=== PATIENT | male | born 1950 | race Caucasian/White ===

== ENCOUNTER → 2017-12-12 10:32 | Outpatient (CLI) | payer MEDICARE, SELFPAY ==
--- NOTE | 2017-12-12 10:37 | ECHOD_ITS ---
Reason For Study: TIA Procedure This was a 2D Doppler, Color Flow transthoracic echocardiogram. Exam performed in department. Left Ventricle Normal size and thickness. The estimated ejection fraction is 65 %. Stage 1 diastolic dysfunction. No regional wall motion abnormalities noted. Right Ventricle Normal size and thickness. Normal systolic function. Atria The left atrium is mildly enlarged. Normal right atrium. Normal atrial septum. Bubble contrast study negative for right to left interatrial shunt. Mitral Valve The mitral valve is structurally normal. No prolapse or stenosis seen. Trivial mitral valve insufficiency. Tricuspid Valve Normal tricuspid valve. Trivial tricuspid valve insufficiency. Right ventricular systolic pressure estimated to be 29 mmHg. Aortic Valve Normal aortic valve. Trisinus/trileaflet aortic valve. Pulmonic Valve Normal pulmonic valve. Great Vessels Normal aortic root. Normal arch. Normal inferior vena cava. Inferior vena cava collapse with sniff. Pericardium/Pleural No pericardial effusion. Medication 22 gauge I.V. with prn adaptor inserted into right arm. Performed a rapid injection of agitated mix of 9 cc saline and 1cc air to assess for atrial septal defect. MMode/2D Measurements & Calculations LVIDd: 4.4 cm IVSd: 1.2 cm Ao root diam: 4.0 cm LVIDs: 3.0 cm LVPWd: 1.2 cm LA dimension: 4.5 cm RVDd: 3.5 cm FS: 31.6 % LAV(MOD-bp): 70.7 ml LA A4 area: 21.5 cm2 RA A4 area: 14.0 cm2 LAV(MOD-bp) Indexed: 32.3 ml/m2 LAV(MOD-sp2): 74.7 ml LAV(MOD-sp4): 66.5 ml Doppler Measurements & Calculations MV E max ned: 72.2 cm/sec Ao V2 max: 146.5 cm/sec LV V1 max: 110.5 cm/sec MV A max ned: 75.9 cm/sec Ao max P.6 mmHg LV V1 max P.9 mmHg MV E/A: 0.95 TR max ned: 242.5 cm/sec TR max P.5 mmHg Interpretation Summary The estimated ejection fraction is 65 %. Stage 1 diastolic dysfunction. Bubble contrast study negative for right to left interatrial shunt. Trivial mitral valve insufficiency. Trivial tricuspid valve insufficiency. Right ventricular systolic pressure estimated to be 29 mmHg. There is no comparison study available. Ordering Physician: KATHRYN KIDD Referring Physician: DOCTOR, OUT OF TOWN Performed By: Geneva Bullard, LYDIA, RVT
== END ==
PROVIDERS: Family Provider Family Medicine; PCP Family Medicine
DX: H34.231 Retinal artery branch occlusion, right eye (principal)
CPT/HCPCS: 93306; A4216

== ENCOUNTER 2018-02-23 09:17 | Emergency (ER) | payer MEDICARE, SELFPAY ==
[2018-02-23 09:18] VITALS: BP 144/119; PULSE 66; RESP 24; TEMP 36.5; O2SAT 94; BMI 31.8
--- NOTE | 2018-02-23 09:36 | CT_ITS ---
STUDY: CT ABDOMEN AND PELVIS WITH CONTRAST REASON FOR EXAM: Male, 67 years old. Pain within the mid low abdomen with history of diverticulitis. RADIATION DOSAGE (If Supplied By Facility): CTDIvol = ( 23 ) mGy, DLP = ( 1330.07 ) mGycm TECHNIQUE: Transaxial images were obtained from the dome of the diaphragm to the symphysis pubis without oral contrast. 100CC ml of Isovue 300 contrast was administered. Sagittal and coronal images were reconstructed. Individualized dose optimization techniques were used for this CT. COMPARISON: 28 September 2014. FINDINGS: The visualized lung bases are unremarkable. The visualized portions of the heart are within normal limits. Normal liver. Normal gallbladder and extrahepatic biliary system. Within the medial anterior aspect of the spleen is a small cyst and rim calcified lesion which is overall similar in appearance to the 2014 exam consistent with benign etiology. Normal pancreas. Normal bilateral adrenal glands. Incidental subcentimeter cyst within the anterior cortex of the kidney is present as well as the posterior cortex similar to 2014 exam. Normal left kidney. Normal visualized stomach. Normal small intestine. There is diverticulosis, with thickening of the sigmoid colon wall, and pericolonic inflammation changes consistent with acute diverticulitis. The appendix is visualized and appears normal. Normal abdominal aorta. Normal inferior vena cava. Normal retroperitoneum. Normal urinary bladder. Prostatic beads are in place. There is a bilateral inguinal hernia containing adipose tissue. Normal osseous structures. CT/Abdomen/Pelvis WITH Contrast IMPRESSION: 1. Findings consistent with sigmoid diverticulitis without evidence of large fluid collection or abscess. Otherwise no evidence of acute intra-abdominal process as above. Electronically Signed: Grupo Matamoros DO at 12:36 EDT , Service support ,
[2018-02-23] MEDS: 0.9% Normal Saline 1,000 ML 125 ML IV (09:51)
[2018-02-23 09:59] LABS: Bacteria 0 SEEN /hpf (None Seen); Mucous, Urine 0 SEEN /hpf (<or=2+); Red Blood Cells-Urine 0 SEEN /hpf (0-5); White Blood Cells 0 SEEN /hpf (0-5)
[2018-02-23 10:01] LABS: Color, Urine Yellow (Yellow); Glucose, Dipstick Normal (Normal); Ketone-Dipstick Negative (Negative); Leukocyte Esterase-Dipstick Negative /ul (Negative); Nitrite-Dipstick Negative (Negative); Occult Blood-Urine Negative /ul (Negative); Protein-Dipstick 15 mg/dl (Negative); Specific Gravity, Urine 1.015 (1.002-1.030); Urine Bilirubin Dipstick Negative (Negative); Urine Clarity Clear (Clear); Urine Urobilinogen Normal (Normal)
[2018-02-23 10:02] LABS: Absolute Neutrophil Count 5.1 X10^3/uL (2.0-7.7); Basophil# 0.06 X10^3/uL; Basophil% 0.8 % (0-1); Eosinophils% 2.7 % (0-5); Hematocrit 45.5 % (40-54); Hemoglobin 15.9 g/dl (13.0-16.5); Lymphocyte % 17.5 % (19-41); Mean Corp Hgb Conc 34.9 g/gl (32-36); Mean Corpuscular Hgb 29.8 pg (27.0-32.0); Mean Corpuscular Volume 85.4 fL (80-94); Mean Platelet Vol. 9.7 fl (6.2-12.0); Monocyte# 0.73 X10^3/uL; Monocyte% 9.8 % (0-10); Neutrophil % 68.5 % (47-70); POSITIVE COUNT NO; POSITIVE DIFFERENTIAL NO; POSITIVE MORPHOLOGY NO; Platelet Count 180 K/mm3 (150-450); RBC Distribution Width CV 13.5 % (11.6-14.6); RBC Distribution Width SD 41.9 fl (35.1-43.9); Red Blood Count 5.33 M/mm3 (4.6-6.2); White Blood Count 7.4 K/mm3 (4.4-11.0)
[2018-02-23 10:10] LABS: Squamous Epithelial Cells - UA 0-5 SEEN /hpf (0-5)
[2018-02-23 10:20] LABS: AST(SGOT) 17 U/L (15-37); Alanine Aminotransfer ALT/SGPT 21 U/L (16-61); Albumin, Serum 3.7 g/dL (3.2-5.0); Alkaline Phosphatase 90 U/L (45-117); Anion Gap 6 (5-15); BUN 12 mg/dL (7-18); Calcium,Total 8.8 mg/dL (8.5-10.1); Chloride 108 mmol/L (98-107); Creatinine, Serum 1.09 mg/dL (0.70-1.30); EST Glomerular Filtration Rate 71 mL/min (>60); Est Glom Filt Rate - Afr Amer 86 mL/min (>60); Estimated Creatinine Clearance 66.97 ml/min; Globulin 3.6 g/dL (2.2-4.2); Glucose 134 mg/dL (74-106); Lipase 458 U/L (73-393); Potassium 4.1 mmol/L (3.5-5.1); Protein, Total 7.3 g/dL (6.4-8.2); Sodium Level 141 mmol/L (136-145)
[2018-02-23 11:56] VITALS: BP 119/79; PULSE 86; RESP 16; O2SAT 100
[2018-02-23] MEDS: Morphine 4 MG/ML Syringe IV (12:08)
[2018-02-23] MEDS: Ondansetron 4 MG/2 ML Vial IV (12:08)
--- NOTE | 2018-02-23 12:49 | ED.DCSUM_ITS ---
- ER Visit Summary Date of Service: 02/23/18 Chief Complaint: Abdominal pain History of Present Illness: The patient is a [address] Agosto and Dr. Damon. He reports that his abdominal pain began 2 days ago. Initially was an intermittent pain lasting 3-4 hours. However, he reports been constant since midnight. Describes pain as cramping. Senna 10 worsening a 10 currently. Is worsened by nothing including movement or food. Is relieved by antibiotics and ibuprofen. He denies any nausea or vomiting. Reports his last bowel was 1 hour ago. He has had no diarrhea no melena, no hematochezia. Reports she has had frequent urination for the past 2 days. No dysuria or hematuria. Reports she has had similar symptoms previously with diverticulitis. Physical Examination: Vitals: Stable. Afebrile. General: Well-nourished and well-developed. Head: Normocephalic atraumatic. Neck: Supple, no lymphadenopathy. No JVD. Nontender. Cardiovascular: Regular rate and rhythm. No murmurs. Respiratory: No respiratory distress. Clear to auscultation bilaterally. Abdominal: Soft, mild diffuse tenderness palpation that is worst over his lower abdomen, nondistended, normal bowel sounds. No guarding, rebound, or peritoneal signs. Back: Nontender. Extremities: Nontender, no edema. Skin: Normal color, no rash. Neurologic: Alert and oriented ?3. Cranial nerves II through XII are intact. Normal strength and sensation. Psych: Normal affect. Test Results: CBC is remarkable for lymphocytes of 18. Chem-7 is more for chloride 108 and glucose of 134. LFTs are normal. Lipase is minimally elevated at 458. UA is normal. CT abdomen pelvis. IV contrast shows a normal appendix. His sigmoid diverticulitis without free air, abscess, or perforation. Emergency Department Course and Treatment: Patient was treated morphine and Zofran IV. He was given Cipro and Flagyl p.o. He is resting comfortably. Treatment Plan: He will be discharged on Cipro, Flagyl, [place], and Zofran. Instructed to follow-up with his primary care physician 1 week for another exam. Return to the emergency department for any worsening symptoms. Disposition: To home in improved and stable condition. Impression: 1. Sigmoid diverticulitis. This note was generated with [employer] dictation software. It may contain incorrect words, spelling, and punctuation that were not noted in review of the chart prior to signing ED Disposition - Plan for ED Patient: Disposition: Home or Assisted Living Chief Complaint: Abd Pain Instructions: ED Diverticulitis Prescriptions: Ondansetron [Zofran Odt] 4 mg PO Q8H PRN PRN #10 tablet PRN Reason: Nausea Hydrocodone/Acetaminophen [[place] 5-325 Tablet] 1 - 2 each PO 4X/DAY PRN PRN 3 Days #12 tablet PRN Reason: Pain Ciprofloxacin [Cipro] 500 mg PO BID #20 tablet Metronidazole [Flagyl] 500 mg PO Q6H #40 tablet Referrals: Akash Agosto MD [Primary Care Provider] - 1 Week
[2018-02-23 12:58] VITALS: BP 134/82; PULSE 85; RESP 16; O2SAT 98
[2018-02-23] MEDS: metroNIDAZOLE 500 MG Tablet PO (12:59)
[2018-02-23] MEDS: Ciprofloxacin 500 MG Tablet PO (12:59)
== END 2018-02-23 13:08 | disposition home or self-care (01) ==
LOC: ED 09:47
PROVIDERS: Emergency Provider Emergency Medicine; Family Provider Family Medicine; PCP Family Medicine
DX: R10.9 Unspecified abdominal pain (principal); K57.32 Diverticulitis of large intestine without perforation or abscess without bleeding; E11.9 Type 2 diabetes mellitus without complications; I10 Essential (primary) hypertension; E78.00 Pure hypercholesterolemia, unspecified; Z79.84 Long term (current) use of oral hypoglycemic drugs; Z79.899 Other long term (current) drug therapy
CPT/HCPCS: 74177; 80053; 81001; 83690; 85025; 96361; 96374; 96375; 99283; Q9967; A4216; J2405

== ENCOUNTER → 2019-04-28 | Outpatient (CLI) | payer MEDICARE, SELFPAY ==
--- NOTE | 2019-04-28 11:58 | CDU_ITS ---
Reason For Study: Carotid stenosis Rt. Velocities/BP Lt. Velocities/BP Prox CCA 65.5/13.5 cm/sec. Prox CCA 81.6/21.2 cm/sec. Mid CCA 64.5/17.3 cm/sec. Mid CCA 54.2/12.4 cm/sec. Dist CCA 50.4/12.6 cm/sec. Dist CCA 54.2/17.9 cm/sec. Prox ICA 87.6/28.6 cm/sec. Prox ICA 80.5/27.8 cm/sec. Mid ICA 72.8/32.3 cm/sec. Mid ICA 77.2/21.2 cm/sec. Dist ICA 82.6/34.8 cm/sec. Dist ICA 60.8/23.4 cm/sec. Rt. ICA/CCA = 1.4. Lt. ICA/CCA = 1.5. Prox ECA 69.2/7.8 cm/sec. Prox ECA 73.9/8 cm/sec. Rt. Vert. 45/13 cm/sec. Lt. Vert. 55.2/15.1 cm/sec. Right Extracranial There is homogeneous, smooth atherosclerotic plaque noted in the right common carotid artery. There is heterogeneous, irregular atherosclerotic plaque noted in the right internal carotid artery. There is no significant atherosclerotic plaque noted in the right external carotid artery. Antegrade flow is noted in the right vertebral artery. Left Extracranial There is homogeneous, smooth atherosclerotic plaque noted in the left common carotid artery. There is heterogeneous, irregular atherosclerotic plaque noted in the left internal carotid artery. There is intimal thickening but no significant atherosclerotic plaque noted in the left external carotid artery. Antegrade flow is noted in the left vertebral artery. Procedure Carotid Duplex [id number]. Exam performed in department. Interpretation Summary Mild (<50%) stenosis right extracranial internal carotid. Mild (<50%) stenosis left extracranial internal carotid. Flow within the vertebral arteries is antegrade bilaterally. Ordering Physician: Akash Agosto Referring Physician: Akash Agosto Performed By: Mariella Gonsalez RVT
== END | disposition home or self-care (01) ==
LOC: CVS 11:57
PROVIDERS: Family Provider Family Medicine; PCP Family Medicine; Referring Provider Family Medicine; Visit Provider Family Medicine
DX: I65.23 Occlusion and stenosis of bilateral carotid arteries (principal)
CPT/HCPCS: 93880

== ENCOUNTER 2019-12-18 07:30 | Emergency (ER) | payer MEDICARE, SELFPAY ==
[2019-12-18 07:31] VITALS: BP 156/98; PULSE 61; RESP 16; TEMP 36.8; O2SAT 97; BMI 31.8
--- NOTE | 2019-12-18 07:42 | CT_ITS ---
STUDY: CT ABDOMEN AND PELVIS WITH CONTRAST REASON FOR EXAM: Male, 69 years old. DIFFUSE ABD -- HX-DIVERTICULITIS, PROSTATE CA W/ SEEDS -- HTN/DIAB-RX CONTROLLED RADIATION DOSAGE (If Supplied By Facility): CTDIvol = ( 18.59 ) mGy, DLP = ( 1328.62 ) mGycm TECHNIQUE: Transaxial images were obtained from the dome of the diaphragm to the symphysis pubis without oral contrast. IV 100mL Isovue-300 was administered. Sagittal and coronal images were reconstructed. Individualized dose optimization techniques were used for this CT. COMPARISON: Comparison is made with prior examination dated February 23, 2018. FINDINGS: The visualized lung bases are unremarkable. Coronary artery calcification. There is decreased attenuation of the liver consistent with steatosis. Normal gallbladder and extrahepatic biliary system. There is a 1.8 cm partially calcified density in the anterior medial aspect of the spleen. This is unchanged. This most likely represents partially calcified cyst versus old hematoma. Normal pancreas. Normal bilateral adrenal glands. There is a 1.7 cm cyst in the anterior midportion of the right kidney. Normal left kidney. Normal visualized stomach. Normal small intestine. There are multiple colonic diverticula consistent with diverticulosis. The appendix is visualized and appears normal. There is diffuse atherosclerotic calcification of the abdominal aorta, without a demonstrated aneurysm. Normal inferior vena cava. Normal retroperitoneum. Normal urinary bladder. Metallic radiation seeds are seen within the prostate. The prostate is not enlarged. There is a small umbilical hernia containing fat. Normal osseous structures. CT/Abdomen/Pelvis W IV Cont ONLY IMPRESSION: Sigmoid Jamal thickening without evidence of diverticulitis. Fatty infiltration of the liver. Small right renal cysts. Electronically Signed: John Sharma, at 9:44 EDT , Service support ,
--- NOTE | 2019-12-18 07:48 | ED.VISSUMM ---
- ER Visit Summary Date of Service: 12/18/19 Chief Complaint: Abdominal pain History of Present Illness: The patient is a 69 M with abdominal pain for 5 days. Pain is diffuse and does not radiate. He had similar symptoms in the past with diverticulitis. He said his symptoms are triggered by food. He tried taking antibiotics for 4 days, but he is not improving. He denies any other associated symptoms like fever, nausea, vomiting, diarrhea. Physical Examination: Afebrile and vital signs unremarkable. Alert and oriented. No acute distress. Heart regular. Lungs clear. Abdomen diffusely and mildly tender. No guarding or rebound. Normal bowel sounds. No masses, hernias, or distention. Test Results: Labs, urine, CT pending. Emergency Department Course and Treatment: IV fluids, pain medicine, nausea medicine ordered while awaiting results. CBC, CMP, lipase, urinalysis, and CT are all unremarkable. There was a typo on the CT report and it was discussed with radiology. He has a diverticulosis without diverticulitis. I do not have an explanation for his pain. His symptoms, vitals, exam, and testing are all reassuring. He may have an early diverticulitis, or it has been mitigated because he has been on antibiotics for a few days already. We talked about diet and he will continue on the Cipro and Flagyl to complete the course. Follow-up with PCP next week. Return for new or worsening issues. Cipro and Flagyl prescriptions were transmitted electronically to his [facility] in [facility]. Treatment Plan: As above Disposition: Discharge Impression: Abdominal pain This note was generated with [employer] dictation software. It may contain incorrect words, spelling, and punctuation that were not noted in review of the chart prior to signing ED Disposition - Plan for ED Patient: Instructions: ABDOMINAL PAIN, Unkown Cause, (Male) Prescriptions: Ciprofloxacin [Cipro] 500 mg PO BID #28 tab Transmission Status: Sent to [facility] metroNIDAZOLE [Flagyl] 500 mg PO Q8H #42 tab Transmission Status: Sent to [facility] Referrals: Akash Agosto MD [Primary Care Provider] -
[2019-12-18] MEDS: Morphine 4 MG/ML Syringe IV (07:55)
[2019-12-18] MEDS: 0.9% Normal Saline 1,000 ML 1000 ML IV (07:55)
[2019-12-18] MEDS: Ondansetron 4 MG/2 ML Vial IV (07:55)
[2019-12-18 07:57] LABS: Bacteria 0 SEEN /hpf (None Seen); Mucous, Urine 0 SEEN /hpf (<or=2+); Red Blood Cells-Urine 0 SEEN /hpf (0-5); Squamous Epithelial Cells - UA 0 SEEN /hpf (0-5); White Blood Cells 0 SEEN /hpf (0-5)
[2019-12-18 07:57] LABS: Absolute Lymphocyte Count 1.45 X10^3/uL (0.83-4.51); Absolute Neutrophil Count 4.9 X10^3/uL (2.0-7.7); Basophil# 0.06 X10^3/uL; Basophil% 0.8 % (0-1); Eosinophil# 0.11 X10^3/uL; Eosinophils% 1.5 % (0-5); Hematocrit 45.7 % (40-54); Hemoglobin 15.7 g/dL (13.0-16.5); Lymphocyte # 1.45 X10^3/ul (4.0); Lymphocyte % 19.5 % (19-41); Mean Corp Hgb Conc 34.4 g/dL (32-36); Mean Corpuscular Hgb 29.8 pg (27.0-32.0); Mean Corpuscular Volume 86.9 fL (80-94); Mean Platelet Vol. 9.2 fl (6.2-12.0); Monocyte# 0.75 X10^3/uL; Monocyte% 10.1 % (0-10); NRBC Flagged by Analyzer 0 % (0-5); Neutrophil # 4.94 X10^3/uL (2.7-7.7); Neutrophil % 66.6 % (47-70); Platelet Count 227 K/mm3 (150-450); RBC Distribution Width CV 12.3 % (11.6-14.6); RBC Distribution Width SD 39.2 fl (35.1-43.9); Red Blood Count 5.26 M/mm3 (4.6-6.2); White Blood Count 7.4 K/mm3 (4.4-11.0)
[2019-12-18 08:08] LABS: Color, Urine Yellow (Yellow); Glucose, Dipstick Normal (Normal); Ketone-Dipstick Negative (Negative); Leukocyte Esterase-Dipstick Negative /ul (Negative); Nitrite-Dipstick Negative (Negative); Occult Blood-Urine Negative /ul (Negative); Protein-Dipstick Negative (Negative); Urine Bilirubin Dipstick Negative (Negative); Urine Clarity Clear (Clear); Urine Urobilinogen Normal (Normal)
[2019-12-18 08:13] LABS: AST(SGOT) 17 U/L (15-37); Alanine Aminotransfer ALT/SGPT 24 U/L (16-61); Albumin, Serum 3.6 g/dL (3.2-5.0); Alkaline Phosphatase 72 U/L (45-117); Anion Gap 5 (5-15); BUN 12 mg/dL (7-18); BUN/Creat Ratio 8.8 RATIO (10-20); Calcium,Total 9.3 mg/dL (8.5-10.1); Chloride 98 mmol/L (98-107); Creatinine, Serum 1.36 mg/dL (0.70-1.30); EST Glomerular Filtration Rate 55 mL/min (>60); Est Glom Filt Rate - Afr Amer 67 mL/min (>60); Estimated Creatinine Clearance 52.19 ml/min; Globulin 3.7 g/dL (2.2-4.2); Glucose 150 mg/dL (74-106); Lipase 329 U/L (73-393); Potassium 3.6 mmol/L (3.5-5.1); Protein, Total 7.3 g/dL (6.4-8.2); Sodium Level 134 mmol/L (136-145)
[2019-12-18 09:39] VITALS: BP 145/95; PULSE 54; RESP 16; O2SAT 96
--- NOTE | 2019-12-18 10:05 | ED.DEP ---
ED Disposition - Plan for ED Patient: Instructions: ABDOMINAL PAIN, Unkown Cause, (Male) Prescriptions: Ciprofloxacin [Cipro] 500 mg PO BID #28 tab Transmission Status: Pending to [facility] metroNIDAZOLE [Flagyl] 500 mg PO Q8H #42 tab Transmission Status: Pending to [facility] Referrals: Akash Agosto MD [Primary Care Provider] -
[2019-12-18 10:22] VITALS: BP 128/83; PULSE 70; RESP 18
== END 2019-12-18 10:26 | disposition home or self-care (01) ==
PROVIDERS: Emergency Provider Emergency Medicine; PCP Family Medicine
DX: R10.84 Generalized abdominal pain (principal); E11.9 Type 2 diabetes mellitus without complications; I10 Essential (primary) hypertension; E78.00 Pure hypercholesterolemia, unspecified; Z85.46 Personal history of malignant neoplasm of prostate; Z79.899 Other long term (current) drug therapy
CPT/HCPCS: 74177; 80053; 81001; 83690; 85025; 96361; 96374; 96375; 99283; J7030; Q9967; A4216; J2405

== ENCOUNTER 2020-08-21 15:29 | Emergency (ER) | payer MEDICARE, SELFPAY ==
[2020-08-21 15:30] VITALS: BP 148/99; PULSE 74; RESP 16; TEMP 36.5; O2SAT 96; BMI 31.2
[2020-08-21 15:33] VITALS: BP 148/99; PULSE 77; RESP 16; TEMP 36.5; O2SAT 96
[2020-08-21 15:51] VITALS: O2SAT 96
--- NOTE | 2020-08-21 15:52 | ED.DCSUM_ITS ---
- ER Visit Summary Date of Service: 08/21/20 Chief Complaint: Myalgias History of Present Illness: The patient is a 69 M presenting with myalgias and not feeling well. He states this started approximately 7 days ago. He had an outpatient Covid test yesterday which is pending. He states his friend tested positive for Covid recently. He complains of cough, nausea, rhinorrhea, chills, myalgias, headache. He states he has not been eating as well as normal but denies vomiting or diarrhea. Denies fever. Denies chest pain or shortness of breath. Denies abdominal pain. He has been taking ibuprofen. Physical Examination: Vitals are stable. Patient is afebrile. Alert no acute distress. Pulse ox 96% on room air. HEENT exam is unremarkable. Neck is supple. No meningismus Lungs are clear and equal bilaterally. Heart is regular rate and rhythm. Abdomen is soft nontender nondistended. Extremities are unremarkable. Skin is warm and dry. No focal neurologic deficit. Remainder of exam is unremarkable. Emergency Department Course and Treatment: Patient was given IV fluids, Zofran. Chemistries show creatinine 1.35, near his baseline. Chest x-ray shows no acute process. After fluids patient is feeling improved. His ambulatory pulse ox is 95% on room air. He is given prescription for Zofran. He is advised to follow- up with his primary care physician. Advised return to the ED for worsening complaints. Advised to continue social distancing until his test results are returned. Disposition: Discharge home Impression: Viral syndrome, suspect Covid This note was generated with [employer] dictation software. It may contain incorrect words, spelling, and punctuation that were not noted in review of the chart prior to signing ED Disposition - Plan for ED Patient: Instructions: ED Viral Syndrome Prescriptions: Ondansetron [Zofran Odt] 4 mg PO Q8H PRN PRN #10 tab PRN Reason: Nausea Prescription Printed Referrals: Akash Agosto MD [Primary Care Provider] -
[2020-08-21 15:55] VITALS: BP 144/89; PULSE 74; RESP 16; TEMP 36.5; O2SAT 97
[2020-08-21] MEDS: Ondansetron 4 MG/2 ML Vial IV (16:00)
[2020-08-21] MEDS: 0.9% Normal Saline 1,000 ML 1000 ML IV (16:00)
--- NOTE | 2020-08-21 16:09 | RAD_ITS ---
STUDY: X-RAY CHEST REASON FOR EXAM: Male, 69 years old. Cough TECHNIQUE: Frontal view of the chest COMPARISON: 10/12/12 FINDINGS: The lungs are clear. There are no pleural effusions. There is no pneumothorax. The heart is normal in size. The visualized osseous structures are within normal limits. RAD/Chest 1 View (Portable) IMPRESSION: No acute thoracic pathology. Electronically Signed: Irwin Pan, at 16:25 EST Tel , Service support ,
[2020-08-21 16:16] LABS: Anion Gap 9 (5-15); BUN 18 mg/dL (7-18); BUN/Creat Ratio 13.3 RATIO (10-20); Calcium,Total 8.7 mg/dL (8.5-10.1); Chloride 100 mmol/L (98-107); Creatinine, Serum 1.35 mg/dL (0.70-1.30); EST Glomerular Filtration Rate 55 mL/min (>60); Est Glom Filt Rate - Afr Amer 67 mL/min (>60); Estimated Creatinine Clearance 52.57 ml/min; Glucose 112 mg/dL (74-106); Potassium 3.8 mmol/L (3.5-5.1); Sodium Level 133 mmol/L (136-145)
--- NOTE | 2020-08-21 16:41 | ED.DEP ---
ED Disposition - Plan for ED Patient: Instructions: ED Viral Syndrome Prescriptions: Ondansetron [Zofran Odt] 4 mg PO Q8H PRN PRN #10 tab PRN Reason: Nausea Prescription Printed Referrals: Akash Agosto MD [Primary Care Provider] -
[2020-08-21 17:01] VITALS: BP 136/78; PULSE 78; RESP 15; O2SAT 98
== END 2020-08-21 17:02 | disposition home or self-care (01) ==
LOC: ED 16:09
PROVIDERS: Emergency Provider Emergency Medicine; PCP Family Medicine
DX: B34.9 Viral infection, unspecified (principal); Z20.828 Contact with and (suspected) exposure to other viral communicable diseases; E11.9 Type 2 diabetes mellitus without complications; I10 Essential (primary) hypertension; Z79.84 Long term (current) use of oral hypoglycemic drugs; Z79.899 Other long term (current) drug therapy
CPT/HCPCS: 71045; 80048; 96361; 96374; 99283; J2405

== ENCOUNTER 2021-04-26 18:03 | Emergency (ER) | payer MEDICARE, SELFPAY ==
[2021-04-26 18:04] VITALS: BP 193/91; PULSE 52; RESP 18; TEMP 36.5; O2SAT 98; BMI 30.7
[2021-04-26 20:12] VITALS: BP 187/111
--- NOTE | 2021-04-26 20:26 | CT_ITS ---
STUDY: CT BRAIN WITHOUT CONTRAST REASON FOR EXAM: Male, 70 years old. Blurry vision, HTN RADIATION DOSAGE (If Supplied By Facility): CTDIvol = ( 44.99 ) mGy, DLP = ( 863.60 ) mGycm TECHNIQUE: Transaxial CT imaging of the brain was performed without administration of intravenous contrast material. Individualized dose optimization techniques were used for this CT. COMPARISON: No relevant priors. FINDINGS: Normal soft tissue structures. Normal calvarium. There is mild cerebral atrophy with widening of the extra-axial spaces and ventricular dilatation. There are areas of decreased attenuation within the white matter tracts of the supratentorial brain, consistent with microvascular disease changes. Focal area of encephalomalacia in the posterior aspect of the right occipital lobe. Normal basal ganglia and thalami. Normal brainstem. Normal cerebellum. There is no intracranial hemorrhage. There are no findings of an acute ischemic infarction. Mucosal polyp or retention cyst at the base of the left maxillary sinus. CT/Brain/Head without Contrast IMPRESSION: Chronic involutional changes of the brain. Focal area of encephalomalacia in the posterior aspect of the right occipital lobe suggestive of old ischemic insult. Electronically Signed: John Sharma MD at 21:24 EDT , Service support ,
--- NOTE | 2021-04-26 20:33 | EX.ED.DYSGE1 ---
HPI History of Present Illness Chief Complaint: Hypertension Informant: patient and spouse/S.O. Narrative Narrative: Patient presents with elevated blood pressure. He states that about a month ago his blood pressure was running low. So he changed his ramipril from 1 dose twice a day to 1 dose once a day. He did then tell his primary physician. He was told to keep track of his blood pressures. They have been running 150-190 systolic. Patient notes that when the blood pressure is little higher his vision just seems of hair fuzzy. He states he has no trouble seeing things he has never had any focal neurologic deficit. He just states that the vision seems just a little bit different than normal. He contacted his private physician who referred him in here for further evaluation at this time. Nothing really makes his symptoms better or worse. [facility] Medical History Diabetes type 2, controlled HTN (hypertension) Home Medications allopurinol 100 mg PO DAILY 12/18/19 [History Last Taken Unknown] atorvastatin 40 mg PO DAILY 12/18/19 [History Last Taken Unknown] chlorthalidone 25 mg PO DAILY 12/18/19 [History Last Taken Unknown] glimepiride 1 mg PO DAILY 12/18/19 [History Last Taken Unknown] metformin 1,000 mg PO BID 12/18/19 [History Last Taken Unknown] pioglitazone 15 mg PO DAILY 12/18/19 [History Last Taken Unknown] ramipril 10 mg PO DAILY 12/18/19 [History Last Taken Unknown] ondansetron 4 mg PO Q8H PRN PRN #10 tab 08/21/20 [Rx Last Taken Unknown] Allergy/AdvReac Type Severity Reaction Status Date / Time No Known Allergies Allergy Verified 04/26/21 18:03 Surgical History History of colon resection Social History Smoking Status: Never smoker ROS ROS ED Constitutional Constitutional ED: Denies chills, fatigue or fever(s) Eyes Eyes: Reports blurry vision ENT ENT ED: Denies abnormal hearing or dizziness Cardiovascular Cardiovascular: Denies chest pain or palpitations Respiratory/Chest Respiratory/Chest: Denies chest congestion, chest tightness, cough or dyspnea Gastrointestinal Gastrointestinal: Denies abdominal pain or diarrhea Genitourinary Genitourinary ED: Denies urinary incontinence Musculoskeletal Musculoskeletal: Denies back pain Neurologic Neurologic: Denies abnormal hearing, confusion, disequilibrium, dizziness, focal weakness, frequent falls, headache(s) or lack of coordination Psychiatric Psychiatric: Reports none Endocrine Endocrinology: Reports none EXAM Physical Exam Const Vital Signs: 04/26/21 18:04 04/26/21 20:12 04/26/21 21:35 Temperature 97.7 F L Temperature Source Temporal Pulse Rate 52 L 46 L Respiratory Rate 18 Respiratory Effort Normal Non-Labored Respiratory Pattern Normal Blood Pressure 193/91 H 187/111 H 191/101 H Blood Pressure Mean 125 136 131 Pulse Ox 98 Oxygen Delivery Method Room Air Positive well nourished, well developed and healthy appearing General Appearance ED: cooperative, well kempt and well developed Orientation / Consciousness: awake, oriented to person, oriented to place and oriented to time HEENT Reports normocephalic, head/scalp atraumatic and moist mucous membranes normocephalic and atraumatic Face and Sinus: normal facial exam; Negative for facial erythema or facial edema Nose: external nose normal; Negative for epistaxis General Ear: No hearing grossly impaired External Ear: external ears normal Mouth ED: Yes lips normal, Yes moist mucous membranes normal and No muffled voice Mouth: lips normal and No muffled voice Throat: posterior oropharynx abnormal Eyes conjunctivae normal and no scleral icterus General Eye ED: Yes normal appearance of both eyes Neck full ROM General: normal visual inspection Chest Wall Chest: symmetrical chest wall rise Resp normal respiratory effort, normal air movement and no use of accessory muscles Effort and Inspection: Negative for audible wheezes Auscultation: Negative for rales, rhonchi or wheezes Cardio regular rate, regular rhythm and no murmurs Peripheral Pulses: pulses 2+ throughout GI normal to inspection, nondistended, normoactive bowel sounds, soft to palpation and non-tender no CVA tenderness Back/Spine normal ROM General Back: Negative for CVA tenderness Cervical Spine: cervical ROM normal Extremity full ROM and no pedal edema Neuro oriented x3 Sensorium / Orientation: awake and alert Psych mental status grossly normal Skin no rashes or lesions noted General Skin Exam: Negative for mottling MDM MDM MDM Narrative Medical decision making narrative: Patient CBC is normal. Electrolytes show minimal hypokalemia. This will be treated. Renal function is normal. CT scan of his head shows chronic but no acute changes. Patient's blood pressure is running about 180 or 190/100. He is asymptomatic. I think he can go back to his prior dose of ramipril. He will follow up with his private physician. He already has an appointment scheduled for the . Lab Data Labs: Laboratory Results - last 24 hr 04/26/21 04/26/21 20:35 20:35 WBC 7.0 RBC 4.63 Hgb 13.8 Hct 40.0 MCV 86.4 MCH 29.8 MCHC 34.5 RDW Std Deviation 39.8 RDW Coeff of Cintia 12.8 Plt Count 203 MPV 8.7 Immature Gran % (Auto) 1.400 H Neut % (Auto) 57.3 Lymph % (Auto) 27.9 [place] % (Auto) 9.9 Eos % (Auto) 2.9 Baso % (Auto) 0.6 Absolute Neuts (auto) 4.0 Absolute Lymphs (auto) 1.94 Nucleated RBC % 0 Sodium 132 L Potassium 3.1 L Chloride 97 L Carbon Dioxide 29.0 Anion Gap 6 BUN 17 Creatinine 1.22 Estim Creat Clear Calc 57.34 Est GFR (MDRD) Af Amer 75 Est GFR (MDRD) Non-Af 62 BUN/Creatinine Ratio 13.9 Glucose 99 Calcium 8.6 Radiography Diagnostic Testing: Radiology Impression Brain CT 04/26/21 20:26 IMPRESSION: Chronic involutional changes of the brain. Focal area of encephalomalacia in the posterior aspect of the right occipital lobe suggestive of old ischemic insult. Electronically Signed: John Sharma MD at 21:24 EDT , Service support , Discharge Plan Triage Chief Complaint: Hypertension ED Provider: Shubham Hardy Dx/Rx/DC Orders Clinical Impression: HTN (hypertension) Instructions: Controlling High Blood Pressure Prescriptions: No Action pioglitazone 15 MG tablet 15 mg PO DAILY RF: 0 atorvastatin 40 MG tablet 40 mg PO DAILY RF: 0 chlorthalidone 25 MG tablet 25 mg PO DAILY RF: 0 allopurinol 100 MG tablet 100 mg PO DAILY RF: 0 glimepiride 1 MG tablet 1 mg PO DAILY RF: 0 metformin 1,000 MG tablet 1,000 mg PO BID RF: 0 ramipril 10 MG capsule 10 mg PO DAILY RF: 0 ondansetron 4 MG tablet 4 mg PO Q8H PRN PRN (Reason: Nausea) Qty: 10 RF: 0 Primary Care Provider: Akash Agosto Referrals: Akash Agosto MD [Primary Care Provider] - 1 Week (Follow-up with your doctor as scheduled in approximately 1 week.) Disposition Disposition: Home, Self Care
[2021-04-26 20:45] LABS: Absolute Lymphocyte Count 1.94 X10^3/uL (0.83-4.51); Basophil# 0.04 X10^3/uL; Basophil% 0.6 % (0-1); Eosinophils% 2.9 % (0-5); Hemoglobin 13.8 g/dL (13.0-16.5); Lymphocyte # 1.94 X10^3/ul (0.83-4.51); Lymphocyte % 27.9 % (19-41); Mean Corp Hgb Conc 34.5 g/dL (32-36); Mean Corpuscular Hgb 29.8 pg (27.0-32.0); Mean Corpuscular Volume 86.4 fL (80-94); Mean Platelet Vol. 8.7 fl (6.2-12.0); Monocyte# 0.69 X10^3/uL; Monocyte% 9.9 % (0-10); NRBC Flagged by Analyzer 0 % (0-5); Neutrophil # 3.98 X10^3/uL (2.7-7.7); Neutrophil % 57.3 % (47-70); Platelet Count 203 K/mm3 (150-450); RBC Distribution Width CV 12.8 % (11.6-14.6); RBC Distribution Width SD 39.8 fl (35.1-43.9); Red Blood Count 4.63 M/mm3 (4.6-6.2)
[2021-04-26 21:00] LABS: Anion Gap 6 (5-15); BUN 17 mg/dL (7-18); BUN/Creat Ratio 13.9 RATIO (10-20); Calcium,Total 8.6 mg/dL (8.5-10.1); Chloride 97 mmol/L (98-107); Creatinine, Serum 1.22 mg/dL (0.70-1.30); EST Glomerular Filtration Rate 62 mL/min (>60); Est Glom Filt Rate - Afr Amer 75 mL/min (>60); Estimated Creatinine Clearance 57.34 ml/min; Glucose 99 mg/dL (74-106); Potassium 3.1 mmol/L (3.5-5.1); Sodium Level 132 mmol/L (136-145)
[2021-04-26 21:35] VITALS: BP 191/101; PULSE 46
[2021-04-26 23:00] VITALS: BP 189/71; PULSE 56; RESP 16; O2SAT 97
== END 2021-04-26 23:01 | disposition home or self-care (01) ==
PROVIDERS: Emergency Provider Emergency Medicine; PCP Family Medicine
DX: I10 Essential (primary) hypertension (principal); E87.6 Hypokalemia; E11.9 Type 2 diabetes mellitus without complications; Z79.84 Long term (current) use of oral hypoglycemic drugs; Z79.899 Other long term (current) drug therapy
CPT/HCPCS: 70450; 80048; 85025; 99283

== ENCOUNTER 2021-10-02 09:27 | Inpatient (IN) | payer MEDICARE, SELFPAY ==
[2021-10-02] VITALS (14 sets, daily range): BP systolic 102–145; BP diastolic 68–92; PULSE 55–73; RESP 6–18; TEMP 36.4–37.2; O2SAT 95–98; BMI 29.9; BMI 29.2
[2021-10-02 10:14] LABS: Absolute Lymphocyte Count 0.95 X10^3/uL (0.83-4.51); Absolute Neutrophil Count 4.1 X10^3/uL (2.0-7.7); Basophil# 0.05 X10^3/uL; Basophil% 0.8 % (0-1); Eosinophil# 0.17 X10^3/uL; Eosinophils% 2.8 % (0-5); Hematocrit 43.1 % (40-54); Hemoglobin 15.5 g/dL (13.0-16.5); Lymphocyte # 0.95 X10^3/ul (0.83-4.51); Lymphocyte % 15.8 % (19-41); Mean Corpuscular Hgb 29.6 pg (27.0-32.0); Mean Corpuscular Volume 82.4 fL (80-94); Mean Platelet Vol. 9.1 fl (6.2-12.0); Monocyte# 0.54 X10^3/uL; NRBC Flagged by Analyzer 0 % (0-5); Neutrophil # 4.14 X10^3/uL (2.7-7.7); Neutrophil % 68.9 % (47-70); Platelet Count 233 K/mm3 (150-450); RBC Distribution Width SD 36.4 fl (35.1-43.9); Red Blood Count 5.23 M/mm3 (4.6-6.2)
--- NOTE | 2021-10-02 10:15 | EKG12_ITS ---
Test Reason : WEAKNESS Blood Pressure : / mmHG Vent. 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
--- NOTE | 2021-10-02 10:15 | RAD_ITS ---
STUDY: X-RAY CHEST REASON FOR EXAM: Male, 71 years old. Neuro deficit, acute, stroke suspected TECHNIQUE: Single AP portable view of the chest. COMPARISON: 08/21/2020 FINDINGS: The lungs are clear and expanded. There is no demonstrated pleural abnormality. Normal size heart. Normal mediastinum and elidia. Normal visualized pulmonary arteries. Normal visualized aortic arch and descending thoracic aorta. Normal visualized thoracic spine. Normal visualized ribs, clavicles, and shoulders. There is no demonstrated abnormality of the visualized soft tissue structures of the upper abdomen. RAD/Chest 1 View IMPRESSION: Normal x-ray examination of the chest. Electronically Signed: Maurilio Rawls MD at 11:11 EST Tel , Service support ,
--- NOTE | 2021-10-02 10:15 | CT_ITS ---
We are attempting to reach an attending provider to discuss findings. An addendum with communication details will be sent when the communication is complete. EXAM: CT HEAD WITHOUT INTRAVENOUS CONTRAST CLINICAL INDICATION: Neuro deficit, acute, stroke suspected TECHNIQUE: Multiple axial images were obtained of the head without intravenous contrast. This CT exam was performed using one or more of the following dose reduction techniques: automated exposure control, adjustment of the mA and/or kV according to patient size, and/or use of iterative reconstruction technique. This report was created using [employer] technology. COMPARISON: None. FINDINGS: BRAIN AND EXTRA-AXIAL SPACES: Hypodensity in the white matter of both cerebral hemispheres are chronic white matter ischemic changes. 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 No intra- or extra-axial hemorrhage. No intracranial mass or mass effect. Posterior fossa structures are unremarkable. No hydrocephalus. Basal cisterns are patent. BONES/JOINTS: Unremarkable. No discrete lytic or blastic abnormalities. SINUSES: Unremarkable as visualized. Clear. MASTOID AIR CELLS: Unremarkable. Clear. ORBITS: Visualized globes, extraocular muscles, optic nerves and retrobulbar fat appear unremarkable. CT/STROKE Brain/Head without Cont IMPRESSION: 1. No CT evidence of intracranial bleeding, acute ischemic infarct or acute intracranial abnormality at this time. 2. 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 3. Chronic white matter ischemic changes in both cerebral hemispheres. Electronically Signed: Prateek Jones MD at 10:44 EST , Service support ,
--- NOTE | 2021-10-02 10:17 | EX.ED.DYSGE1 ---
HPI History of Present Illness Chief Complaint: Weakness Informant: patient Narrative Narrative: Patient presents with approximately a week of increased weakness over his baseline. He normally uses a rolling walker. The last week he has had trouble doing this. He came in today because he cannot get up out of bed or out of the couch. He cannot walk and bear weight. He states when he puts weight on his left leg it does not respond to him as well as normal. His left arm is also weaker than normal. He has had strokes before that have affected the side but it is still a clear worsening of his weakness. Again, this started about 1 week ago. He does not have headache. He denies fall or injury. He denies any fevers or chills. He takes aspirin daily for his strokes. No other anticoagulation. [facility] Medical History Diabetes type 2, controlled HTN (hypertension) Home Medications allopurinol 100 mg PO DAILY 12/18/19 [History Last Taken Unknown] atorvastatin 40 mg PO DAILY 12/18/19 [History Last Taken Unknown] chlorthalidone 25 mg PO DAILY 12/18/19 [History Last Taken Unknown] glimepiride 1 mg PO DAILY 12/18/19 [History Last Taken Unknown] metformin 1,000 mg PO BID 12/18/19 [History Last Taken Unknown] pioglitazone 15 mg PO DAILY 12/18/19 [History Last Taken Unknown] ramipril 10 mg PO DAILY 12/18/19 [History Last Taken Unknown] Allergy/AdvReac Type Severity Reaction Status Date / Time No Known Allergies Allergy Verified 10/02/21 09:27 Surgical History History of colon resection Social History Smoking Status: Never smoker ROS ROS ED Constitutional Constitutional ED: Denies chills or fever(s) Eyes Eyes: Denies blurry vision ENT ENT ED: Denies rhinorrhea or sore throat Cardiovascular Cardiovascular: Denies chest pain or palpitations Respiratory/Chest Respiratory/Chest: Denies cough or dyspnea Gastrointestinal Gastrointestinal: Denies diarrhea, nausea or vomiting Genitourinary Genitourinary ED: Denies dysuria Musculoskeletal Musculoskeletal: Denies myalgias Integumentary Denies rash Neurologic Neurologic: Reports paresthesias and weakness; Denies headache(s) Endocrine Endocrinology: Denies polydipsia or polyuria Allergic/Immunologic Allergic/Immunologic ED: Denies mouth swelling or urticaria EXAM Physical Exam Const Vital Signs: 10/02/21 09:27 10/02/21 09:32 10/02/21 10:00 Temperature 98.9 F Temperature Source Oral Pulse Rate 65 65 Respiratory Rate 16 16 Respiratory Effort Normal Respiratory Pattern Normal Blood Pressure 116/74 123/83 H Blood Pressure Mean 88 96 Pulse Ox 97 95 Oxygen Delivery Method Room Air Room Air 10/02/21 11:00 10/02/21 12:00 10/02/21 13:00 Temperature Temperature Source Pulse Rate 55 L 62 68 Respiratory Rate 6 L 14 15 Respiratory Effort Respiratory Pattern Blood Pressure 102/68 145/84 H 138/78 H Blood Pressure Mean 79 104 98 Pulse Ox 96 98 97 Oxygen Delivery Method Room Air Room Air Room Air Positive well nourished and well developed General Appearance ED: well developed and NAD; Negative for cyanotic or diaphoretic HEENT Negative for trauma Neck no JVD Chest Wall inspection of chest normal Resp normal respiratory effort and clear to auscultation bilaterally Auscultation: Negative for rales, rhonchi or wheezes Cardio regular rate GI normal to inspection, nondistended, normoactive bowel sounds and non-tender Palpation: soft Back/Spine no CVA tenderness Extremity normal to inspection General Extremety ED: Negative for edema or tenderness General Extremity: Negative for edema Neuro oriented x3 Neuro Narrative: Patient has a flat affect. But he is alert oriented and appropriate. He has clear relative weakness of his left versus right side. An NIH stroke score he can hold his left side up for 5 seconds though. Left drops before that time but does not hit the bed. See NIH stroke scale. He states that this degree of weakness on his left side is more than normal. It is preventing him from being able to walk even with his rolling walker. Although he has weakness on his left leg, his NIH stroke scale is a 1 for measurable left arm weakness. His sensation does seem to be intact. Sensorium / Orientation: alert Motor Exam: strength abnormal; Negative for strength 5/5 throughout Psych mental status grossly normal Skin no rashes or lesions noted and no wounds MDM MDM MDM Narrative Medical decision making narrative: Patient has normal white count and hemoglobin. Electrolytes show minimal decrease of sodium potassium that I do not think explains all his symptoms. Coags are normal. CT scan did not show any acute infarct. Patient symptoms are that of left-sided weakness primarily. He is denying fevers chills. He is too weak to walk so we cannot get him home. I discussed case with the hospitalist. We will also add Covid studies and urinalysis as we do not have a firm diagnosis supported by CAT scan as to why he is weak. Lab Data Attestation: I reviewed the patient's lab results. Labs: Laboratory Results - last 24 hr 10/02/21 10/02/21 10/02/21 09:41 09:41 09:41 WBC 6.0 Cancelled Corrected WBC Cancelled RBC 5.23 Cancelled Hgb 15.5 Cancelled Hct 43.1 Cancelled MCV 82.4 Cancelled MCH 29.6 Cancelled MCHC 36.0 Cancelled RDW Std Deviation 36.4 Cancelled RDW Coeff of Cintia 12.0 Cancelled Plt Count 233 Cancelled MPV 9.1 Cancelled Immature Gran % (Auto) 2.700 H Cancelled Neut % (Auto) 68.9 Cancelled Lymph % (Auto) 15.8 L Cancelled Nicholas % (Auto) 9.0 Cancelled Eos % (Auto) 2.8 Cancelled Baso % (Auto) 0.8 Cancelled Absolute Neuts (auto) 4.1 Cancelled Absolute Lymphs (auto) 0.95 Cancelled Total Counted Cancelled Neutrophils % (Manual) Cancelled Band Neutrophils % Cancelled Lymphocytes % (Manual) Cancelled Monocytes % (Manual) Cancelled Eosinophils % (Manual) Cancelled Basophils % (Manual) Cancelled Metamyelocytes % Cancelled Myelocytes % Cancelled Promyelocytes % Cancelled Blast Cells % Cancelled Plasma Cell % (Manual) Cancelled Other Cells % Cancelled Nucleated RBC % 0 Cancelled Nucleated RBCs/100 WBC Cancelled Differential Comment Cancelled Diff Path Review Cancelled Hypersegmented Neuts Cancelled Atypical Lymphocytes Cancelled Reactive Lymphocytes Cancelled Smudge Cells Cancelled Toxic Granulation Cancelled Toxic Vacuolation Cancelled Dohle Bodies Cancelled Shyanne Rods Cancelled Platelet Estimate Cancelled Plt Morphology Comment Cancelled RBC Morphology Cancelled Polychromasia Cancelled Hypochromasia Cancelled Poikilocytosis Cancelled Basophilic Stippling Cancelled Anisocytosis Cancelled Microcytosis Cancelled Macrocytosis Cancelled Spherocytes Cancelled Sickle Cells Cancelled Target Cells Cancelled Tear Drop Cells Cancelled Ovalocytes Cancelled Stomatocytes Cancelled Colbert-Calcium Bodies Cancelled [place] Cells Cancelled Bite Cells Cancelled Crenated Cell Cancelled Acanthocytes (Spur) Cancelled Rouleaux Cancelled Schistocytes Cancelled PT INR APTT Sodium 128 L Potassium 3.4 L Chloride 91 L Carbon Dioxide 28.0 Anion Gap 9 BUN 16 Creatinine 1.18 Estim Creat Clear Calc 58.43 Est GFR (MDRD) Af Amer 78 Est GFR (MDRD) Non-Af 65 BUN/Creatinine Ratio 13.6 Glucose 156 H Calcium 9.0 Troponin I High Sens 10/02/21 10/02/21 09:41 09:41 WBC Corrected WBC RBC Hgb Hct MCV MCH MCHC RDW Std Deviation RDW Coeff of Cintia Plt Count MPV Immature Gran % (Auto) Neut % (Auto) Lymph % (Auto) Nicholas % (Auto) Eos % (Auto) Baso % (Auto) Absolute Neuts (auto) Absolute Lymphs (auto) Total Counted Neutrophils % (Manual) Band Neutrophils % Lymphocytes % (Manual) Monocytes % (Manual) Eosinophils % (Manual) Basophils % (Manual) Metamyelocytes % Myelocytes % Promyelocytes % Blast Cells % Plasma Cell % (Manual) Other Cells % Nucleated RBC % Nucleated RBCs/100 WBC Differential Comment Diff Path Review Hypersegmented Neuts Atypical Lymphocytes Reactive Lymphocytes Smudge Cells Toxic Granulation Toxic Vacuolation Dohle Bodies Shyanne Rods Platelet Estimate Plt Morphology Comment RBC Morphology Polychromasia Hypochromasia Poikilocytosis Basophilic Stippling Anisocytosis Microcytosis Macrocytosis Spherocytes Sickle Cells Target Cells Tear Drop Cells Ovalocytes Stomatocytes Colbert-Calcium Bodies [place] Cells Bite Cells Crenated Cell Acanthocytes (Spur) Rouleaux Schistocytes PT 13.0 INR 1.0 APTT 27.9 Sodium Cancelled Potassium Cancelled Chloride Cancelled Carbon Dioxide Cancelled Anion Gap Cancelled BUN Cancelled Creatinine Cancelled Estim Creat Clear Calc Est GFR (MDRD) Af Amer Cancelled Est GFR (MDRD) Non-Af Cancelled BUN/Creatinine Ratio Cancelled Glucose Cancelled Calcium Cancelled Troponin I High Sens 9 Radiography Diagnostic Testing: Clinical Impression(s) from Imaging Studies Brain CT 10/02/21 10:15 IMPRESSION: 1. No CT evidence of intracranial bleeding, acute ischemic infarct or acute intracranial abnormality at this time. 2. 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 3. Chronic white matter ischemic changes in both cerebral hemispheres. Electronically Signed: Prateek Jones MD at 10:44 EST , Service support , ADDENDUM: 10/02/21 1052 IMPRESSION: 1. No CT evidence of intracranial bleeding, acute ischemic infarct or acute intracranial abnormality at this time. 2. 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 3. Chronic white matter ischemic changes in both cerebral hemispheres. N.B. : The above Results were Read Back by Prateek Jones MD to XIAO HARDY MD, and understanding confirmed on 10/02/2021 10:45:18 (ET). Electronically Signed: Prateek Jones MD at 10:44 EST , Service support , Chest X-Ray 10/02/21 10:15 IMPRESSION: Normal x-ray examination of the chest. Electronically Signed: Maurilio Rawls MD at 11:11 EST Tel , Service support , EKG Initial EKG: Comments: Get an EKG done for generalized weakness and dysrhythmia evaluation. EKG read by me shows sinus rhythm with mildly bradycardic rate at 59. He does have first-degree AV block. No acute ST elevation or depression. He does have some nonspecific changes. PA interval is long. QRS duration and QTc normal. Discharge Plan Dx/Rx/DC Orders Clinical Impression: Left-sided muscle weakness, Inability to ambulate due to multiple joints Disposition Disposition: Acute Care [facility]
[2021-10-02 10:19] LABS: Anion Gap 9 (5-15); BUN 16 mg/dL (7-18); BUN/Creat Ratio 13.6 RATIO (10-20); Chloride 91 mmol/L (98-107); Creatinine, Serum 1.18 mg/dL (0.70-1.30); EST Glomerular Filtration Rate 65 mL/min (>60); Est Glom Filt Rate - Afr Amer 78 mL/min (>60); Estimated Creatinine Clearance 58.43 ml/min; Glucose 156 mg/dL (74-106); Potassium 3.4 mmol/L (3.5-5.1); Sodium Level 128 mmol/L (136-145)
[2021-10-02 10:38] LABS: Partial Thromboplast Time 27.9 Seconds (24.1-36.2)
[2021-10-02 10:54] LABS: Troponin-I HS 9 pg/mL (3.0-78.0)
--- NOTE | 2021-10-02 13:13 | PCM.HP.STD ---
HPI - General General Date of Admission: 10/02/21 Date of Service: 10/02/21 Chief Complaint: Generalized weakness. HPI Narrative The patient is a 71 y/o M w/ PMHx: Hx prior CVA w/ L sided hemiplegia, HTN, HLD, Diabetes mellitus type II, Obesity, Hx Prostate CA who presents to the [facility] ED on 10/02/21 with history of onset of one week of worsening weakness above baseline, generalized, normally uses a rolling walker but has even been having difficulty using his walker with L>R lower and upper extremity weakness worse than right and difficulty using. He notes he feels as though this is above his baseline L sided weakness. NIHSS in the ED 1 for his LUE but again he has some baseline L sided chronic hemiplegia. He notes inability to even get out of bed secondary to generalized weakness. He lives at home with his . Patient denies any recent dysuria or increased urinary frequency. Patient denies any recent fevers or chills. Patient has been vaccinated against COVID with [employer] but has not received a booster. Work-up in the ED included T 98.9, heart rate 65, BP 116/74, respiratory rate 16, 97% on room air, CBC with WBC 6, hemoglobin 15.5, platelet 233 with increased immature granulocytes, unremarkable coags, BMP with sodium 128, potassium 3.4, chloride 91, BUN/creatinine 16/1.18, glucose 156, high-sensitivity cardiac troponin 9, chest x-ray with no acute cardiopulmonary findings, CT brain with no acute intracranial bleeding, ischemic infarct or intracranial abnormality, evidence of a small old cortical gyral ischemic infarct in the right occipital lobe and chronic white matter ischemic changes in both cerebral hemispheres, EKG with SR without acute evidence of ischemia with 1 AVB. Pending UA, UCx. Pending COVID PCR. [facility] Medical History (Updated 10/02/21 @ 14:[address] Maddi Arenas MD) DM2 (diabetes mellitus, type 2) Gout HLD (hyperlipidemia) HTN (hypertension) Inability to ambulate due to multiple joints Left-sided muscle weakness Prostate cancer Home Medications allopurinol 100 mg PO DAILY 12/18/19 [History Last Taken Unknown] atorvastatin 40 mg PO DAILY 12/18/19 [History Last Taken Unknown] chlorthalidone 25 mg PO DAILY 12/18/19 [History Last Taken Unknown] glimepiride 1 mg PO DAILY 12/18/19 [History Last Taken Unknown] metformin 1,000 mg PO BID 12/18/19 [History Last Taken Unknown] pioglitazone 15 mg PO DAILY 12/18/19 [History Last Taken Unknown] ramipril 10 mg PO DAILY 12/18/19 [History Last Taken Unknown] Allergy/AdvReac Type Severity Reaction Status Date / Time No Known Allergies Allergy Verified 10/02/21 09:27 Family History (Updated 10/02/21 @ 14:[address] Maddi Arenas MD) Mother CVA (cerebral vascular accident) Several recurrent strokes, eventually passed age 84. other (Patient does not know any paternal family history, reports did not know his father.) Surgical History (Updated 10/02/21 @ 14:[address] Maddi Arenas MD) History of colon resection S/P foot surgery, right S/P shoulder surgery S/P tonsillectomy and adenoidectomy Social History (Updated 10/02/21 @ 14:[address] Maddi Arenas MD) household members: spouse Smoking Status: Former smoker how long ago did patient quit smoking: Smoked age [age], 1 ppd until quit. Does have 2nd hand exposure from . alcohol intake: current alcohol intake frequency: holidays/special occasions only substance use type: does not use ROS ROS Narrative Admission Review of Systems: CONSTITUTIONAL: No weight loss, fever, chills, + weakness or fatigue. HEENT: Eyes: No visual loss, blurred vision, double vision or yellow sclerae. Ears, Nose, Throat: No hearing loss, sneezing, congestion, runny nose or sore throat. SKIN: No rash or itching, lesions, wounds. CARDIOVASCULAR: No chest pain, chest pressure or chest discomfort, palpitations, edema, orthopnea, syncopal events. RESPIRATORY: No shortness of breath, cough or sputum, wheezing, hemoptysis. GASTROINTESTINAL: No anorexia, nausea, vomiting or diarrhea, abdominal pain, melena, BRBPR. GENITOURINARY: No dysuria, frequency, urgency or retention. NEUROLOGICAL: + Acute on chronic left-sided hemiplegia. No headache, dizziness, syncope, numbness or tingling in the extremities, change in bowel or bladder control, seizure. MUSCULOSKELETAL: No muscle, back pain, joint pain or stiffness. HEMATOLOGIC: + anemia, bleeding or bruising. LYMPHATICS: No enlarged nodes. No history of splenectomy. PSYCHIATRIC: No history of depression or anxiety. ENDOCRINOLOGIC: No reports of sweating, cold or heat intolerance. No polyuria or polydipsia. ALLERGIES: No history of asthma, hives, eczema or rhinitis. Vital Signs Vital Signs Vital Signs: 10/02/21 09:27 10/02/21 09:32 10/02/21 10:00 Temperature 98.9 F Temperature Source Oral Pulse Rate 65 65 Respiratory Rate 16 16 Respiratory Effort Normal Respiratory Pattern Normal Blood Pressure 116/74 123/83 H Blood Pressure Mean 88 96 Pulse Ox 97 95 Oxygen Delivery Method Room Air Room Air 10/02/21 11:00 10/02/21 12:00 10/02/21 13:00 Temperature Temperature Source Pulse Rate 55 L 62 68 Respiratory Rate 6 L 14 15 Respiratory Effort Respiratory Pattern Blood Pressure 102/68 145/84 H 138/78 H Blood Pressure Mean 79 104 98 Pulse Ox 96 98 97 Oxygen Delivery Method Room Air Room Air Room Air Weight Weight: 209 lb 3.499 oz Body Mass Index (BMI) 29.9 Physical Exam Narrative Physical Examination: General: Awake, alert, oriented x 3 and cooperative, seated upright in the ED bed in no apparent distress. Skin: Normal color, normal turgor, no icterus, no cyanosis except for occasional staged ecchymoses. HEENT: AT/NC, EOMI, PERRLA, mildly dry MM, no carotid bruits or JVD noted. Lungs: Mildly diminished, greater bases, appropriate effort, no rales, ronchi or wheezing. Heart: Regular rate and rhythm; no gallop, rub audible. Abdomen: Soft, obese, NTTP, ND, normal BS, no HSM. Extremities: No cyanosis, clubbing, or edema. Some mild left-sided contracture secondary to left-sided hemiplegia, worse left upper extremity. Neurological: Patient awake, alert, oriented as noted, cognitive function appears baseline intact; pupils equally reactive to light and accommodation, cranial nerves II-XII grossly normal, moving all 4 extremities however patient does have chronic left-sided hemiplegia, left upper extremity worse, 1 NIHSS for LUE, denies any alteration to prior sensation/paresthesias, does have difficulty even sitting up in bed secondary to generalized weakness, with encouragement can keep up his arm and reports that he just feels very fatigued, strength moderately to severely globally decreased. , no focal deficits, strength preserved. Psychiatric: Affect appears flat, fatigued, no acute evidence of depressive or anxiety feelings. Results Lab / Micro Data Result Diagrams: 10/02/21 09:41 10/02/21 09:41 Labs: Laboratory Results - last 24 hr 10/02/21 09:41: WBC 6.0, RBC 5.23, Hgb 15.5, Hct 43.1, MCV 82.4, MCH 29.6, MCHC 36.0, RDW Std Deviation 36.4, RDW Coeff of Cintia 12.0, Plt Count 233, MPV 9.1, Immature Gran % (Auto) 2.700 H, Neut % (Auto) 68.9, Lymph % (Auto) 15.8 L, Hoke % (Auto) 9.0, Eos % (Auto) 2.8, Baso % (Auto) 0.8, Absolute Neuts (auto) 4.1, Absolute Lymphs (auto) 0.95, Nucleated RBC % 0 10/02/21 09:41: Sodium 128 L, Potassium 3.4 L, Chloride 91 L, Carbon Dioxide 28.0, Anion Gap 9, BUN 16, Creatinine 1.18, Estim Creat Clear Calc 58.43, Est GFR (MDRD) Af Amer 78, Est GFR (MDRD) Non-Af 65, BUN/Creatinine Ratio 13.6, Glucose 156 H, Calcium 9.0 10/02/21 09:41: WBC Cancelled, Corrected WBC Cancelled, RBC Cancelled, Hgb Cancelled, Hct Cancelled, MCV Cancelled, MCH Cancelled, MCHC Cancelled, RDW Std Deviation Cancelled, RDW Coeff of Cintia Cancelled, Plt Count Cancelled, MPV Cancelled, Immature Gran % (Auto) Cancelled, Neut % (Auto) Cancelled, Lymph % (Auto) Cancelled, Hoke % (Auto) Cancelled, Eos % (Auto) Cancelled, Baso % (Auto) Cancelled, Absolute Neuts (auto) Cancelled, Absolute Lymphs (auto) Cancelled, Total Counted Cancelled, Neutrophils % (Manual) Cancelled, Band Neutrophils % Cancelled, Lymphocytes % (Manual) Cancelled, Monocytes % (Manual) Cancelled, Eosinophils % (Manual) Cancelled, Basophils % (Manual) Cancelled, Metamyelocytes % Cancelled, Myelocytes % Cancelled, Promyelocytes % Cancelled, Blast Cells % Cancelled, Plasma Cell % (Manual) Cancelled, Other Cells % Cancelled, Nucleated RBC % Cancelled, Nucleated RBCs/100 WBC Cancelled, Differential Comment Cancelled, Diff Path Review Cancelled, Hypersegmented Neuts Cancelled, Atypical Lymphocytes Cancelled, Reactive Lymphocytes Cancelled, Smudge Cells Cancelled, Toxic Granulation Cancelled, Toxic Vacuolation Cancelled, Dohle Bodies Cancelled, Shyanne Rods Cancelled, Platelet Estimate Cancelled, Plt Morphology Comment Cancelled, RBC Morphology Cancelled, Polychromasia Cancelled, Hypochromasia Cancelled, Poikilocytosis Cancelled, Basophilic Stippling Cancelled, Anisocytosis Cancelled, Microcytosis Cancelled, Macrocytosis Cancelled, Spherocytes Cancelled, Sickle Cells Cancelled, Target Cells Cancelled, Tear Drop Cells Cancelled, Ovalocytes Cancelled, Stomatocytes Cancelled, Colbert-Meridian Bodies Cancelled, Severance Cells Cancelled, Bite Cells Cancelled, Crenated Cell Cancelled, Acanthocytes (Spur) Cancelled, Rouleaux Cancelled, Schistocytes Cancelled 10/02/21 09:41: PT 13.0, INR 1.0, APTT 27.9 10/02/21 09:41: Sodium Cancelled, Potassium Cancelled, Chloride Cancelled, Carbon Dioxide Cancelled, Anion Gap Cancelled, BUN Cancelled, Creatinine Cancelled, Est GFR (MDRD) Af Amer Cancelled, Est GFR (MDRD) Non-Af Cancelled, BUN/Creatinine Ratio Cancelled, Glucose Cancelled, Calcium Cancelled, Troponin I High Sens [address] 10/02/21 10:15 IMPRESSION: 1. No CT evidence of intracranial bleeding, acute ischemic infarct or acute intracranial abnormality at this time. 2. 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 3. Chronic white matter ischemic changes in both cerebral hemispheres. Electronically Signed: Prateek Jones MD at 10:44 EST , Service support , ADDENDUM: 10/02/21 1052 IMPRESSION: 1. No CT evidence of intracranial bleeding, acute ischemic infarct or acute intracranial abnormality at this time. 2. 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 3. Chronic white matter ischemic changes in both cerebral hemispheres. N.B. : The above Results were Read Back by Prateek Jones MD to XIAO DUFFY MD, and understanding confirmed on 10/02/2021 10:45:18 (ET). Electronically Signed: Prateek Jones MD at 10:44 EST , Service support , Chest X-Ray 10/02/21 10:15 IMPRESSION: Normal x-ray examination of the chest. Electronically Signed: Maurilio Rawls MD at 11:11 EST Tel , Service support , Assessment & Plan Assessment/Plan (1) Generalized weakness: PLAN: The patient is a 71 y/o M w/ PMHx: Hx prior CVA w/ L sided hemiplegia, HTN, HLD, Diabetes mellitus type II, Obesity, Hx Prostate CA who presents to the [facility] ED on 10/02/21 with history of onset of one week of worsening weakness above baseline, generalized, normally uses a rolling walker but has even been having difficulty using his walker with L>R lower and upper extremity weakness worse than right and difficulty using. #1. Acute on Chronic L sided Hemiplegia, Generalized weakness, concerning for Questionable Recurrent CVA: Given timeline of at least 1 week would certainly expect findings on CT head however there is only chronic old prior evidence of stroke. Per discussion with ED physician UA, U CX and Covid are pending upon evaluation. Will admit to PCU, will obtain MRI Brain, MRA Head and carotid ultrasound, ECHO, PT/OT/Speech/Nutrition evaluation per protocol. Given timeline will continue hypertensive regimen with adjustments as noted, maintain on asa/add plavix, statin w/ AM FLP, fall precautions. Magnesium, TSH, hemoglobin A1c requested. #2. Acute on Chronic Mild Hyponatremia, suspected hypovolemic: Admission sodium 128, chloride 91, baseline prior appears primarily 132-134, will judiciously hydrate and repeat CMP in AM. #3. Hypokalemia: Admission K+ 3.4, magnesium level requested, supplementation given, repeat level in AM. #4. Diabetes mellitus type II: Hold oral home regimen, ADA diet, accu checks w/ ISS, hemoglobin A1c requested as noted, nutrition consulted. #5. Hypertension: Continue home regimen including ramipril, temporarily holding chlorthalidone given mild hyponatremia as noted, add back once appropriate, PRN hydralazine. #6. Hyperlipidemia: Continue home statin regimen. #7. Obesity: Weight loss and lifestyle changes encouraged. #8. Gout: We will continue patient home allopurinol regimen. #9. Hyperlipidemia: Continue home statin regimen. #10. DVT prophylaxis: SCDs, Lovenox. #11. CODE status: Patient JOLIE is his daughter Rossy and living will is he notes currently in place. Discussed CODE status at length including difference between FULL code, DNR-CCA and DNR-CC status. Following discussions about the differences in these status, requested Full Code status. Did discuss at length need to review these items with Rossy as he did admit that they have never discussed any of these items despite her position as healthcare power of sports attorney. Advanced Care Planning Face to Face Time: 16 minutes. Charges/Coding Visit Charges OBSV E&M: 62068 Initial observation care L3 Procedures Hospitalists Procedures: 63616 Advncd Care Plan 30 Min
--- NOTE | 2021-10-02 14:38 | ECHOD_ITS ---
Reason For Study: CVA Procedure This was a 2D Doppler, Color Flow transthoracic echocardiogram. Previous NEGATIVE bubble study. Exam performed portable in patient room. Left Ventricle Normal LV size. Moderate concentric left ventricular hypertrophy. Left ventricular systolic function is normal. The estimated ejection fraction is 60 %. Stage 1 diastolic dysfunction. No regional wall motion abnormalities noted. Right Ventricle Normal RV size. Normal systolic function. Atria Normal left atrium. Normal right atrium. Mitral Valve Normal mitral valve. Tricuspid Valve Normal tricuspid valve. Aortic Valve Trisinus/trileaflet aortic valve. Mild focal aortic valve calcification. Pulmonic Valve Normal pulmonic valve. Great Vessels Normal aortic root. The pulmonary artery is normal size. Normal inferior vena cava. Pericardium/Pleural No pericardial effusion. MMode/2D Measurements & Calculations LVIDd: 5.1 cm IVSd: 1.4 cm LA dimension: 3.8 cm LVIDs: 2.9 cm LVPWd: 1.4 cm FS: 42.7 % LAV(MOD-bp): 50.6 ml LA A4 area: 16.4 cm2 RA A4 area: 15.6 cm2 LAV(MOD-bp) Indexed: 23.6 ml/m2 LAV(MOD-sp2): 49.4 ml LAV(MOD-sp4): 46.5 ml Time Measurements MV dec time: 0.33 sec Doppler Measurements & Calculations MV E max mihir: 68.7 cm/sec Lat Peak E' Mihir: 8.8 cm/sec Med Peak E' Mihir: 6.4 cm/sec MV A max mihir: 91.7 cm/sec E/E' lat: 7.8 E/E' med: 10.8 MV E/A: 0.75 MV V2 max: 98.2 cm/sec MV P1/2t max mihir: 62.6 cm/sec Ao V2 max: 136.8 cm/sec MV max P.9 mmHg MV P1/2t: 135.4 msec Ao max P.5 mmHg MV V2 mean: 50.7 cm/sec MV dec slope: 135.5 cm/sec2 MV mean P.2 mmHg MVA(P1/2t): 1.6 cm2 MV V2 VTI: 28.5 cm LV V1 max: 115.1 cm/sec PA V2 max: 147.3 cm/sec LV V1 max P.3 mmHg ECHO/Echo Complete Interpretation Summary Normal LV size. Left ventricular systolic function is normal. The estimated ejection fraction is 60 %. Stage 1 diastolic dysfunction. Moderate concentric left ventricular hypertrophy. Ordering Physician: Maddi Arenas Referring Physician: Akash Agosto Performed By: Jesus Robin RCS
--- NOTE | 2021-10-02 14:38 | MRI_ITS ---
STUDY: MRA OF THE HEAD WITHOUT CONTRAST REASON FOR EXAM: Male, 71 years old. CVA, left weakness TECHNIQUE: 3-D [id number] (TOF) imaging was performed with MIPs. The study was performed unenhanced. COMPARISON: None. FINDINGS: Markedly decreased signal throughout the distal right internal carotid artery, right anterior cerebral artery and right middle cerebral artery worrisome for carotid bifurcation severe stenosis or occlusion. Normal left cavernous carotid artery with a normal supraclinoid bifurcation. Normal right A1 segments of the anterior cerebral artery. Normal left A1 segments of the anterior cerebral artery. Normal intact anterior communicating artery (ACOM). Normal bilateral A2 segments of the anterior cerebral arteries. Normal right M1 and M2 segments of the middle cerebral arteries, with a normal M1 bifurcation. Normal left M1 and M2 segments of the middle cerebral arteries, with a normal M1 bifurcation. There is a persistent origin of the right posterior cerebral artery with absence of the P1 segment of the right posterior cerebral artery. There is a persistent origin of the left posterior cerebral artery with absence of the P1 segment of the left posterior cerebral artery. Normal bilateral vertebral arteries. Normal basilar artery with a normal basilar bifurcation. The visualized bilateral superior cerebellar (SCA) arteries are normal. Normal bilateral P1, P2 and visualized P3 segments of the posterior cerebral arteries. There is no demonstrated aneurysm of the [place] of [place]. There is no major vessel occlusion or hemodynamically significant stenosis. There is no demonstrated abnormality of the visualized brain. MRI/MRA Head ONLY without Contrast IMPRESSION: Suspect severe stenosis or occlusion of the right carotid bifurcation with diffusely decreased signal throughout the right internal carotid artery, right anterior cerebral artery and middle cerebral artery. Correlation with MRA or CTA of the neck would be useful. Electronically Signed: Maurilio Rawls MD at 8:45 EST Tel , Service support ,
--- NOTE | 2021-10-02 14:38 | MRI_ITS ---
STUDY: MRI BRAIN WITHOUT CONTRAST REASON FOR EXAM: Male, 71 years old. CVA, left weakness TECHNIQUE: Standardized multiplanar fat and water weighted pulse sequences were obtained. COMPARISON: CT earlier today FINDINGS: There is moderate cerebral atrophy with widening of the extra-axial spaces and ventricular dilatation. There are multiple white matter hyperintensities, distributed throughout the deep white matter tracts of the cerebral hemispheres, consistent with moderate chronic white matter ischemic changes. There are multiple punctate hyperintensities of the medial right parietal lobe which demonstrate restricted diffusion consistent with acute embolic infarcts. Normal T2* images of the brain without demonstrated susceptibility artifact. There is no demonstrated hemosiderin stain. Normal bilateral basal ganglia. Normal thalami. There is no extra-axial fluid accumulation. Normal flow voids within the major intracranial circulation suggesting patency by spin echo criteria. Normal sella turcica, pituitary gland, infundibular stalk, optic chiasm and hypothalamus. Normal tectal plate and pineal gland. Normal midbrain, wayne and medulla. Normal cerebellum. Normal basal cisterns. Normal bilateral temporal bones. Normal bilateral internal auditory canals. There are bilateral ocular lens implants with otherwise normal intraorbital contents. Air-fluid level in the left maxillary sinus consistent with acute sinusitis. Normal calvarium and skull base. Normal visualized soft tissue structures. Normal visualized upper cervical spine. MRI/Brain without Contrast IMPRESSION: Involutional changes of the brain, as described above. Acute embolic infarcts of the right parietal lobe.. Electronically Signed: Maurilio Rawls MD at 17:00 EST Tel , Service support ,
--- NOTE | 2021-10-02 14:38 | CDU_ITS ---
Reason For Study: CVA Rt. Velocities/BP Lt. Velocities/BP Prox CCA 58.6/10.2 cm/sec. Prox CCA 67.7/15 cm/sec. Mid CCA 47.6/12.4 cm/sec. Mid CCA 64.4/15 cm/sec. Dist CCA 45.6/14.5 cm/sec. Dist CCA 48/15 cm/sec. Prox ICA 546/351.4 cm/sec. Prox ICA 123.6/48.7 cm/sec. Mid ICA 128.6/32.8 cm/sec. Mid ICA 88/22.9 cm/sec. Dist ICA 29.9/13.8 cm/sec. Dist ICA 86.8/32.7 cm/sec. Rt. ICA/CCA = 11.47. Lt. ICA/CCA = 1.92. Prox ECA 67.4/14.5 cm/sec. Prox ECA 75.5/11.7 cm/sec. Rt. Vert. 46.9/12 cm/sec. Lt. Vert. 45/15.7 cm/sec. Right Extracranial There is homogeneous, smooth atherosclerotic plaque noted in the right common carotid artery. There is heterogeneous, irregular atherosclerotic plaque noted in the right internal carotid artery. There is intimal thickening but no significant atherosclerotic plaque noted in the right external carotid artery. Antegrade flow is noted in the right vertebral artery. Left Extracranial There is homogeneous, smooth atherosclerotic plaque noted in the left common carotid artery. There is heterogeneous, irregular atherosclerotic plaque noted in the left internal carotid artery. There is intimal thickening but no significant atherosclerotic plaque noted in the left external carotid artery. Antegrade flow is noted in the left vertebral artery. Procedure Carotid Duplex 54608. This is a Carotid Duplex examination using B-mode, color flow and specral Doppler. Preliminary report to Oralia ADHIKARI. Exam performed portable in patient room. VL/Carotid Duplex Ultrasound Interpretation Summary Irregular plaque at the proximal right internal carotid artery with greater gabriela n 70% stenosis. By velocity high-grade critical stenosis is identified. Less than 50% stenosis right external carotid artery Soft heterogenous plaque at the proximal left internal carotid artery with abso lute velocity criteria less than 50% stenosis but very much consistent with close to that lev el. Less than 50% stenosis left external carotid artery Patent and antegrade vertebral arteries bilaterally Ordering Physician: Maddi Arenas Referring Physician: Akash Agosto Performed By: Mariella Gonsalez RVT
[2021-10-02 15:31] LABS: Magnesium 1.7 mg/dL (1.6-2.6); Troponin-I HS 11 pg/mL (3.0-78.0)
--- NOTE | 2021-10-02 15:39 | PCS.PANDOC ---
PANDEMIC DOCUMENTATION INITIATED: Date: 05/22/2021 Time: 190
[2021-10-02] MEDS: 0.9% Normal Saline 1,000 ML 100 ML IV (17:28)
[2021-10-02] MEDS: Potassium Chloride Oral Tablet 20 MEQ 40 MEQ PO (17:32)
[2021-10-02] MEDS: Clopidogrel Bisulfate 75 MG Tablet PO (17:33)
--- NOTE | 2021-10-02 17:34 | NURSING ---
Medications and assessment late d/t pt off floor at MRI
[2021-10-02 17:51] LABS: Bedside Glucose 129 mg/dL (70-110)
--- NOTE | 2021-10-02 18:13 | TELEMED_ITS ---
[facility] Tele[facility] has confirmed receipt of a request for visit. This document confirms receipt of the order initiating the consult. To find the results of the consultation, please view the patient's reports for the scanned Telemed Consult.
[2021-10-02] MEDS: Acetaminophen 325 MG Tablet 650 MG PO ×2 (18:50→23:46)
[2021-10-02] MEDS: Atorvastatin Calcium 40 MG Tablet PO (20:55)
[2021-10-02] MEDS: Menthol/Lanolin/Calamine/Znox 113 GM Tube 1 APPLIC TOPICAL (20:55)
[2021-10-02 21:25] LABS: Bedside Glucose 139 mg/dL (70-110)
[2021-10-03] VITALS (10 sets, daily range): BP systolic 133–151; BP diastolic 68–91; PULSE 51–77; RESP 16–18; TEMP 36.4–36.7; O2SAT 92–100; BMI 29.2
[2021-10-03] MEDS: 0.9% Normal Saline 1,000 ML 100 ML IV (03:02)
[2021-10-03 06:40] LABS: Bedside Glucose 134 mg/dL (70-110)
[2021-10-03 08:04] LABS: Absolute Lymphocyte Count 1.18 X10^3/uL (0.83-4.51); Absolute Neutrophil Count 2.7 X10^3/uL (2.0-7.7); Basophil# 0.05 X10^3/uL; Eosinophil# 0.29 X10^3/uL; Eosinophils% 5.9 % (0-5); Hematocrit 41.5 % (40-54); Hemoglobin 14.6 g/dL (13.0-16.5); Lymphocyte # 1.18 X10^3/ul (0.83-4.51); Lymphocyte % 23.9 % (19-41); Mean Corp Hgb Conc 35.2 g/dL (32-36); Mean Corpuscular Hgb 29.6 pg (27.0-32.0); Monocyte# 0.54 X10^3/uL; NRBC Flagged by Analyzer 0 % (0-5); Neutrophil # 2.74 X10^3/uL (2.7-7.7); Neutrophil % 55.6 % (47-70); Platelet Count 208 K/mm3 (150-450); RBC Distribution Width SD 36.5 fl (35.1-43.9); Red Blood Count 4.94 M/mm3 (4.6-6.2); White Blood Count 4.9 K/mm3 (4.4-11.0)
[2021-10-03 08:24] LABS: Hemoglobin A1c 6.7 % (3.8-5.6)
[2021-10-03 08:47] LABS: ALB/GLOB Ratio 1.1 RATIO (0.9-2.4); AST(SGOT) 20 U/L (15-37); Alanine Aminotransfer ALT/SGPT 30 U/L (16-61); Albumin, Serum 3.3 g/dL (3.2-5.0); Alkaline Phosphatase 56 U/L (45-117); Anion Gap 7 (5-15); BUN 15 mg/dL (7-18); BUN/Creat Ratio 14.4 RATIO (10-20); Calcium,Total 8.5 mg/dL (8.5-10.1); Chloride 97 mmol/L (98-107); Cholesterol 145 mg/dL (200); Creatinine, Serum 1.04 mg/dL (0.70-1.30); EST Glomerular Filtration Rate 75 mL/min (>60); Est Glom Filt Rate - Afr Amer 90 mL/min (>60); Estimated Creatinine Clearance 66.29 ml/min; Globulin 2.9 g/dL (2.2-4.2); Glucose 150 mg/dL (74-106); High Density Lipoprotein 46 mg/dL; Potassium 3.5 mmol/L (3.5-5.1); Protein, Total 6.2 g/dL (6.4-8.2); Sodium Level 131 mmol/L (136-145); Triglycerides 120 mg/dL; Very Low Density Lipoprotein 24 mg/dL (5-40)
[2021-10-03] MEDS: Menthol/Lanolin/Calamine/Znox 113 GM Tube 1 APPLIC TOPICAL (09:20)
[2021-10-03] MEDS: Aspirin 81 MG TAB.CHEW PO (09:20)
[2021-10-03] MEDS: Allopurinol 100 MG Tablet PO (09:20)
[2021-10-03] MEDS: Clopidogrel Bisulfate 75 MG Tablet PO (09:20)
[2021-10-03] MEDS: Ramipril 10 MG Capsule PO (09:20)
[2021-10-03] MEDS: Enoxaparin 40 MG/0.4 ML Syringe SC (09:20)
--- NOTE | 2021-10-03 11:00 | CASEMGMT ---
Face to Face with patient for initial transition planning/care coordination assessment. Patient sitting up in bed in no apparent distress. at bedside. CCM introduced self and role at [facility]. Care providers, pharmacy, and demographics verified. PCP: Akash Agosto Specialists: None Preferred Pharmacy: [facility] Insurance: [facility] Medicare Prescription Benefit: yes Living Will/HPOA: Patient has living will. HPOA is Rossy Quevedo, daughter. Patient made aware these forms are not on file at [facility] and may be brought in to be scanned into record. LNOK: , Jayla Doshi Living Arrangements: Patient lives with in one story house with 3 steps to enter with railing. Patient states independent with ADLs prior to hospitalization. Patient states he has trouble getting out of bed, requesting aide service to assist. Patient informed aide service available as long as skilled services are provided in home. Patient considering short-term rehab stay and will inform staff of decision following therapy evaluations. Transportation: DME/HHC: Patient has rollator and shower chair at home. Denies previous HHC or SNF stays. Plan: to be determined pending therapy evals
[2021-10-03] MEDS: Insulin Lispro 100 UNIT/ML INSULN.PEN SC (11:29)
[2021-10-03 11:31] LABS: Bedside Glucose 151 mg/dL (70-110)
--- NOTE | 2021-10-03 12:14 | CASEMGMT ---
According to the [facility] website, the following are in-network tertiary facilities: [facility], [place], [facility], [facility], [facility], and . Festus ADHIKARI CM
--- NOTE | 2021-10-03 13:00 | CASEMGMT ---
Addendum entered by Dara Duarte 10/03/21 15:32: Social Work SW spoke with therapist who states pt ambulated 200ft CGA and transferred out of bed at [facility]. SW met with pt and and discussed discharge plan. Pt is understanding that SNF is not needed at this time. Pt is concerned as pt has had falls at home. SW discussed home health options and pt and are agreeable with return home with home health. No preference on company used. RNCM updated. DELIA Mendoza Original Note: Social Work SW met with pt and completed PHQ9 screen. Pt score of 14/27 indicating moderate depression. SW spoke with pt and regarding mood and depression. Pt denies suicide ideation and denies feeling depressed. SW discussed counseling services and discussing depression with PCP. Pt and deny desire for medication to address depression. List of counselors given to pt. While in room SW spoke with pt and regarding discharge plan. Pt stating that he doesn't think he can get out of bed. SW discussed possible SNF placement and pt and are agreeable if pt is not able to care for himself. List of SNF's provided including quality and resource use data and consistent with the patient's preferred geographic region, medical needs and insurance network. PT/OT to see pt but have not yet seen. SW will speak to pt once therapy has seen. DELIA Mendoza
--- NOTE | 2021-10-03 14:52 | CASEMGMT ---
Addendum entered by Mariella De La Torre 10/03/21 15:17: Call back from Nancy at [facility] and they are unable to accept pt at this time. Referral faxed to [facility] as pt has SumM and call to Horacio to notify of referral. CM to follow. Festus ADHIKARI CM Original Note: Per therapy, pt walked 200ft CGA and per Dara SW, pt/ would like [facility] set up and state no preference for [facility] company. Order placed for SN, PT/OT, SW, aide and call to [facility] to notify of referral. ONOFRE VAIL awaiting word on acceptance from [facility]. Festus ADHIKARI CM
--- NOTE | 2021-10-03 14:55 | CT_ITS ---
STUDY: CTA NECK WITH CONTRAST REASON FOR EXAM: Male, 71 years old. right carotid stenosis RADIATION DOSAGE (If Supplied By Facility): CTDIvol = ( 17.63 ) mGy, DLP = ( 573.24 ) mGycm TECHNIQUE: CT angiography with multi-detector data acquisition was performed from the aortic arch to the skull base following intravenous administration of IV 100mL Isovue-370. MIP images were reconstructed from the axial data set. Post-processing of the angiographic images was performed, with multiplanar reformation and 3D reconstruction. Individualized dose optimization techniques were used for this CT. COMPARISON: None. FINDINGS: AORTIC ARCH: Normal visualized aortic arch. Normal origins of the brachiocephalic, left common carotid, and left subclavian arteries. RIGHT CAROTID ARTERIES: Mild multifocal calcific plaquing of the right common carotid artery (CCA). Moderate calcific and soft plaquing of the right common carotid bulb. Severe calcific plaquing of the origin of the right internal carotid (ICA) artery creating hemodynamically significant greater than 75% stenosis. Normal visualized cervical portion of the right internal carotid artery. Normal origin of the right external carotid artery (ECA). LEFT CAROTID ARTERIES: Normal left common carotid artery (CCA). Mild soft and calcific plaquing of the left common carotid bulb. Normal origin of the left internal carotid (ICA) artery without a hemodynamically significant stenosis. Normal visualized cervical portion of the left internal carotid artery. Normal origin of the left external carotid artery (ECA). VERTEBRAL ARTERIES: Normal bilateral vertebral arteries. CT/CTA Neck W/WO Contrast IMPRESSION: Moderate to severe atherosclerotic disease worse on the right with hemodynamically significant stenosis of the origin of the right internal carotid utilizing NASCET criteria Electronically Signed: Handy Madison MD at 16:58 EST , Service support ,
--- NOTE | 2021-10-03 15:40 | CASEMGMT ---
Addendum entered by Mariella De La Torre 10/03/21 15:17: Call back from Nancy at [facility] and they are unable to accept pt at this time. Referral faxed to [facility] as pt has SumM and call to Horacio to notify of referral. Per Horacio, they can accept pt at this time. Festus ADHIKARI CM Original Note: Per therapy, pt walked 200ft CGA and per Dara RAMÍREZ, pt/ would like [facility] set up and state no preference for [facility] company. Order placed for PT and call to [facility] to notify of referral. ONOFRE VAIL awaiting word on acceptance from [facility]. Festus ADHIKARI CM
--- NOTE | 2021-10-03 16:30 | PCM.DC ---
Discharge Instructions Diet Discharge Diet: 1800 Calorie Control Diet Activity Discharge Activity: Return to Normal Activity (use walker) Weight Bearing Status: Weight bearing as tolerated (with walker) Follow Up Care Test Results: Test results from this visit will be discussed in further detail at your follow-up appointment, if applicable. Discharge Plan Admission Admit Date/Time: 10/03/21 08:27 Primary Reason for Your Visit: acute stroke Attending Provider: Angel Saldana Primary Care Provider: Akash Agosto Instructions Additional Instructions / Restrictions: Follow up with physical therapy Discharge Orders/Prescriptions Prescriptions: New aspirin 81 mg Tablet,Chewable 81 mg PO BREAKFAST Qty: 1 RF: 0 clopidogrel 75 mg Tablet 75 mg PO DAILY Qty: 30 RF: 0 atorvastatin 40 mg tablet 80 mg PO DAILY Qty: 60 RF: 0 Continued pioglitazone 15 MG tablet 15 mg PO DAILY RF: 0 chlorthalidone 25 MG tablet 25 mg PO DAILY RF: 0 allopurinol 100 MG tablet 100 mg PO DAILY RF: 0 glimepiride 1 MG tablet 1 mg PO DAILY RF: 0 metformin 1,000 MG tablet 1,000 mg PO BID RF: 0 ramipril 10 MG capsule 10 mg PO DAILY RF: 0 Changed atorvastatin 40 MG tablet 80 mg PO DAILY Qty: 60 RF: 0 Referrals / Follow Up: Lam Payton MD [STAFF PHYSICIAN] - 10/11/21 8:45 am Akash Agosto MD [Primary Care Provider] - Within 2 Weeks Disposition Disposition (needs filled in before D/C Order can be placed): Home Health Service
[2021-10-03 16:45] LABS: Bedside Glucose 118 mg/dL (70-110)
--- NOTE | 2021-10-03 16:47 | DS.PCM_ITS ---
Providers Date of Admission: 10/03/21 Date of Discharge: 10/03/21 Primary Care Physician: Dr. Akash Agosto MD Reason For Visit: WEAKNESS/?TIA Diagnosis Discharge Diagnosis (1) Generalized weakness: Status: Acute Code(s): R53.1 - Weakness Plan: 1. Acute embolic strokes right hemisphere #2 severe carotid occlusive disease right-sided #3 type 2 diabetes #4 hyperlipidemia Medications at Discharge Home Medications allopurinol 100 mg PO DAILY 12/18/19 chlorthalidone 25 mg PO DAILY 12/18/19 glimepiride 1 mg PO DAILY 12/18/19 metformin 1,000 mg PO BID 12/18/19 pioglitazone 15 mg PO DAILY 12/18/19 ramipril 10 mg PO DAILY 12/18/19 aspirin 81 mg PO BREAKFAST #1 tab 10/03/21 atorvastatin 80 mg PO DAILY #60 tab 10/03/21 atorvastatin 80 mg PO DAILY #60 tab 10/03/21 clopidogrel 75 mg PO DAILY #30 tab 10/03/21 Hospital Course Operations None Procedures 2-D Echocardiogram Summary of Care Provided Minutes Spent on Discharge: 31 Hospital Course: This 71-year-old male was seen in the emergency room at [facility] with chief complaint of increased left-sided weakness, work- up in the emergency room did not show an acute stroke, there was noted to be an old right occipital lobe stroke. Patient's NIH score was 1. Lab in the emerge ncy room showed a slightly low potassium, patient's glucose was 156. Patient was admitted to PCU, he underwent an MRI which showed multiple small strokes in the right cerebral hemisphere, he was seen in consultation by teleneurology who recommended aspirin and Plavix. Patient had a carotid ultrasound performed which showed severe carotid stenosis on the right, I talked with vascular surgery by phone and they examined the images ([facility] physician) and he did not feel it was emergent that the patient have surgical intervention, he recommended that the patient follow-up with a vascular surgeon a week after discharge. This was arranged for the patient. Patient was seen by PT and OT. Echocardiogram was unremarkable. On 10/03/2021, patient was seen and examined: On examination he appeared in good health and spirits. Vital signs as documented. Skin warm and dry and without overt rashes. Neck without JVD, neck was supple, trachea midline, thyroid was normal. Lungs clear bilaterally, normal air movement was noted. Heart exam notable for regular rhythm, normal sounds and absence of murmurs, rubs or gallops. Abdomen unremarkable and without evidence of organomegaly, masses, or abdominal aortic enlargement. Bowel sounds are present, abdomen is not distended. Extremities nonedematous, no cyanosis was noted, no clubbing was noted. Neuro: Cranial nerves II through XII are grossly intact, no focal motor deficits were noted, sensation to light touch and pinprick intact, motor exam 5 /5 throughout. Psych: Patient is alert and oriented x3, he does not appear anxious or depressed, he does not appear agitated. Patient was discharged home in stable condition on 10/03/2021. Medical Records Data Medical Nutrition Assessment Dietitian: Malnutrition Criteria Met Start: 10/02/21 15:43 Freq: Status: Active Protocol: Document 10/02/21 15:44 RMA (Rec: 10/02/21 15:44 RMA [id number]) Nutrition Malnutrition Evidence of Malnutrition Exists Yes Malnutrition (severe): Acute Illness/Injury Evidenced By Suboptimal Energy Intake ( Severe),Weight Loss (Severe) Clinical Problem Chronic Disease or Condition Related Malnutrition Etiology Severe protein-calorie malnutrition in the context of acute illness related to inadequate oral intake/poor appetite due to ongoing weakness Signs/Symptoms as evidenced by wt loss~3% x past 7-10 days, poor appetite/ intake meeting less than 50% estimated nutrition needs Status Active Problem Recommendation Dietitian Recommendations/Changes Will adjust diet to 2000 calorie; consistent carbohydrate; cardiac. Will add 120ml glucerna shake TID w/ meals; d/c as intake improves. Weight / BMI Weight Weight: 93.5 kg Body Mass Index (BMI) 29.2 ABG / Lab / Microbiology Data Result Diagrams: 10/03/21 07:33 10/03/21 07:33 Laboratory: Laboratory Results - last 24 hr 10/02/21 17:30: POC Glucose 129 H 10/02/21 20:53: POC Glucose 139 H 10/03/21 06:23: POC Glucose 134 H 10/03/21 07:33: WBC 4.9, RBC 4.94, Hgb 14.6, Hct 41.5, MCV 84.0, MCH 29.6, MCHC 35.2, RDW Std Deviation 36.5, RDW Coeff of [place] 12.0, Plt Count 208, MPV 9.0, Imm ature Gran % (Auto) 2.600 H, Neut % (Auto) 55.6, Lymph % (Auto) 23.9, [place] % (Auto) 11.0 H, Eos % (Auto) 5.9 H, Baso % (Auto) 1.0, Absolute Neuts (auto) 2.7, Absolute Lymphs (auto) 1.18, Nucleated RBC % 0 10/03/21 07:33: Sodium 131 L, Potassium 3.5, Chloride 97 L, Carbon Dioxide 27.0, Anion Gap 7, BUN 15, Creatinine 1.04, Estim Creat Clear Calc 66.29, Est GFR (MDRD) Af Amer 90, Est GFR (MDRD) Non-Af 75, BUN/Creatinine Ratio 14.4, Glucose 150 H, Calcium 8.5, Total Bilirubin 0.90, AST 20, ALT 30, Alkaline Phosphatase 56, Total Protein 6.2 L, Albumin 3.3, Globulin 2.9, Albumin/Globulin Ratio 1.1, Triglycerides 120, Cholesterol 145, LDL Cholesterol 75, VLDL Cholesterol 24, HDL Cholesterol 46, TSH 2.80 10/03/21 07:33: Hemoglobin A1c 6.7 H 10/03/21 11:21: POC Glucose 151 H 10/03/21 16:38: POC Glucose 118 H Radiography Diagnostic Testing: Radiology Impression Brain MRI 10/02/21 14:38 IMPRESSION: Involutional changes of the brain, as described above. Acute embolic infarcts of the right parietal lobe.. Electronically Signed: Maurilio Rawls MD at 17:00 EST Tel , Service support , ADDENDUM: 10/03/21 0759 IMPRESSION: Involutional changes of the brain, as described above. Acute embolic infarcts of the right parietal lobe.. Electronically Signed: Maurilio Rawls MD at 17:00 EST Tel , Service support , Carotid Duplex 10/02/21 14:38 Interpretation Summary Irregular plaque at the proximal right internal carotid artery with greater than 70% stenosis. By velocity high-grade critical stenosis is identified. Less than 50% stenosis right external carotid artery Soft heterogenous plaque at the proximal left internal carotid artery with abs olute velocity criteria less than 50% stenosis but very much consistent with close to that level. Less than 50% stenosis left external carotid artery Patent and antegrade vertebral arteries bilaterally Ordering Physician: Maddi Arenas Referring Physician: Akash Agosto Performed By: Mariella Gonsalez Marybel Echocardiogram 10/02/21 14:38 Interpretation Summary Normal LV size. Left ventricular systolic function is normal. The estimated ejection fraction is 60 %. Stage 1 diastolic dysfunction. Moderate concentric left ventricular hypertrophy. Ordering Physician: Maddi Arenas Referring Physician: Akash Agosto Performed By: Jesus Robin RCS Head MRA 10/02/21 14:38 IMPRESSION: Suspect severe stenosis or occlusion of the right carotid bifurcation with diffusely decreased signal throughout the right internal carotid artery, right anterior cerebral artery and middle cerebral artery. Correlation with MRA or CTA of the neck would be useful. Electronically Signed: Maurilio Rawls MD at 8:45 EST Tel , Service support , ADDENDUM: 10/03/21 1042 IMPRESSION: Suspect severe stenosis or occlusion of the right carotid bifurcation with diffusely decreased signal throughout the right internal carotid artery, right anterior cerebral artery and middle cerebral artery. Correlation with MRA or CTA of the neck would be useful. Electronically Signed: Maurilio Rawls MD at 8:45 EST Tel , Service support , D/C Instructions Discharge Diet: 1800 Calorie Control Diet Weight Bearing Status: Weight bearing as tolerated (with walker) Meaningful Use Info Meaningful Use Diagnoses (Choose all that apply): Ischemic CVA CVA Therapy Assessed for PT,OT and/or ST?: Yes Ischemic Stroke Antithrombotic order at d/c?: Yes Dx of Atrial fib/flutter?: No Reason anticoagulant not ordered: Treatment not Indicated Statins at discharge?: Yes Primary Dx Acute Ischemic CVA?: Yes IV tPA ordered during stay?: No Reason IV t-PA not ordered: Treatment not Indicated Discharge Plan Admission Admit Date/Time: 10/03/21 08:27 Primary Reason for Your Visit: acute stroke Attending Provider: Angel Saldana Primary Care Provider: Akash Agosto Instructions Additional Instructions / Restrictions: Follow up with physical therapy Discharge Orders/Prescriptions Prescriptions: New aspirin 81 mg Tablet,Chewable 81 mg PO BREAKFAST Qty: 1 RF: 0 clopidogrel 75 mg Tablet 75 mg PO DAILY Qty: 30 RF: 0 atorvastatin 40 mg tablet 80 mg PO DAILY Qty: 60 RF: 0 Continued pioglitazone 15 MG tablet 15 mg PO DAILY RF: 0 chlorthalidone 25 MG tablet 25 mg PO DAILY RF: 0 allopurinol 100 MG tablet 100 mg PO DAILY RF: 0 glimepiride 1 MG tablet 1 mg PO DAILY RF: 0 metformin 1,000 MG tablet 1,000 mg PO BID RF: 0 ramipril 10 MG capsule 10 mg PO DAILY RF: 0 Changed atorvastatin 40 MG tablet 80 mg PO DAILY Qty: 60 RF: 0 Referrals / Follow Up: Lam Payton MD [STAFF PHYSICIAN] - 10/11/21 8:45 am Akash Agosto MD [Primary Care Provider] - Within 2 Weeks Disposition Disposition (needs filled in before D/C Order can be placed): Home Health Service Charges/Coding Visit Charges Inpatient E&M: 14546 Disch Hosp
--- NOTE | 2021-10-04 09:26 | CASEMGMT ---
D/C summ/instructions faxed to [facility]. Festus ADHIKARI CM
== END 2021-10-03 18:09 | disposition home health service (06) | DRG 65 ==
LOC: ED 13:25 → PCU 13:34
PROVIDERS: Admitting Provider Family Medicine; Emergency Provider Emergency Medicine; PCP Family Medicine; Visit Provider Internal Medicine
DX: I63.411 Cerebral infarction due to embolism of right middle cerebral artery (principal); I69.354 Hemiplegia and hemiparesis following cerebral infarction affecting left non-dominant side; E87.1 Hypo-osmolality and hyponatremia; I63.431 Cerebral infarction due to embolism of right posterior cerebral artery; E11.9 Type 2 diabetes mellitus without complications; E78.5 Hyperlipidemia, unspecified; R29.701 NIHSS score 1; I10 Essential (primary) hypertension; E66.9 Obesity, unspecified; M10.9 Gout, unspecified; Z79.899 Other long term (current) drug therapy; Z79.84 Long term (current) use of oral hypoglycemic drugs; Z87.891 Personal history of nicotine dependence; Z68.29 Body mass index [BMI] 29.0-29.9, adult; E87.6 Hypokalemia
CPT/HCPCS: 36415; 70450; 70498; 70544; 70551; 71045; 80048; 80053; 80061; 82962; 83036; 83735; 84443; 84484; 85025; 85610; 85730; 87635; 92610; 93005; 93306; 93880; 94762; 97162; 97166; 99285; J7030; Q9957; Q9967; U0005; A4216; U0003

== ENCOUNTER 2021-10-11 09:18 | Inpatient (IN) | payer MEDICARE, SELFPAY ==
[2021-10-11] VITALS (8 sets, daily range): BP systolic 114–129; BP diastolic 74–87; PULSE 52–64; RESP 13–18; TEMP 36.4–36.9; O2SAT 95–100; BMI 26.9; BMI 28.8
--- NOTE | 2021-10-11 09:27 | EKG12_ITS ---
Test Reason : WEAKNESS Blood Pressure : / mmHG Vent. Rate : 059 BPM Atrial Rate : 059 BPM P-R Int : 218 ms QRS Dur : 104 ms QT Int : 422 ms P-R-T Axes : 044 026 128 degrees QTc Int : 417 ms Sinus bradycardia with 1st degree A-V block Inferior infarct (cited on or before 10-SEP-2014) ST & T wave abnormality, consider lateral ischemia Abnormal ECG Confirmed by DOMINIQUE LYNCH, CHERYL ([id number]), acquisition editor SHRUTI LAW ([id number]) on 10/13/2021 9:59:53 AM Referred By: MENDOZA Confirmed By:CHERYL FOX MD
--- NOTE | 2021-10-11 09:28 | EDS_ITS ---
HPI History of Present Illness Chief Complaint: Weakness Detail of Chief Complaint: Generalized weakness and frequent falls Informant: patient Narrative Narrative: Patient presents to the emergency department via EMS from home. Patient's been weak for several weeks. He has been falling frequently. EMS went to the house twice today to help him up off the ground. Patient denies falling today states he laid on the ground and could not get back up. Patient denies head or neck pain. He denies chest or abdomen pain. He does have history of of left-sided weakness secondary to prior strokes and has a right carotid artery that you has been referred to a vascular surgeon for possible endarterectomy. Patient has had his Covid vaccine and booster. [facility] Medical History (Updated 10/11/21 @ 11:[address] Addy Warren DO) DM2 (diabetes mellitus, type 2) Generalized weakness (~10/02/21) Gout HLD (hyperlipidemia) HTN (hypertension) Inability to ambulate due to multiple joints Left-sided muscle weakness Prostate cancer Home Medications allopurinol 100 mg PO DAILY 12/18/19 [History Last Taken Unknown] chlorthalidone 25 mg PO DAILY 12/18/19 [History Last Taken Unknown] glimepiride 1 mg PO DAILY 12/18/19 [History Last Taken Unknown] metformin 1,000 mg PO BID 12/18/19 [History Last Taken Unknown] pioglitazone 15 mg PO DAILY 12/18/19 [History Last Taken Unknown] ramipril 10 mg PO DAILY 12/18/19 [History Last Taken Unknown] aspirin 81 mg PO BREAKFAST #1 tab 10/03/21 [Rx Last Taken Unknown] atorvastatin 80 mg PO DAILY #60 tab 10/03/21 [Rx Last Taken Unknown] atorvastatin 80 mg PO DAILY #60 tab 10/03/21 [Rx Last Taken Unknown] clopidogrel 75 mg PO DAILY #30 tab 10/03/21 [Rx Last Taken Unknown] Allergy/AdvReac Type Severity Reaction Status Date / Time No Known Allergies Allergy Verified 10/11/21 09:23 Family History (Updated 10/02/21 @ 14:[address] Maddi Arenas MD) Mother CVA (cerebral vascular accident) Several recurrent strokes, eventually passed age 84. Surgical History History of colon resection S/P foot surgery, right S/P shoulder surgery S/P tonsillectomy and adenoidectomy Social History (Updated 10/02/21 @ 14:[address] Maddi Arenas MD) household members: spouse Smoking Status: Former smoker how long ago did patient quit smoking: Smoked age [age], 1 ppd until quit. Does have 2nd hand exposure from . alcohol intake: current alcohol intake frequency: holidays/special occasions only substance use type: does not use ROS ROS ED Constitutional Constitutional ED: Reports systems reviewed and no addt'l complaints, except as documented; Denies body ache(s), change in weight or chills Eyes Eyes: Denies acute decrease in peripheral vision, change in vision, double vision or loss of vision ENT ENT ED: Reports none; Denies ear pain, lip swelling, loss taste/smell, neck pain, otalgia or sore throat Cardiovascular Cardiovascular: Reports none; Denies abdominal pain, chest pain with activity, leg edema, lightheadedness, palpitations, rapid heart rate or syncope Respiratory/Chest Respiratory/Chest: Reports none; Denies change in mental status, dry cough, dyspnea, hemoptysis, shortness of breath at rest or shortness of breath with exertion Gastrointestinal Gastrointestinal: Reports none; Denies abdominal pain, change in stool character, diarrhea, hematemesis, hematochezia, melena, rectal bleeding or vomiting Genitourinary Genitourinary ED: Reports none; Denies abdominal discomfort, anuria, dysuria, genital pain or polyuria Musculoskeletal Musculoskeletal: Reports none; Denies arthralgias, back pain, difficulty walking, extremity pain, muscle weakness or myalgias Integumentary Reports none; Denies abscess or rash Neurologic Neurologic: Reports none and weakness; Denies abnormal gait, confusion, focal weakness, frequent falls, headache(s), loss of vision, numbness, paresthesias, radicular pain or vertigo Psychiatric Psychiatric: Reports systems reviewed and no addt'l complaints, except as documented and none; Denies behavioral changes, confusion, difficulty concentrating, hallucinations, suicidal ideation, tactile hallucinations or visual hallucinations Endocrine Endocrinology: Denies none, cold intolerance, excessive sweating, fatigue or heat intolerance Hematologic/Lymphatic Hematologic/Lymphatic: Reports none; Denies anemia, easy bleeding or easy bruising Allergic/Immunologic Allergic/Immunologic ED: Denies as per HPI, none, lip swelling, mouth swelling, throat swelling, tongue swelling or hives EXAM Physical Exam Const Vital Signs: 10/11/21 09:19 10/11/21 09:25 10/11/21 10:22 Temperature 97.8 F Temperature Source Temporal Pulse Rate 58 L 58 L Respiratory Rate 14 17 Respiratory Effort Normal Non-Labored Respiratory Pattern Normal Blood Pressure 117/87 H 114/85 H Blood Pressure Mean 97 94 Pulse Ox 98 95 Oxygen Delivery Method Room Air Room Air Positive well nourished and well developed General Appearance ED: well developed and NAD HEENT Reports TM's clear and moist mucous membranes normocephalic and atraumatic; Negative for trauma or tenderness Tympanic Membrane ED: Yes TM's clear Eyes PERRL and EOMs intact bilaterally General Eye ED: Negative for pale conjunctiva or scleral icterus Neck no lymphadenopathy, supple and no JVD General: Negative for tenderness Chest Wall inspection of chest normal and palpation of chest normal Chest: Negative for tenderness Resp normal respiratory effort and clear to auscultation bilaterally Effort and Inspection: Negative for respiratory distress or pain with movement Auscultation: Negative for rhonchi, wheezes or diminished lung sounds Cardio regular rate, regular rhythm, S1 normal heart sound, S2 normal heart sound and no murmurs Peripheral Pulses: pulses 2+ throughout GI normal to inspection, nondistended, normoactive bowel sounds, soft to palpation, non-tender, non-distended and no masses Back/Spine no CVA tenderness and no thoracic nor lumbar tenderness Extremity Extremity Narrative: Patient does have some ecchymosis and bruising to the left shoulder which appears to be old. He has normal range of motion and no pain on palpation of the shoulder. Neurovascularly intact distally. General Extremety ED: Negative for edema General Extremity: Negative for edema Neuro oriented x3, CN's II-XII intact bilaterally, no sensory deficits noted and gait normal Sensorium / Orientation: awake, alert, oriented to person, oriented to place and oriented to time Motor Exam: strength 5/5 throughout and strength abnormal Psych mental status grossly normal Skin no rashes or lesions noted and no wounds MDM MDM MDM Narrative Medical decision making narrative: IV line established on arrival. Patient was given normal saline. Patient noted to be hyponatremic. Case will be discussed with hospitalist evaluate patient for admission for diagnosis of generalized weakness with frequent falls and hyponatremia Lab Data Attestation: I reviewed the patient's lab results. Labs: Laboratory Results - last 24 hr 10/11/21 10/11/21 10:15 10:15 WBC 10.4 RBC 5.32 Hgb 16.3 Hct 44.1 MCV 82.9 MCH 30.6 MCHC 37.0 H RDW Std Deviation 36.9 RDW Coeff of Cintia 12.3 Plt Count 269 MPV 9.1 Immature Gran % (Auto) 1.400 H Neut % (Auto) 81.4 H Lymph % (Auto) 9.0 L Mckenzie % (Auto) 7.0 Eos % (Auto) 0.6 Baso % (Auto) 0.6 Absolute Neuts (auto) 8.4 H Absolute Lymphs (auto) 0.93 Nucleated RBC % 0 Sodium 124 L Potassium 3.6 Chloride 85 L Carbon Dioxide 29.0 Anion Gap 10 BUN 15 Creatinine 1.35 H Estim Creat Clear Calc 57.51 Est GFR (MDRD) Af Amer 67 Est GFR (MDRD) Non-Af 55 L BUN/Creatinine Ratio 11.1 Glucose 139 H Calcium 9.6 Troponin I High Sens 9 EKG Initial EKG: Attestation: I personally reviewed and interpreted this EKG as follows: Comments: Sinus rhythm with a ventricular rate of [address] changes Discharge Plan Triage Chief Complaint: Weakness ED Provider: Addy Warren Dx/Rx/DC Orders Clinical Impression: Acute hyponatremia, Frequent falls, Weakness Instructions: ED Weakness (Uncertain Cause) Prescriptions: No Action pioglitazone 15 MG tablet 15 mg PO DAILY RF: 0 chlorthalidone 25 MG tablet 25 mg PO DAILY RF: 0 allopurinol 100 MG tablet 100 mg PO DAILY RF: 0 glimepiride 1 MG tablet 1 mg PO DAILY RF: 0 metformin 1,000 MG tablet 1,000 mg PO BID RF: 0 ramipril 10 MG capsule 10 mg PO DAILY RF: 0 aspirin 81 mg Tablet,Chewable 81 mg PO BREAKFAST Qty: 1 RF: 0 clopidogrel 75 mg Tablet 75 mg PO DAILY Qty: 30 RF: 0 atorvastatin 40 MG tablet 80 mg PO DAILY Qty: 60 RF: 0 atorvastatin 40 mg tablet 80 mg PO DAILY Qty: 60 RF: 0 Primary Care Provider: Akash Agosto Referrals: Akash Agosto MD [Primary Care Provider] - Disposition Disposition: Acute Care [facility]
[2021-10-11] MEDS: 0.9% Normal Saline 1,000 ML 150 ML IV (10:22)
[2021-10-11 10:31] LABS: Absolute Lymphocyte Count 0.93 X10^3/uL (0.83-4.51); Absolute Neutrophil Count 8.4 X10^3/uL (2.0-7.7); Basophil# 0.06 X10^3/uL; Basophil% 0.6 % (0-1); Eosinophil# 0.06 X10^3/uL; Eosinophils% 0.6 % (0-5); Hematocrit 44.1 % (40-54); Hemoglobin 16.3 g/dL (13.0-16.5); Lymphocyte # 0.93 X10^3/ul (0.83-4.51); Mean Corpuscular Hgb 30.6 pg (27.0-32.0); Mean Corpuscular Volume 82.9 fL (80-94); Mean Platelet Vol. 9.1 fl (6.2-12.0); Monocyte# 0.73 X10^3/uL; NRBC Flagged by Analyzer 0 % (0-5); Neutrophil # 8.43 X10^3/uL (2.7-7.7); Neutrophil % 81.4 % (47-70); Platelet Count 269 K/mm3 (150-450); RBC Distribution Width CV 12.3 % (11.6-14.6); RBC Distribution Width SD 36.9 fl (35.1-43.9); Red Blood Count 5.32 M/mm3 (4.6-6.2); White Blood Count 10.4 K/mm3 (4.4-11.0)
[2021-10-11 10:50] LABS: Anion Gap 10 (5-15); BUN 15 mg/dL (7-18); BUN/Creat Ratio 11.1 RATIO (10-20); Calcium,Total 9.6 mg/dL (8.5-10.1); Chloride 85 mmol/L (98-107); Creatinine, Serum 1.35 mg/dL (0.70-1.30); EST Glomerular Filtration Rate 55 mL/min (>60); Est Glom Filt Rate - Afr Amer 67 mL/min (>60); Estimated Creatinine Clearance 57.51 ml/min; Glucose 139 mg/dL (74-106); Potassium 3.6 mmol/L (3.5-5.1); Sodium Level 124 mmol/L (136-145); Troponin-I HS 9 pg/mL (3.0-78.0)
--- NOTE | 2021-10-11 11:16 | NURSING ---
DR MORENITA DONALDSON
--- NOTE | 2021-10-11 11:38 | HP.PCM.HOS_ITS ---
HPI - General General Date of Admission: 10/11/21 Date of Service: 10/11/21 Chief Complaint: Acute on chronic hyponatremia/generalized weakness HPI Narrative PAYAM HAMM, is a 71 M who presented to the emergency department [facility] on 10/11/2021 with a chief complaint of generalized weakness. Per discussion with the who was at bedside upon admission the patient was recently admitted here just after [place] and diagnosed with a stroke. He was to have follow-up with Dr. Payton this morning for carotid artery stenosis which was found at that time but he was unable to do so secondary to weakness. Since his diagnosis of a stroke has been ambulating with a wheeled walker but has unfortunately had multiple falls, none of which have resulted in significant injury. His indicates that his response times have been slower than typical but has not had any significant confusion. He has been markedly weak. He denies any fever chills, nausea or vomiting, constipation or diarrhea, cough, shortness of breath, tingling or numbness. His vital signs in the emergency department were overall unremarkable. His CBC is unremarkable. His BMP shows acute on chronic hyponatremia with a sodium of 124 and a chloride of 85. He has mild serum creatinine elevation with a serum creatinine of 1.35 and it appears his baseline is 1-1.2. His serum glucose was 139. A troponin was obtained and was found to be 9. Upon reviewing his medication he is on chlorthalidone at baseline and I suspect this may be contributing significantly to his hyponatremia. In the emergency department he was treated with IV fluids and request for admission was made given his significant hyponatremia and weakness. He was admitted to PCU given his hyponatremia and is agreeable to placement for rehab if needed. [facility] Medical History Carotid artery stenosis DM2 (diabetes mellitus, type 2) Generalized weakness (~10/02/21) Gout History of stroke HLD (hyperlipidemia) HTN (hypertension) Inability to ambulate due to multiple joints Left-sided muscle weakness Prostate cancer Home Medications allopurinol 100 mg PO DAILY 12/18/19 [History Last Taken Unknown] chlorthalidone 25 mg PO DAILY 12/18/19 [History Last Taken Unknown] glimepiride 1 mg PO DAILY 12/18/19 [History Last Taken Unknown] metformin 1,000 mg PO BID 12/18/19 [History Last Taken Unknown] pioglitazone 15 mg PO DAILY 12/18/19 [History Last Taken Unknown] ramipril 10 mg PO DAILY 12/18/19 [History Last Taken Unknown] aspirin 81 mg PO BREAKFAST #1 tab 10/03/21 [Rx Last Taken Unknown] atorvastatin 80 mg PO DAILY #60 tab 10/03/21 [Rx Last Taken Unknown] atorvastatin 80 mg PO DAILY #60 tab 10/03/21 [Rx Last Taken Unknown] clopidogrel 75 mg PO DAILY #30 tab 10/03/21 [Rx Last Taken Unknown] Allergy/AdvReac Type Severity Reaction Status Date / Time No Known Allergies Allergy Verified 10/11/21 09:23 Family History Mother CVA (cerebral vascular accident) Several recurrent strokes, eventually passed age 84. Surgical History History of colon resection S/P foot surgery, right S/P shoulder surgery S/P tonsillectomy and adenoidectomy Social History household members: spouse Smoking Status: Former smoker how long ago did patient quit smoking: Smoked age [age], 1 ppd until quit. Does have 2nd hand exposure from . alcohol intake: current alcohol intake frequency: holidays/special occasions only substance use type: does not use ROS Constitutional Constitutional: Reports weakness; Denies anorexia, change in weight, chills, fatigue, fever(s), malaise, night sweats or other Eyes Eyes: Denies blurry vision, change in eye color, change in vision, discharge from eye(s), double vision, erythema, eye pain, loss of vision or other ENT HEENT: Denies abnormal hearing, dysphagia, ear pain, epistaxis, headache(s), hearing loss, nasal congestion, nasal discharge, post nasal drip, sinus pressure, sore throat or other Cardiovascular Cardiovascular: Denies chest pain, claudication, dyspnea on exertion, edema, lightheadedness, orthopnea, palpitations, paroxysmal nocturnal dyspnea, rapid heart rate, syncope or other Respiratory/Chest Respiratory/Chest: Denies cough, dyspnea, excessive phlegm production, hemoptysis, productive cough, shortness of breath at rest, shortness of breath with exertion, wheezing or other Gastrointestinal Gastrointestinal: Denies abdominal pain, coffee ground emesis, constipation, diarrhea, dyspepsia, hematemesis, hematochezia, loose stools, melena, nausea, vomiting or other Genitourinary Genitourinary: Denies burning urination, difficulty urinating, dysuria, hematuria, nocturia, urinary frequency, urinary hesitancy, urinary incontinence, urinary urgency or other Musculoskeletal Musculoskeletal: Denies arthralgias, back pain, joint pain, joint stiffness, joint swelling, myalgias, neck pain or other Neurologic Neurologic: Reports abnormal gait, confusion, focal weakness and other Details: Slow response times Psychiatric Psychiatric: Denies anxiety, depression, homicidal ideation, suicidal ideation or other Endocrine Endocrinology: Denies change in body appearance, cold intolerance, excessive sweating, heat intolerance, polydipsia, polyuria or other Hematologic/Lymphatic Hematologic/Lymphatic: Denies anemia, easy bleeding, easy bruising, lymphadenopathy or other Allergic/Immunologic Allergic/Immunologic: Denies rhinitis, hives, eczemia, asthma or other Vital Signs Vital Signs Vital Signs: 10/11/21 09:19 10/11/21 09:25 10/11/21 10:22 Temperature 97.8 F Temperature Source Temporal Pulse Rate 58 L 58 L Respiratory Rate 14 17 Respiratory Effort Normal Non-Labored Respiratory Pattern Normal Blood Pressure 117/87 H 114/85 H Blood Pressure Mean 97 94 Pulse Ox 98 95 Oxygen Delivery Method Room Air Room Air Weight Weight: 94.9 kg Body Mass Index (BMI) 26.9 Physical Exam Const alert, oriented x3, no apparent distress and well nourished Constitutional Narrative: Slightly overweight older white male lying in bed, at bedside, patient appears nontoxic but responses are somewhat slow although he is alert and oriented x3 General Appearance: cooperative HEENT normocephalic, head/scalp atraumatic, hearing grossly normal bilaterally, moist oral mucous membranes and oropharynx normal HEENT Narrative: Dentition is fair, Mallampati is 2, no thrush Eyes PERRL, EOMs intact bilaterally and conjunctivae normal Eyes Narrative: No scleral icterus Neck no lymphadenopathy, supple, no JVD and no carotid bruits Neck Narrative: Trachea midline, no thyroid enlargement Resp normal respiratory effort, no retractions, no use of accessory muscles and clear to auscultation bilaterally Auscultation: Negative for crackles, rales, rhonchi or wheezes Cardio regular rate, regular rhythm, S1 normal heart sound, S2 normal heart sound, no murmurs, no rub, no gallops, no clicks and no JVD GI normal to inspection, nondistended, normoactive bowel sounds, soft to palpation, non-tender and non-distended Extremity no clubbing, cyanosis or edema Peripheral Pulses: Yes pulses 2+ throughout Skin no rashes or lesions noted, no wounds, skin turgor normal, no jaundice, no petechiae and no mottling Neuro oriented x3 and moves all extremities Neuro Narrative: Weakness noted on the left upper and lower extremity, mild left facial droop at the corner of his mouth cranial nerve exam is otherwise normal, responses are somewhat delayed although accurate Sensorium / Orientation: awake and alert Speech: speech normal Psych Psych Narrative: Affect is somewhat flat and mood seems mildly depressed Results Lab / Micro Data Attestation: I reviewed the patient's lab results. Result Diagrams: 10/11/21 10:15 10/11/21 10:15 Labs: Laboratory Results - last 24 hr 10/11/21 10:15: WBC 10.4, RBC 5.32, Hgb 16.3, Hct 44.1, MCV 82.9, MCH 30.6, MCHC 37.0 H, RDW Std Deviation 36.9, RDW Coeff of Cintia 12.3, Plt Count 269, MPV 9.1, Immature Gran % (Auto) 1.400 H, Neut % (Auto) 81.4 H, Lymph % (Auto) 9.0 L, Grundy % (Auto) 7.0, Eos % (Auto) 0.6, Baso % (Auto) 0.6, Absolute Neuts (auto) 8.4 H, Absolute Lymphs (auto) 0.93, Nucleated RBC % 0 10/11/21 10:15: Sodium 124 L, Potassium 3.6, Chloride 85 L, Carbon Dioxide 29.0, Anion Gap 10, BUN 15, Creatinine 1.35 H, Estim Creat Clear Calc 57.51, Est GFR (MDRD) Af Amer 67, Est GFR (MDRD) Non-Af 55 L, BUN/Creatinine Ratio 11.1, Glucose 139 H, Calcium 9.6, Troponin I High Sens 9 Micro: Microbiology 10/11/21 10:10 Nasal Secretion SARS-CoV-2 Antigen (Rapid) - Final Assessment & Plan Assessment/Plan (1) Acute hyponatremia: (2) Frequent falls: (3) Weakness: (4) Dehydration: PLAN: Acute on chronic hyponatremia -Baseline serum sodium appears to be 1 30-1 35 -Currently 124 -Is on chlorthalidone at baseline -Discontinue thiazide diuretic -IV fluids at 75 cc/h with normal saline -Every 4 hour sodium checks -Check TSH -We will do further work-up if does not correct with sodium replacement and thiazide discontinuation Generalized weakness/frequent falls -This is relatively new within the last 2 weeks -Was admitted here recently with new diagnosis of stroke -Has been using a walker -Consult PT/OT -May need placement at discharge and patient is agreeable -May also see significant improvement with sodium correction Dehydration -Serum creatinine is up a bit from baseline -Baseline is 1-1.2 -Current serum creatinine is 1.35 -Hold diuretics -Gentle hydration -Repeat BMP in a.m. Recent stroke -Continue PT OT -Persistent left-sided weakness -Likely related to carotid disease as he does have severe stenosis on imaging- right -Continue aspirin and Plavix Right severe carotid artery stenosis -Patient was to follow-up with Dr. Payton today but had to cancel given his current symptoms -Recommend continued outpatient follow-up and schedule as soon as possible after discharge -We will likely need intervention -Continue to modify risk factors as able -Continue high-dose statin -Continue aspirin and Plavix Hypertension -Discontinue chlorthalidone -Continue ramipril -Monitor blood pressures closely as patient will likely need a replacement for the chlorthalidone Hyperlipidemia -Continue atorvastatin 80 mg daily [id number] -Post recent hemoglobin A1c was 6.7 -Hold home oral agents -Use sliding scale while admitted to the hospital -Before meals and at bedtime blood sugar checks History of gout -Continue allopurinol DVT prophylaxis -Lovenox CODE STATUS -Full code as discussed with the patient and his in the emergency department upon admission Charges/Coding Visit Charges Inpatient E&M: 42278 Init Hosp L3
[2021-10-11] MEDS: 0.9% Normal Saline 1,000 ML 75 ML IV (12:57)
[2021-10-11] MEDS: Glucerna Shake 120 ML LIQUID PO ×2 (16:24→22:30)
[2021-10-11 16:40] LABS: Bedside Glucose 119 mg/dL (70-110)
[2021-10-11 17:10] LABS: Anion Gap 11 (5-15); BUN 15 mg/dL (7-18); BUN/Creat Ratio 11.5 RATIO (10-20); Calcium,Total 9.5 mg/dL (8.5-10.1); Chloride 87 mmol/L (98-107); Creatinine, Serum 1.31 mg/dL (0.70-1.30); EST Glomerular Filtration Rate 57 mL/min (>60); Est Glom Filt Rate - Afr Amer 69 mL/min (>60); Estimated Creatinine Clearance 52.63 ml/min; Glucose 116 mg/dL (74-106); Potassium 3.4 mmol/L (3.5-5.1); Sodium Level 125 mmol/L (136-145)
[2021-10-11 21:09] LABS: Anion Gap 10 (5-15); BUN 16 mg/dL (7-18); BUN/Creat Ratio 13.8 RATIO (10-20); Chloride 88 mmol/L (98-107); Creatinine, Serum 1.16 mg/dL (0.70-1.30); EST Glomerular Filtration Rate 66 mL/min (>60); Est Glom Filt Rate - Afr Amer 80 mL/min (>60); Estimated Creatinine Clearance 59.43 ml/min; Glucose 108 mg/dL (74-106); Potassium 3.3 mmol/L (3.5-5.1); Sodium Level 125 mmol/L (136-145)
[2021-10-11] MEDS: Potassium Chloride Oral Tablet 20 MEQ 60 MEQ PO (22:16)
[2021-10-11] MEDS: Atorvastatin Calcium 80 MG Tablet PO (22:16)
[2021-10-11 22:40] LABS: Bedside Glucose 124 mg/dL (70-110)
[2021-10-12] VITALS (9 sets, daily range): BP systolic 118–168; BP diastolic 84–96; PULSE 55–66; RESP 16–18; TEMP 36.5–36.8; O2SAT 94–98
[2021-10-12 00:07] LABS: Anion Gap 11 (5-15); BUN 19 mg/dL (7-18); BUN/Creat Ratio 19.3 RATIO (10-20); Calcium,Total 8.4 mg/dL (8.5-10.1); Chloride 88 mmol/L (98-107); Creatinine, Serum 0.99 mg/dL (0.70-1.30); EST Glomerular Filtration Rate 79 mL/min (>60); Est Glom Filt Rate - Afr Amer 96 mL/min (>60); Estimated Creatinine Clearance 69.64 ml/min; Glucose 152 mg/dL (74-106); Potassium 3.2 mmol/L (3.5-5.1); Sodium Level 126 mmol/L (136-145)
[2021-10-12] MEDS: 0.9% Normal Saline 1,000 ML 75 ML IV (00:29)
[2021-10-12 06:40] LABS: Bedside Glucose 146 mg/dL (70-110)
[2021-10-12 07:20] LABS: Absolute Lymphocyte Count 0.95 X10^3/uL (0.83-4.51); Absolute Neutrophil Count 3.6 X10^3/uL (2.0-7.7); Basophil# 0.05 X10^3/uL; Basophil% 0.9 % (0-1); Eosinophil# 0.13 X10^3/uL; Eosinophils% 2.4 % (0-5); Hematocrit 38.7 % (40-54); Hemoglobin 14.1 g/dL (13.0-16.5); Lymphocyte # 0.95 X10^3/ul (0.83-4.51); Lymphocyte % 17.4 % (19-41); Mean Corp Hgb Conc 36.4 g/dL (32-36); Mean Corpuscular Hgb 30.1 pg (27.0-32.0); Mean Corpuscular Volume 82.5 fL (80-94); Mean Platelet Vol. 9.2 fl (6.2-12.0); Monocyte# 0.65 X10^3/uL; Monocyte% 11.9 % (0-10); NRBC Flagged by Analyzer 0 % (0-5); Neutrophil # 3.56 X10^3/uL (2.7-7.7); Neutrophil % 65.2 % (47-70); Platelet Count 220 K/mm3 (150-450); RBC Distribution Width CV 12.4 % (11.6-14.6); RBC Distribution Width SD 37.1 fl (35.1-43.9); Red Blood Count 4.69 M/mm3 (4.6-6.2); White Blood Count 5.5 K/mm3 (4.4-11.0)
[2021-10-12 07:56] LABS: Magnesium 1.9 mg/dL (1.6-2.6)
--- NOTE | 2021-10-12 08:09 | PCS.PANDOC ---
PANDEMIC DOCUMENTATION INITIATED: Date: 05/22/2021 Time: 190
[2021-10-12] MEDS: Aspirin 81 MG TAB.CHEW PO (08:24)
[2021-10-12] MEDS: Glucerna Shake 120 ML LIQUID PO ×4 (08:24→21:34)
[2021-10-12] MEDS: Enoxaparin 40 MG/0.4 ML Syringe SC (08:24)
[2021-10-12] MEDS: Allopurinol 100 MG Tablet PO (08:24)
[2021-10-12] MEDS: Clopidogrel Bisulfate 75 MG Tablet PO (08:24)
[2021-10-12] MEDS: Ramipril 10 MG Capsule PO (08:24)
[2021-10-12 09:34] LABS: Osmolality, Serum 268 mOsm/KG (280-301)
[2021-10-12 10:08] LABS: Bacteria 0 SEEN /hpf (None Seen); Mucous, Urine 0 SEEN /hpf (<or=2+); Red Blood Cells-Urine 0 SEEN /hpf (0-5); White Blood Cells 0 SEEN /hpf (0-5)
[2021-10-12 10:10] LABS: Color, Urine Straw (Yellow); Glucose, Dipstick Normal (Normal); Ketone-Dipstick Negative (Negative); Leukocyte Esterase-Dipstick Negative /ul (Negative); Nitrite-Dipstick Negative (Negative); Occult Blood-Urine Negative /ul (Negative); Protein-Dipstick Negative (Negative); Urine Bilirubin Dipstick Negative (Negative); Urine Clarity Clear (Clear); Urine Urobilinogen Normal (Normal)
[2021-10-12 10:14] LABS: Osmolality, Urine 282 mOsm/KG
[2021-10-12 10:19] LABS: Squamous Epithelial Cells - UA 0-5 SEEN /hpf (0-5); Urine Sodium 63 mmol/L (Not Establ.)
--- NOTE | 2021-10-12 11:13 | CASEMGMT ---
SW met with patient. Introduced self and role at [facility]. SW went over d/c plan and patient agrees he needs to go somewhere for rehab. SW provided patient with a list of SNF providers including quality and resource use data and consistent with the patient?s preferred geographic region, medical needs, and insurance network. Patient however, asked that SW come back when his gets here as she helps him with making decisions. SW told him SW will check back. TCU would have a bed for patient if he chooses TCU. Marti DELACRUZ
--- NOTE | 2021-10-12 11:25 | CASEMGMT ---
SW went back to patient's room as his is present. Both agreed patient needs to go somewhere for rehab. SW went over the list of local nursing homes with patient's . She would like patient to go to [facility] for short term rehab. Patient's was concerned that the usp would try and make patient stay. SW explained that nursing homes cannot make patient's stay. They both agreed they would like [facility] for patient's rehab. SW explained patient will be able to wear regular clothes. SW also let them know patient can have visitors while over in TCU. SW explained that patient won't go until he is medically ready and his insurance approves him . This could be a day or so. Plan: [facility] under skilled level of care pending patient being medically ready and insurance approval. Marti DELACRUZ
[2021-10-12] MEDS: 0.9% Normal Saline 1,000 ML 100 ML IV (11:27)
[2021-10-12] MEDS: Insulin Lispro 100 UNIT/ML INSULN.PEN SC (11:34)
[2021-10-12 11:50] LABS: Bedside Glucose 156 mg/dL (70-110)
[2021-10-12 12:41] LABS: Anion Gap 8 (5-15); BUN 16 mg/dL (7-18); BUN/Creat Ratio 15.5 RATIO (10-20); Calcium,Total 8.6 mg/dL (8.5-10.1); Chloride 93 mmol/L (98-107); Creatinine, Serum 1.03 mg/dL (0.70-1.30); EST Glomerular Filtration Rate 75 mL/min (>60); Est Glom Filt Rate - Afr Amer 91 mL/min (>60); Estimated Creatinine Clearance 66.94 ml/min; Glucose 135 mg/dL (74-106); Potassium 3.7 mmol/L (3.5-5.1); Sodium Level 128 mmol/L (136-145)
--- NOTE | 2021-10-12 14:39 | PN.HOSP_ITS ---
Subjective Subjective Patient states he is feeling better today. He was being seen by therapy services when I was at the bedside and is agreeable to therapy upon discharge. He is wanting to go to either rehab or TCU. His sodium is improving and has improved from 124 on admission to 128 today. Objective Data Objective Data Vital Signs: Vital Signs Temp Pulse Resp BP Pulse Ox 97.7 F L 62 16 118/84 H 98 10/12/21 14:22 10/12/21 14:22 10/12/21 14:22 10/12/21 14:22 10/12/21 14:22 Oxygen Delivery Method Room Air Weight: 91.1 kg Body Mass Index (BMI) 28.8 Intake & Output: Intake and Output for Last 24 Hours 10/10/21 10/11/21 10/12/21 23:59 23:59 23:59 Intake Total 1240 / 1740 2465 / 2465 Output Total 1000 / 1000 Balance 1240 / 1140 1465 / 1465 Medical Nutrition Assessment Dietitian: Malnutrition Criteria Met Start: 10/11/21 15:30 Freq: Status: Active Protocol: Document 10/11/21 15:30 SLA (Rec: 10/11/21 15:30 SLA [id number]) Nutrition Malnutrition Evidence of Malnutrition Exists Yes Malnutrition (severe): Acute Illness/Injury Evidenced By Suboptimal Energy Intake ( Severe),Weight Loss (Severe) Clinical Problem Acute Disease or Injury Related Malnutrition Etiology related to acute illness and pt not hungry so inability to consume adequate nutrition to meet est nutritional needs Signs/Symptoms as evidenced by <50% po intake x 2-3 wks and 1.4% wt loss x <10 days. Status Active Problem Recommendation Dietitian Recommendations/Changes Will change diet to Consistent CHO, Cardiac diet Will provide 120 ml glucerna shake w/ medpass 4x/day Lab / Micro Data Result Diagrams: 10/12/21 06:34 10/12/21 06:34 Labs: Laboratory Results - last 24 hr 10/11/21 16:15: POC Glucose 119 H 10/11/21 16:49: Sodium 125 L, Potassium 3.4 L, Chloride 87 L, Carbon Dioxide 27.0, Anion Gap 11, BUN 15, Creatinine 1.31 H, Estim Creat Clear Calc 52.63, Est GFR (MDRD) Af Amer 69, Est GFR (MDRD) Non-Af 57 L, BUN/Creatinine Ratio 11.5, Gl ucose 116 H, Calcium 9.5 10/11/21 20:23: Sodium 125 L, Potassium 3.3 L, Chloride 88 L, Carbon Dioxide 27.0, Anion Gap 10, BUN 16, Creatinine 1.16, Estim Creat Clear Calc 59.43, Est GFR (MDRD) Af Amer 80, Est GFR (MDRD) Non-Af 66, BUN/Creatinine Ratio 13.8, Glucose 108 H, Calcium 9.0 10/11/21 22:27: POC Glucose 124 H 10/11/21 23:33: Sodium 126 L, Potassium 3.2 L, Chloride 88 L, Carbon Dioxide 27.0, Anion Gap 11, BUN 19 H, Creatinine 0.99, Estim Creat Clear Calc 69.64, Est GFR (MDRD) Af Amer 96, Est GFR (MDRD) Non-Af 79, BUN/Creatinine Ratio 19.3, Glucose 152 H, Calcium 8.4 L 10/12/21 05:49: POC Glucose 146 H 10/12/21 06:34: WBC 5.5, RBC 4.69, Hgb 14.1, Hct 38.7 L, MCV 82.5, MCH 30.1, MCHC 36.4 H, RDW Std Deviation 37.1, RDW Coeff of Cintia 12.4, Plt Count 220, MPV 9.2, Immature Gran % (Auto) 2.200 H, Neut % (Auto) 65.2, Lymph % (Auto) 17.4 L, High[place] % (Auto) 11.9 H, Eos % (Auto) 2.4, Baso % (Auto) 0.9, Absolute Neuts (auto) 3.6, Absolute Lymphs (auto) 0.95, Nucleated RBC % 0 10/12/21 06:34: Phosphorus 3.0, Magnesium 1.9, TSH 2.20 10/12/21 06:34: Sodium 128 L, Potassium 3.7, Chloride 93 L, Carbon Dioxide 27.0, Anion Gap 8, BUN 16, Creatinine 1.03, Estim Creat Clear Calc 66.94, Est GFR (MDRD) Af Amer 91, Est GFR (MDRD) Non-Af 75, BUN/Creatinine Ratio 15.5, Glucose 135 H, Calcium 8.6 10/12/21 08:23: Serum Osmolality 268 L 10/12/21 08:23: Cortisol 16.00 10/12/21 09:55: Urine Color Straw, Urine Clarity Clear, Urine pH 7.0, Ur Specific Fairchild 1.010, Urine Protein Negative, Urine Glucose (UA) Normal, Urine Ketones Negative, Urine Occult Blood Negative, Urine Nitrite Negative, Urine Bilirubin Negative, Urine Urobilinogen Normal, Ur Leukocyte Esterase Negative, Urine RBC 0 SEEN, Urine WBC 0 SEEN, Ur Squamous Epith Cells 0-5 SEEN, Urine Bacteria 0 SEEN, Urine Mucus 0 SEEN 10/12/21 09:55: Urine Osmolality 282, Ur Random Sodium 63 10/12/21 11:30: POC Glucose 156 H Micro: Microbiology 10/11/21 10:10 Nasal Secretion SARS-CoV-2 Antigen (Rapid) - Final Physical Exam Const alert, oriented x3, no apparent distress and well nourished Constitutional Narrative: Slightly overweight older white male ambulating with physical therapy, patient appears comfortable and nontoxic, does have noted balance issues while using a wheeled walker, left foot drop noted General Appearance: cooperative Exam Limitations: no limitations Nutritional Appearance: overweight HEENT normocephalic, head/scalp atraumatic, hearing grossly normal bilaterally, moist oral mucous membranes and oropharynx normal Head and Scalp: normocephalic Resp normal respiratory effort, no retractions, no use of accessory muscles and clear to auscultation bilaterally Auscultation: Negative for crackles, rales, rhonchi or wheezes Cardio regular rate, regular rhythm, S1 normal heart sound, S2 normal heart sound, no murmurs, no rub, no gallops, no clicks and no JVD GI normal to inspection, nondistended, normoactive bowel sounds, soft to palpation, non-tender and non-distended Extremity no clubbing, cyanosis or edema Peripheral Pulses: Yes pulses 2+ throughout Skin no rashes or lesions noted, no wounds, skin turgor normal, no jaundice, no petechiae and no mottling Neuro oriented x3, moves all extremities and No no focal motor deficits Neuro Narrative: Weakness noted on the left upper and lower extremity, has mild foot drop with ambulation on the left side, is able to hold on with his left hand to the walker but does have increasing weakness as time progresses with effort Sensorium / Orientation: awake and alert Speech: speech normal Psych Psych Narrative: Much more jovial and interactive today Assessment & Plan Assessment/Plan (1) Acute hyponatremia: (2) Frequent falls: (3) Weakness: (4) Dehydration: PLAN: Acute on chronic hypovolemic hypoosmolar hyponatremia -Suspect this is all thiazide diuretic induced -Baseline serum sodium appears to be 1 30-1 35 -Sodium on admission was 124--> up to 128 today -Is on chlorthalidone at baseline -Discontinue thiazide diuretic -We will discontinue IV fluids -Repeat BMP in a.m. -Patient is correcting appropriately -TSH and cortisol within normal limits Generalized weakness/frequent falls -This is relatively new within the last 2 weeks -Was admitted here recently with new diagnosis of stroke -Has been using a walker -Patient has been evaluated by PT/OT and is agreeable to placement at TCU versus rehab at discharge Dehydration -Resolved Recent stroke -Continue PT OT -Persistent left-sided weakness with left foot drop -Likely related to carotid disease as he does have severe stenosis on imaging- right -Continue aspirin and Plavix Right severe carotid artery stenosis -Patient was to follow-up with Dr. Payton today but had to cancel given his current symptoms -Recommend continued outpatient follow-up and schedule as soon as possible after discharge -We will likely need intervention -Continue to modify risk factors as able -Continue high-dose statin -Continue aspirin and Plavix Hypertension -Discontinue chlorthalidone -Continue ramipril -Blood pressure is only mildly elevated occasionally with periods of normotension despite discontinuation of chlorthalidone -We will continue to monitor clinically but discussed the case with nephrology and they would recommend a twice daily dosing of Lasix rather than a thiazide diuretic in the setting of hyponatremia to address hypertension if needed Hyperlipidemia -Continue atorvastatin 80 mg daily [id number] -Post recent hemoglobin A1c was 6.7 -Hold home oral agents -Use sliding scale while admitted to the hospital -Before meals and at bedtime blood sugar checks History of gout -Continue allopurinol DVT prophylaxis -Lovenox CODE STATUS -Full code as discussed with the patient and his in the emergency department upon admission Charges/Coding Visit Charges Inpatient E&M: 47832 Subs Hosp L2
--- NOTE | 2021-10-12 15:08 | CASEMGMT ---
Readmission Review Note: Index: 10/03 thru 10/03/21 Acute embolic stroke right hemisphere (left sided weakness), severe carotid occlusive disease right-sided. Co-morbidities noted to be DM II, HTN, and HLD. Pt was to follow-up with a vascular surgeon regarding his carotid disease. Readmission: Weakness, falls secondary to hyponatremia d/t chlorthalidone (thiazide diuretic) with dehydration. Discharge planning: Pt had been independent with ADLs and has a rollator and shower chair in the home. Pt lives in a single story home with 3 steps w/railing to enter. Pt's HPOA is his daughter Rossy Quevedo. Pt and had considered SNF placement on index but pt ambulating 200ft and not meeting SNF LOC need. Pt returned home with [facility]. Noted pt with further decline since index and now ambulating 35ft w/PT on this date. SW assisting pt with placement at SNF LOC. Will continue to monitor and assist with any additional discharge planning needs as appropriate. Daryn Jones RN CM
[2021-10-12 17:21] LABS: Bedside Glucose 122 mg/dL (70-110)
[2021-10-12] MEDS: Atorvastatin Calcium 80 MG Tablet PO (21:29)
[2021-10-12 21:40] LABS: Bedside Glucose 143 mg/dL (70-110)
[2021-10-13] VITALS (8 sets, daily range): BP systolic 128–152; BP diastolic 82–94; PULSE 50–63; RESP 16–18; TEMP 36.4–36.7; O2SAT 95–97
[2021-10-13 06:49] LABS: Absolute Lymphocyte Count 1.45 X10^3/uL (0.83-4.51); Absolute Neutrophil Count 3.5 X10^3/uL (2.0-7.7); Basophil# 0.06 X10^3/uL; Eosinophil# 0.16 X10^3/uL; Eosinophils% 2.7 % (0-5); Hematocrit 40.8 % (40-54); Hemoglobin 14.9 g/dL (13.0-16.5); Lymphocyte # 1.45 X10^3/ul (0.83-4.51); Lymphocyte % 24.8 % (19-41); Mean Corp Hgb Conc 36.5 g/dL (32-36); Mean Corpuscular Volume 82.3 fL (80-94); Mean Platelet Vol. 9.1 fl (6.2-12.0); Monocyte% 10.3 % (0-10); NRBC Flagged by Analyzer 0 % (0-5); Neutrophil # 3.48 X10^3/uL (2.7-7.7); Neutrophil % 59.7 % (47-70); Platelet Count 241 K/mm3 (150-450); RBC Distribution Width CV 12.3 % (11.6-14.6); Red Blood Count 4.96 M/mm3 (4.6-6.2); White Blood Count 5.8 K/mm3 (4.4-11.0)
[2021-10-13 06:51] LABS: Bedside Glucose 144 mg/dL (70-110)
[2021-10-13 07:19] LABS: Anion Gap 9 (5-15); BUN 15 mg/dL (7-18); BUN/Creat Ratio 14.6 RATIO (10-20); Calcium,Total 8.9 mg/dL (8.5-10.1); Chloride 93 mmol/L (98-107); Creatinine, Serum 1.03 mg/dL (0.70-1.30); EST Glomerular Filtration Rate 75 mL/min (>60); Est Glom Filt Rate - Afr Amer 91 mL/min (>60); Estimated Creatinine Clearance 66.94 ml/min; Glucose 148 mg/dL (74-106); Potassium 3.4 mmol/L (3.5-5.1); Sodium Level 128 mmol/L (136-145)
[2021-10-13] MEDS: Enoxaparin 40 MG/0.4 ML Syringe SC (08:40)
[2021-10-13] MEDS: Allopurinol 100 MG Tablet PO (08:40)
[2021-10-13] MEDS: Ramipril 10 MG Capsule PO (08:40)
[2021-10-13] MEDS: Furosemide 20 MG Tablet PO (08:40)
[2021-10-13] MEDS: Aspirin 81 MG TAB.CHEW PO (08:40)
[2021-10-13] MEDS: Clopidogrel Bisulfate 75 MG Tablet PO (08:40)
[2021-10-13] MEDS: Glucerna Shake 120 ML LIQUID PO ×2 (08:41→14:12)
[2021-10-13 11:00] LABS: Bedside Glucose 197 mg/dL (70-110)
[2021-10-13] MEDS: Insulin Lispro 100 UNIT/ML INSULN.PEN SC (11:30)
[2021-10-13 11:31] LABS: Anion Gap 9 (5-15); BUN 16 mg/dL (7-18); Calcium,Total 8.9 mg/dL (8.5-10.1); Chloride 92 mmol/L (98-107); Creatinine, Serum 1.07 mg/dL (0.70-1.30); EST Glomerular Filtration Rate 72 mL/min (>60); Est Glom Filt Rate - Afr Amer 87 mL/min (>60); Estimated Creatinine Clearance 64.43 ml/min; Glucose 185 mg/dL (74-106); Potassium 3.3 mmol/L (3.5-5.1); Sodium Level 128 mmol/L (136-145)
--- NOTE | 2021-10-13 13:30 | PCM.TXEXTCAR ---
Diet 10/11/21 15:31 Diet: Cardiac - Heart Healthy Dietary Modifications:: Consistent Carbohydrate Is pt able to select menu?: Yes Routine Orders/Code Status O2 Frequency: PRN Keep PO Greater than or Equal to (%): 92 Routine Lab Work: BMP (Daily to check sodium levels) Code Status: Full Code Suggestions for Active Care Change Position every (hours): 2 Therapies Weight Bearing: Full weight bearing Physical Therapy: Eval and Treat Occupational Therapy: Eval and Treat Problem/Diagnosis (1) Acute hyponatremia: Status: Acute (2) Frequent falls: Status: Acute (3) Weakness: Status: Acute (4) Dehydration: Status: Acute Allergies/Procedures Done in Hospital Allergies No Known Allergies Allergy (Verified 10/11/21 09:23) Procedures: None Type of Care/Length of Stay Estimated LOS: Convalescent Care Less Than 30 days Type of Care Needed: Skilled Rehab Potential: Good Prognosis: Good Additional Orders/Day of Discharge Day of Discharge: 10/13/21 Dietary and Speech Recommendations Dietitian Recommendations/Changes: Will change diet to Consistent CHO, Cardiac diet Will provide 120 ml glucerna shake w/ medpass 4x/day Discharge Plan Admission Admit Date/Time: 10/11/21 11:17 Attending Provider: Kim Geller Primary Care Provider: Akash Agosto Instructions Patient Instructions: ED Weakness (Uncertain Cause) Discharge Orders/Prescriptions Prescriptions: No Action pioglitazone 15 MG tablet 15 mg PO DAILY RF: 0 chlorthalidone 25 MG tablet 25 mg PO DAILY RF: 0 allopurinol 100 MG tablet 100 mg PO DAILY RF: 0 glimepiride 1 MG tablet 1 mg PO DAILY RF: 0 metformin 1,000 MG tablet 1,000 mg PO BID RF: 0 ramipril 10 MG capsule 10 mg PO DAILY RF: 0 aspirin 81 mg Tablet,Chewable 81 mg PO BREAKFAST Qty: 1 RF: 0 clopidogrel 75 mg Tablet 75 mg PO DAILY Qty: 30 RF: 0 atorvastatin 40 MG tablet 80 mg PO DAILY Qty: 60 RF: 0 atorvastatin 40 mg tablet 80 mg PO DAILY Qty: 60 RF: 0 Referrals / Follow Up: Akash Agosto MD [Primary Care Provider] -
--- NOTE | 2021-10-13 13:32 | DS.PCM_ITS ---
Providers Date of Admission: 10/11/21 Primary Care Physician: Dr. Akash Agosto MD Reason For Visit: HYPONATREMIA/GENERALIZED WEAKNESS Diagnosis Discharge Diagnosis (1) Acute hyponatremia: Status: Acute Code(s): E87.1 - Hypo-osmolality and hyponatremia (2) Frequent falls: Status: Acute Code(s): R29.6 - Repeated falls (3) Weakness: Status: Acute Code(s): R53.1 - Weakness (4) Dehydration: Status: Acute Code(s): E86.0 - Dehydration (5) Hypokalemia: Status: Acute Code(s): E87.6 - Hypokalemia Medications at Discharge Home Medications allopurinol 100 mg PO DAILY 12/18/19 glimepiride 1 mg PO DAILY 12/18/19 metformin 1,000 mg PO BID 12/18/19 pioglitazone 15 mg PO DAILY 12/18/19 ramipril 10 mg PO DAILY 12/18/19 aspirin 81 mg PO BREAKFAST #1 tab 10/03/21 atorvastatin 80 mg PO DAILY #60 tab 10/03/21 atorvastatin 80 mg PO DAILY #60 tab 10/03/21 clopidogrel 75 mg PO DAILY #30 tab 10/03/21 enoxaparin 40 mg SUBCUT DAILY #0 ml 10/13/21 furosemide 20 mg PO BIDLX #0 tab 10/13/21 nut.tx.gluc intol,lf,soy-fiber [Glucerna 1.2 Milad] 120 ml PO 4X/DAY #0 ml 10/13/21 Hospital Course Operations None Procedures None Summary of Care Provided Minutes Spent on Discharge: 37 Hospital Course: Mr. Doshi 71-year-old white male who presented to the emergency department [facility] on 10/11/2021 with a chief complaint of generalized weakness. His was present with him on arrival and reported that he had recently been admitted here just after [place] and diagnosed with a stroke. He was to have follow-up with Dr. Payton on the morning of admission for carotid artery stenosis that was found at that hospitalization but was unable to do so secondary to severe weakness. Since his stroke he had been ambulating with a wheeled walker but had had multiple falls. Fortunately, none of them had resulted in significant injury. His reported on admission that his response times had been a little bit slower than typical but he had not had any significant confusion but did agree that he had been markedly weak. He had no other physical complaints at that time. His vital signs on admission were unremarkable. His CBC was unremarkable. His BMP showed an acute hyponatremia with a sodium level of 124 and chloride of 85. He had a mildly elevated serum creatinine at 1.35. Given his weakness and hyponatremia his chlorthalidone was discontinued and he was initially hydrated with normal saline. His serum creatinine improved to baseline at 1-1.1. His sodium slowly trended up and was 128 on discharge. We encouraged increased solute specifically protein and continue to hold his chlorthalidone on discharge. Would recommend that thiazide diuretics be avoided. I did briefly discuss his case with nephrology, however they were not consulted during his hospitalization, and they recommended adding low-dose Lasix twice daily to address his hypertension rather than utilizing a thiazide diuretic. We did add Lasix 20 mg p.o. twice daily. I would recommend close follow-up with his sodium levels and BMPs daily until he shows stability given the initiation of Lasix as this too can cause hyponatremia. If he has further drop in his sodium I would discontinue his Lasix and substitute a different antihypertensive medication. A mild fluid restriction may need to be enforced as well although his labs were not completely consistent with SIADH. He was evaluated by physical therapy on discharge and was recommended for continued therapy at the rehab unit versus TCU. This was evidently recommended at his previous hospitalization but he was reluctant at that time. However, at this time he is agreeable and will be discharged to TCU in stable condition on 10/13/2021. Again I recommend a repeat BMP done daily and closely monitor for any further needs with regards to his blood pressure or discontinuation of his Lasix. His did call Dr. Payton's office and rescheduled his appointment for 119 however he was told by Dr. Payton that he may be able to see him at TCU on Saturday. Discharge diagnoses: Acute on chronic hypovolemic/euvolemic hypoosmolar hyponatremia Generalized weakness Falls Dehydration-resolved Recent stroke Severe right carotid artery stenosis Hypokalemia-replaced Hypertension Hyperlipidemia DM-2 History of gout Physical Exam Const alert, oriented x3, no apparent distress and well nourished Constitutional Narrative: Slightly overweight older white male sitting up in a chair at the bedside, talking on the phone but hangs up upon my arrival, is at the bedside, patient appears comfortable and nontoxic General Appearance: cooperative, comfortable, well kempt and well developed Orientation / Consciousness: awake Exam Limitations: no limitations Nutritional Appearance: overweight HEENT normocephalic, head/scalp atraumatic, hearing grossly normal bilaterally, moist oral mucous membranes and oropharynx normal Eyes PERRL, EOMs intact bilaterally and conjunctivae normal Eyes Narrative: No scleral icterus Neck no lymphadenopathy, supple, no JVD and no carotid bruits Neck Narrative: Trachea midline, no thyroid enlargement Resp normal respiratory effort, no retractions, no use of accessory muscles and clear to auscultation bilaterally Auscultation: Negative for crackles, rales, rhonchi or wheezes Cardio regular rate, regular rhythm, S1 normal heart sound, S2 normal heart sound, no murmurs, no rub, no gallops, no clicks and no JVD GI normal to inspection, nondistended, normoactive bowel sounds, soft to palpation, non-tender and non-distended Extremity no clubbing, cyanosis or edema Skin no rashes or lesions noted, no wounds, skin turgor normal, no jaundice, no petechiae and no mottling Neuro oriented x3, moves all extremities and No no focal motor deficits Neuro Narrative: Weakness noted on the left upper and lower extremity Sensorium / Orientation: awake and alert Speech: speech normal Psych affect normal Psych Narrative: Very pleasant and appropriately interactive Medical Records Data Medical Nutrition Assessment Dietitian: Malnutrition Criteria Met Start: 10/11/21 15:30 Freq: Status: Active Protocol: Document 10/11/21 15:30 [facility] (Rec: 10/11/21 15:30 [facility] [id number]) Nutrition Malnutrition Evidence of Malnutrition Exists Yes Malnutrition (severe): Acute Illness/Injury Evidenced By Suboptimal Energy Intake ( Severe),Weight Loss (Severe) Clinical Problem Acute Disease or Injury Related Malnutrition Etiology related to acute illness and pt not hungry so inability to consume adequate nutrition to meet est nutritional needs Signs/Symptoms as evidenced by <50% po intake x 2-3 wks and 1.4% wt loss x <10 days. Status Active Problem Recommendation Dietitian Recommendations/Changes Will change diet to Consistent CHO, Cardiac diet Will provide 120 ml glucerna shake w/ medpass 4x/day Weight / BMI Weight Weight: 91.1 kg Body Mass Index (BMI) 28.8 ABG / Lab / Microbiology Data Result Diagrams: 10/13/21 06:04 10/13/21 10:59 Laboratory: Laboratory Results - last 24 hr 10/12/21 17:12: POC Glucose 122 H 10/12/21 21:36: POC Glucose 143 H 10/13/21 06:04: WBC 5.8, RBC 4.96, Hgb 14.9, Hct 40.8, MCV 82.3, MCH 30.0, MCHC 36.5 H, RDW Std Deviation 37.0, RDW Coeff of Cintia 12.3, Plt Count 241, MPV 9.1, Immature Gran % (Auto) 1.500 H, Neut % (Auto) 59.7, Lymph % (Auto) 24.8, [place] % (Auto) 10.3 H, Eos % (Auto) 2.7, Baso % (Auto) 1.0, Absolute Neuts (auto) 3.5, Absolute Lymphs (auto) 1.45, Nucleated RBC % 0 10/13/21 06:04: Sodium 128 L, Potassium 3.4 L, Chloride 93 L, Carbon Dioxide 26.0, Anion Gap 9, BUN 15, Creatinine 1.03, Estim Creat Clear Calc 66.94, Est GFR (MDRD) Af Amer 91, Est GFR (MDRD) Non-Af 75, BUN/Creatinine Ratio 14.6, Glucose 148 H, Calcium 8.9 10/13/21 06:44: POC Glucose 144 H 10/13/21 10:56: POC Glucose 197 H 10/13/21 10:59: Sodium 128 L, Potassium 3.3 L, Chloride 92 L, Carbon Dioxide 27.0, Anion Gap 9, BUN 16, Creatinine 1.07, Estim Creat Clear Calc 64.43, Est GFR (MDRD) Af Amer 87, Est GFR (MDRD) Non-Af 72, BUN/Creatinine Ratio 15.0, Glucose 185 H, Calcium 8.9 Microbiology: Microbiology 10/11/21 10:10 Nasal Secretion SARS-CoV-2 Antigen (Rapid) - Final D/C Instructions Discharge Diet: Low fat / Low cholesterol and 1800 Calorie Control Diet Meaningful Use Info Meaningful Use Diagnoses (Choose all that apply): None applicable Discharge Plan Admission Admit Date/Time: 10/11/21 11:17 Primary Reason for Your Visit: Generalized Weakness/Hyponatremia Attending Provider: Kim Geller Primary Care Provider: Akash Agosto Discharge Orders/Prescriptions Prescriptions: New furosemide 20 mg Tablet 20 mg PO BIDLX Qty: 0 RF: 0 enoxaparin 40 mg/0.4 mL Syringe 40 mg subcut DAILY Qty: 0 RF: 0 Glucerna 1.2 Milad 0.06-1.2 gram-kcal/mL Liquid 120 ml PO 4X/DAY Qty: 0 RF: 0 Continued pioglitazone 15 MG tablet 15 mg PO DAILY RF: 0 allopurinol 100 MG tablet 100 mg PO DAILY RF: 0 glimepiride 1 MG tablet 1 mg PO DAILY RF: 0 metformin 1,000 MG tablet 1,000 mg PO BID RF: 0 ramipril 10 MG capsule 10 mg PO DAILY RF: 0 aspirin 81 mg Tablet,Chewable 81 mg PO BREAKFAST Qty: 1 RF: 0 clopidogrel 75 mg Tablet 75 mg PO DAILY Qty: 30 RF: 0 atorvastatin 40 MG tablet 80 mg PO DAILY Qty: 60 RF: 0 atorvastatin 40 mg tablet 80 mg PO DAILY Qty: 60 RF: 0 Discontinued chlorthalidone 25 MG tablet 25 mg PO DAILY RF: 0 Referrals / Follow Up: Lam Payton MD [STAFF PHYSICIAN] - See Referral Note (as scheduled) Akash Agosto MD [Primary Care Provider] - Within 2 Weeks Disposition Disposition (needs filled in before D/C Order can be placed): [facility] Facility Charges/Coding Visit Charges Inpatient E&M: 98107 SNF Disch >30 Min
--- NOTE | 2021-10-13 14:49 | PHA.DC.MR ---
Pharmacy Service has performed discharge medication reconciliation for this patient upon transfer to TCU. Home Medications allopurinol 100 mg PO DAILY 12/18/19 glimepiride 1 mg PO DAILY 12/18/19 metformin 1,000 mg PO BID 12/18/19 pioglitazone 15 mg PO DAILY 12/18/19 ramipril 10 mg PO DAILY 12/18/19 aspirin 81 mg PO BREAKFAST #1 tab 10/03/21 atorvastatin 80 mg PO DAILY #60 tab 10/03/21 atorvastatin 80 mg PO DAILY #60 tab 10/03/21 clopidogrel 75 mg PO DAILY #30 tab 10/03/21 enoxaparin 40 mg SUBCUT DAILY #0 ml 10/13/21 furosemide 20 mg PO BIDLX #0 tab 10/13/21 nut.tx.gluc intol,lf,soy-fiber [Glucerna 1.2 Milad] 120 ml PO 4X/DAY #0 ml 10/13/21 The patient's discharge medication list was reviewed for discrepancies and discrepancies were resolved.
--- NOTE | 2021-10-13 14:52 | CASEMGMT ---
Patient was approved to go to TCU. DARRELL copied orders. SW called patient's and let her know patient will be going to TCU today. She would like someone to let her know when patient is physically being moved to TCU. DARRELL went to notify patient, but he was sleeping. Marti DELACRUZ Plan: d/c to [facility] TCU under skilled level of care.
== END 2021-10-13 15:50 | disposition skilled nursing facility (03) | DRG 640 ==
LOC: ED 11:13 → PCU 11:55
PROVIDERS: Admitting Provider Internal Medicine; Emergency Provider Emergency Medicine; PCP Family Medicine; Visit Provider Internal Medicine
DX: E87.1 Hypo-osmolality and hyponatremia (principal); E43 Unspecified severe protein-calorie malnutrition; I69.354 Hemiplegia and hemiparesis following cerebral infarction affecting left non-dominant side; E11.9 Type 2 diabetes mellitus without complications; E86.0 Dehydration; E87.6 Hypokalemia; I10 Essential (primary) hypertension; E78.5 Hyperlipidemia, unspecified; M10.9 Gout, unspecified; T50.2X5A Adverse effect of carbonic-anhydrase inhibitors, benzothiadiazides and other diuretics, initial encounter; R29.6 Repeated falls; Z68.26 Body mass index [BMI] 26.0-26.9, adult; Y93.9 Activity, unspecified; Y99.9 Unspecified external cause status; Y92.9 Unspecified place or not applicable; Z79.02 Long term (current) use of antithrombotics/antiplatelets; Z79.82 Long term (current) use of aspirin; Z79.84 Long term (current) use of oral hypoglycemic drugs; Z87.891 Personal history of nicotine dependence
CPT/HCPCS: 36415; 80048; 81001; 82533; 82962; 83735; 83930; 83935; 84100; 84300; 84443; 84484; 85025; 87426; 93005; 97110; 97116; 97162; 97165; 97802; 99251; 99285; J7030; G0463

== ENCOUNTER 2021-10-19 08:44 | Outpatient (CLI) | payer MEDICARE, SELFPAY ==
--- NOTE | 2021-10-19 08:47 | MRI_ITS ---
STUDY: MRI BRAIN WITH AND WITHOUT CONTRAST REASON FOR EXAM: Male, 71 years old. CEREEBRAL INFARCTION TECHNIQUE: Standardized multiplanar fat and water weighted pulse sequences were obtained. IV dotarem 18 ml was administered for the contrast portion of the examination. COMPARISON: 10/02/2021 FINDINGS: There is moderate cerebral atrophy with widening of the extra-axial spaces and ventricular dilatation. There are multiple white matter hyperintensities, distributed throughout the deep white matter tracts of the cerebral hemispheres, consistent with moderate chronic white matter ischemic changes. There is no change in the hyperintensities in the medial right parietal lobe which demonstrate restricted diffusion consistent with subacute infarcts. Normal T2* images of the brain without demonstrated susceptibility artifact. There is no demonstrated hemosiderin stain. Normal bilateral basal ganglia. Normal thalami. There is no extra-axial fluid accumulation. Normal flow voids within the major intracranial circulation suggesting patency by spin echo criteria. Normal venous enhancement. There is no enhancing intra-axial or extra-axial abnormality. Normal sella turcica, pituitary gland, infundibular stalk, optic chiasm and hypothalamus. Normal tectal plate and pineal gland. Normal midbrain, wayne and medulla. Normal cerebellum. Normal basal cisterns. Normal bilateral temporal bones. Normal bilateral internal auditory canals. There are bilateral ocular lens implants with otherwise normal intraorbital contents. Normal visualized paranasal sinuses. Normal calvarium and skull base. Normal visualized soft tissue structures. Normal visualized upper cervical spine. MRI/Brain W/WO Contrast IMPRESSION: Involutional changes of the brain, as described above. No change in subacute infarcts of the medial right parietal lobe. Electronically Signed: Maurilio Rawls MD at 10:46 EST Tel , Service support ,
== END 2021-10-19 23:59 | disposition short-term general hospital (02) ==
LOC: MRI 08:44
PROVIDERS: PCP Family Medicine; Visit Provider Family Medicine Geriatric Medicine
DX: I63.9 Cerebral infarction, unspecified (principal)
CPT/HCPCS: 70553; A9575; A4216

== ENCOUNTER 2021-11-02 06:41 | Outpatient (CLI) | payer MEDICARE, SELFPAY ==
--- NOTE | 2021-11-02 17:10 | STRESSREP ---
Stress Test Report Exercise myocardial perfusion stress test. 71-year-old man with a history of chest pain. Preop cardiac evaluation. Resting EKG demonstrates normal sinus rhythm with a rate of 59 bpm normal intervals are noted resting blood pressure is 132/84 mmHg. 0.4 mg of regadenoson was infused per usual protocol followed by rapid intravenous saline flush injection continuous EKG monitoring was performed. The maximum heart rate attained was 100 bpm which was 67% of max impact at heart rate the maximum workload was 1 metabolic equivalent. At rest there were no ST or T wave changes noted to suggest abnormal flow reserve and at peak infusion nonspecific ST changes were noted with did not meet the criteria for ischemia. No clinical angina was noted. Myocardial perfusion protocol. 11.9 mCi of technetium 99m sestamibi was injected at rest. 0.4 mg of regadenoson was infused per usual protocol. At peak infusion 33.5 mCi of technetium 99m sestamibi was injected stress images were obtained stress and rest images were reconstructed and compared in the short axis vertical long and horizontal long axis. Gated images were also obtained for Perfusion SPECT analysis: Review of the stress images demonstrate normal uptake of tracer noted in all areas of the myocardium. The resting images similarly demonstrate normal uptake of tracer noted in all areas of the myocardium. No areas of reversibility are noted suggest ischemia and no previous infarct is noted. Gated SPECT analysis: The gated ejection fraction is noted to be 77%. Conclusion: Normal exercise myocardial perfusion stress test with no evidence of ischemia. Preserved ejection fraction.
== END 2021-11-02 23:59 | disposition short-term general hospital (02) ==
PROVIDERS: PCP Family Medicine; Referring Provider Internal Medicine Cardiovascular Disease; Visit Provider Internal Medicine Cardiovascular Disease
DX: Z01.810 Encounter for preprocedural cardiovascular examination (principal); I25.10 Atherosclerotic heart disease of native coronary artery without angina pectoris
CPT/HCPCS: 78452; 93017; A9500; A4216; J2785

== ENCOUNTER 2021-11-03 11:21 | Emergency (ER) | payer MEDICARE, SELFPAY ==
[2021-11-03] VITALS (9 sets, daily range): BP systolic 127–142; BP diastolic 69–95; PULSE 62–81; RESP 13–16; TEMP 36.4–36.6; O2SAT 94–99; BMI 28.7; BMI 63.2
[2021-11-03 12:00] LABS: Absolute Lymphocyte Count 0.95 X10^3/uL (0.83-4.51); Absolute Neutrophil Count 4.7 X10^3/uL (2.0-7.7); Basophil# 0.06 X10^3/uL; Basophil% 0.9 % (0-1); Eosinophil# 0.27 X10^3/uL; Eosinophils% 4.1 % (0-5); Hematocrit 43.1 % (40-54); Hemoglobin 15.2 g/dL (13.0-16.5); Lymphocyte # 0.95 X10^3/ul (0.83-4.51); Lymphocyte % 14.5 % (19-41); Mean Corp Hgb Conc 35.3 g/dL (32-36); Mean Corpuscular Hgb 30.6 pg (27.0-32.0); Mean Corpuscular Volume 86.7 fL (80-94); Mean Platelet Vol. 9.1 fl (6.2-12.0); Monocyte# 0.49 X10^3/uL; Monocyte% 7.5 % (0-10); NRBC Flagged by Analyzer 0 % (0-5); Neutrophil # 4.71 X10^3/uL (2.7-7.7); Neutrophil % 71.9 % (47-70); Platelet Count 255 K/mm3 (150-450); RBC Distribution Width SD 40.6 fl (35.1-43.9); Red Blood Count 4.97 M/mm3 (4.6-6.2); White Blood Count 6.6 K/mm3 (4.4-11.0)
--- NOTE | 2021-11-03 12:01 | EKG12_ITS ---
Test Reason : Blood Pressure : / mmHG Vent. Rate : 064 BPM Atrial Rate : 064 BPM P-R Int : 226 ms QRS Dur : 090 ms QT Int : 420 ms P-R-T Axes : 013 046 116 degrees QTc Int : 433 ms Sinus rhythm with 1st degree A-V block Inferior infarct , age undetermined ST & T wave abnormality, consider lateral ischemia Abnormal ECG Confirmed by DOMINIQUE LYNCH, CHERYL ([id number]), technical editor TIM BENZ ([id number]) on 11/06/2021 10:47:27 AM Referred By: TL Confirmed By:CHERYL FOX MD
--- NOTE | 2021-11-03 12:01 | CT_ITS ---
STUDY: CT HEAD STROKE PROTOCOL W/O CONTRAST INJECTION REASON FOR EXAM: Male, 71 years old. Neuro deficit, acute, stroke suspected RADIATION DOSAGE (If Supplied By Facility): CTDIvol = ( 44.99 ) mGy, DLP = ( 846.73 ) mGycm TECHNIQUE: Transaxial CT imaging of the brain was performed without administration of intravenous contrast material. Individualized dose optimization techniques were used for this CT. COMPARISON: Comparison is made with prior study dated 10/02/2021. FINDINGS: Normal soft tissue structures. Normal calvarium. There is mild cerebral atrophy with widening of the extra-axial spaces and ventricular dilatation. There are areas of decreased attenuation within the white matter tracts of the supratentorial brain, consistent with microvascular disease changes. Stable old cortical gyral ischemic infarct in the right occipital lobe. Normal basal ganglia and thalami. Normal brainstem. Normal cerebellum. There is no intracranial hemorrhage. There are no findings of an acute ischemic infarction. Normal visualized paranasal sinuses. CT/STROKE Brain/Head without Cont IMPRESSION: Chronic involutional changes of the brain. Stable examination. N.B. : The above Results were Read Back by John Sharma MD to Ryan Ferrer and understanding confirmed on 11/03/2021 12:44:12 (ET). Electronically Signed: John Sharma MD at 12:45 EST ,
[2021-11-03 12:04] LABS: ALB/GLOB Ratio 1.2 RATIO (0.9-2.4); AST(SGOT) 25 U/L (15-37); Alanine Aminotransfer ALT/SGPT 29 U/L (16-61); Albumin, Serum 3.6 g/dL (3.2-5.0); Alkaline Phosphatase 65 U/L (45-117); Anion Gap 9 (5-15); BUN 22 mg/dL (7-18); BUN/Creat Ratio 12.9 RATIO (10-20); Calcium,Total 8.8 mg/dL (8.5-10.1); Chloride 100 mmol/L (98-107); Creatinine, Serum 1.71 mg/dL (0.70-1.30); EST Glomerular Filtration Rate 42 mL/min (>60); Est Glom Filt Rate - Afr Amer 51 mL/min (>60); Estimated Creatinine Clearance 40.32 ml/min; Glucose 159 mg/dL (74-106); Potassium 3.6 mmol/L (3.5-5.1); Protein, Total 6.6 g/dL (6.4-8.2); Sodium Level 136 mmol/L (136-145)
--- NOTE | 2021-11-03 12:09 | EDS_ITS ---
HPI History of Present Illness Chief Complaint: Weakness Informant: patient Narrative Narrative: Brought in by EMS for evaluation increasing weakness left lower extremity after being discharged from TCU 11 AM more than 24 hours ago yesterday. Patient admitted for a stroke affecting his left side October 02. He went to TCU, he states his strength was almost back to normal walking 250 feet with a walker. Upon coming home getting out of a driveway felt sudden weakness in his left leg. He was seen by home health yesterday at concerns for recurrent stroke. He is unable to ambulate currently with a walker by himself due to left leg weakness. Denies headache. There is states there is transient blurry vision of the right eye. No vision loss. He is has known carotid blockage from records right internal carotid 75%. He states waiting for Dr. Payton for plan outpatient care. Started on aspirin Plavix and statin prior to discharge. Prior similar symptoms: [facility] Medical History Carotid artery stenosis CVA (cerebral vascular accident) (09/25/21) DM2 (diabetes mellitus, type 2) Essential hypertension Frequent falls Gout History of stroke Inability to ambulate due to multiple joints Left-sided muscle weakness Prostate cancer Weakness Home Medications allopurinol 100 mg PO DAILY 12/18/19 [History Last Taken 11/03/21] glimepiride 1 mg PO DAILY 12/18/19 [History Last Taken 11/03/21] metformin 1,000 mg PO BID 12/18/19 [History Last Taken 11/03/21] pioglitazone 15 mg PO DAILY 12/18/19 [History Last Taken 11/03/21] ramipril 10 mg PO DAILY 12/18/19 [History Last Taken 11/03/21] aspirin 81 mg PO BREAKFAST 10/13/21 [History Last Taken 11/03/21] atorvastatin 80 mg PO DAILY 10/13/21 [History Last Taken 11/02/21] clopidogrel 75 mg PO DAILY 10/13/21 [History Last Taken 11/03/21] acetaminophen 1,000 mg PO Q6H PRN PRN #0 tab 10/30/21 [Rx Last Taken Unknown] citalopram 10 mg PO 1800 30 Days #30 tab 10/30/21 [Rx Last Taken 11/02/21] furosemide 20 mg PO BIDLX 30 Days #60 tab 10/30/21 [Rx Last Taken 11/03/21] melatonin 10 mg PO QHS #0 tab 10/30/21 [Rx Last Taken 11/02/21] mirtazapine 7.5 mg PO QHS #30 tab 10/30/21 [Rx Last Taken 11/02/21] sodium chloride 1 g PO BID 30 Days #60 tab 10/30/21 [Rx Last Taken 11/03/21] polyethylene glycol 3350 17 g PO DAILY PRN 11/03/21 [History Last Taken 11/02/21] Allergy/AdvReac Type Severity Reaction Status Date / Time No Known Allergies Allergy Verified 11/03/21 11:22 Family History Mother CVA (cerebral vascular accident) Several recurrent strokes, eventually passed age 84. Surgical History H/O foot surgery History of colon resection History of repair of right rotator cuff History of tonsillectomy and adenoidectomy Social History household members: spouse Smoking Status: Former smoker how long ago did patient quit smoking: Smoked age [age], 1 ppd until quit. Does have 2nd hand exposure from . alcohol intake: current alcohol intake frequency: holidays/special occasions only substance use type: does not use ROS ROS ED Constitutional Constitutional ED: Denies chills, fever(s) or sweats Eyes Eyes: Denies change in vision ENT ENT ED: Denies dysphagia or sore throat Cardiovascular Cardiovascular: Denies chest pain, leg edema, palpitations or racing heartbeat Respiratory/Chest Respiratory/Chest: Denies cough, dyspnea or dyspnea on exertion Gastrointestinal Gastrointestinal: Denies abdominal pain, diarrhea, nausea or vomiting Genitourinary Genitourinary ED: Denies dysuria, hematuria or urinary frequency Musculoskeletal Musculoskeletal: Denies back pain, extremity pain or neck pain Integumentary Denies rash or wounds Neurologic Neurologic: Reports weakness; Denies headache(s) or paresthesias EXAM Physical Exam Const Vital Signs: 11/03/21 11:23 11/03/21 12:13 11/03/21 12:42 Temperature 98 F Temperature Source Temporal Pulse Rate 71 62 68 Respiratory Rate 14 15 13 Blood Pressure 133/84 H 127/88 H 127/95 H Blood Pressure Mean 100 101 105 Pulse Ox 97 94 99 Oxygen Delivery Method Room Air Room Air 11/03/21 13:04 11/03/21 13:56 11/03/21 14:23 Temperature 97.6 F L Temperature Source Oral Pulse Rate 72 68 71 Respiratory Rate 15 15 16 Blood Pressure 130/75 H 133/88 H 142/69 H Blood Pressure Mean 93 103 93 Pulse Ox 98 97 96 Oxygen Delivery Method Room Air Room Air 11/03/21 14:52 11/03/21 15:04 Temperature Temperature Source Pulse Rate 81 68 Respiratory Rate 16 15 Blood Pressure 135/77 H 133/77 H Blood Pressure Mean 96 95 Pulse Ox 96 97 Oxygen Delivery Method Room Air Room Air Positive well nourished and well developed General Appearance ED: well developed and NAD HEENT Reports moist mucous membranes normocephalic and atraumatic Eyes PERRL, EOMs intact bilaterally and conjunctivae normal General Eye ED: Yes normal appearance of both eyes Neck no lymphadenopathy and supple General: Negative for tenderness Chest Wall Chest: Negative for tenderness Resp normal respiratory effort and normal air movement Effort and Inspection: symmetric chest movement; Negative for respiratory distress Cardio regular rate, regular rhythm and no murmurs Peripheral Pulses: pulses 2+ throughout GI normal to inspection, nondistended, normoactive bowel sounds and non-tender Palpation: Negative for guarding or rebound tenderness present Back/Spine no CVA tenderness and no thoracic nor lumbar tenderness Extremity normal to inspection General Extremety ED: Negative for edema or tenderness General Extremity: Negative for edema Neuro oriented x3 and no sensory deficits noted Neuro Narrative: NIH of 4 for left arm drift, left leg dropping down to the bed. Sensorium / Orientation: awake and alert Skin no rashes or lesions noted and no wounds STROKE Vital Signs/Narrative: Vital Signs Temp Pulse Resp BP Pulse Ox 11/03/21 15:04 68 15 133/77 H 97 11/03/21 14:52 81 16 135/77 H 96 11/03/21 14:23 97.6 F L 71 16 142/69 H 96 11/03/21 13:56 68 15 133/88 H 97 11/03/21 13:04 72 15 130/75 H 98 11/03/21 12:42 68 13 127/95 H 99 11/03/21 12:13 62 15 127/88 H 94 11/03/21 11:23 98 F 71 14 133/84 H 97 Inital Vital Signs reviewed: Yes NIHSS Initial: 1a Level of Consciousness: 0 1b LOC Questions (Score 2 if aphasic/stupor): 0 2 Best Gaze (If aphasic, use reflexive mvmts.): 0 3 Visual: 0 4 Facial Palsy: 0 5 Motor Arm Right (UN = amputation/fusion): 0 5 Motor Arm Left: 1 6 Motor Leg Right: 0 6 Motor Leg Left: 3 7 Limb ataxia (Only + if out of proportion): 0 8 Sensory (Aphasia/stupor=0 or 1, coma=2): 0 9 Best Language: 0 10 Dysarthria (mute, coma=2, intubated=UN): 0 11 Extinction and Inattention (only scored if +): 0 Total Score: 4 MDM MDM MDM Narrative Medical decision making narrative: Patient NIH of 4 recurrent left-sided weakness known 75% right internal carotid stenosis. He is more than 24 hours from symptoms therefore no stroke team was activated. Stroke work-up initiated. CT scan of the head shows no acute process EKG labs were normal. I discussed with hospitalist Dr. Geller who knows him well he was admitted recently for recurrent hyponatremia. He had weakness at that time. With recurrent symptoms on the same side with this stenosis concerns for critical blockage causing symptoms. Request I speak with [facility] neurology. I spoke with Dr. Crowell, discussed patient's history and findings. He has normal labs. Request a urine to rule out other infections he denies any symptoms. He agrees with a cath urine to be sent out and pending. She agrees that he will need more of her urgent evaluati on for carotid repair due to recurrent symptoms. He will likely another MRI done at their facility. I discussed this with the patient and the spouse who understands and agrees with plan. He will be transferred to [facility] under the service Dr. Smith. Image studies from his previous admission of MRIs and CT angiograms head and neck and today CT brain will be included on his transfer paperwork. Lab Data Attestation: I reviewed the patient's lab results. Labs: Laboratory Results - last 24 hr 11/03/21 11/03/21 11/03/21 11:32 11:32 11:32 WBC 6.6 Cancelled Corrected WBC Cancelled RBC 4.97 Cancelled Hgb 15.2 Cancelled Hct 43.1 Cancelled MCV 86.7 Cancelled MCH 30.6 Cancelled MCHC 35.3 Cancelled RDW Std Deviation 40.6 Cancelled RDW Coeff of Cintia 13.0 Cancelled Plt Count 255 Cancelled MPV 9.1 Cancelled Immature Gran % (Auto) 1.100 H Cancelled Neut % (Auto) 71.9 H Cancelled Lymph % (Auto) 14.5 L Cancelled [place] % (Auto) 7.5 Cancelled Eos % (Auto) 4.1 Cancelled Baso % (Auto) 0.9 Cancelled Absolute Neuts (auto) 4.7 Cancelled Absolute Lymphs (auto) 0.95 Cancelled Total Counted Cancelled Neutrophils % (Manual) Cancelled Band Neutrophils % Cancelled Lymphocytes % (Manual) Cancelled Monocytes % (Manual) Cancelled Eosinophils % (Manual) Cancelled Basophils % (Manual) Cancelled Metamyelocytes % Cancelled Myelocytes % Cancelled Promyelocytes % Cancelled Blast Cells % Cancelled Plasma Cell % (Manual) Cancelled Other Cells % Cancelled Nucleated RBC % 0 Cancelled Nucleated RBCs/100 WBC Cancelled Differential Comment Cancelled Diff Path Review Cancelled Hypersegmented Neuts Cancelled Atypical Lymphocytes Cancelled Reactive Lymphocytes Cancelled Smudge Cells Cancelled Toxic Granulation Cancelled Toxic Vacuolation Cancelled Dohle Bodies Cancelled Shyanne Rods Cancelled Platelet Estimate Cancelled Plt Morphology Comment Cancelled RBC Morphology Cancelled Polychromasia Cancelled Hypochromasia Cancelled Poikilocytosis Cancelled Basophilic Stippling Cancelled Anisocytosis Cancelled Microcytosis Cancelled Macrocytosis Cancelled Spherocytes Cancelled Sickle Cells Cancelled Target Cells Cancelled Tear Drop Cells Cancelled Ovalocytes Cancelled Stomatocytes Cancelled Colbert-Herald Bodies Cancelled Cut Off Cells Cancelled Bite Cells Cancelled Crenated Cell Cancelled Acanthocytes (Spur) Cancelled Rouleaux Cancelled Schistocytes Cancelled PT INR APTT Sodium 136 Potassium 3.6 Chloride 100 Carbon Dioxide 27.0 Anion Gap 9 BUN 22 H Creatinine 1.71 H Estim Creat Clear Calc 40.32 Est GFR (MDRD) Af Amer 51 L Est GFR (MDRD) Non-Af 42 L BUN/Creatinine Ratio 12.9 Glucose 159 H Calcium 8.8 Total Bilirubin 0.60 AST 25 ALT 29 Alkaline Phosphatase 65 Troponin I High Sens Total Protein 6.6 Albumin 3.6 Globulin 3.0 Albumin/Globulin Ratio 1.2 POC Glucose 11/03/21 11/03/21 11/03/21 11:32 11:32 12:19 WBC Corrected WBC RBC Hgb Hct MCV MCH MCHC RDW Std Deviation RDW Coeff of Cintia Plt Count MPV Immature Gran % (Auto) Neut % (Auto) Lymph % (Auto) [place] % (Auto) Eos % (Auto) Baso % (Auto) Absolute Neuts (auto) Absolute Lymphs (auto) Total Counted Neutrophils % (Manual) Band Neutrophils % Lymphocytes % (Manual) Monocytes % (Manual) Eosinophils % (Manual) Basophils % (Manual) Metamyelocytes % Myelocytes % Promyelocytes % Blast Cells % Plasma Cell % (Manual) Other Cells % Nucleated RBC % Nucleated RBCs/100 WBC Differential Comment Diff Path Review Hypersegmented Neuts Atypical Lymphocytes Reactive Lymphocytes Smudge Cells Toxic Granulation Toxic Vacuolation Dohle Bodies Shyanne Rods Platelet Estimate Plt Morphology Comment RBC Morphology Polychromasia Hypochromasia Poikilocytosis Basophilic Stippling Anisocytosis Microcytosis Macrocytosis Spherocytes Sickle Cells Target Cells Tear Drop Cells Ovalocytes Stomatocytes Colbert-Herald Bodies [place] Cells Bite Cells Crenated Cell Acanthocytes (Spur) Rouleaux Schistocytes PT 13.1 INR 1.1 APTT 27.2 Sodium Cancelled Potassium Cancelled Chloride Cancelled Carbon Dioxide Cancelled Anion Gap Cancelled BUN Cancelled Creatinine Cancelled Estim Creat Clear Calc Est GFR (MDRD) Af Amer Cancelled Est GFR (MDRD) Non-Af Cancelled BUN/Creatinine Ratio Cancelled Glucose Cancelled Calcium Cancelled Total Bilirubin AST ALT Alkaline Phosphatase Troponin I High Sens 10 Total Protein Albumin Globulin Albumin/Globulin Ratio POC Glucose 95 Radiography Diagnostic Testing: Clinical Impression(s) from Imaging Studies Brain CT 11/03/21 12:01 IMPRESSION: Chronic involutional changes of the brain. Stable examination. N.B. : The above Results were Read Back by John Sharma MD to Ryan Ferrer and understanding confirmed on 11/03/2021 12:44:12 (ET). Electronically Signed: John Sharma MD at 12:45 EST , ADDENDUM: 11/03/21 1252 IMPRESSION: Chronic involutional changes of the brain. Stable examination. N.B. : The above Results were Read Back by John Sharma MD to Ryan Ferrer and understanding confirmed on 11/03/2021 12:44:12 (ET). Electronically Signed: John Sharma MD at 12:45 EST , Chest X-Ray 11/03/21 12:36 IMPRESSION: Stable examination. No acute abnormality is seen. Electronically Signed: John Sharma MD at 12:57 EST , EKG Initial EKG: Attestation: I personally reviewed and interpreted this EKG as follows: Comments: Sinus rate of 64, no ST changes, T wave inversions in 1 and aVL. Stroke Documentation Questions Stroke Team Activated: No Was Patient considered for Endovascular Intervention?: No IV Alteplase (t-PA) Administered: No Discharge Plan Triage Chief Complaint: Weakness ED Provider: Ryan Ferrer Dx/Rx/DC Orders Clinical Impression: CVA (cerebral vascular accident), Acute left-sided weakness, Carotid artery stenosis Prescriptions: No Action pioglitazone 15 MG tablet 15 mg PO DAILY RF: 0 allopurinol 100 MG tablet 100 mg PO DAILY RF: 0 glimepiride 1 MG tablet 1 mg PO DAILY RF: 0 metformin 1,000 MG tablet 1,000 mg PO BID RF: 0 ramipril 10 MG capsule 10 mg PO DAILY RF: 0 atorvastatin 40 MG tablet 80 mg PO DAILY RF: 0 clopidogrel 75 mg tablet 75 mg PO DAILY RF: 0 aspirin 81 mg tablet,chewable 81 mg PO BREAKFAST RF: 0 citalopram 10 mg Tablet 10 mg PO 1800 30 Days Qty: 30 RF: 0 acetaminophen 500 mg Tablet 1,000 mg PO Q6H PRN PRN (Reason: Pain Score 1-10) Qty: 0 RF: 0 sodium chloride 1,000 mg Tablet,Soluble 1 g PO BID 30 Days Qty: 60 RF: 0 melatonin 10 mg Tablet, Sublingual 10 mg PO QHS Qty: 0 RF: 0 furosemide 20 mg tablet 20 mg PO BIDLX 30 Days Qty: 60 RF: 0 mirtazapine 7.5 mg tablet 7.5 mg PO QHS Qty: 30 RF: 0 polyethylene glycol 3350 17 gram/dose Powder 17 g PO DAILY PRN (Reason: Constipation) RF: 0 Primary Care Provider: Akash Agosto Referrals: Akash Agosto MD [Primary Care Provider] - Disposition Disposition: Transfer to Another Type [facility]
[2021-11-03 12:25] LABS: Bedside Glucose 95 mg/dL (70-110)
[2021-11-03 12:25] LABS: International Normalized Ratio 1.1; Prothrombin Time (Protime)PT. 13.1 SECONDS (11.7-14.9)
[2021-11-03 12:26] LABS: Partial Thromboplast Time 27.2 Seconds (24.1-36.2)
[2021-11-03 12:29] LABS: Troponin-I HS 10 pg/mL (3.0-78.0)
--- NOTE | 2021-11-03 12:36 | RAD_ITS ---
STUDY: X-RAY CHEST REASON FOR EXAM: Male, 71 years old. Neuro deficit, acute, stroke suspected TECHNIQUE: Single AP portable view of the chest. COMPARISON: Comparison is made with prior study dated 10/18/2021. FINDINGS: EKG electrodes are seen. Mild elevation of the right hemidiaphragm. Scattered calcified granulomas. There is no demonstrated pleural abnormality. Normal size heart. Normal mediastinum and elidia. Normal visualized pulmonary arteries. There is atherosclerotic calcification of the aortic arch with tortuosity. There are diffuse degenerative changes of the visualized thoracic spine. Normal visualized ribs, clavicles, and shoulders. There is no demonstrated abnormality of the visualized soft tissue structures of the upper abdomen. RAD/Chest 1 View IMPRESSION: Stable examination. No acute abnormality is seen. Electronically Signed: John Sharma MD at 12:57 EST ,
--- NOTE | 2021-11-03 15:08 | NURSING ---
CALLED [facility], ETA IS 20 MIN
[2021-11-03 16:22] LABS: Bacteria 0 SEEN /hpf (None Seen); Mucous, Urine 0 SEEN /hpf (<or=2+); Red Blood Cells-Urine 0 SEEN /hpf (0-5); White Blood Cells 0 SEEN /hpf (0-5)
[2021-11-03 16:35] LABS: Color, Urine Yellow (Yellow); Glucose, Dipstick Normal (Normal); Ketone-Dipstick Negative (Negative); Leukocyte Esterase-Dipstick Negative /ul (Negative); Nitrite-Dipstick Negative (Negative); Occult Blood-Urine Negative /ul (Negative); Protein-Dipstick Negative (Negative); Urine Bilirubin Dipstick Negative (Negative); Urine Clarity Clear (Clear); Urine Urobilinogen Normal (Normal)
[2021-11-03 16:59] LABS: Hyaline Cast 0-5 SEEN /lpf (0-5); Squamous Epithelial Cells - UA 0-5 SEEN /hpf (0-5)
== END 2021-11-03 16:17 | disposition other institution (70) ==
PROVIDERS: Emergency Provider Emergency Medicine; PCP Family Medicine; Visit Provider Emergency Medicine
DX: I63.231 Cerebral infarction due to unspecified occlusion or stenosis of right carotid arteries (principal); G81.94 Hemiplegia, unspecified affecting left nondominant side; E11.9 Type 2 diabetes mellitus without complications; R29.704 NIHSS score 4; E87.1 Hypo-osmolality and hyponatremia; I10 Essential (primary) hypertension; Z79.02 Long term (current) use of antithrombotics/antiplatelets; Z79.82 Long term (current) use of aspirin; Z79.84 Long term (current) use of oral hypoglycemic drugs; Z79.899 Other long term (current) drug therapy; Z87.891 Personal history of nicotine dependence; Z86.73 Personal history of transient ischemic attack (TIA), and cerebral infarction without residual deficits
CPT/HCPCS: 70450; 71045; 80053; 81001; 82962; 84484; 85025; 85610; 85730; 93005; 99285; P9612

== ENCOUNTER 2021-11-14 20:30 | Inpatient (IN) | payer MEDICARE, SELFPAY ==
[2021-11-14 21:11] VITALS: BP 119/86; PULSE 66; PULSE 79; RESP 16; TEMP 36.6; O2SAT 95; O2SAT 96
[2021-11-14 21:53] VITALS: BMI 26.7
--- NOTE | 2021-11-14 22:36 | HP.PCM_ITS ---
HPI - General General Date of Admission: 11/14/21 HPI Narrative 11/03/2021 PAYAM HAMM, is a 71 Male who presents to [facility] Emergency Department with weakness. 11/03/2021 EKG sinus rhythm with first degree AV block, inferior infarct, age undetermined, ST&T wave abnormality, consider lateral ischemia. Increase left lower extremity weakness, recent stroke, concern with recurrent stroke. Has severe right carotid artery stenosis. Stroke alert, CT head negative, TPA not indicated. Transfer to [facility] for urgent right carotid endarterectomy. 11/03/2021 Admit to [facility]. CTA neck showed > 95% stenosis right internal carotid artery. Swallow evaluation. Continue aspirin, plavix. MRI brain showed right hemisphere stroke, secondary to right internal carotid artery stenosis. 11/04/2021 Neurosurgery consulted for right internal carotid artery stenosis, plan CEA 11/06/2021. 11/05/2021 Hold Aspirin, Hold Plavix. Neurosurgery performed right CEA. 11/14/2021 Admit to TCU with debility, here for rehabilitation, strengthening, prior to discharge home with . [facility] Medical History (Updated 11/14/21 @ 22:[address] Abhijeet Estrada MD) Carotid artery stenosis CVA (cerebral vascular accident) (09/25/21) DM2 (diabetes mellitus, type 2) Essential hypertension Frequent falls Gout History of stroke Inability to ambulate due to multiple joints Left-sided muscle weakness Prostate cancer Weakness Home Medications glimepiride 1 mg PO DAILY 12/18/19 [History Last Taken 11/03/21] metformin 1,000 mg PO BID 12/18/19 [History Last Taken 11/03/21] pioglitazone 15 mg PO DAILY 12/18/19 [History Last Taken 11/03/21] ramipril 10 mg PO DAILY 12/18/19 [History Last Taken 11/03/21] atorvastatin 40 mg PO DAILY 10/13/21 [History Last Taken 11/02/21] acetaminophen 1,000 mg PO Q6H PRN PRN #0 tab 10/30/21 [Rx Last Taken Unknown] polyethylene glycol 3350 17 g PO DAILY PRN 11/03/21 [History Last Taken 11/02/21] citalopram 10 mg PO 1800 11/14/21 [History Last Taken Unknown] mirtazapine 7.5 mg PO QHS 11/14/21 [History Last Taken Unknown] sodium chloride 1 g PO BID 11/14/21 [History Last Taken Unknown] Allergy/AdvReac Type Severity Reaction Status Date / Time No Known Allergies Allergy Verified 11/03/21 11:22 Family History Mother CVA (cerebral vascular accident) Several recurrent strokes, eventually passed age 84. Surgical History (Updated 11/14/21 @ 22:[address] Abhijeet Estrada MD) H/O foot surgery History of colon resection History of repair of right rotator cuff History of right-sided carotid endarterectomy History of tonsillectomy and adenoidectomy Social History household members: spouse Smoking Status: Former smoker how long ago did patient quit smoking: Smoked age [age], 1 ppd until quit. Does have 2nd hand exposure from . alcohol intake: current alcohol intake frequency: holidays/special occasions only substance use type: does not use ROS Constitutional Constitutional: Denies chills, fever(s) or weight gain ENT HEENT: Denies headache(s), nasal congestion or nasal discharge Cardiovascular Cardiovascular: Denies chest pain or palpitations Respiratory/Chest Respiratory/Chest: Denies cough, excessive phlegm production or shortness of breath with exertion Gastrointestinal Gastrointestinal: Denies abdominal pain, nausea or vomiting Genitourinary Genitourinary: Denies dysuria Musculoskeletal Musculoskeletal: Denies joint pain or joint swelling Integumentary Integumentary: Denies rash or wounds Neurologic Neurologic: Denies focal weakness, numbness or tingling Psychiatric Psychiatric: Denies anxiety, auditory hallucinations, depression, homicidal ideation or suicidal ideation Vital Signs Vital Signs Vital Signs: Weight Weight: 84.55 kg Body Mass Index (BMI) 26.7 Physical Exam Const alert and oriented x3 General Appearance: cooperative HEENT normocephalic Eyes PERRL and EOMs intact bilaterally Neck supple, no JVD and no carotid bruits Resp normal respiratory effort, normal air movement and clear to auscultation bilaterally Cardio regular rate and regular rhythm GI normal to inspection, nondistended, normoactive bowel sounds, non-tender and non-distended Extremity normal capillary refill General Extremity: Negative for edema Skin no rashes or lesions noted General Skin Exam: no breakdown Neuro Neuro Narrative: Left lower extremity weakness. Psych affect normal Appearance: appropriate Results Lab / Micro Data Result Diagrams: 11/15/21 05:10 11/15/21 05:10 Assessment & Plan Assessment/Plan (1) Debility: (2) Stroke: (3) Left hemiparesis: (4) Stenosis of right internal carotid artery: (5) Gout: (6) Hyperlipidemia: (7) Depression: (8) Diabetes mellitus: (9) Hypertension: PLAN: 71 year old male with below past medical hospitalized for right sided stroke secondary to severe right internal carotid artery stenosis, underwent right carotid endarterectomy 11/06/2021, admitted to TCU with debility, here for rehabilitation, strengthening, prior to discharge home with . * Debility - PT/OT. * Dysphagia - ST. * Pain - Tylenol 1000mg q6h prn pain (1-10). * Bowel - Miralax 17gm daily, Senna/colace 1 tablet bid, Dulcolax 10mg daily prn. * Adult immunization - Administer Prevnar 20, Fluzone, covid19 vaccine as dior ropriate. * DVT prophylaxis - Lovenox 40mg sc daily. * Stroke - Aspirin 325mg daily. * Hyperlipidemia - Atorvastatin 40mg qhs. * Hypertension - Ramipril 10mg daily, Chlorthalidone 25mg daily. * Depression - Citalopram 10mg daily, stable chronic snf use, GDR not recommended. * Diabetes Mellitus II - Metformin 1000mg bidcm, Piogliazone 15mg daily, Glimepiride 1mg bid. * Rash - Hytone topical bid prn. * Insomnia - Melatonin 3mg qhs. * Appetite loss - Mirtazapine 7.5mg qhs, stable chronic snf use, GDR not recommended. * Tinea Corporis - Nystatin powder topical bid. * Dry eyes - Artficial tears 2 gtt ou q1h prn. * Hyponatremia - Sodium chloride 1gm bid.
[2021-11-14] MEDS: Mirtazapine 15 MG Tablet 7.5 MG PO (23:29)
[2021-11-14] MEDS: MELATONIN 3 MG TABLET PO (23:29)
[2021-11-15] MEDS: Sodium Chloride 1 GM Tablet PO ×2 (05:11→17:17)
[2021-11-15] MEDS: Chlorthalidone 50 MG Tablet 25 MG PO (05:11)
[2021-11-15] MEDS: Citalopram 10 MG Tablet PO (05:11)
[2021-11-15] MEDS: Nystatin Powder 15gm Bottle 1 APPLIC TOPICAL ×2 (05:11→17:26)
[2021-11-15] MEDS: Senna/Docusate Sodium 1 Tablet PO ×2 (05:11→17:17)
[2021-11-15] MEDS: Polyethylene Glycol 3350 17 GM PACKET PO (05:11)
[2021-11-15] MEDS: Enoxaparin 40 MG/0.4 ML Syringe SC (05:11)
[2021-11-15] MEDS: Ramipril 10 MG Capsule PO (05:13)
[2021-11-15] MEDS: Menthol/Lanolin/Calamine/Znox 113 GM Tube 1 APPLIC TOPICAL ×2 (05:24→17:25)
[2021-11-15 05:55] LABS: Absolute Lymphocyte Count 1.45 X10^3/uL (0.83-4.51); Absolute Neutrophil Count 3.6 X10^3/uL (2.0-7.7); Basophil# 0.07 X10^3/uL; Basophil% 1.1 % (0-1); Eosinophil# 0.36 X10^3/uL; Eosinophils% 5.5 % (0-5); Hemoglobin 13.7 g/dL (13.0-16.5); Lymphocyte # 1.45 X10^3/ul (0.83-4.51); Mean Corp Hgb Conc 36.1 g/dL (32-36); Mean Corpuscular Hgb 30.8 pg (27.0-32.0); Mean Corpuscular Volume 85.4 fL (80-94); Mean Platelet Vol. 9.5 fl (6.2-12.0); Monocyte# 0.85 X10^3/uL; Monocyte% 12.9 % (0-10); NRBC Flagged by Analyzer 0 % (0-5); Neutrophil # 3.59 X10^3/uL (2.7-7.7); Neutrophil % 54.3 % (47-70); Platelet Count 268 K/mm3 (150-450); RBC Distribution Width CV 12.7 % (11.6-14.6); Red Blood Count 4.45 M/mm3 (4.6-6.2); White Blood Count 6.6 K/mm3 (4.4-11.0)
[2021-11-15 06:31] LABS: Bedside Glucose 132 mg/dL (70-110)
[2021-11-15 06:35] LABS: Anion Gap 9 (5-15); BUN 19 mg/dL (7-18); BUN/Creat Ratio 17.4 RATIO (10-20); Calcium,Total 8.8 mg/dL (8.5-10.1); Chloride 97 mmol/L (98-107); Creatinine, Serum 1.09 mg/dL (0.70-1.30); EST Glomerular Filtration Rate 71 mL/min (>60); Est Glom Filt Rate - Afr Amer 86 mL/min (>60); Estimated Creatinine Clearance 63.25 ml/min; Glucose 116 mg/dL (74-106); Potassium 3.3 mmol/L (3.5-5.1); Sodium Level 133 mmol/L (136-145)
[2021-11-15] MEDS: Glimepiride 1 MG Tablet PO (08:14)
[2021-11-15] MEDS: Aspirin E.C. 325 MG Tablet PO (08:14)
[2021-11-15] MEDS: Pioglitazone Hydrochloride 15 MG Tablet PO (08:14)
[2021-11-15] MEDS: metFORMIN HCl 1,000 MG Tablet 1000 MG PO ×2 (08:14→17:17)
[2021-11-15] MEDS: Acetaminophen 500 MG Tablet 1000 MG PO (08:17)
[2021-11-15] MEDS: Potassium Chloride Oral Tablet 20 MEQ PO (08:17)
--- NOTE | 2021-11-15 10:51 | CASEMGMT ---
Social Work Met with patient and for initial assessment. Explained [employer] insurance with NRD 11/20 and continued stay is not guaranteed. Discussed pt not being successful last DC and quick readmit. agrees there needs to be additional assistance for pt. Both pt and have high priority for pt returning home. Expressed understanding but offered a SNF may only need to be temporary until safe to be at home. is not able to physical assist and IDT feel has some cognitive/processing difficulties as well. Provided with list on nonskilled [facility] agencies, SNF list and Medicaid application. Explained for to begin contact [facility] agencies for pricing and availability, place pt on a waitlist for when he has a DC date. Also, to select 3 SNFs for SW to refer to, and complete Medicaid application. Explained [facility] can assist with SNF coverage and/or community assistance. expressed understanding. SW to continue to follow for support and discharge planning. Harmony Villar, SALES MARKETING MANAGER COSTING
[2021-11-15] MEDS: Glucerna Shake 120 ML LIQUID PO ×3 (11:13→19:45)
[2021-11-15] MEDS: Tuberculin,Purif.prot.deriv. 50 TU/ML Vial 0.1 ML ID (11:14)
--- NOTE | 2021-11-15 12:14 | PCM.PN.RX ---
Progress Note - Pharmacy Subjective: [] TCU Admission Objective: Allergies No Known Allergies Allergy (Verified 11/03/21 11:22) Current Medications Generic Name Dose Route Start Last Admin Trade Name Yadiel PRN Reason Stop Dose Admin Acetaminophen 1,000 mg 11/14/21 22:30 11/15/21 08:17 Acetaminophen 500 Mg Tablet PO 1,000 mg Q6H PRN PRN Administration Pain Score 1-10 Aspirin 325 mg 11/15/21 08:00 11/15/21 08:14 Aspirin E.C. 325 Mg Tablet PO 325 mg BREAKFAST EMILIE Administration Atorvastatin Calcium 40 mg 11/15/21 22:00 Atorvastatin Calcium 40 Mg Tablet PO QHS EMILIE Bisacodyl 10 mg 11/14/21 22:50 Bisacodyl 5 Mg Tablet PO DAILY PRN Constipation Calamine/Phenol 1 applic 11/15/21 06:00 11/15/21 05:24 Menthol/Lanolin/Calamine/Znox 113 Gm Tube TOPICAL 1 applic BID EMILIE Administration Protocol Chlorthalidone 25 mg 11/15/21 06:00 11/15/21 05:11 Chlorthalidone 50 Mg Tablet PO 25 mg DAILY EMILIE Administration Citalopram Hydrobromide 10 mg 11/15/21 06:00 11/15/21 05:11 Citalopram 10 Mg Tablet PO 10 mg DAILY EMILIE Administration Enoxaparin Sodium 40 mg 11/15/21 06:00 11/15/21 05:11 Enoxaparin 40 Mg/0.4 Ml Syringe SC 40 mg DAILY EMILIE Administration Glimepiride 1 mg 11/15/21 08:00 11/15/21 08:14 Glimepiride 1 Mg Tablet PO 1 mg BREAKFAST EMILIE Administration Hydrocortisone 1 applic 11/14/21 21:58 Hydrocortisone 2.5% Crm TOPICAL BID PRN PRN psoriasis Protocol Melatonin 3 mg 11/14/21 22:00 11/14/21 23:29 Melatonin 3 Mg Tablet PO 3 mg QHS EMILIE Administration Metformin HCl 1,000 mg 11/15/21 08:00 11/15/21 08:14 Metformin Hcl 1,000 Mg Tablet PO 1,000 mg BIDCM EMILIE Administration Mirtazapine 7.5 mg 11/14/21 22:15 11/14/21 23:29 Mirtazapine 15 Mg Tablet PO 7.5 mg QHS EMILIE Administration Nutritional Formula (Lactose Free) 120 ml 11/15/21 12:00 11/15/21 11:13 Glucerna Shake 120 Ml Liquid PO 120 ml 4X/DAY EMILIE Administration Nystatin 1 applic 11/15/21 06:00 11/15/21 05:11 Nystatin Powder 15gm Bottle TOPICAL 1 applic BID EMILIE Administration Protocol Pioglitazone HCl 15 mg 11/15/21 08:00 11/15/21 08:14 Pioglitazone Hydrochloride 15 Mg Tablet PO 15 mg BREAKFAST EMILIE Administration Polyethylene Glycol 17 gm 11/15/21 06:00 11/15/21 05:11 Polyethylene Glycol 3350 17 Gm Packet PO 17 gm DAILY EMILIE Administration Potassium Chloride 20 meq 11/15/21 08:00 11/15/21 08:17 Potassium Chloride Oral Tablet 20 Meq PO 20 meq DAILYCM EMILIE Administration Ramipril 10 mg 11/15/21 06:00 11/15/21 05:13 Ramipril 10 Mg Capsule PO 10 mg DAILY EMILIE Administration Senna/Docusate Sodium 1 tablet 11/15/21 06:00 11/15/21 05:11 Senna/Docusate Sodium 1 Tablet PO 1 tablet BID EMILIE Administration Sodium Chloride 1 gm 11/15/21 06:00 11/15/21 05:11 Sodium Chloride 1 Gm Tablet PO 1 gm BID EMILIE Administration Tuberculin PPD 0.1 ml 11/22/21 10:00 Tuberculin,Purif.Prot.Deriv. 50 Tu/Ml Vial ID 11/22/21 10:01 X1 ONE Problem List (Last Reviewed 11/14/21 @ 22:[address] Abhijeet Estrada MD) Hypertension (Chronic) Diabetes mellitus (Acute) Depression (Acute) Hyperlipidemia (Acute) Gout (Acute) Stenosis of right internal carotid artery (Acute) Left hemiparesis (Acute) Stroke (Acute) Debility (Acute) Vital Signs Temp Pulse Resp BP Pulse Ox 97.9 F 79 16 119/86 H 96 11/14/21 21:11 11/14/21 21:11 11/14/21 21:11 11/14/21 21:11 11/14/21 21:11 Oxygen Delivery Method Room Air Weight: 84.55 kg Body Mass Index (BMI) 26.7 Sodium 133 mmol/L (136-145) L 11/15/21 05:10 Potassium 3.3 mmol/L (3.5-5.1) L 11/15/21 05:10 Chloride 97 mmol/L (98-107) L 11/15/21 05:10 Carbon Dioxide 27.0 mmol/L (21.0-32.0) 11/15/21 05:10 Anion Gap 9 (5-15) 11/15/21 05:10 BUN 19 mg/dL (7-18) H 11/15/21 05:10 Creatinine 1.09 mg/dL (0.70-1.30) 11/15/21 05:10 Est GFR (MDRD) Af Amer 86 mL/min (>60) 11/15/21 05:10 Est GFR (MDRD) Non-Af 71 mL/min (>60) 11/15/21 05:10 BUN/Creatinine Ratio 17.4 RATIO (10-20) 11/15/21 05:10 Glucose 116 mg/dL (74-106) H 11/15/21 05:10 Assessment/Plan: 1) Pain: Acetaminophen 1000mg po q6h prn for pain 1-10. Please continue to monitor prn usage and for signs/symptoms of increased pain. 2) Hyperlipidemia: Atorvastatin 40mg po qhs. Pt's Lipid panel and LFTs are within normal limits. Please continue to monitor 3) Hyponatremia: Sodium Chloride 1gm po bid. Pt's most recent Na was 133 (11/15/21). Please continue to monitor. 4) DVT Prophylaxis: Enoxaparin 40mg subq once daily. Pt's SrCr is 1.09, CrCl is 63.25, and Plts are 268. Please continue to monitor labs. Please continue to monitor for signs/symptoms of bruising/bleeding as well as for DVT. 5) Hypertension: Chlorthalidone 50mg po daily, Ramipril 10mg po daily. Pt's SrCr is 1.09, CrCl is 63.25, K+ is 3.3, and BUN is 19. Please continue to monitor labs. Pt's only recorded bp is 119/86. Please continue to monitor bps. 6) Diabetes: Metformin 1000mg po bid with food, Pioglitazone 15mg po daily with breakfast. Pt's A1C was 6.7 on 10/03/21. Please continue to monitor. Pt's average blood glucose for the last 10 readings is 121.1. Please continue to monitor. Psychotropic Medications: Citalopram 10mg po daily for depression. See physicians note in H+P about GDR. --Note: Pt is recovering from a stroke and on the lowest dose. GDR not appropriate Melatonin 3mg po qhs for insomnia. GDR attempt would be required 02/2022, however pt already on lowest possible formulary strength available. Mirtazapine 7.5mg po qhs for appetite stimulation. See [employer] rules footballer note from 11/15/21 regarding nutritional intake status. GDR not recommended Unnecessary Medications: none Bowel Regimen: Bisacodyl 10mg po daily prn for constipation, Miralax 17gm po daily, Senna/Docusate 1 tablet po bid. Please continue to monitor prn usage and for signs/symptoms of constipation/diarrhea Date of Note:: 11/15/21
[2021-11-15 15:17] VITALS: BP 101/67; PULSE 67; RESP 16; TEMP 36.4; O2SAT 96
[2021-11-15] MEDS: Mirtazapine 15 MG Tablet PO (19:46)
[2021-11-15] MEDS: MELATONIN 3 MG TABLET PO (19:46)
[2021-11-15] MEDS: Atorvastatin Calcium 40 MG Tablet PO (19:46)
[2021-11-16] MEDS: Ramipril 10 MG Capsule PO (05:22)
[2021-11-16] MEDS: Citalopram 10 MG Tablet PO (05:22)
[2021-11-16] MEDS: Enoxaparin 40 MG/0.4 ML Syringe SC (05:22)
[2021-11-16] MEDS: Sodium Chloride 1 GM Tablet PO ×2 (05:22→17:44)
[2021-11-16] MEDS: Chlorthalidone 50 MG Tablet 25 MG PO (05:22)
[2021-11-16] MEDS: Menthol/Lanolin/Calamine/Znox 113 GM Tube 1 APPLIC TOPICAL ×2 (05:22→17:45)
[2021-11-16] MEDS: Senna/Docusate Sodium 1 Tablet PO ×2 (05:22→17:44)
[2021-11-16] MEDS: Glucerna Shake 120 ML LIQUID PO ×2 (05:22→17:43)
[2021-11-16] MEDS: Polyethylene Glycol 3350 17 GM PACKET PO (05:22)
[2021-11-16] MEDS: Nystatin Powder 15gm Bottle 1 APPLIC TOPICAL ×2 (05:23→21:33)
[2021-11-16 06:40] LABS: Bedside Glucose 121 mg/dL (70-110)
[2021-11-16] MEDS: Glimepiride 1 MG Tablet PO (07:30)
[2021-11-16] MEDS: Aspirin E.C. 325 MG Tablet PO (07:30)
[2021-11-16] MEDS: metFORMIN HCl 1,000 MG Tablet 1000 MG PO ×2 (07:30→17:44)
[2021-11-16] MEDS: Potassium Chloride Oral Tablet 20 MEQ PO (07:31)
[2021-11-16] MEDS: Pioglitazone Hydrochloride 15 MG Tablet PO (07:31)
[2021-11-16 10:20] VITALS: PULSE 58; RESP 18; O2SAT 97
--- NOTE | 2021-11-16 10:31 | NURSING ---
PT REQUESTED THERAPY TO PUT A STEFAN WRAP AROUND HIS LEFT KNEE AND STATED HE THINKS THATS WHY HE FELL DUE TO IT BEING WEAK AND WILL TALK TO ABOUT GETTING A BRACE. RN AWARE
[2021-11-16 13:34] VITALS: BP 101/65; PULSE 63; RESP 15; TEMP 36.1; O2SAT 97
[2021-11-16] MEDS: Atorvastatin Calcium 40 MG Tablet PO (21:32)
[2021-11-16] MEDS: Mirtazapine 15 MG Tablet PO (21:32)
[2021-11-16] MEDS: MELATONIN 3 MG TABLET PO (21:32)
[2021-11-17] MEDS: Enoxaparin 40 MG/0.4 ML Syringe SC (06:19)
[2021-11-17] MEDS: Chlorthalidone 50 MG Tablet 25 MG PO (06:19)
[2021-11-17] MEDS: Citalopram 10 MG Tablet PO (06:19)
[2021-11-17] MEDS: Polyethylene Glycol 3350 17 GM PACKET PO (06:19)
[2021-11-17] MEDS: Ramipril 10 MG Capsule PO (06:19)
[2021-11-17] MEDS: Senna/Docusate Sodium 1 Tablet PO (06:19)
[2021-11-17] MEDS: Sodium Chloride 1 GM Tablet PO ×2 (06:19→17:48)
[2021-11-17] MEDS: Nystatin Powder 15gm Bottle 1 APPLIC TOPICAL ×2 (06:20→17:53)
[2021-11-17] MEDS: Menthol/Lanolin/Calamine/Znox 113 GM Tube 1 APPLIC TOPICAL ×2 (06:20→17:53)
[2021-11-17 06:31] LABS: Bedside Glucose 127 mg/dL (70-110)
[2021-11-17] MEDS: metFORMIN HCl 1,000 MG Tablet 1000 MG PO ×2 (08:45→17:47)
[2021-11-17] MEDS: Pioglitazone Hydrochloride 15 MG Tablet PO (08:45)
[2021-11-17] MEDS: Aspirin E.C. 325 MG Tablet PO (08:46)
[2021-11-17] MEDS: Potassium Chloride Oral Tablet 20 MEQ PO (08:46)
[2021-11-17] MEDS: Glimepiride 1 MG Tablet PO (08:46)
[2021-11-17 10:00] VITALS: PULSE 63; RESP 16; O2SAT 96
[2021-11-17] MEDS: Glucerna Shake 120 ML LIQUID PO ×3 (11:08→20:44)
--- NOTE | 2021-11-17 11:33 | CASEMGMT ---
Social Work Left message with dtharmony Blair, to discuss alternative DC plans for her mom and dad. SW to continue to follow. Harmony Villar, CASH OFFICE WORKER TOOLROOM MACHINIST
--- NOTE | 2021-11-17 12:06 | CASEMGMT ---
Social Work Received return phone call from dtr. Discussed DC options with dtr. Dtr concerned about pt and returning home to care for each other. Explored possible cognitive deficits of . Dtr confirms she has always been like that. However, dtr knows and pt will not agree to go to a SNF. is completing Medicaid application for possible community resources. Encouraged to have turn in ALEM dior to this worker analisa to submit to JFS prior to DC. Dtr to discuss plans further with pt and . Will continue to follow. DAMIÁN DelongW
[2021-11-17 14:06] VITALS: BP 88/57; PULSE 73
[2021-11-17 14:21] VITALS: BP 90/56; PULSE 77
[2021-11-17] MEDS: 0.9% Normal Saline 1,000 ML 999 ML IV (14:35)
--- NOTE | 2021-11-17 14:36 | NURSING ---
Patient hypotensive at this time. New order for 1,000 mL bolus, recheck BP in one hour. 22 gauge IV started in left arm, flushed with 10 cc Normal Saline, secured with tegaderm and tape. Patient tolerated well.
[2021-11-17 15:37] VITALS: BP 104/72; PULSE 63
[2021-11-17] MEDS: Atorvastatin Calcium 40 MG Tablet PO (20:44)
[2021-11-17] MEDS: MELATONIN 3 MG TABLET PO (20:44)
[2021-11-17] MEDS: Mirtazapine 15 MG Tablet PO (20:44)
[2021-11-18 05:50] VITALS: BP 121/75; PULSE 58; RESP 15; O2SAT 95
[2021-11-18] MEDS: Ramipril 10 MG Capsule PO (05:52)
[2021-11-18] MEDS: Citalopram 10 MG Tablet PO (05:52)
[2021-11-18] MEDS: Nystatin Powder 15gm Bottle 1 APPLIC TOPICAL ×2 (05:53→17:14)
[2021-11-18] MEDS: Chlorthalidone 50 MG Tablet 25 MG PO (05:53)
[2021-11-18] MEDS: Sodium Chloride 1 GM Tablet PO ×2 (05:53→17:13)
[2021-11-18] MEDS: Enoxaparin 40 MG/0.4 ML Syringe SC (05:54)
[2021-11-18] MEDS: Menthol/Lanolin/Calamine/Znox 113 GM Tube 1 APPLIC TOPICAL ×2 (05:54→17:14)
[2021-11-18 06:46] LABS: Bedside Glucose 100 mg/dL (70-110)
[2021-11-18] MEDS: metFORMIN HCl 1,000 MG Tablet 1000 MG PO ×2 (08:06→17:13)
[2021-11-18] MEDS: Aspirin E.C. 325 MG Tablet PO (08:06)
[2021-11-18] MEDS: Potassium Chloride Oral Tablet 20 MEQ PO (08:06)
[2021-11-18] MEDS: Pioglitazone Hydrochloride 15 MG Tablet PO (08:06)
[2021-11-18] MEDS: Glimepiride 1 MG Tablet PO (08:06)
[2021-11-18 08:30] VITALS: BP 118/78; PULSE 59; RESP 16; TEMP 36; O2SAT 98
[2021-11-18] MEDS: Glucerna Shake 120 ML LIQUID PO ×3 (11:20→20:10)
[2021-11-18 15:02] VITALS: BP 110/72; PULSE 68; RESP 14; TEMP 36.2; O2SAT 98
[2021-11-18] MEDS: Atorvastatin Calcium 40 MG Tablet PO (20:12)
[2021-11-18] MEDS: MELATONIN 3 MG TABLET PO (20:13)
[2021-11-18] MEDS: Mirtazapine 15 MG Tablet PO (20:14)
[2021-11-19] MEDS: Enoxaparin 40 MG/0.4 ML Syringe SC (05:34)
[2021-11-19] MEDS: Glucerna Shake 120 ML LIQUID PO ×4 (05:34→21:05)
[2021-11-19] MEDS: Polyethylene Glycol 3350 17 GM PACKET PO (05:34)
[2021-11-19] MEDS: Citalopram 10 MG Tablet PO (05:35)
[2021-11-19] MEDS: Senna/Docusate Sodium 1 Tablet PO (05:35)
[2021-11-19] MEDS: Ramipril 10 MG Capsule PO (05:35)
[2021-11-19] MEDS: Chlorthalidone 50 MG Tablet 25 MG PO (05:35)
[2021-11-19] MEDS: Sodium Chloride 1 GM Tablet PO ×2 (05:35→17:09)
[2021-11-19] MEDS: Nystatin Powder 15gm Bottle 1 APPLIC TOPICAL ×2 (05:35→17:10)
[2021-11-19] MEDS: Menthol/Lanolin/Calamine/Znox 113 GM Tube 1 APPLIC TOPICAL ×2 (05:36→17:10)
[2021-11-19 06:21] LABS: Bedside Glucose 99 mg/dL (70-110)
[2021-11-19] MEDS: metFORMIN HCl 1,000 MG Tablet 1000 MG PO ×2 (07:41→17:09)
[2021-11-19] MEDS: Potassium Chloride Oral Tablet 20 MEQ PO (07:41)
[2021-11-19] MEDS: Aspirin E.C. 325 MG Tablet PO (07:41)
[2021-11-19] MEDS: Glimepiride 1 MG Tablet PO (10:30)
[2021-11-19] MEDS: Pioglitazone Hydrochloride 15 MG Tablet PO (10:31)
[2021-11-19] MEDS: Acetaminophen 500 MG Tablet 1000 MG PO (13:50)
[2021-11-19 16:20] VITALS: BP 120/82; PULSE 65; RESP 16; TEMP 36.5; O2SAT 96
[2021-11-19] MEDS: Mirtazapine 15 MG Tablet PO (21:06)
[2021-11-19] MEDS: MELATONIN 3 MG TABLET PO (21:06)
[2021-11-19] MEDS: Atorvastatin Calcium 40 MG Tablet PO (21:06)
[2021-11-20] MEDS: Enoxaparin 40 MG/0.4 ML Syringe SC (05:30)
[2021-11-20] MEDS: Nystatin Powder 15gm Bottle 1 APPLIC TOPICAL ×2 (05:30→21:10)
[2021-11-20] MEDS: Ramipril 10 MG Capsule PO (05:30)
[2021-11-20] MEDS: Chlorthalidone 50 MG Tablet 25 MG PO (05:30)
[2021-11-20] MEDS: Citalopram 10 MG Tablet PO (05:30)
[2021-11-20] MEDS: Menthol/Lanolin/Calamine/Znox 113 GM Tube 1 APPLIC TOPICAL ×2 (05:30→21:10)
[2021-11-20] MEDS: Glucerna Shake 120 ML LIQUID PO ×4 (05:30→21:10)
[2021-11-20] MEDS: Sodium Chloride 1 GM Tablet PO ×2 (05:30→17:40)
[2021-11-20 06:41] LABS: Bedside Glucose 145 mg/dL (70-110)
[2021-11-20] MEDS: metFORMIN HCl 1,000 MG Tablet 1000 MG PO ×2 (08:15→17:39)
[2021-11-20] MEDS: Pioglitazone Hydrochloride 15 MG Tablet PO (08:16)
[2021-11-20] MEDS: Aspirin E.C. 325 MG Tablet PO (08:16)
[2021-11-20] MEDS: Potassium Chloride Oral Tablet 20 MEQ PO (08:16)
[2021-11-20] MEDS: Glimepiride 1 MG Tablet PO (11:04)
--- NOTE | 2021-11-20 12:10 | CASEMGMT ---
Social Work Insurance reviewer questioning concrete DC plans. Contacted dtr to inquire. Dtr inquired about moving up care plan meeting. Explained the insurance will not wait until the meeting 11/22 to get answers and requesting that information immediately as insurance is looking to set DC date. Dtr stated pt's has ramp being installed at the house tomorrow and is waiting to meet with BLADE OPERATOR today or tomorrow. requesting hospital bed. SW offered to submit to insurance to see if pt is eligible. Dtr appreciative. Confirmed plan is home and not SNF. Dtr agreed. SW provided update to insurance reviewer. Harmony Villar, DAMIÁN BERGERW
--- NOTE | 2021-11-20 12:12 | CASEMGMT ---
Addendum entered by Harmony Villar 11/20/21 16:49: Correction: Discharge is Saturdday 11/25. All parties aware. Original Note: Social Work Insurance issued LCD 11/23, DC 11/24. Left message with dtr of DC date. Spoke with pt. Referral made to [facility] for hospital bed. Referral made to [facility] PT/OT/ST/SN/[place]/SW. to transport. Plan: DC home with 11/24, [facility] PT/OT/ST/SN/[place]/SW, hospital bed Harmony Villar, DAMIÁN BERGERW
[2021-11-20 14:37] VITALS: BP 104/71; PULSE 67; RESP 18; TEMP 36.4; O2SAT 97
--- NOTE | 2021-11-20 19:22 | PCM.DC.SUM ---
Providers Date of Admission: 11/14/21 Primary Care Physician: Dr. Akash Agosto MD Reason For Visit: CVM CAROTID ENDERECTOMY Diagnosis Discharge Diagnosis (1) Debility: Status: Acute Code(s): R53.81 - Other malaise (2) Stroke: Status: Acute Code(s): I63.9 - Cerebral infarction, unspecified (3) Left hemiparesis: Status: Acute Code(s): G81.94 - Hemiplegia, unspecified affecting left nondominant side (4) Stenosis of right internal carotid artery: Status: Acute Code(s): I65.21 - Occlusion and stenosis of right carotid artery (5) Gout: Status: Acute Code(s): M10.9 - Gout, unspecified (6) Hyperlipidemia: Status: Acute Code(s): E78.5 - Hyperlipidemia, unspecified (7) Depression: Status: Acute Code(s): F32.A - Depression, unspecified (8) Diabetes mellitus: Status: Acute Code(s): E11.9 - Type 2 diabetes mellitus without complications (9) Hypertension: Status: Chronic Code(s): I10 - Essential (primary) hypertension Medications at Discharge Home Medications glimepiride 1 mg PO DAILY 12/18/19 metformin 1,000 mg PO BID 12/18/19 pioglitazone 15 mg PO DAILY 12/18/19 ramipril 10 mg PO DAILY 12/18/19 atorvastatin 40 mg PO DAILY 10/13/21 acetaminophen 1,000 mg PO Q6H PRN PRN #0 tab 10/30/21 citalopram 10 mg PO 1800 11/14/21 mirtazapine 7.5 mg PO QHS 11/14/21 sodium chloride 1 g PO BID 11/14/21 aspirin 325 mg PO BREAKFAST #0 tab 11/20/21 chlorthalidone 25 mg PO DAILY 30 Days #15 tab 11/20/21 potassium chloride [Klor-Con M20] 20 meq PO DAILYCM 30 Days #30 tab 11/20/21 Hospital Course Operations - (Right carotid endarterectomy.) Procedures None Summary of Care Provided Minutes Spent on Discharge: 35 Hospital Course: 71 year old male with below past medical hospitalized for right sided stroke secondary to severe right internal carotid artery stenosis, underwent right carotid endarterectomy 11/06/2021, admitted to TCU with debility, here for rehabilitation, strengthening, prior to discharge home with . Discharge home with 11/25/2021, [facility] PT/OT/ST/SN/[place]/SW, hospital bed. Physical Exam Const alert and oriented x3 General Appearance: cooperative HEENT normocephalic Eyes PERRL and EOMs intact bilaterally Neck supple, no JVD and no carotid bruits Resp normal respiratory effort, normal air movement and clear to auscultation bilaterally Cardio regular rate and regular rhythm GI normal to inspection, nondistended, normoactive bowel sounds, non-tender and non-distended Extremity normal capillary refill General Extremity: Negative for edema Skin no rashes or lesions noted General Skin Exam: no breakdown Neuro Neuro Narrative: Mild left hemiparesis. Psych affect normal Appearance: appropriate Medical Records Data Medical Nutrition Assessment Dietitian: Malnutrition Criteria Met Start: 11/15/21 11:02 Freq: Status: Active Protocol: Document 11/15/21 11:02 [email or web address] (Rec: 11/15/21 11:02 [facility] [id number]) Nutrition Malnutrition Evidence of Malnutrition Exists Yes Malnutrition (severe): Acute Illness/Injury Evidenced By Suboptimal Energy Intake ( Severe),Weight Loss (Severe) Clinical Problem Acute Disease or Injury Related Malnutrition Etiology related to decreased appetite / not hungry and inability to consume adequate nutrition to meet est nutritional needs Signs/Symptoms as evidenced by <50% po intake of meals and 7.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 Will order 120 ml glucerna shake 4x/day w/ medpass Weight / BMI Weight Weight: 84.55 kg Body Mass Index (BMI) 26.7 ABG / Lab / Microbiology Data Result Diagrams: 11/15/21 05:10 11/15/21 05:10 Laboratory: Laboratory Results - last 24 hr 11/20/21 06:20: POC Glucose 145 H Microbiology: Microbiology 11/16/21 Unknown Nasal Secretion SARS-CoV-2 Antigen (Rapid) - Final D/C Instructions Discharge Diet: No restrictions Discharge Activity: Return to Normal Activity, May Shower and Use Walker Weight Bearing Status: Weight bearing as tolerated Call your doctor if you observe: Fever of 101 or Higher, Inability to urinate, Inability to have a bowel movement, Shortness of breath, Dizziness, Fainting spells, Swelling in the ankles, Chest pain and Uncontrolled pain Additional Instructions: Discharge home with 11/25/2021, [facility] PT/OT/ST/SN/[place]/SW, hospital bed. Meaningful Use Info Meaningful Use Diagnoses (Choose all that apply): None applicable Discharge Plan Admission Admit Date/Time: 11/14/21 20:30 Primary Reason for Your Visit: Debility. Attending Provider: Abhijeet Estrada Chi Primary Care Provider: Akash Agosto Instructions Additional Instructions / Restrictions: Discharge home with 11/25/2021, [facility] PT/OT/ST/SN/[place]/SW, hospital bed. Discharge Orders/Prescriptions Prescriptions: New aspirin 325 mg Tablet,Delayed Release (Dr/Ec) 325 mg PO BREAKFAST Qty: 0 RF: 0 chlorthalidone 50 mg Tablet 25 mg PO DAILY 30 Days Qty: 15 RF: 0 potassium chloride [Klor-Con M20] 20 mEq Tablet,Er Particles/Crystals 20 meq PO DAILYCM 30 Days Qty: 30 RF: 0 Continued pioglitazone 15 MG tablet 15 mg PO DAILY RF: 0 glimepiride 1 MG tablet 1 mg PO DAILY RF: 0 metformin 1,000 MG tablet 1,000 mg PO BID RF: 0 ramipril 10 MG capsule 10 mg PO DAILY RF: 0 atorvastatin 40 MG tablet 40 mg PO DAILY RF: 0 acetaminophen 500 mg Tablet 1,000 mg PO Q6H PRN PRN (Reason: Pain Score 1-10) Qty: 0 RF: 0 citalopram 10 mg tablet 10 mg PO 1800 RF: 0 mirtazapine 7.5 mg tablet 7.5 mg PO QHS RF: 0 sodium chloride 1,000 mg tablet,soluble 1 g PO BID RF: 0 Discontinued polyethylene glycol 3350 17 gram/dose Powder 17 g PO DAILY PRN (Reason: Constipation) RF: 0 Referrals / Follow Up: Akash Agosto MD [Primary Care Provider] - Disposition Disposition (needs filled in before D/C Order can be placed): Home Health Service
[2021-11-20] MEDS: MELATONIN 3 MG TABLET PO (21:10)
[2021-11-20] MEDS: Atorvastatin Calcium 40 MG Tablet PO (21:10)
[2021-11-20] MEDS: Mirtazapine 15 MG Tablet PO (21:10)
[2021-11-21 06:21] LABS: Bedside Glucose 100 mg/dL (70-110)
[2021-11-21] MEDS: Ramipril 10 MG Capsule PO (06:24)
[2021-11-21] MEDS: Chlorthalidone 50 MG Tablet 25 MG PO (06:24)
[2021-11-21] MEDS: Enoxaparin 40 MG/0.4 ML Syringe SC (06:24)
[2021-11-21] MEDS: Sodium Chloride 1 GM Tablet PO ×2 (06:25→16:56)
[2021-11-21] MEDS: Citalopram 10 MG Tablet PO (06:25)
[2021-11-21] MEDS: Glucerna Shake 120 ML LIQUID PO ×4 (06:25→19:23)
[2021-11-21] MEDS: Nystatin Powder 15gm Bottle 1 APPLIC TOPICAL ×2 (06:26→16:57)
[2021-11-21] MEDS: Menthol/Lanolin/Calamine/Znox 113 GM Tube 1 APPLIC TOPICAL ×2 (06:26→16:57)
[2021-11-21] MEDS: Glimepiride 1 MG Tablet PO (08:00)
[2021-11-21] MEDS: Aspirin E.C. 325 MG Tablet PO (08:00)
[2021-11-21] MEDS: metFORMIN HCl 1,000 MG Tablet 1000 MG PO ×2 (08:00→16:56)
[2021-11-21] MEDS: Potassium Chloride Oral Tablet 20 MEQ PO (08:00)
[2021-11-21] MEDS: Pioglitazone Hydrochloride 15 MG Tablet PO (08:00)
--- NOTE | 2021-11-21 10:28 | NURSING ---
Therapy came and got this nurse stating pt pinched his finger during an activity in occupational therapy and he is bleeding. Upon assessment small open area noted to left second phalanx on the distal end, minimal blood. Area cleansed with soap and water and bandaid applied
[2021-11-21 13:12] VITALS: BP 142/71; PULSE 62; RESP 16; TEMP 36.2; O2SAT 98
[2021-11-21] MEDS: Atorvastatin Calcium 40 MG Tablet PO (19:25)
[2021-11-21] MEDS: MELATONIN 3 MG TABLET PO (19:25)
[2021-11-21] MEDS: Mirtazapine 15 MG Tablet PO (19:25)
[2021-11-22] MEDS: Ramipril 10 MG Capsule PO (05:31)
[2021-11-22] MEDS: Senna/Docusate Sodium 1 Tablet PO (05:31)
[2021-11-22] MEDS: Chlorthalidone 50 MG Tablet 25 MG PO (05:31)
[2021-11-22] MEDS: Sodium Chloride 1 GM Tablet PO ×2 (05:31→17:11)
[2021-11-22] MEDS: Citalopram 10 MG Tablet PO (05:31)
[2021-11-22] MEDS: Menthol/Lanolin/Calamine/Znox 113 GM Tube 1 APPLIC TOPICAL ×2 (05:32→17:13)
[2021-11-22] MEDS: Polyethylene Glycol 3350 17 GM PACKET PO (05:32)
[2021-11-22] MEDS: Enoxaparin 40 MG/0.4 ML Syringe SC (05:32)
[2021-11-22] MEDS: Nystatin Powder 15gm Bottle 1 APPLIC TOPICAL ×2 (05:33→17:13)
[2021-11-22 05:47] LABS: Absolute Lymphocyte Count 1.79 X10^3/uL (0.83-4.51); Absolute Neutrophil Count 3.4 X10^3/uL (2.0-7.7); Basophil# 0.06 X10^3/uL; Basophil% 0.9 % (0-1); Eosinophil# 0.38 X10^3/uL; Hematocrit 36.3 % (40-54); Lymphocyte # 1.79 X10^3/ul (0.83-4.51); Lymphocyte % 28.2 % (19-41); Mean Corp Hgb Conc 35.8 g/dL (32-36); Mean Corpuscular Hgb 30.9 pg (27.0-32.0); Mean Corpuscular Volume 86.2 fL (80-94); Mean Platelet Vol. 9.7 fl (6.2-12.0); Monocyte# 0.52 X10^3/uL; Monocyte% 8.2 % (0-10); NRBC Flagged by Analyzer 0 % (0-5); Neutrophil # 3.39 X10^3/uL (2.7-7.7); Neutrophil % 53.4 % (47-70); Platelet Count 216 K/mm3 (150-450); RBC Distribution Width CV 12.9 % (11.6-14.6); Red Blood Count 4.21 M/mm3 (4.6-6.2); White Blood Count 6.4 K/mm3 (4.4-11.0)
[2021-11-22 06:10] LABS: Anion Gap 5 (5-15); BUN 15 mg/dL (7-18); BUN/Creat Ratio 16.5 RATIO (10-20); Calcium,Total 8.6 mg/dL (8.5-10.1); Chloride 101 mmol/L (98-107); Creatinine, Serum 0.91 mg/dL (0.70-1.30); EST Glomerular Filtration Rate 87 mL/min (>60); Est Glom Filt Rate - Afr Amer 105 mL/min (>60); Estimated Creatinine Clearance 75.76 ml/min; Glucose 91 mg/dL (74-106); Potassium 3.8 mmol/L (3.5-5.1); Sodium Level 134 mmol/L (136-145)
[2021-11-22 06:31] LABS: Bedside Glucose 102 mg/dL (70-110)
[2021-11-22] MEDS: metFORMIN HCl 1,000 MG Tablet 1000 MG PO ×2 (07:12→17:11)
[2021-11-22] MEDS: Glimepiride 1 MG Tablet PO (07:12)
[2021-11-22] MEDS: Aspirin E.C. 325 MG Tablet PO (07:12)
[2021-11-22] MEDS: Pioglitazone Hydrochloride 15 MG Tablet PO (07:12)
[2021-11-22] MEDS: Potassium Chloride Oral Tablet 20 MEQ PO (07:13)
[2021-11-22] MEDS: Tuberculin,Purif.prot.deriv. 50 TU/ML Vial 0.1 ML ID (10:19)
--- NOTE | 2021-11-22 10:29 | CASEMGMT ---
Social Work IDT met with patient and for care plan meeting. Discussed patient's progress in PT/OT/ST and nursing. Discussed pt's safety and impulsivity at home. Recommending 29/04 supervision. Pt and still choosing to DC home 11/25. [facility] PT/OT/ST/SN/[place]/SW at home then transition to outpatient hand therapy for left hand. [employer] to deliver hospital bed. Therapy recommending grab bar installed in the shower. SW already provided resources to . Therapy also recommending 3-in-1- commode for arms and elevation from toilet. agreeable to [facility]. Referred to [employer]. to complete therapy training today. Harmony Villar, WASH RACK OPERATOR SENIOR PRODUCT DESIGNER
[2021-11-22] MEDS: Glucerna Shake 120 ML LIQUID PO ×3 (11:43→20:21)
[2021-11-22 15:08] VITALS: BP 127/75; PULSE 71; RESP 16; TEMP 36.5; O2SAT 97
[2021-11-22] MEDS: MELATONIN 3 MG TABLET PO (20:22)
[2021-11-22] MEDS: Mirtazapine 15 MG Tablet PO (20:23)
[2021-11-22] MEDS: Atorvastatin Calcium 40 MG Tablet PO (20:23)
[2021-11-22 22:26] VITALS: BP 122/72; PULSE 72; RESP 15; TEMP 36.9; O2SAT 96
[2021-11-23] MEDS: Chlorthalidone 50 MG Tablet 25 MG PO (05:13)
[2021-11-23] MEDS: Enoxaparin 40 MG/0.4 ML Syringe SC (05:13)
[2021-11-23] MEDS: Glucerna Shake 120 ML LIQUID PO ×2 (05:13→18:04)
[2021-11-23] MEDS: Ramipril 10 MG Capsule PO (05:14)
[2021-11-23] MEDS: Menthol/Lanolin/Calamine/Znox 113 GM Tube 1 APPLIC TOPICAL ×2 (05:14→20:01)
[2021-11-23] MEDS: Nystatin Powder 15gm Bottle 1 APPLIC TOPICAL ×2 (05:14→20:01)
[2021-11-23] MEDS: Sodium Chloride 1 GM Tablet PO ×2 (05:14→18:06)
[2021-11-23] MEDS: Citalopram 10 MG Tablet PO (05:14)
[2021-11-23 06:30] LABS: Bedside Glucose 133 mg/dL (70-110)
[2021-11-23] MEDS: Potassium Chloride Oral Tablet 20 MEQ PO (07:51)
[2021-11-23] MEDS: Pioglitazone Hydrochloride 15 MG Tablet PO (07:51)
[2021-11-23] MEDS: Aspirin E.C. 325 MG Tablet PO (07:51)
[2021-11-23] MEDS: Glimepiride 1 MG Tablet PO (07:51)
[2021-11-23] MEDS: metFORMIN HCl 1,000 MG Tablet 1000 MG PO ×2 (07:51→18:05)
--- NOTE | 2021-11-23 08:53 | CASEMGMT ---
Social Work Received Medicaid Pending number for pt from Karina Brennan at [facility]: #[id number]. Provided requested hospitalization dates. Karina to apply for Passport for pt. Updated pt and . DAMIÁN Delong CODE NUMBER STAMPER
[2021-11-23 13:23] VITALS: BP 114/75; PULSE 67; RESP 16; TEMP 36.4; O2SAT 97
--- NOTE | 2021-11-23 14:45 | MDS.RN ---
Pain interview for RAJIV 11/25/21 completed.
[2021-11-23] MEDS: MELATONIN 3 MG TABLET PO (19:56)
[2021-11-23] MEDS: Atorvastatin Calcium 40 MG Tablet PO (19:56)
[2021-11-23] MEDS: Mirtazapine 15 MG Tablet PO (19:56)
[2021-11-24] MEDS: Glucerna Shake 120 ML LIQUID PO ×3 (05:46→19:51)
[2021-11-24] MEDS: Enoxaparin 40 MG/0.4 ML Syringe SC (05:47)
[2021-11-24] MEDS: Polyethylene Glycol 3350 17 GM PACKET PO (05:47)
[2021-11-24] MEDS: Chlorthalidone 50 MG Tablet 25 MG PO (05:48)
[2021-11-24] MEDS: Menthol/Lanolin/Calamine/Znox 113 GM Tube 1 APPLIC TOPICAL ×2 (05:48→19:45)
[2021-11-24] MEDS: Ramipril 10 MG Capsule PO (05:48)
[2021-11-24] MEDS: Senna/Docusate Sodium 1 Tablet PO (05:48)
[2021-11-24] MEDS: Sodium Chloride 1 GM Tablet PO ×2 (05:48→17:42)
[2021-11-24] MEDS: Nystatin Powder 15gm Bottle 1 APPLIC TOPICAL ×2 (05:49→19:45)
[2021-11-24] MEDS: Citalopram 10 MG Tablet PO (05:51)
[2021-11-24 06:01] LABS: Bedside Glucose 92 mg/dL (70-110)
[2021-11-24] MEDS: Pioglitazone Hydrochloride 15 MG Tablet PO (07:56)
[2021-11-24] MEDS: Aspirin E.C. 325 MG Tablet PO (07:56)
[2021-11-24] MEDS: Potassium Chloride Oral Tablet 20 MEQ PO (07:56)
[2021-11-24] MEDS: Glimepiride 1 MG Tablet PO (07:56)
[2021-11-24] MEDS: metFORMIN HCl 1,000 MG Tablet 1000 MG PO ×2 (07:56→17:41)
--- NOTE | 2021-11-24 14:23 | NURSING ---
Resident and spouse, Jayla, notified of a resident and staff member testing positive for COVID.
[2021-11-24 16:00] VITALS: BP 112/74; PULSE 63; RESP 14; TEMP 36.7; O2SAT 95
[2021-11-24] MEDS: Atorvastatin Calcium 40 MG Tablet PO (19:51)
[2021-11-24] MEDS: Mirtazapine 15 MG Tablet PO (19:51)
[2021-11-24] MEDS: MELATONIN 3 MG TABLET PO (19:52)
[2021-11-24 21:00] VITALS: PULSE 64; RESP 16; O2SAT 94
[2021-11-25] MEDS: Senna/Docusate Sodium 1 Tablet PO (05:16)
[2021-11-25] MEDS: Chlorthalidone 50 MG Tablet 25 MG PO (05:16)
[2021-11-25] MEDS: Polyethylene Glycol 3350 17 GM PACKET PO (05:16)
[2021-11-25] MEDS: Sodium Chloride 1 GM Tablet PO (05:18)
[2021-11-25] MEDS: Enoxaparin 40 MG/0.4 ML Syringe SC (05:18)
[2021-11-25] MEDS: Nystatin Powder 15gm Bottle 1 APPLIC TOPICAL (05:19)
[2021-11-25] MEDS: Citalopram 10 MG Tablet PO (05:19)
[2021-11-25] MEDS: Menthol/Lanolin/Calamine/Znox 113 GM Tube 1 APPLIC TOPICAL (05:19)
[2021-11-25] MEDS: Ramipril 10 MG Capsule PO (05:19)
[2021-11-25] MEDS: Glucerna Shake 120 ML LIQUID PO (05:25)
[2021-11-25 05:26] VITALS: BP 108/71; PULSE 61
[2021-11-25 06:31] LABS: Bedside Glucose 118 mg/dL (70-110)
[2021-11-25] MEDS: Potassium Chloride Oral Tablet 20 MEQ PO (08:21)
[2021-11-25] MEDS: Glimepiride 1 MG Tablet PO (08:21)
[2021-11-25] MEDS: Aspirin E.C. 325 MG Tablet PO (08:21)
[2021-11-25] MEDS: metFORMIN HCl 1,000 MG Tablet 1000 MG PO (08:21)
[2021-11-25] MEDS: Pioglitazone Hydrochloride 15 MG Tablet PO (08:21)
[2021-11-25 09:11] VITALS: BP 103/71; PULSE 60; RESP 17; TEMP 36.6; O2SAT 96
--- NOTE | 2021-11-27 11:32 | MDS.RN ---
Information for the mds was obtained from review of the clinical record, interview of resident, staff, and direct observation of resident's care.
== END 2021-11-25 09:45 | disposition home health service (06) | DRG 57 ==
PROVIDERS: Admitting Provider Family Medicine Geriatric Medicine; PCP Family Medicine; Visit Provider Family Medicine Geriatric Medicine
DX: I69.354 Hemiplegia and hemiparesis following cerebral infarction affecting left non-dominant side (principal); E87.1 Hypo-osmolality and hyponatremia; E11.9 Type 2 diabetes mellitus without complications; B35.4 Tinea corporis; E78.5 Hyperlipidemia, unspecified; F32.A Depression, unspecified; I10 Essential (primary) hypertension; Z79.02 Long term (current) use of antithrombotics/antiplatelets; Z79.84 Long term (current) use of oral hypoglycemic drugs; Z79.82 Long term (current) use of aspirin; Z87.891 Personal history of nicotine dependence; Z79.899 Other long term (current) drug therapy
CPT/HCPCS: 36415; 80048; 82962; 85025; 87426; 92507; 92523; 92610; 97110; 97116; 97162; 97166; 97530; 97535; 97802; J7030

== ENCOUNTER 2021-12-28 21:39 | Observation (INO) | payer MEDICARE, SELFPAY ==
[2021-12-28 21:40] VITALS: BP 155/108; PULSE 63; RESP 18; TEMP 36.5; O2SAT 97; BMI 27.3
--- NOTE | 2021-12-28 21:59 | CT_ITS ---
EXAM: CT Head Without Intravenous Contrast CLINICAL INDICATION: 71 years old, Male; Weakness left leg TECHNIQUE: Multiple axial images were obtained of the head without intravenous contrast. This CT exam was performed using one or more of the following dose reduction techniques: automated exposure control, adjustment of the mA and/or kV according to patient size, and/or use of iterative reconstruction technique. This report was created using [employer] report generation technology. COMPARISON: CT Head dated 11/03/2021 FINDINGS: Brain and extra-axial spaces: Areas of decreased attenuation in the deep cerebral white matter are consistent with small vessel ischemic/degenerative changes. The cerebral and cerebellar sulci are prominent consistent with brain atrophy. Old right occipital infarct with encephalomalacia. No intra- or extra-axial hemorrhage. No intracranial mass or mass effect. Basal cisterns are patent. Bones/joints: Unremarkable. No discrete lytic or blastic abnormalities. Vasculature: Atherosclerotic disease. Sinuses: Unremarkable as visualized. Clear. Mastoid air cells: Unremarkable. Clear. Orbits: Visualized globes, extraocular muscles, optic nerves and retrobulbar fat appear unremarkable. CT/Brain/Head without Contrast IMPRESSION: 1. Small vessel ischemic/degenerative changes. 2. Cerebral and cerebellar atrophy. Electronically Signed: Luis Felipe Graham MD at 22:56 EDT ,
--- NOTE | 2021-12-28 22:00 | EKG12_ITS ---
Test Reason : FALL Blood Pressure : / mmHG Vent. Rate : 057 BPM Atrial Rate : 057 BPM P-R Int : 212 ms QRS Dur : 098 ms QT Int : 466 ms P-R-T Axes : 000 048 072 degrees QTc Int : 453 ms Sinus bradycardia with 1st degree A-V block Inferior infarct , age undetermined Abnormal ECG Confirmed by DOMINIQUE LYNCH, CHERYL ([id number]), telegraph editor TMI BENZ ([id number]) on 01/01/2022 10:35:57 AM Referred By: Confirmed By:CHERYL FOX MD
--- NOTE | 2021-12-28 22:02 | ED.VIS.FALL ---
HPI HPI - Fall History of Present Illness Chief Complaint: Fall Narrative Narrative: Patient presents with frequent falls. According to his , she picked him up from [place] when he was visiting his brother. She brought him home today, but his brother stated that he had fallen several times over the last few days. Patient states that today he was using his walker and his left leg felt weak. He fell but he did not hit his head or lose consciousness. He denies any headache or any injury. He states his left leg movement and weakness has improved. He denies any fevers or chills. No nausea or vomiting. No diarrhea. No other symptoms. Past medical history includes diabetes and prior CVA with reported left-sided weakness. He has had carotid endarterectomy previously. He presents because of the generalized weakness and frequent falls. [facility] Medical History Carotid artery stenosis CVA (cerebral vascular accident) (09/25/21) Debility Depression DM2 (diabetes mellitus, type 2) Essential hypertension Frequent falls Gout Inability to ambulate due to multiple joints Left hemiparesis Left-sided muscle weakness Prostate cancer Weakness Home Medications glimepiride 1 mg PO DAILY 12/18/19 [History Last Taken 11/03/21] metformin 1,000 mg PO BID 12/18/19 [History Last Taken 11/03/21] pioglitazone 15 mg PO DAILY 12/18/19 [History Last Taken 11/03/21] ramipril 10 mg PO DAILY 12/18/19 [History Last Taken 11/03/21] atorvastatin 40 mg PO DAILY 10/13/21 [History Last Taken 11/02/21] acetaminophen 1,000 mg PO Q6H PRN PRN #0 tab 10/30/21 [Rx Last Taken Unknown] citalopram 10 mg PO 1800 11/14/21 [History Last Taken Unknown] mirtazapine 7.5 mg PO QHS 11/14/21 [History Last Taken Unknown] sodium chloride 1 g PO BID 11/14/21 [History Last Taken Unknown] aspirin 325 mg PO BREAKFAST #0 tab 11/20/21 [Rx Last Taken Unknown] chlorthalidone 25 mg PO DAILY 30 Days #15 tab 11/20/21 [Rx Last Taken Unknown] potassium chloride [Klor-Con M20] 20 meq PO DAILYCM 30 Days #30 tab 02/14/22 [Rx Last Taken Unknown] Allergy/AdvReac Type Severity Reaction Status Date / Time No Known Allergies Allergy Verified 12/28/21 21:48 Family History Mother CVA (cerebral vascular accident) Several recurrent strokes, eventually passed age 84. Surgical History H/O foot surgery History of colon resection History of repair of right rotator cuff History of right-sided carotid endarterectomy (11/06/21) History of tonsillectomy and adenoidectomy Social History household members: spouse Smoking Status: Former smoker how long ago did patient quit smoking: Smoked age [age], 1 ppd until quit. Does have 2nd hand exposure from . alcohol intake: current alcohol intake frequency: holidays/special occasions only substance use type: does not use ROS ROS ED ROS Narrative Constitutional: No fever, no chills. Frequent falls. HEENT: No sore throat. No neck pain. No loss of vision. No rhinorrhea. Cardiovascular: No chest pain. No palpitations. No pedal edema. Respiratory: No cough, no shortness of breath. Abdominal: No abdominal pain. No nausea. No vomiting. Genitourinary: No dysuria. No hematuria. Musculoskeletal: No myalgias. No arthralgias. Neurologic: No headaches. No dizziness. No lightheadedness. Left leg weakness-improving. Skin: No rash. No change in color. Psychiatric: No depression. No anxiety. EXAM Physical Exam Narrative Exam Narrative: Afebrile. Vital signs noted. HEENT: Normocephalic. Atraumatic. PERRL, EOMI. Neck soft and supple. No point tenderness or step off. Cardiovascular: Regular rate and rhythm. No murmurs, rubs, or gallops appreciated. Respiratory: No tachypnea. Lungs clear to auscultation bilaterally. Gastrointestinal: Abdomen soft, nontender, with normoactive bowel sounds. No rebound or guarding. Neurological: Awake. Alert. Nonfocal, nonlateralizing. Full range of motion bilateral lower extremities. Skin: No rash. Normal color. No pallor. Healing abrasions left hand. Musculoskeletal: No pedal edema. Full range of motion extremities. Const Vital Signs: 12/28/21 21:40 12/28/21 21:50 Temperature 97.7 F L Temperature Source Temporal Pulse Rate 63 Respiratory Rate 18 Respiratory Effort Normal Non-Labored Respiratory Depth Normal Respiratory Pattern Normal Blood Pressure 155/108 H Blood Pressure Mean 123 Pulse Ox 97 Oxygen Delivery Method Room Air Room Air MDM MDM MDM Narrative Medical decision making narrative: Comprehensive work-up was pursued. His is now at the bedside. She states that he has a bone scan tomorrow at [facility], and should his work-up be negative, she wants to take him home. She did not feel that he would need correction placement currently as he receives home health twice a week. This includes PT and OT. EKG demonstrates sinus bradycardia with first-degree AV block at 57 bpm without ectopy or acute ST changes, no evidence of acute STEMI. His troponin is negative in the 30s. CBC is grossly normal with a normal white count and hemoglobin normal at 15.1, platelet count normal at 246. He appears dehydrated with a hyponatremia at 123 with a potassium of 3.2 which was orally replaced with 40 mEq. He does have a low chloride also of 88. His urinalysis shows no evidence of infection with negative nitrites and negative leukocytes. There are 5 ketones in his urine. CT the brain shows small vessel ischemic changes but no acute stroke, and chest x-ray read by myself shows no evidence of an infiltrate or pneumothorax. At this point in time, given his hyponatremia, dehydration, and frequent falls, I believe that he needs at least observation. Patient was discussed with Dr. Hough. He will be observed on the PCU for his electrolyte abnormality and dehydration. He is in stable condition. Lab Data Attestation: I reviewed the patient's lab results. Labs: Laboratory Results - last 24 hr 12/28/21 12/28/21 12/28/21 21:50 21:50 22:30 WBC 7.1 RBC 4.91 Hgb 15.1 Hct 40.8 MCV 83.1 MCH 30.8 MCHC 37.0 H RDW Std Deviation 37.3 RDW Coeff of [place] 12.3 Plt Count 246 MPV 9.2 Immature Gran % (Auto) 1.100 H Neut % (Auto) 66.8 Lymph % (Auto) 19.1 [place] % (Auto) 11.6 H Eos % (Auto) 0.8 Baso % (Auto) 0.6 Absolute Neuts (auto) 4.8 Absolute Lymphs (auto) 1.36 Nucleated RBC % 0 Sodium 123 L Potassium 3.2 L Chloride 88 L Carbon Dioxide 25.0 Anion Gap 10 BUN 10 Creatinine 0.89 Estim Creat Clear Calc 77.47 Est GFR (MDRD) Af Amer 108 Est GFR (MDRD) Non-Af 90 BUN/Creatinine Ratio 11.3 Glucose 139 H Calcium 9.1 Total Bilirubin 1.00 AST 25 ALT 29 Alkaline Phosphatase 67 Troponin I High Sens 35 Total Protein 6.9 Albumin 3.9 Globulin 3.0 Albumin/Globulin Ratio 1.3 Urine Color Yellow Urine Clarity Sl. Cloudy Urine pH 7.0 Ur Specific [place] 1.005 Urine Protein 30 H Urine Glucose (UA) Normal Urine Ketones 5 H Urine Occult Blood 10 H Urine Nitrite Negative Urine Bilirubin Negative Urine Urobilinogen Normal Ur Leukocyte Esterase Negative Urine RBC 0-5 SEEN Urine WBC 0 SEEN Ur Squamous Epith Cells 0-5 SEEN Urine Bacteria 0 SEEN Urine Mucus 0 SEEN Radiography Diagnostic Testing: Clinical Impression(s) from Imaging Studies Brain CT 12/28/21 21:59 IMPRESSION: 1. Small vessel ischemic/degenerative changes. 2. Cerebral and cerebellar atrophy. Electronically Signed: Luis Felipe Graham MD at 22:56 EDT , Discharge Plan Dx/Rx/DC Orders Clinical Impression: Dehydration, Hyponatremia, Hypokalemia, Frequent falls Disposition Disposition: Acute Care [facility]
[2021-12-28 22:17] LABS: Absolute Lymphocyte Count 1.36 X10^3/uL (0.83-4.51); Absolute Neutrophil Count 4.8 X10^3/uL (2.0-7.7); Basophil# 0.04 X10^3/uL; Basophil% 0.6 % (0-1); Eosinophil# 0.06 X10^3/uL; Eosinophils% 0.8 % (0-5); Hematocrit 40.8 % (40-54); Hemoglobin 15.1 g/dL (13.0-16.5); Lymphocyte # 1.36 X10^3/ul (0.83-4.51); Lymphocyte % 19.1 % (19-41); Mean Corpuscular Hgb 30.8 pg (27.0-32.0); Mean Corpuscular Volume 83.1 fL (80-94); Mean Platelet Vol. 9.2 fl (6.2-12.0); Monocyte# 0.83 X10^3/uL; Monocyte% 11.6 % (0-10); NRBC Flagged by Analyzer 0 % (0-5); Neutrophil # 4.76 X10^3/uL (2.7-7.7); Neutrophil % 66.8 % (47-70); Platelet Count 246 K/mm3 (150-450); RBC Distribution Width CV 12.3 % (11.6-14.6); RBC Distribution Width SD 37.3 fl (35.1-43.9); Red Blood Count 4.91 M/mm3 (4.6-6.2); White Blood Count 7.1 K/mm3 (4.4-11.0)
[2021-12-28 22:37] LABS: ALB/GLOB Ratio 1.3 RATIO (0.9-2.4); AST(SGOT) 25 U/L (15-37); Alanine Aminotransfer ALT/SGPT 29 U/L (16-61); Albumin, Serum 3.9 g/dL (3.2-5.0); Alkaline Phosphatase 67 U/L (45-117); Anion Gap 10 (5-15); BUN 10 mg/dL (7-18); BUN/Creat Ratio 11.3 RATIO (10-20); Calcium,Total 9.1 mg/dL (8.5-10.1); Chloride 88 mmol/L (98-107); Creatinine, Serum 0.89 mg/dL (0.70-1.30); EST Glomerular Filtration Rate 90 mL/min (>60); Est Glom Filt Rate - Afr Amer 108 mL/min (>60); Estimated Creatinine Clearance 77.47 ml/min; Glucose 139 mg/dL (74-106); Potassium 3.2 mmol/L (3.5-5.1); Protein, Total 6.9 g/dL (6.4-8.2); Sodium Level 123 mmol/L (136-145); Troponin-I HS 35 pg/mL (3.0-78.0)
[2021-12-28 22:38] LABS: Bacteria 0 SEEN /hpf (None Seen); Color, Urine Yellow (Yellow); Glucose, Dipstick Normal (Normal); Ketone-Dipstick 5 mg/dl (Negative); Leukocyte Esterase-Dipstick Negative /ul (Negative); Mucous, Urine 0 SEEN /hpf (<or=2+); Nitrite-Dipstick Negative (Negative); Occult Blood-Urine 10 /ul (Negative); Protein-Dipstick 30 mg/dl (Negative); Specific Gravity, Urine 1.005 (1.002-1.030); Urine Bilirubin Dipstick Negative (Negative); Urine Clarity Sl. Cloudy (Clear); Urine Urobilinogen Normal (Normal); White Blood Cells 0 SEEN /hpf (0-5)
--- NOTE | 2021-12-28 22:40 | RAD_ITS ---
EXAM: XR Chest, 1 View CLINICAL INDICATION: 71 years old, Male; CAD TECHNIQUE: Frontal view of the chest. This report was created using [employer] report generation technology. COMPARISON: XR Chest dated 11/03/2021 FINDINGS: Lungs and pleural spaces: Mild infiltrate or atelectasis left lung base. No pneumothorax. No effusion. Heart: Unremarkable. Cardiac silhouette not enlarged. Mediastinum: Central airways and mediastinal contour are unremarkable. Bones/joints: Unremarkable. Soft tissues: Unremarkable. RAD/Chest 1 View (Portable) IMPRESSION: Mild infiltrate or atelectasis left lung base. Electronically Signed: Luis Felipe Graham MD at 23:03 EDT ,
[2021-12-28 22:45] LABS: Red Blood Cells-Urine 0-5 SEEN /hpf (0-5); Squamous Epithelial Cells - UA 0-5 SEEN /hpf (0-5)
--- NOTE | 2021-12-28 23:09 | HP.PCM.HOS_ITS ---
HPI - General General Date of Admission: 12/28/21 Date of Service: 12/28/21 Chief Complaint: Recurrent fall, hyponatremia. History of a stroke HPI Narrative PAYAM HAMM, is a 71 M with multiple comorbidities including previous stroke with left?sided weakness and right carotid stenosis, recent right carotid endarterectomy about 3 months ago was brought to ED by EMS for weakness and fall. Patient history is not very clear probably might have dementia. He states he has last stroke in 2006 with right-sided weakness and diminished v ision right eye although past medical history shows left hemiparesis. He had 3 falls in last 1 week and twice today mainly on buttock. Yesterday suddenly felt his left leg is weak and fell on the wooden floor on buttock. He has multiple bruises, left knee, left hand and right hand. There is scab on dorsum aspect of right hand seems for 2 to 3 weeks.Patient denies burning micturition. In ED, vitals in acceptable limit. Labs shows sodium 123, potassium 3.2, chloride 88. Serum magnesium 1.5 phosphorus 2.6. Twelve-lead EKG shows sinus bradycardia 57 bpm first-degree AV block. CT brain without contrast shows cerebral and cerebellar sulci consistent with brain atrophy. Old right occipital infarct. No acute change. Chest x-ray initially reviewed and is rotated portable mild atelectasis at left lung base. ER physician called for admission to further evaluate and manage hyponatremia an d fall. [facility] Medical History Carotid artery stenosis CVA (cerebral vascular accident) (09/25/21) Debility Depression DM2 (diabetes mellitus, type 2) Essential hypertension Frequent falls Gout Inability to ambulate due to multiple joints Left hemiparesis Left-sided muscle weakness Prostate cancer Weakness Home Medications glimepiride 1 mg PO DAILY 12/18/19 [History Last Taken 11/03/21] metformin 1,000 mg PO BID 12/18/19 [History Last Taken 11/03/21] pioglitazone 15 mg PO DAILY 12/18/19 [History Last Taken 11/03/21] ramipril 10 mg PO DAILY 12/18/19 [History Last Taken 11/03/21] atorvastatin 40 mg PO DAILY 10/13/21 [History Last Taken 11/02/21] acetaminophen 1,000 mg PO Q6H PRN PRN #0 tab 10/30/21 [Rx Last Taken Unknown] citalopram 10 mg PO 1800 11/14/21 [History Last Taken Unknown] mirtazapine 7.5 mg PO QHS 11/14/21 [History Last Taken Unknown] sodium chloride 1 g PO BID 11/14/21 [History Last Taken Unknown] aspirin 325 mg PO BREAKFAST #0 tab 11/20/21 [Rx Last Taken Unknown] chlorthalidone 25 mg PO DAILY 30 Days #15 tab 11/20/21 [Rx Last Taken Unknown] potassium chloride [Klor-Con M20] 20 meq PO DAILYCM 30 Days #30 tab 11/20/21 [Rx Last Taken Unknown] Allergy/AdvReac Type Severity Reaction Status Date / Time No Known Allergies Allergy Verified 12/28/21 21:48 Family History Mother CVA (cerebral vascular accident) Several recurrent strokes, eventually passed age 84. Surgical History H/O foot surgery History of colon resection History of repair of right rotator cuff History of right-sided carotid endarterectomy (11/06/21) History of tonsillectomy and adenoidectomy Social History household members: spouse Smoking Status: Former smoker how long ago did patient quit smoking: Smoked age [age], 1 ppd until quit. Does have 2nd hand exposure from . alcohol intake: current alcohol intake frequency: holidays/special occasions only substance use type: does not use ROS ROS Narrative Constitutional: Reports fatigue and weakness. Recurrent fall. No fever HEENT: Reports systems reviewed and no addt'l complaints, except as documented Respiratory/Chest: Denies chest pain, shortness of breath at rest or with exertion. No cough Gastrointestinal: Denies coffee ground emesis, hematemesis or vomiting Genitourinary: Denies burning urination or new urinary tract symptoms Musculoskeletal: Reports joint pain and limited range of motion. Neurologic: Previous stroke. Left-sided weakness denies seizure-like activity skin: No ulcer. No rash Endocrinology: Reports systems reviewed and no addt'l complaints, except as documented Hematologic/Lymphatic: Reports systems reviewed and no addt'l complaints, except as documented Rest 14 ROS are limited because of mixed history/diminished cognition by patient Vital Signs Vital Signs Vital Signs: 12/28/21 21:40 12/28/21 21:50 Temperature 97.7 F L Temperature Source Temporal Pulse Rate 63 Respiratory Rate 18 Respiratory Effort Normal Non-Labored Respiratory Depth Normal Respiratory Pattern Normal Blood Pressure 155/108 H Blood Pressure Mean 123 Pulse Ox 97 Oxygen Delivery Method Room Air Room Air Weight Weight: 190 lb 6.4 oz Body Mass Index (BMI) 27.3 Physical Exam Narrative General: Awake, oriented x3. Mild lethargy HEENT: Atraumatic, PERRLA, EOMI, Normocephalic Oral: Oral mucosa dry. No Gingival or Mucosal Lesions/ Ulcerations Neck: Supple, No JVD, Negative Carotid Bruits Lungs: Air entry diminished in bilateral lung bases. No crepitation/rhonchi Cardiovascular: Regular rate, Regular Rhythm, Normal S1, Normal S2, No murmurs Abdomen: Bowel Sounds Present, Soft, Non Tender, Non-Distended : No renal angle tenderness. No suprapubic tenderness. Extremities: No edema, Capillary Refill Less than 3 Seconds Skin: Multiple bruises and abrasions over left knee, both hand dorsal aspect. Yellowish scab over right dorsum hand Musculoskeletal: No Tenderness to Palpation of Joints or Extremities. ROM restricted Neurological: Cranial nerves II-XII grossly intact, left leg more weaker than right, power 3+/5. Telescopic speech. Was not fluency. Acute on chronic. Psych/Mental Status: Flat affect. Results Lab / Micro Data Result Diagrams: 12/28/21 21:50 12/28/21 21:50 Labs: Laboratory Results - last 24 hr 12/28/21 21:50: WBC 7.1, RBC 4.91, Hgb 15.1, Hct 40.8, MCV 83.1, MCH 30.8, MCHC 37.0 H, RDW Std Deviation 37.3, RDW Coeff of Cintia 12.3, Plt Count 246, MPV 9.2, Immature Gran % (Auto) 1.100 H, Neut % (Auto) 66.8, Lymph % (Auto) 19.1, [place] % (Auto) 11.6 H, Eos % (Auto) 0.8, Baso % (Auto) 0.6, Absolute Neuts (auto) 4.8, Absolute Lymphs (auto) 1.36, Nucleated RBC % 0 12/28/21 21:50: Sodium 123 L, Potassium 3.2 L, Chloride 88 L, Carbon Dioxide 25.0, Anion Gap 10, BUN 10, Creatinine 0.89, Estim Creat Clear Calc 77.47, Est GFR (MDRD) Af Amer 108, Est GFR (MDRD) Non-Af 90, BUN/Creatinine Ratio 11.3, Glucose 139 H, Calcium 9.1, Total Bilirubin 1.00, AST 25, ALT 29, Alkaline Phosphatase 67, Troponin I High Sens 35, Total Protein 6.9, Albumin 3.9, Globulin 3.0, Albumin/Globulin Ratio 1.3 12/28/21 22:30: Urine Color Yellow, Urine Clarity Sl. Cloudy, Urine pH 7.0, Ur Specific [place] 1.005, Urine Protein 30 H, Urine Glucose (UA) Normal, Urine Ketones 5 H, Urine Occult Blood 10 H, Urine Nitrite Negative, Urine Bilirubin Negative, Urine Urobilinogen Normal, Ur Leukocyte Esterase Negative, Urine RBC 0-5 SEEN, Urine WBC 0 SEEN, Ur Squamous Epith Cells 0-5 SEEN, Urine Bacteria 0 SEEN, Urine Mucus 0 SEEN Radiology Impression Brain CT 12/28/21 21:59 IMPRESSION: 1. Small vessel ischemic/degenerative changes. 2. Cerebral and cerebellar atrophy. Electronically Signed: Luis Felipe Graham MD at 22:56 EDT , Chest X-Ray 12/28/21 22:40 IMPRESSION: Mild infiltrate or atelectasis left lung base. Electronically Signed: Luis Felipe Graham MD at 23:03 EDT , Assessment & Plan Assessment/Plan (1) Hyponatremia: (2) Frequent falls: (3) Hypokalemia: PLAN: 1. Acute hyponatremia with history of chronic hyponatremia possible hypotonic hypovolemic hyponatremia. Patient sodium usually runs around 133. Patient had urinated 123 with hypochloremia and hyponatremia. Patient also had hypomagnesemia magnesium 1.5 and phosphorus on low normal side, 2.6. IV fluid normal saline, along with potassium and magnesium replacement ordered. Urine and serum osmolarity, urine electrolytes. Hold chlorthalidone 2. Recent stroke in September 2021 and October 2021 with recurrent fall and left-sided weakness: Patient was admitted in TCU on 11/14/2021 after discharge from [facility]. Medical record reviewed. Patient had respiratory stroke in September 2021 with left lower extremity weakness was discharged to SNF and then home on 11/02/2021. On 11/03/2021 experienced worsening of left lower extremity weakness and transient blurry vision and found to have more than 95% stenosis of right ICA and severe stenosis of right M2. MRI brain shows right hemispheric stroke. Patient had right endarterectomy on 11/05/2021. Patient was discharged on aspirin and Plavix TCU. But currently patient is on aspirin 325 mg daily and continued At this time it is difficult to ascertain whether his fall is related to hyponatremia or worsening of left-sided weakness or new stroke. MRI brain ordered. NIH stroke scale ordered. If MRI brain is positive will need further work-up or SOC neurology consult. Continue aspirin and Plavix. Patient was last admitted in [facility] in October 12, 2021. PT OT speech and swallow evaluation. 3. Diabetes mellitus type 2: Accu-Chek before meals and at bedtime encouraged Humalog sliding scale. Most recent A1c 6.7. Hold Metformin and glimepiride 4. Hypertension and dyslipidemia: Blood pressure is in normal range. Avoid hypotension. For tomorrow a.m. continue atorvastatin 80 mg daily. Most recent echo on November 06, 2021 shows EF 55 to 60% with normal regional wall motion. Grade 1 diastolic dysfunction. No mitral or aortic valve stenosis or significant valvular disease. 5. Gout: Patient was on allopurinol but oxygen home medications this time. Meds reconciliation done. 6. VT prophylaxis: Lovenox 40 mg subcu daily discontinue if platelet count drops less than 50,000 or hemoglobin less than 8 g% Living will/advanced directive/end of life care: Patient states he does have living will or advanced directive. His daughter is power of assistant county attorney for health after discussion of benefits/risks procedures involved with full code, DNR CC arrest and DNR CC, the patient opted for DNRCC arrest with no intubation Patient doesn't want artificial life support including intubation, tube feed, ventilator and/chest compression, central venous catheter, vasopressor and DC shock if needed Total time spent in [id number] encounter in discussion of advanced dir ective 16 minutes. Charges/Coding Visit Charges OBSV E&M: 31887 Initial observation care L3 Procedures Hospitalists Procedures: 62329 Advncd Care Plan 30 Min
[2021-12-28 23:22] LABS: Magnesium 1.5 mg/dL (1.6-2.6); Phosphorus 2.6 mg/dL (2.5-4.9)
[2021-12-28] MEDS: Potassium Chloride Oral Tablet 20 MEQ 40 MEQ PO (23:23)
[2021-12-28 23:24] VITALS: BP 136/99; PULSE 60; RESP 15; TEMP 37; O2SAT 98
[2021-12-28 23:45] VITALS: BMI 27.1
[2021-12-28 23:58] VITALS: BP 175/110; PULSE 62; RESP 18; TEMP 36.8; O2SAT 97
[2021-12-29] VITALS (12 sets, daily range): BP systolic 103–196; BP diastolic 74–114; PULSE 50–64; RESP 16–18; TEMP 36.1–36.8; O2SAT 95–99; BMI 27.1
[2021-12-29 00:04] LABS: Osmolality, Serum 260 mOsm/KG (280-301)
[2021-12-29] MEDS: 0.9% Normal Saline 1,000 ML 100 ML IV (00:20)
[2021-12-29 02:29] LABS: Urine Chloride 30 mmol/L (Not Establ.); Urine Sodium 37 mmol/L (Not Establ.)
[2021-12-29 04:15] LABS: Bedside Glucose 129 mg/dL (74-106)
[2021-12-29] MEDS: Enoxaparin 40 MG/0.4 ML Syringe SC ×2 (05:20→09:15)
--- NOTE | 2021-12-29 05:55 | MRI_ITS ---
EXAM: MR HEAD WITHOUT INTRAVENOUS CONTRAST CLINICAL INDICATION: Left-sided weakness with recurrent fall. -- 2 recent stroke in September 2021 and October 2021 TECHNIQUE: Multiplanar and multisequence MR images of the brain were obtained without intravenous contrast. This report was created using [employer] report generation technology. COMPARISON: MRI brain with and without contrast 10/19/2021. FINDINGS: BRAIN AND EXTRA-AXIAL SPACES: No diffusion restriction to suspect acute or subacute ischemic infarct. Multiple old infarcts along the right centrum semiovale, the right anterior periventricular white matter and right posterior periventricular white matter were previously acute. No intra- or extra-axial hemorrhage. No intracranial mass or mass effect. Posterior fossa structures are unremarkable. No hydrocephalus. Basal cisterns are patent. SELLA: Unremarkable. Normal sella turcica, pituitary gland, infundibular stalk, optic chiasm and hypothalamus. AUDITORY SYSTEM: Unremarkable. The internal auditory canals are patent. BONES/JOINTS: Unremarkable. No discrete lytic or blastic abnormalities. SINUSES: Unremarkable as visualized. Clear. MASTOID AIR CELLS: Unremarkable as visualized. Clear. ORBITS: Unremarkable as visualized. Both globes, extraocular muscles, optic nerves and retrobulbar fat appear unremarkable. VASCULATURE: Unremarkable as visualized. Normal flow voids in the major intracranial circulation. MRI/Brain without Contrast IMPRESSION: 1. No MRI evidence of acute or subacute ischemic infarct. 2. Multiple old ischemic infarcts along the right centrum semiovale, right anterior periventricular white matter and right posterior periventricular white matter. These were previously acute when compared to 10/19/2021. Electronically Signed: Prateek Jones MD at 13:52 EDT ,
[2021-12-29 05:59] LABS: Absolute Lymphocyte Count 1.41 X10^3/uL (0.83-4.51); Absolute Neutrophil Count 3.6 X10^3/uL (2.0-7.7); Basophil# 0.04 X10^3/uL; Basophil% 0.7 % (0-1); Eosinophil# 0.11 X10^3/uL; Eosinophils% 1.8 % (0-5); Hematocrit 39.1 % (40-54); Hemoglobin 13.9 g/dL (13.0-16.5); Lymphocyte # 1.41 X10^3/ul (0.83-4.51); Lymphocyte % 23.2 % (19-41); Mean Corp Hgb Conc 35.5 g/dL (32-36); Mean Corpuscular Hgb 29.9 pg (27.0-32.0); Mean Corpuscular Volume 84.1 fL (80-94); Mean Platelet Vol. 9.1 fl (6.2-12.0); Monocyte% 13.1 % (0-10); NRBC Flagged by Analyzer 0 % (0-5); Neutrophil # 3.64 X10^3/uL (2.7-7.7); Neutrophil % 59.7 % (47-70); Platelet Count 208 K/mm3 (150-450); RBC Distribution Width CV 12.6 % (11.6-14.6); RBC Distribution Width SD 38.4 fl (35.1-43.9); Red Blood Count 4.65 M/mm3 (4.6-6.2); White Blood Count 6.1 K/mm3 (4.4-11.0)
[2021-12-29 06:35] LABS: Anion Gap 7 (5-15); BUN 9 mg/dL (7-18); BUN/Creat Ratio 11.4 RATIO (10-20); Calcium,Total 8.7 mg/dL (8.5-10.1); Chloride 95 mmol/L (98-107); Creatinine, Serum 0.79 mg/dL (0.70-1.30); EST Glomerular Filtration Rate 102 mL/min (>60); Est Glom Filt Rate - Afr Amer 124 mL/min (>60); Estimated Creatinine Clearance 68.94 ml/min; Glucose 128 mg/dL (74-106); Potassium 3.7 mmol/L (3.5-5.1); Sodium Level 128 mmol/L (136-145); Thyroid Stim Hormone (TSH) 2.79 uIU/mL (0.358-3.74)
[2021-12-29 06:37] LABS: Cholesterol 151 mg/dL (200); High Density Lipoprotein 55 mg/dL; Triglycerides 84 mg/dL; Very Low Density Lipoprotein 17 mg/dL (5-40)
[2021-12-29 06:44] LABS: Osmolality, Urine 144 mOsm/KG
[2021-12-29 07:01] LABS: Bedside Glucose 128 mg/dL (74-106)
[2021-12-29] MEDS: Aspirin E.C. 325 MG Tablet PO (09:14)
[2021-12-29] MEDS: Potassium Chloride Oral Tablet 20 MEQ 40 MEQ PO (09:14)
[2021-12-29] MEDS: Pioglitazone Hydrochloride 15 MG Tablet PO (09:14)
[2021-12-29] MEDS: Ramipril 10 MG Capsule PO (09:15)
[2021-12-29 09:52] LABS: Hemoglobin A1c 5.7 % (3.8-5.6)
--- NOTE | 2021-12-29 10:48 | PN.HOSP_ITS ---
Documented by User: Ann Hernandez NP, LAMINATING MACHINE OFFBEARER-C 12/29/21 11:06 Subjective Subjective Patient seen and examined. Denies neurologic symptoms or focal deficit. Patient states he came from transitional care unit however this is not accurate upon further discussion with social work. Patient is oriented to self and place however is a poor informant. Objective Data Objective Data Vital Signs: Vital Signs Temp Pulse Resp BP Pulse Ox 97.5 F L 50 L 18 143/91 H 95 12/29/21 07:30 12/29/21 07:30 12/29/21 07:30 12/29/21 07:30 12/29/21 07:44 Oxygen Delivery Method Room Air Weight: 188 lb 7.924 oz Body Mass Index (BMI) 27.1 Intake & Output: Intake and Output for Last 24 Hours 12/27/21 12/28/21 12/29/21 23:59 23:59 23:59 Intake Total 2317.3333 / 2317.3333 Output Total 900 / 900 Balance 1417.3333 / 1417.3333 Lab / Micro Data Result Diagrams: 12/29/21 05:38 12/29/21 05:38 Labs: Laboratory Results - last 24 hr 12/28/21 21:50: WBC 7.1, RBC 4.91, Hgb 15.1, Hct 40.8, MCV 83.1, MCH 30.8, MCHC 37.0 H, RDW Std Deviation 37.3, RDW Coeff of Cintia 12.3, Plt Count 246, MPV 9.2, Immature Gran % (Auto) 1.100 H, Neut % (Auto) 66.8, Lymph % (Auto) 19.1, [place] % (Auto) 11.6 H, Eos % (Auto) 0.8, Baso % (Auto) 0.6, Absolute Neuts (auto) 4.8, Absolute Lymphs (auto) 1.36, Nucleated RBC % 0 12/28/21 21:50: Sodium 123 L, Potassium 3.2 L, Chloride 88 L, Carbon Dioxide 25.0, Anion Gap 10, BUN 10, Creatinine 0.89, Estim Creat Clear Calc 77.47, Est GFR (MDRD) Af Amer 108, Est GFR (MDRD) Non-Af 90, BUN/Creatinine Ratio 11.3, Glucose 139 H, Calcium 9.1, Total Bilirubin 1.00, AST 25, ALT 29, Alkaline Phosphatase 67, Troponin I High Sens 35, Total Protein 6.9, Albumin 3.9, Globulin 3.0, Albumin/Globulin Ratio 1.3 12/28/21 21:50: Phosphorus 2.6, Magnesium 1.5 L 12/28/21 22:30: Urine Color Yellow, Urine Clarity Sl. Cloudy, Urine pH 7.0, Ur Specific [place] 1.005, Urine Protein 30 H, Urine Glucose (UA) Normal, Urine Ketones 5 H, Urine Occult Blood 10 H, Urine Nitrite Negative, Urine Bilirubin Negative, Urine Urobilinogen Normal, Ur Leukocyte Esterase Negative, Urine RBC 0-5 SEEN, Urine WBC 0 SEEN, Ur Squamous Epith Cells 0-5 SEEN, Urine Bacteria 0 SEEN, Urine Mucus 0 SEEN 12/28/21 23:20: Serum Osmolality 260 L 12/29/21 00:38: Urine Osmolality 144, Ur Random Sodium 37, Urine Creatinine 19.00, Urine Potassium 8.0, Urine Chloride 30 12/29/21 03:46: POC Glucose 129 H 12/29/21 05:38: WBC 6.1, RBC 4.65, Hgb 13.9, Hct 39.1 L, MCV 84.1, MCH 29.9, M CHC 35.5, RDW Std Deviation 38.4, RDW Coeff of Cintia 12.6, Plt Count 208, MPV 9.1, Immature Gran % (Auto) 1.500 H, Neut % (Auto) 59.7, Lymph % (Auto) 23.2, [place] % (Auto) 13.1 H, Eos % (Auto) 1.8, Baso % (Auto) 0.7, Absolute Neuts (auto) 3.6, Absolute Lymphs (auto) 1.41, Nucleated RBC % 0 12/29/21 05:38: Sodium 128 L, Potassium 3.7, Chloride 95 L, Carbon Dioxide 26.0, Anion Gap 7, BUN 9, Creatinine 0.79, Estim Creat Clear Calc 68.94, Est GFR (MDRD) Af Amer 124, Est GFR (MDRD) Non-Af 102, BUN/Creatinine Ratio 11.4, Glucose 128 H, Calcium 8.7, TSH 2.79 12/29/21 05:38: Triglycerides 84, Cholesterol 151, LDL Cholesterol 79, VLDL Cholesterol 17, HDL Cholesterol 55 12/29/21 05:38: Hemoglobin A1c 5.7 H 12/29/21 06:56: POC Glucose 128 H Radiography Diagnostic Testing: Radiology Impression Brain CT 12/28/21 21:59 IMPRESSION: 1. Small vessel ischemic/degenerative changes. 2. Cerebral and cerebellar atrophy. Electronically Signed: Luis Felipe Graham MD at 22:56 EDT , Chest X-Ray 12/28/21 22:40 IMPRESSION: Mild infiltrate or atelectasis left lung base. Electronically Signed: Luis Felipe Graham MD at 23:03 EDT , Physical Exam Const alert and no apparent distress Orientation / Consciousness: awake, oriented to person and oriented to place HEENT normocephalic and moist oral mucous membranes Eyes PERRL, EOMs intact bilaterally and conjunctivae normal Neck no lymphadenopathy Resp normal respiratory effort and clear to auscultation bilaterally Cardio regular rate, regular rhythm and no murmurs Peripheral Pulses: pulses 2+ throughout GI normal to inspection, nondistended, normoactive bowel sounds, non-tender and non-distended Extremity normal to inspection Skin no rashes or lesions noted Lesions: no lesions Rashes: no rashes Trauma: no lacerations or abrasions Neuro CN's II-XII intact bilaterally, no focal motor deficits, no sensory deficits noted and deep tendon reflexes 2+ bilaterally Psych mental status grossly normal and affect normal Assessment & Plan Assessment/Plan (1) Hyponatremia: PLAN: 1. Acute on chronic hypovolemic hypoosmolar hyponatremia-patient is on salt tabs at baseline. Improving with IV fluids. Chlorthalidone on hold. Trend BMP. Recent work-up for hyponatremia with normal TSH and cortisol. 2. Generalized weakness with recurrent falls-MRI of brain pending to rule out stroke however suspect weakness, fall related to #1. PT/OT. 3. Hypokalemia/hypomagnesia-replace per protocol, resolved. 4. History of CVA/right severe carotid stenosis-recent right carotid endarterectomy. Continue aspirin, statin. 5. Hypertension-stable, continue ramipril. Chlorthalidone on hold. 6. Hyperlipidemia-continue statin. 7. Type 2 diabetes mellitus-continue oral regimen. Accu-Cheks with sliding scal e insulin. 8. Depression/anxiety-on citalopram. 9. Gout-no longer on allopurinol. DVT prophylaxis-Lovenox subcu This patient was seen by NANETTE Francisco under the supervision of Dr. Arenas. Time spent examining patient, reviewing data and subsequent management of care: 14 Minutes. Documented by User: Dr. Maddi Arenas MD 12/29/21 17:44 Objective Data Lab / Micro Data Result Diagrams: 12/29/21 05:38 12/29/21 05:38
[2021-12-29 11:21] LABS: Bedside Glucose 215 mg/dL (74-106)
[2021-12-29] MEDS: Insulin Lispro 100 UNIT/ML INSULN.PEN SC (11:21)
--- NOTE | 2021-12-29 14:24 | CASEMGMT ---
RN GENNA attempted to complete RAYO form at this time. Patient has dementia and called to complete form. No answer, voice message left with return contact information. CM will attempted again at a later time.
--- NOTE | 2021-12-29 15:00 | CASEMGMT ---
ONOFRE VAIL in room to complete RAYO with at this time. ONOFRE VAIL explained RAYO form to , voiced understanding. signed RAYO form and filed in chart. Patient provided copy of signed RAYO form. had no further questions or concerns at this time.
--- NOTE | 2021-12-29 16:01 | CASEMGMT ---
SW did not complete a PHQ 9 as patient did not have a Stroke or TIA. Marti DELACRUZ
--- NOTE | 2021-12-29 16:13 | CHAPLAIN ---
Type of Pastoral Visit _x__ Initial Visit ___ Follow-up Visit ___ On-call Visit ___ General Patient Visit ___ Spiritual Assessment ___ Family Conference ___ Bereavement ___ Rapid Response ___ Code Blue ___ Other (describe below) Pastoral Care Referral From _x__ Patient _x__ Family ___ Nurse ___ Physician ___ Guidance Director ___ Infantryman ___ Other (describe below) Sacrament/Intervention _x__ Active listening ___ Anointing ___ Judaism ___ Bereavement ___ Communion ___ Gail exploration ___ _x__ Life review _x__ Prayer ___ Reconciliation ___ Sacrament of Sick _x__ Supportive presence ___ Wedding ___ Other (describe below) Pastoral Comments patient was admitted recently in TCU and was seen by this engineering faculty; spouse is with patient and both explain the situation that brought him back to hospital; both seek support and spiritual care through presence and prayer
[2021-12-29 16:26] LABS: Bedside Glucose 135 mg/dL (74-106)
[2021-12-29] MEDS: Citalopram 10 MG Tablet PO (17:40)
[2021-12-29] MEDS: BACITRACIN 15 GM Tube 1 APPLIC TOPICAL (21:49)
[2021-12-29] MEDS: Atorvastatin Calcium 40 MG Tablet PO (21:50)
[2021-12-29] MEDS: Mirtazapine 15 MG Tablet 7.5 MG PO (21:50)
[2021-12-29] MEDS: Acetaminophen 325 MG Tablet 650 MG PO (21:51)
[2021-12-29 23:11] LABS: Bedside Glucose 118 mg/dL (74-106)
[2021-12-30] VITALS (10 sets, daily range): BP systolic 104–134; BP diastolic 77–88; PULSE 50–70; RESP 18; TEMP 36.1–36.9; O2SAT 95–98; BMI 27.1
[2021-12-30 05:15] LABS: Absolute Lymphocyte Count 1.64 X10^3/uL (0.83-4.51); Absolute Neutrophil Count 2.9 X10^3/uL (2.0-7.7); Basophil# 0.06 X10^3/uL; Basophil% 1.1 % (0-1); Eosinophil# 0.23 X10^3/uL; Eosinophils% 4.1 % (0-5); Hematocrit 37.4 % (40-54); Hemoglobin 13.3 g/dL (13.0-16.5); Lymphocyte # 1.64 X10^3/ul (0.83-4.51); Lymphocyte % 28.9 % (19-41); Mean Corp Hgb Conc 35.6 g/dL (32-36); Mean Corpuscular Hgb 29.8 pg (27.0-32.0); Mean Corpuscular Volume 83.7 fL (80-94); Monocyte# 0.76 X10^3/uL; Monocyte% 13.4 % (0-10); NRBC Flagged by Analyzer 0 % (0-5); Neutrophil # 2.86 X10^3/uL (2.7-7.7); Neutrophil % 50.4 % (47-70); Platelet Count 194 K/mm3 (150-450); RBC Distribution Width CV 12.5 % (11.6-14.6); Red Blood Count 4.47 M/mm3 (4.6-6.2); White Blood Count 5.7 K/mm3 (4.4-11.0)
[2021-12-30 05:31] LABS: Anion Gap 5 (5-15); BUN 11 mg/dL (7-18); BUN/Creat Ratio 13.6 RATIO (10-20); Calcium,Total 8.1 mg/dL (8.5-10.1); Chloride 95 mmol/L (98-107); Creatinine, Serum 0.81 mg/dL (0.70-1.30); EST Glomerular Filtration Rate 100 mL/min (>60); Est Glom Filt Rate - Afr Amer 121 mL/min (>60); Estimated Creatinine Clearance 85.12 ml/min; Glucose 111 mg/dL (74-106); Potassium 3.5 mmol/L (3.5-5.1); Sodium Level 128 mmol/L (136-145)
[2021-12-30 07:11] LABS: Bedside Glucose 142 mg/dL (74-106)
[2021-12-30] MEDS: 0.9% Saline Lock 10 ML Syringe IV (10:28)
[2021-12-30] MEDS: Pioglitazone Hydrochloride 15 MG Tablet PO (10:28)
[2021-12-30] MEDS: Aspirin E.C. 325 MG Tablet PO (10:28)
[2021-12-30] MEDS: BACITRACIN 15 GM Tube 1 APPLIC TOPICAL ×2 (10:28→22:06)
[2021-12-30] MEDS: Ramipril 10 MG Capsule PO (10:28)
[2021-12-30] MEDS: Enoxaparin 40 MG/0.4 ML Syringe SC (10:28)
[2021-12-30] MEDS: Potassium Chloride Oral Tablet 20 MEQ 40 MEQ PO (10:29)
--- NOTE | 2021-12-30 11:06 | PN.HOSP_ITS ---
Documented by User: Ann Hernandez NP, ATTENDANT HONOR BAR-C 12/30/21 11:22 Subjective Subjective Patient seen and examined. Alert and oriented. Denies new symptoms or complaints. Reports ongoing generalized weakness. Amendable to rehab for strengthening. Objective Data Objective Data Vital Signs: Vital Signs Temp Pulse Resp BP Pulse Ox 98.4 F 62 18 134/78 H 97 12/30/21 10:10 12/30/21 10:10 12/30/21 10:10 12/30/21 10:10 12/30/21 10:10 Oxygen Delivery Method Room Air Weight: 190 lb 4.143 oz Body Mass Index (BMI) 27.1 Intake & Output: Intake and Output for Last 24 Hours 12/28/21 12/29/21 12/30/21 23:59 23:59 23:59 Intake Total 3037.3333 / 3337.3333 500 / 500 Output Total 1974 / 2274 700 / 700 Balance 1062.3333 / 1062.3333 -200 / -200 Lab / Micro Data Result Diagrams: 12/30/21 04:55 12/30/21 04:55 Labs: Laboratory Results - last 24 hr 12/29/21 11:17: POC Glucose 215 H 12/29/21 16:16: POC Glucose 135 H 12/29/21 21:48: POC Glucose 118 H 12/30/21 04:55: WBC 5.7, RBC 4.47 L, Hgb 13.3, Hct 37.4 L, MCV 83.7, MCH 29.8, MCHC 35.6, RDW Std Deviation 38.0, RDW Coeff of Cintia 12.5, Plt Count 194, MPV 9.0, Immature Gran % (Auto) 2.100 H, Neut % (Auto) 50.4, Lymph % (Auto) 28.9, [place] % (Auto) 13.4 H, Eos % (Auto) 4.1, Baso % (Auto) 1.1 H, Absolute Neuts (auto) 2.9, Absolute Lymphs (auto) 1.64, Nucleated RBC % 0 12/30/21 04:55: Sodium 128 L, Potassium 3.5, Chloride 95 L, Carbon Dioxide 28.0, Anion Gap 5, BUN 11, Creatinine 0.81, Estim Creat Clear Calc 85.12, Est GFR (MDRD) Af Amer 121, Est GFR (MDRD) Non-Af 100, BUN/Creatinine Ratio 13.6, Glucose 111 H, Calcium 8.1 L 12/30/21 06:57: POC Glucose 142 H Radiography Diagnostic Testing: Radiology Impression Brain MRI 12/29/21 05:55 IMPRESSION: 1. No MRI evidence of acute or subacute ischemic infarct. 2. Multiple old ischemic infarcts along the right centrum semiovale, right anterior periventricular white matter and right posterior periventricular white matter. These were previously acute when compared to 10/19/2021. Electronically Signed: Prateek Jones MD at 13:52 EDT , Physical Exam Const alert, oriented x3 and no apparent distress Orientation / Consciousness: awake, oriented to person, oriented to place and oriented to time HEENT normocephalic and moist oral mucous membranes Eyes PERRL, EOMs intact bilaterally and conjunctivae normal Neck no lymphadenopathy Resp normal respiratory effort and clear to auscultation bilaterally Cardio regular rate, regular rhythm and no murmurs Peripheral Pulses: pulses 2+ throughout GI normal to inspection, nondistended, normoactive bowel sounds, non-tender and non-distended Extremity normal to inspection Skin no rashes or lesions noted Lesions: no lesions Rashes: no rashes Trauma: no lacerations or abrasions Neuro CN's II-XII intact bilaterally, no focal motor deficits, no sensory deficits not ed and deep tendon reflexes 2+ bilaterally Psych mental status grossly normal and affect normal Assessment & Plan Assessment/Plan (1) Hyponatremia: PLAN: 1. Acute on chronic hypovolemic hypoosmolar hyponatremia- Chlorthalidone on hold. Recent work-up for hyponatremia with normal TSH and cortisol. Resume home salt tabs. Trend BMP. 2. Generalized weakness with recurrent falls-MRI of brain negative for new CVA. Suspect weakness, fall related to #1 as well as general deconditioning. PT/OT. 3. Hypokalemia/hypomagnesia-replace per protocol, resolved. 4. History of CVA/right severe carotid stenosis-recent right carotid endarterectomy. Continue aspirin, statin. 5. Hypertension-stable, continue ramipril. Chlorthalidone discontinued. 6. Hyperlipidemia-continue statin. 7. Type 2 diabetes mellitus-continue oral regimen. Accu-Cheks with sliding scale insulin. 8. Depression/anxiety-on citalopram. 9. Gout-no longer on allopurinol. DVT prophylaxis-Lovenox subcu This patient was seen by NANETTE Francisco under the supervision of Dr. Arenas. Discharge planning: SNF pending acceptance. Time spent examining patient, reviewing data and subsequent management of care: 12 Minutes. Documented by User: Dr. Maddi Arenas MD 12/30/21 15:08 Objective Data Lab / Micro Data Result Diagrams: 12/30/21 04:55 12/30/21 04:55
[2021-12-30] MEDS: Insulin Lispro 100 UNIT/ML INSULN.PEN SC (11:32)
[2021-12-30 11:36] LABS: Bedside Glucose 150 mg/dL (74-106)
[2021-12-30] MEDS: Sodium Chloride 1 GM Tablet PO ×2 (12:51→22:08)
[2021-12-30 16:21] LABS: Bedside Glucose 114 mg/dL (74-106)
--- NOTE | 2021-12-30 16:39 | CASEMGMT ---
Social Work Consult: [facility] placement Referral source: RN GENNA Met with patient in room. Introduced self and 7th grade social studies teacher role. Patient agreeable to speak with this 7th grade social studies teacher. This 7th grade social studies teacher broached topic of usp placement. Patient is agreeable to usp placement. Patient reports that first choice is TCU. This 7th grade social studies teacher reports that this 7th grade social studies teacher will add patient name to TCU referral list but that does not mean that patient will be able to be accepted as there might not be any open beds. This 7th grade social studies teacher encouraged patient to choose a second option for usp in the event that TCU does not have a bed. Patient voiced understanding. This 7th grade social studies teacher provided patient with list of in-network nursing facilities that are local to patient geographical region. Active support and listening provided. Telephone call to TCRika, Ayla. Confidential voicemail left to add patient to referral list for TCU. PLAN: SNF, local [facility]. Cristobal STEEL, JAYEM-S
[2021-12-30] MEDS: Citalopram 10 MG Tablet PO (17:26)
[2021-12-30] MEDS: Atorvastatin Calcium 40 MG Tablet PO (22:08)
[2021-12-30] MEDS: Mirtazapine 15 MG Tablet 7.5 MG PO (22:08)
[2021-12-30 22:16] LABS: Bedside Glucose 105 mg/dL (74-106)
[2021-12-31] VITALS (12 sets, daily range): BP systolic 125–142; BP diastolic 88–91; PULSE 47–80; RESP 17–18; TEMP 36.6–37.1; O2SAT 95–99
[2021-12-31 07:01] LABS: Anion Gap 6 (5-15); BUN 11 mg/dL (7-18); BUN/Creat Ratio 12.1 RATIO (10-20); Calcium,Total 8.9 mg/dL (8.5-10.1); Chloride 97 mmol/L (98-107); Creatinine, Serum 0.91 mg/dL (0.70-1.30); EST Glomerular Filtration Rate 87 mL/min (>60); Est Glom Filt Rate - Afr Amer 106 mL/min (>60); Estimated Creatinine Clearance 75.76 ml/min; Glucose 123 mg/dL (74-106); Potassium 3.9 mmol/L (3.5-5.1); Sodium Level 128 mmol/L (136-145)
[2021-12-31 07:06] LABS: Bedside Glucose 139 mg/dL (74-106)
[2021-12-31] MEDS: Potassium Chloride Oral Tablet 20 MEQ 40 MEQ PO (10:45)
[2021-12-31] MEDS: Sodium Chloride 1 GM Tablet PO ×2 (10:45→21:04)
[2021-12-31] MEDS: Aspirin E.C. 325 MG Tablet PO (10:45)
[2021-12-31] MEDS: Ramipril 10 MG Capsule PO (10:45)
[2021-12-31] MEDS: Pioglitazone Hydrochloride 15 MG Tablet PO (10:45)
[2021-12-31] MEDS: 0.9% Saline Lock 10 ML Syringe IV (10:45)
[2021-12-31] MEDS: BACITRACIN 15 GM Tube 1 APPLIC TOPICAL ×2 (10:45→21:02)
[2021-12-31] MEDS: Enoxaparin 40 MG/0.4 ML Syringe SC (10:46)
[2021-12-31 11:11] LABS: Bedside Glucose 130 mg/dL (74-106)
--- NOTE | 2021-12-31 11:30 | PN.HOSP_ITS ---
Documented by User: Ann Hernandez NP, UNIVERSAL BRANCH CONSULTANT-C 12/31/21 11:33 Subjective Subjective Patient seen and examined. Resting comfortably in chair. No acute events overnight. Awaiting placement to rehab. Objective Data Objective Data Vital Signs: Vital Signs Temp Pulse Resp BP Pulse Ox 98.0 F 50 L 18 142/88 H 98 12/31/21 10:43 12/31/21 10:43 12/31/21 10:43 12/31/21 10:43 12/31/21 10:43 Oxygen Delivery Method Room Air Weight: 189 lb 13.088 oz Body Mass Index (BMI) 27.1 Intake & Output: Intake and Output for Last 24 Hours 12/29/21 12/30/21 12/31/21 23:59 23:59 23:59 Intake Total 3037.3333 / 3337.3333 1160 / 1160 Output Total 1974 / 2274 1900 / 2100 700 / 700 Balance 1062.3333 / 1062.3333 -740 / -940 -700 / -700 Lab / Micro Data Result Diagrams: 12/30/21 04:55 12/31/21 06:20 Labs: Laboratory Results - last 24 hr 12/30/21 11:31: POC Glucose 150 H 12/30/21 16:12: POC Glucose 114 H 12/30/21 22:03: POC Glucose 105 12/31/21 06:20: Sodium 128 L, Potassium 3.9, Chloride 97 L, Carbon Dioxide 25.0, Anion Gap 6, BUN 11, Creatinine 0.91, Estim Creat Clear Calc 75.76, Est GFR (MDRD) Af Amer 106, Est GFR (MDRD) Non-Af 87, BUN/Creatinine Ratio 12.1, Glucose 123 H, Calcium 8.9 12/31/21 06:37: POC Glucose 139 H 12/31/21 10:54: POC Glucose 130 H Physical Exam Const alert, oriented x3 and no apparent distress Orientation / Consciousness: awake, oriented to person, oriented to place and oriented to time HEENT normocephalic and moist oral mucous membranes Eyes PERRL, EOMs intact bilaterally and conjunctivae normal Neck no lymphadenopathy Resp normal respiratory effort and clear to auscultation bilaterally Cardio regular rate, regular rhythm and no murmurs Peripheral Pulses: pulses 2+ throughout GI normal to inspection, nondistended, normoactive bowel sounds, non-tender and non-distended Extremity normal to inspection Skin no rashes or lesions noted Lesions: no lesions Rashes: no rashes Trauma: no lacerations or abrasions Neuro CN's II-XII intact bilaterally, no focal motor deficits, no sensory deficits noted and deep tendon reflexes 2+ bilaterally Psych mental status grossly normal Mood & Affect: flat affect Assessment & Plan Assessment/Plan (1) Hyponatremia: (2) Frequent falls: PLAN: 1. Acute on chronic hypovolemic hypoosmolar hyponatremia- Chlorthalidone on hold. Recent work-up for hyponatremia with normal TSH and cortisol. Resume home salt tabs. Trend BMP. 2. Generalized weakness with recurrent falls-MRI of brain negative for new CVA. Suspect weakness, fall related to #1 as well as general deconditioning. PT/OT. 3. Hypokalemia/hypomagnesia-replace per protocol, resolved. 4. History of CVA/right severe carotid stenosis-recent right carotid endarterectomy. Continue aspirin, statin. 5. Hypertension-stable, continue ramipril. Chlorthalidone discontinued. 6. Hyperlipidemia-continue statin. 7. Type 2 diabetes mellitus-continue oral regimen. Accu-Cheks with sliding scal e insulin. 8. Depression/anxiety-on citalopram. 9. Gout-no longer on allopurinol. DVT prophylaxis-Lovenox subcu This patient was seen by NANETTE Francisco under the supervision of Dr. Arenas. Discharge planning: SNF pending acceptance. Time spent examining patient, reviewing data and subsequent management of care: 12 Minutes. Documented by User: Dr. Maddi Arenas MD 12/31/21 13:18 Objective Data Lab / Micro Data Result Diagrams: 12/30/21 04:55 12/31/21 06:20
[2021-12-31 16:31] LABS: Bedside Glucose 99 mg/dL (74-106)
[2021-12-31] MEDS: Citalopram 10 MG Tablet PO (17:36)
[2021-12-31] MEDS: Mirtazapine 15 MG Tablet 7.5 MG PO (21:04)
[2021-12-31] MEDS: Atorvastatin Calcium 40 MG Tablet PO (21:04)
[2021-12-31 21:11] LABS: Bedside Glucose 108 mg/dL (74-106)
[2022-01-01] VITALS (16 sets, daily range): BP systolic 109–138; BP diastolic 63–87; PULSE 50–75; RESP 14–18; TEMP 36.4–36.9; O2SAT 93–98
[2022-01-01 06:46] LABS: Bedside Glucose 120 mg/dL (74-106)
[2022-01-01 07:52] LABS: Anion Gap 5 (5-15); BUN 10 mg/dL (7-18); BUN/Creat Ratio 10.9 RATIO (10-20); Calcium,Total 8.8 mg/dL (8.5-10.1); Chloride 98 mmol/L (98-107); Creatinine, Serum 0.92 mg/dL (0.70-1.30); EST Glomerular Filtration Rate 86 mL/min (>60); Est Glom Filt Rate - Afr Amer 104 mL/min (>60); Estimated Creatinine Clearance 74.94 ml/min; Glucose 115 mg/dL (74-106); Sodium Level 131 mmol/L (136-145)
[2022-01-01] MEDS: Aspirin E.C. 325 MG Tablet PO (08:56)
[2022-01-01] MEDS: Potassium Chloride Oral Tablet 20 MEQ 40 MEQ PO (08:56)
[2022-01-01] MEDS: Pioglitazone Hydrochloride 15 MG Tablet PO (08:56)
[2022-01-01] MEDS: Ramipril 10 MG Capsule PO (08:56)
[2022-01-01] MEDS: Enoxaparin 40 MG/0.4 ML Syringe SC (08:57)
[2022-01-01] MEDS: BACITRACIN 15 GM Tube 1 APPLIC TOPICAL ×2 (08:57→20:33)
[2022-01-01] MEDS: Sodium Chloride 1 GM Tablet PO ×2 (08:57→20:33)
--- NOTE | 2022-01-01 09:55 | CASEMGMT ---
SW spoke with patient letting him know TCU is full. Patient asked SW to call his . SW called patient's , Jayla and let her know TCU is full. She was not sure what their second choice would be. Jayla said she will be in to the hospital in a little bit. Marti DELACRUZ
--- NOTE | 2022-01-01 11:20 | CASEMGMT ---
Patient's arrived at [facility]. SW spoke with both patient and his . They wanted to know if patient could go home. SW spoke with therapy and they said he is not safe for home. SW went back to patient's room and let them know therapy is recommending SNF as they do not feel like patient is safe for home. After going back and forth patient agreed to [facility]. SW faxed referral and also called regarding referral. Marti DELACRUZ
[2022-01-01] MEDS: Insulin Lispro 100 UNIT/ML INSULN.PEN SC (11:21)
[2022-01-01 11:35] LABS: Bedside Glucose 221 mg/dL (74-106)
--- NOTE | 2022-01-01 12:04 | PN.HOSP_ITS ---
Documented by User: Ann Hernandez NP, SIDE LASTER TACK-C 01/01/22 12:07 Subjective Subjective Patient seen and examined. No acute events overnight. Denies current symptoms or complaints. Awaiting approval to [facility]. Objective Data Objective Data Vital Signs: Vital Signs Temp Pulse Resp BP Pulse Ox 97.5 F L 65 18 138/83 H 98 01/01/22 10:20 01/01/22 11:15 01/01/22 10:20 01/01/22 10:20 01/01/22 10:20 Oxygen Delivery Method Room Air Weight: 188 lb 7.924 oz Body Mass Index (BMI) 27.1 Intake & Output: Intake and Output for Last 24 Hours 12/30/21 12/31/21 01/01/22 23:59 23:59 23:59 Intake Total 1160 / 1160 680 / 680 Output Total 1900 / 2100 1500 / 2200 950 / 950 Balance -740 / -940 -820 / -1520 -950 / -950 Lab / Micro Data Result Diagrams: 12/30/21 04:55 01/01/22 06:55 Labs: Laboratory Results - last 24 hr 12/31/21 16:23: POC Glucose 99 12/31/21 21:00: POC Glucose 108 H 01/01/22 06:39: POC Glucose 120 H 01/01/22 06:55: Sodium 131 L, Potassium 4.0, Chloride 98, Carbon Dioxide 28.0, Anion Gap 5, BUN 10, Creatinine 0.92, Estim Creat Clear Calc 74.94, Est GFR (MDRD) Af Amer 104, Est GFR (MDRD) Non-Af 86, BUN/Creatinine Ratio 10.9, Glucose 115 H, Calcium 8.8 01/01/22 11:18: POC Glucose 221 H Physical Exam Const alert, oriented x3 and no apparent distress Orientation / Consciousness: awake, oriented to person, oriented to place and oriented to time HEENT normocephalic and moist oral mucous membranes Eyes PERRL, EOMs intact bilaterally and conjunctivae normal Neck no lymphadenopathy Resp normal respiratory effort and clear to auscultation bilaterally Cardio regular rate, regular rhythm and no murmurs Peripheral Pulses: pulses 2+ throughout GI normal to inspection, nondistended, normoactive bowel sounds, non-tender and non-distended Extremity normal to inspection Skin no rashes or lesions noted Lesions: no lesions Rashes: no rashes Trauma: no lacerations or abrasions Neuro CN's II-XII intact bilaterally, no focal motor deficits, no sensory deficits noted and deep tendon reflexes 2+ bilaterally Psych mental status grossly normal and affect normal Assessment & Plan Assessment/Plan (1) Hyponatremia: PLAN: 1. Acute on chronic hypovolemic hypoosmolar hyponatremia- Chlorthalidone on hold. Recent work-up for hyponatremia with normal TSH and cortisol. Resumed home salt tabs. Improving. Trend BMP. 2. Generalized weakness with recurrent falls-MRI of brain negative for new CVA. Suspect weakness, fall related to #1 as well as general deconditioning. PT/OT. 3. Hypokalemia/hypomagnesia-replace per protocol, resolved. 4. History of CVA/right severe carotid stenosis-recent right carotid endarterectomy. Continue aspirin, statin. 5. Hypertension-stable, continue ramipril. Chlorthalidone discontinued. 6. Hyperlipidemia-continue statin. 7. Type 2 diabetes mellitus-continue oral regimen. Accu-Cheks with sliding scale insulin. 8. Depression/anxiety-on citalopram. 9. Gout-no longer on allopurinol. DVT prophylaxis-Lovenox subcu This patient was seen by RIKY FranciscoC under the supervision of Dr. Louis. Discharge planning: SNF pending acceptance. Time spent examining patient, reviewing data and subsequent management of care: 10 Minutes. Documented by User: Dr. Naomi Louis MD 01/01/22 17:35 Objective Data Lab / Micro Data Result Diagrams: 12/30/21 04:55 01/01/22 06:55 Charges/Coding Addendum Addendum: This patient was seen in conjunction with Ann Hernandez NP. I have independently interviewed and examined the patient and reviewed pertinent historical, laboratory, and other data. I have reviewed her note and concur with her documentation Patient was seen and examined. Denied any new complaints. No acute events overnight. Awaiting SNF discharge. Physical Exam: Gen: Comfortable, not pale, not jaundiced CVS:HS I +II, regular, no murmurs RESP: Diminished at lung bases GI: BS present and normal, soft, nontender, no palpable organs EXT: Multiple bruises over his hands ASSESSMENT: 1. Acute on chronic hyponatremia 2. Recurrent falls/debility 3. Hypokalemia/hypomagnesemia 4. Right CVA carotid stenosis status post carotid endarterectomy 5. History of CVA/hypertension/hyperlipidemia 6. Type II DM 7. Anxiety/depression Plan: Continue off chlorthalidone Continue on Lovenox, Remeron, ramipril PT/OT evaluation [facility] Time spent coordinating patient's care, discussing with subspecialty and nursin minutes Visit Charges Inpatient E&M: 68284 Subs Hosp L2
--- NOTE | 2022-01-01 13:06 | CASEMGMT ---
DARRELL received a call from Rossy at [email or web address]. DARRELL answered their questions. Rossy said they will get back to soon. Marti Zhang MSW JAYME
--- NOTE | 2022-01-01 13:43 | CASEMGMT ---
RN came to and said patient and his are packed up and ready to leave. SW went to patient's room. Patient asked if he can go to the prison from home. SW told him he cannot, he has to go from the hospital. Patient and his discussed this a little more. Patient's said the place in [place] is so much closer. Patient asked DARRELL to send a referral to [place]. Patient's then asked if she takes patient home and he would fall can he go to a prison from the emergency dept. SW told her it would be unlikely as his insurance would have to approve. Patient's then told patient, Let's just go home. I'm tired of being at the hospital. AMA or whatever. DARRELL notified Nurse Practitioner and gas charger. Marti DELACRUZ
--- NOTE | 2022-01-01 14:05 | CASEMGMT ---
DARRELL received a call from Magaly with [facility]. They are no longer in network with patient's insurance. Patient asked DARRELL to send a referral to [facility] earlier so DARRELL faxed referral to [facility]. DARRELL sent an e-mail to Bianca with [facility] notifying her of referral. Marti Zhang METAL CUT OFF SAW OPERATOR JAYME
--- NOTE | 2022-01-01 16:00 | CASEMGMT ---
DARRELL spoke with patient and let him know [facility] said they are no longer in network with his insurance. DARRELL told patient SW faxed a referral to [facility], the facility in [place]. He thanked DARRELL. DARRELL told patient that hopefully tomorrow he will get to go to a facility. Plan: possible d/c to [facility] pending their acceptance and insurance approval. Marti Zhang TIMBER APPRAISER JAYME
[2022-01-01 16:36] LABS: Bedside Glucose 97 mg/dL (74-106)
[2022-01-01] MEDS: Citalopram 10 MG Tablet PO (17:25)
[2022-01-01] MEDS: Atorvastatin Calcium 40 MG Tablet PO (20:32)
[2022-01-01] MEDS: MELATONIN 3 MG TABLET PO (20:32)
[2022-01-01] MEDS: Mirtazapine 15 MG Tablet 7.5 MG PO (20:33)
--- NOTE | 2022-01-01 20:52 | NURSING ---
patient requesting medications early
[2022-01-01 20:56] LABS: Bedside Glucose 127 mg/dL (74-106)
[2022-01-02] VITALS (7 sets, daily range): BP systolic 133–169; BP diastolic 78–99; PULSE 48–80; RESP 17–18; TEMP 36.3–36.7; O2SAT 96–98
[2022-01-02 06:15] LABS: Anion Gap 6 (5-15); BUN 9 mg/dL (7-18); BUN/Creat Ratio 9.6 RATIO (10-20); Calcium,Total 8.6 mg/dL (8.5-10.1); Chloride 98 mmol/L (98-107); Creatinine, Serum 0.94 mg/dL (0.70-1.30); EST Glomerular Filtration Rate 84 mL/min (>60); Est Glom Filt Rate - Afr Amer 102 mL/min (>60); Estimated Creatinine Clearance 73.35 ml/min; Glucose 119 mg/dL (74-106); Potassium 3.8 mmol/L (3.5-5.1); Sodium Level 133 mmol/L (136-145)
[2022-01-02 07:01] LABS: Bedside Glucose 126 mg/dL (74-106)
--- NOTE | 2022-01-02 07:04 | CASEMGMT ---
DARRELL received an e-mail from Bianca at [facility]. They can accept patient. She requested a face sheet as for some reason they did not get the one faxed. SW forwarded patient's face sheet. Plan: [facility] pending pre-cert. Marti DELACRUZ
[2022-01-02] MEDS: Potassium Chloride Oral Tablet 20 MEQ 40 MEQ PO (08:57)
[2022-01-02] MEDS: Aspirin E.C. 325 MG Tablet PO (08:57)
[2022-01-02] MEDS: Ramipril 10 MG Capsule PO (08:58)
[2022-01-02] MEDS: Enoxaparin 40 MG/0.4 ML Syringe SC (08:58)
[2022-01-02] MEDS: Sodium Chloride 1 GM Tablet PO (08:58)
[2022-01-02] MEDS: BACITRACIN 15 GM Tube 1 APPLIC TOPICAL (08:58)
[2022-01-02] MEDS: Pioglitazone Hydrochloride 15 MG Tablet PO (08:58)
[2022-01-02 11:31] LABS: Bedside Glucose 137 mg/dL (74-106)
--- NOTE | 2022-01-02 11:45 | PCM.TXEXTCAR ---
Documented by User: Ann Hernandez NP, PHOTOVOLTAIC FABRICATION TECHNICIAN-C 01/02/22 14:07 Diet 12/29/21 02:55 Diet: Carbohydrate Controlled Is pt able to select menu?: No Diet: Cardiac - Heart Healthy Is pt able to select menu?: No Routine Orders/Code Status Enema Type: Fleetz Enema Frequency: Daily PRN Suppository Type: Dulcolax 10mg Suppository Frequency: Daily PRN Routine Lab Work: - (Weekly CBC, BMP) Wound(s) rt: Wound Type: Abrasion Left wrist: Wound Type: Abrasion Suggestions for Active Care Change Position every (hours): 2 Times a day to sit in chair: 3 Therapies Physical Therapy: Eval and Treat Occupational Therapy: Eval and Treat Speech Therapy: Eval and Treat Problem/Diagnosis (1) Hyponatremia: Status: Acute Allergies/Procedures Done in Hospital Allergies No Known Allergies Allergy (Verified 12/28/21 21:48) Procedures: None Type of Care/Length of Stay Estimated LOS: Convalescent Care Less Than 30 days Type of Care Needed: Skilled Rehab Potential: Fair Prognosis: Fair Additional Orders/Day of Discharge Day of Discharge: 01/02/22 Dietary and Speech Recommendations Speech Linguistic Eval Summary: Pt. was seen bedside and was agreeable to bedside cognitive assessment. Pt. was oriented to name, , place, situation, date, and year. Pt. was not oriented to month or day of the week. Pt. was able to complete convergent naming tasks with 100% accuracy, complete sentences with 100% accuracy, give 8-10 items in a category when given 1-minute. He was able to recall immediate memory tasks with 100% accuracy, short term recall tasks with 60% accuracy, and adjunct faculty for medical terminology memory tasks with 100% accuracy. He answered yes/no questions with 100% accuracy, sequenced a task with 3-4 steps, completed both 1 and 2-step directions with 90% accuracy. He completed what to do if problem solving tasks with 1 simple solution with 90% accuracy, but unable to give a second solution. He was able to complete why is it a problem if questions with 80% accuracy. Pt. was able to recall his difficulty with balance and history of falls. Discharge Plan Admission Admit Date/Time: 12/28/21 23:03 Primary Reason for Your Visit: Hyponatremia Attending Provider: Naomi Louis Primary Care Provider: Akash Agosto Discharge Orders/Prescriptions Prescriptions: Continued pioglitazone 15 MG tablet 15 mg PO DAILY RF: 0 glimepiride 1 MG tablet 1 mg PO DAILY RF: 0 metformin 1,000 MG tablet 1,000 mg PO BID RF: 0 ramipril 10 MG capsule 10 mg PO DAILY RF: 0 atorvastatin 40 MG tablet 40 mg PO DAILY RF: 0 acetaminophen 500 mg Tablet 1,000 mg PO Q6H PRN PRN (Reason: Pain Score 1-10) Qty: 0 RF: 0 citalopram 10 mg tablet 10 mg PO 1800 RF: 0 mirtazapine 7.5 mg tablet 7.5 mg PO QHS RF: 0 sodium chloride 1,000 mg tablet,soluble 1 g PO BID RF: 0 aspirin 325 mg Tablet,Delayed Release (Dr/Ec) 325 mg PO BREAKFAST Qty: 0 RF: 0 potassium chloride [Klor-Con M20] 20 mEq Tablet,Er Particles/Crystals 20 meq PO DAILYCM 30 Days Qty: 30 RF: 0 Discontinued chlorthalidone 50 mg Tablet 25 mg PO DAILY 30 Days Qty: 15 RF: 0 Referrals / Follow Up: Akash Agosto MD [Primary Care Provider] - In 1 Week Disposition Disposition (needs filled in before D/C Order can be placed): Residential Facility Documented by User: Dr. Naomi Louis MD 01/02/22 14:58 Routine Orders/Code Status Routine Lab Work: CBC (within 3 days) and BMP (within 3 days) Therapies Weight Bearing: Weight bearing as tolerated Extremity Affected:: Bilateral Lower Physical Therapy: Eval and Treat Occupational Therapy: Eval and Treat Allergies/Procedures Done in Hospital Allergies No Known Allergies Allergy (Verified 12/28/21 21:48) Procedures: None Type of Care/Length of Stay Estimated LOS: Convalescent Care Less Than 30 days Type of Care Needed: Skilled Rehab Potential: Fair Prognosis: Fair Additional Orders/Day of Discharge Day of Discharge: 01/02/22 Discharge Plan Admission Admit Date/Time: 12/28/21 23:03 Primary Reason for Your Visit: Hyponatremia Attending Provider: Naomi Louis Primary Care Provider: Akash Agosto Discharge Orders/Prescriptions Prescriptions: Continued pioglitazone 15 MG tablet 15 mg PO DAILY RF: 0 glimepiride 1 MG tablet 1 mg PO DAILY RF: 0 metformin 1,000 MG tablet 1,000 mg PO BID RF: 0 ramipril 10 MG capsule 10 mg PO DAILY RF: 0 atorvastatin 40 MG tablet 40 mg PO DAILY RF: 0 acetaminophen 500 mg Tablet 1,000 mg PO Q6H PRN PRN (Reason: Pain Score 1-10) Qty: 0 RF: 0 citalopram 10 mg tablet 10 mg PO 1800 RF: 0 mirtazapine 7.5 mg tablet 7.5 mg PO QHS RF: 0 sodium chloride 1,000 mg tablet,soluble 1 g PO BID RF: 0 aspirin 325 mg Tablet,Delayed Release (Dr/Ec) 325 mg PO BREAKFAST Qty: 0 RF: 0 potassium chloride [Klor-Con M20] 20 mEq Tablet,Er Particles/Crystals 20 meq PO DAILYCM 30 Days Qty: 30 RF: 0 Discontinued chlorthalidone 50 mg Tablet 25 mg PO DAILY 30 Days Qty: 15 RF: 0 Referrals / Follow Up: Akash Agosto MD [Primary Care Provider] - In 1 Week Disposition Disposition (needs filled in before D/C Order can be placed): Residential Facility
--- NOTE | 2022-01-02 14:01 | PN.HOSP_ITS ---
Subjective Subjective Patient seen and examined. Discussed plan of care with patient and . They are amendable to SNF for rehab as patient continues to be a fall risk at this time. Awaiting approval. Objective Data Objective Data Vital Signs: Vital Signs Temp Pulse Resp BP Pulse Ox 97.4 F L 54 L 18 169/99 H 98 01/02/22 08:48 01/02/22 08:48 01/02/22 08:48 01/02/22 08:48 01/02/22 08:48 Oxygen Delivery Method Room Air Weight: 189 lb 6.033 oz Body Mass Index (BMI) 27.1 Intake & Output: Intake and Output for Last 24 Hours 12/31/21 01/01/22 01/02/22 23:59 23:59 23:59 Intake Total 680 / 680 840 / 840 Output Total 1500 / 2200 950 / 2050 1200 / 1200 Balance -820 / -1520 -110 / -1210 -1200 / -1200 Lab / Micro Data Result Diagrams: 12/30/21 04:55 01/02/22 05:24 Labs: Laboratory Results - last 24 hr 01/01/22 16:00: POC Glucose 97 01/01/22 20:30: POC Glucose 127 H 01/02/22 05:24: Sodium 133 L, Potassium 3.8, Chloride 98, Carbon Dioxide 29.0, Anion Gap 6, BUN 9, Creatinine 0.94, Estim Creat Clear Calc 73.35, Est GFR (MDRD) Af Amer 102, Est GFR (MDRD) Non-Af 84, BUN/Creatinine Ratio 9.6 L, Glucose 119 H, Calcium 8.6 01/02/22 06:57: POC Glucose 126 H 01/02/22 11:20: POC Glucose 137 H Physical Exam Const alert, oriented x3 and no apparent distress Orientation / Consciousness: awake, oriented to person, oriented to place and oriented to time HEENT normocephalic and moist oral mucous membranes Eyes PERRL, EOMs intact bilaterally and conjunctivae normal Neck no lymphadenopathy Resp normal respiratory effort and clear to auscultation bilaterally Cardio regular rate, regular rhythm and no murmurs Peripheral Pulses: pulses 2+ throughout GI normal to inspection, nondistended, normoactive bowel sounds, non-tender and non-distended Extremity normal to inspection Skin no rashes or lesions noted Lesions: no lesions Rashes: no rashes Trauma: no lacerations or abrasions Neuro CN's II-XII intact bilaterally, no focal motor deficits, no sensory deficits noted and deep tendon reflexes 2+ bilaterally Psych mental status grossly normal and affect normal Assessment & Plan Assessment/Plan (1) Hyponatremia: PLAN: 1. Acute on chronic hypovolemic hypoosmolar hyponatremia- Chlorthalidone on hold. Recent work-up for hyponatremia with normal TSH and cortisol. Resumed home salt tabs. Improving. Trend BMP. 2. Generalized weakness with recurrent falls-MRI of brain negative for new CVA. Suspect weakness, fall related to #1 as well as general deconditioning. PT/OT. Patient continues to require assistance for safety. 3. Hypokalemia/hypomagnesia-replace per protocol, resolved. 4. History of CVA/right severe carotid stenosis-recent right carotid endarterectomy. Continue aspirin, statin. 5. Hypertension-stable, continue ramipril. Chlorthalidone discontinued. 6. Hyperlipidemia-continue statin. 7. Type 2 diabetes mellitus-continue oral regimen. Accu-Cheks with sliding scale insulin. 8. Depression/anxiety-on citalopram. 9. Gout-no longer on allopurinol. DVT prophylaxis-Lovenox subcu This patient was seen by NANETTE Francisco under the supervision of Dr. Louis. Discharge planning: SNF pending acceptance. Time spent examining patient, reviewing data and subsequent management of care: 10 Minutes.
--- NOTE | 2022-01-02 14:45 | CASEMGMT ---
DARRELL received e-mail from Bianca at [place] and patient was approved. DARRELL notified Nurse Practitioner, RN, and clerk secretary. DARRELL went to patient's room to notify him, but he was sleeping. DARRELL said his name several times as well as touched his arm and he did not wake. DARRELL will try again. Marti Zhang CONSTRUCTION DRILLER JAYME
--- NOTE | 2022-01-02 14:54 | DS.PCM_ITS ---
Documented by User: Ann Hernandez NP, MANAGER MUSIC-C 01/02/22 14:59 Providers Date of Admission: 12/28/21 Date of Discharge: 01/02/22 Primary Care Physician: Dr. Akash Agosto MD Reason For Visit: FALL, HYPONATREMIA Diagnosis Discharge Diagnosis (1) Hyponatremia: Status: Acute Code(s): E87.1 - Hypo-osmolality and hyponatremia Medications at Discharge Home Medications glimepiride 1 mg PO DAILY 12/18/19 metformin 1,000 mg PO BID 12/18/19 pioglitazone 15 mg PO DAILY 12/18/19 ramipril 10 mg PO DAILY 12/18/19 atorvastatin 40 mg PO DAILY 10/13/21 acetaminophen 1,000 mg PO Q6H PRN PRN #0 tab 10/30/21 citalopram 10 mg PO 1800 11/14/21 mirtazapine 7.5 mg PO QHS 11/14/21 sodium chloride 1 g PO BID 11/14/21 aspirin 325 mg PO BREAKFAST #0 tab 11/20/21 potassium chloride [Klor-Con M20] 20 meq PO DAILYCM 30 Days #30 tab 11/20/21 Hospital Course Operations None Procedures None Summary of Care Provided Hospital Course: Patient is a 71-year-old male admitted on 12/28/2021 due to recurrent fall and hyponatremia. 1. Acute on chronic hypovolemic hypoosmolar hyponatremia-Chlorthalidone on hold. Recent work-up for hyponatremia with normal TSH and cortisol. Resumed home salt tabs. Improving. Trend BMP at SNF. 2. Generalized weakness with recurrent falls-MRI of brain negative for new CVA. Suspect weakness, fall related to #1 as well as general deconditioning. PT/OT. Patient continues to require assistance for safety. SNF for rehab. 3. Hypokalemia/hypomagnesia-replace per protocol, resolved. 4. History of CVA/right severe carotid stenosis-recent right carotid endarterectomy. Continue aspirin, statin. 5. Hypertension-stable, continue ramipril. Chlorthalidone discontinued. 6. Hyperlipidemia-continue statin. 7. Type 2 diabetes mellitus-continue oral regimen. Accu-Cheks with sliding scale insulin. 8. Depression/anxiety-on citalopram. 9. Gout-no longer on allopurinol. Physical Exam Const alert, oriented x3 and no apparent distress Orientation / Consciousness: awake, oriented to person, oriented to place and oriented to time HEENT normocephalic and moist oral mucous membranes Eyes PERRL, EOMs intact bilaterally and conjunctivae normal Neck no lymphadenopathy Resp normal respiratory effort and clear to auscultation bilaterally Cardio regular rate, regular rhythm and no murmurs Peripheral Pulses: pulses 2+ throughout GI normal to inspection, nondistended, normoactive bowel sounds, non-tender and non-distended Extremity normal to inspection Skin no rashes or lesions noted Lesions: no lesions Rashes: no rashes Trauma: no lacerations or abrasions Neuro CN's II-XII intact bilaterally, no focal motor deficits, no sensory deficits noted and deep tendon reflexes 2+ bilaterally Psych mental status grossly normal and affect normal Patient seen and examined prior to discharge. Physical assessment as noted above. Patient is stable for discharge with follow up recommendations as noted above. This patient was seen by NANETTE Francisco under the supervision of Dr. Louis. Time spent examining patient, reviewing data and subsequent management of care: 17 Minutes. Weight / BMI Weight Weight: 189 lb 6.033 oz Body Mass Index (BMI) 27.1 ABG / Lab / Microbiology Data Result Diagrams: 12/30/21 04:55 01/02/22 05:24 Laboratory: Laboratory Results - last 24 hr 01/01/22 16:00: POC Glucose 97 01/01/22 20:30: POC Glucose 127 H 01/02/22 05:24: Sodium 133 L, Potassium 3.8, Chloride 98, Carbon Dioxide 29.0, Anion Gap 6, BUN 9, Creatinine 0.94, Estim Creat Clear Calc 73.35, Est GFR (MDRD) Af Amer 102, Est GFR (MDRD) Non-Af 84, BUN/Creatinine Ratio 9.6 L, Glucose 119 H, Calcium 8.6 01/02/22 06:57: POC Glucose 126 H 01/02/22 11:20: POC Glucose 137 H Meaningful Use Info Meaningful Use Diagnoses (Choose all that apply): None applicable Discharge Plan Admission Admit Date/Time: 12/28/21 23:03 Primary Reason for Your Visit: Hyponatremia Attending Provider: Naomi Louis Primary Care Provider: Akash Agosto Discharge Orders/Prescriptions Prescriptions: Continued pioglitazone 15 MG tablet 15 mg PO DAILY RF: 0 glimepiride 1 MG tablet 1 mg PO DAILY RF: 0 metformin 1,000 MG tablet 1,000 mg PO BID RF: 0 ramipril 10 MG capsule 10 mg PO DAILY RF: 0 atorvastatin 40 MG tablet 40 mg PO DAILY RF: 0 acetaminophen 500 mg Tablet 1,000 mg PO Q6H PRN PRN (Reason: Pain Score 1-10) Qty: 0 RF: 0 citalopram 10 mg tablet 10 mg PO 1800 RF: 0 mirtazapine 7.5 mg tablet 7.5 mg PO QHS RF: 0 sodium chloride 1,000 mg tablet,soluble 1 g PO BID RF: 0 aspirin 325 mg Tablet,Delayed Release (Dr/Ec) 325 mg PO BREAKFAST Qty: 0 RF: 0 potassium chloride [Klor-Con M20] 20 mEq Tablet,Er Particles/Crystals 20 meq PO DAILYCM 30 Days Qty: 30 RF: 0 Discontinued chlorthalidone 50 mg Tablet 25 mg PO DAILY 30 Days Qty: 15 RF: 0 Referrals / Follow Up: Akash Agosto MD [Primary Care Provider] - In 1 Week Disposition Disposition (needs filled in before D/C Order can be placed): [facility] Facility Documented by User: Dr. Naomi Louis MD 01/03/22 16:19 Providers Date of Admission: 12/28/21 Reason For Visit: FALL, HYPONATREMIA Medications at Discharge Home Medications glimepiride 1 mg PO DAILY 12/18/19 metformin 1,000 mg PO BID 12/18/19 pioglitazone 15 mg PO DAILY 12/18/19 ramipril 10 mg PO DAILY 12/18/19 atorvastatin 40 mg PO DAILY 10/13/21 acetaminophen 1,000 mg PO Q6H PRN PRN #0 tab 10/30/21 citalopram 10 mg PO 1800 11/14/21 mirtazapine 7.5 mg PO QHS 11/14/21 sodium chloride 1 g PO BID 11/14/21 aspirin 325 mg PO BREAKFAST #0 tab 11/20/21 potassium chloride [Klor-Con M20] 20 meq PO DAILYCM 30 Days #30 tab 11/20/21 ABG / Lab / Microbiology Data Result Diagrams: 12/30/21 04:55 01/02/22 05:24 Discharge Plan Admission Admit Date/Time: 12/28/21 23:03 Primary Reason for Your Visit: Hyponatremia Attending Provider: Naomi Louis Primary Care Provider: kAash Agosto Discharge Orders/Prescriptions Prescriptions: Continued pioglitazone 15 MG tablet 15 mg PO DAILY RF: 0 glimepiride 1 MG tablet 1 mg PO DAILY RF: 0 metformin 1,000 MG tablet 1,000 mg PO BID RF: 0 ramipril 10 MG capsule 10 mg PO DAILY RF: 0 atorvastatin 40 MG tablet 40 mg PO DAILY RF: 0 acetaminophen 500 mg Tablet 1,000 mg PO Q6H PRN PRN (Reason: Pain Score 1-10) Qty: 0 RF: 0 citalopram 10 mg tablet 10 mg PO 1800 RF: 0 mirtazapine 7.5 mg tablet 7.5 mg PO QHS RF: 0 sodium chloride 1,000 mg tablet,soluble 1 g PO BID RF: 0 aspirin 325 mg Tablet,Delayed Release (Dr/Ec) 325 mg PO BREAKFAST Qty: 0 RF: 0 potassium chloride [Klor-Con M20] 20 mEq Tablet,Er Particles/Crystals 20 meq PO DAILYCM 30 Days Qty: 30 RF: 0 Discontinued chlorthalidone 50 mg Tablet 25 mg PO DAILY 30 Days Qty: 15 RF: 0 Referrals / Follow Up: Akash Agosto MD [Primary Care Provider] - In 1 Week Disposition Disposition (needs filled in before D/C Order can be placed): [facility] Facility Charges/Coding Addendum Addendum: This patient was seen in conjunction with Ann Hernandez NP. I have independently interviewed and examined the patient and reviewed pertinent historical, laboratory, and other data. I have reviewed her note and concur with her documentation 71-year-old male with multiple comorbidities including CVA with left-sided weakness, right carotid stenosis, status post carotid endarterectomy who pre sented with generalized weakness and fall. Patient presented with bruises to his left knee, both hands. In the ED, he was found to be hyponatremic and hypokalemic as well as hypomagnesemic and hypophosphatemia. These electrolytes were replaced. Patient was taken off chlorthalidone. MRI of the brain was negative for acute stroke. His sodium trended up. Patient was seen by PT and OT and skilled for discharge to custodial facility. He will follow-up with his primary care doctor. Physical Exam: Gen: Comfortable, not pale, not jaundiced CVS:HS I +II, regular, no murmurs RESP: Diminished at lung bases GI: BS present and normal, soft, nontender, no palpable organs EXT: Multiple bruises over his hands Visit Charges OBSV E&M: [id number] Observation care discharge
--- NOTE | 2022-01-02 15:57 | CASEMGMT ---
DARRELL received orders. DARRELL arranged for patient to get picked up at 1630 via [employer] van. DARRELL notified patient, RN, accredited legal secretary, Bianca at [facility], and patient's via voice mail. SW completed a PASRR on [facility] system as patient is observation status in the hospital. Plan: d/c to [facility] under skilled level of care on a PASRR as he is observation status in the hospital. [facility] will sweet pickled fruit maker patient at 1630. Marti DELACRUZ
--- NOTE | 2022-01-02 16:23 | CASEMGMT ---
Patient's called in and SW told her patient will go to [facility] today around 430. Marti Zhang CLOTH OPENER HAND JAYME
[2022-01-02 16:51] LABS: Bedside Glucose 108 mg/dL (74-106)
== END 2022-01-02 14:58 | disposition skilled nursing facility (03) ==
LOC: ED 23:12 → PCU 23:18
PROVIDERS: Family Medicine; Nurse Practitioner Family; Admitting Provider Internal Medicine; Emergency Provider Emergency Medicine; PCP Family Medicine; Visit Provider Internal Medicine
DX: E87.1 Hypo-osmolality and hyponatremia (principal); I69.954 Hemiplegia and hemiparesis following unspecified cerebrovascular disease affecting left non-dominant side; E11.9 Type 2 diabetes mellitus without complications; S60.222A Contusion of left hand, initial encounter; S60.221A Contusion of right hand, initial encounter; E83.39 Other disorders of phosphorus metabolism; E78.5 Hyperlipidemia, unspecified; Z79.84 Long term (current) use of oral hypoglycemic drugs; R53.81 Other malaise; F32.A Depression, unspecified; E83.42 Hypomagnesemia; E86.0 Dehydration; I44.0 Atrioventricular block, first degree; I10 Essential (primary) hypertension; Z79.82 Long term (current) use of aspirin; E87.6 Hypokalemia; F41.9 Anxiety disorder, unspecified; Z79.899 Other long term (current) drug therapy; Z87.891 Personal history of nicotine dependence; R29.6 Repeated falls; S80.02XA Contusion of left knee, initial encounter; Y93.9 Activity, unspecified; Y99.9 Unspecified external cause status; W19.XXXA Unspecified fall, initial encounter; Y92.9 Unspecified place or not applicable; R41.841 Cognitive communication deficit
CPT/HCPCS: 36415; 70450; 70551; 71045; 80048; 80053; 80061; 81001; 82436; 82570; 82962; 83036; 83735; 83930; 83935; 84100; 84133; 84300; 84443; 84484; 85025; 87426; 92507; 92523; 92610; 93005; 96361; 96365; 96366; 96368; 96372; 97110; 97163; 97166; 97530; 97535; 99218; 99285; J7030; J7040; A4216; G0378

== ENCOUNTER 2022-01-24 15:15 | Outpatient (CLI) | payer MEDICARE, SELFPAY ==
[2022-01-24 16:09] LABS: Potassium 4.3 mmol/L (3.5-5.1)
== END 2022-01-24 23:59 | disposition home or self-care (01) ==
LOC: LABSPEC 15:19
PROVIDERS: PCP Family Medicine; Visit Provider Family Medicine
DX: E87.6 Hypokalemia (principal); E11.9 Type 2 diabetes mellitus without complications; E87.5 Hyperkalemia; I10 Essential (primary) hypertension
CPT/HCPCS: 84132

== ENCOUNTER 2022-02-12 21:04 | Emergency (ER) | payer MEDICARE, SELFPAY ==
[2022-02-12 21:05] VITALS: BP 139/81; PULSE 96; RESP 15; TEMP 36.2; O2SAT 97; BMI 28.7
[2022-02-12 22:29] LABS: Absolute Lymphocyte Count 1.55 X10^3/uL (0.83-4.51); Absolute Neutrophil Count 5.6 X10^3/uL (2.0-7.7); Basophil# 0.04 X10^3/uL; Basophil% 0.5 % (0-1); Eosinophil# 0.06 X10^3/uL; Eosinophils% 0.7 % (0-5); Hematocrit 42.3 % (40-54); Hemoglobin 14.6 g/dL (13.0-16.5); Lymphocyte # 1.55 X10^3/ul (0.83-4.51); Lymphocyte % 19.1 % (19-41); Mean Corp Hgb Conc 34.5 g/dL (32-36); Mean Corpuscular Hgb 29.8 pg (27.0-32.0); Mean Corpuscular Volume 86.3 fL (80-94); Mean Platelet Vol. 9.2 fl (6.2-12.0); Monocyte% 9.9 % (0-10); NRBC Flagged by Analyzer 0 % (0-5); Neutrophil # 5.63 X10^3/uL (2.7-7.7); Neutrophil % 69.3 % (47-70); Platelet Count 275 K/mm3 (150-450); RBC Distribution Width CV 12.4 % (11.6-14.6); RBC Distribution Width SD 39.4 fl (35.1-43.9); White Blood Count 8.1 K/mm3 (4.4-11.0)
[2022-02-12 22:49] LABS: Anion Gap 10 (5-15); BUN 16 mg/dL (7-18); BUN/Creat Ratio 13.7 RATIO (10-20); Calcium,Total 9.4 mg/dL (8.5-10.1); Chloride 96 mmol/L (98-107); Creatinine, Serum 1.17 mg/dL (0.70-1.30); EST Glomerular Filtration Rate 65 mL/min (>60); Est Glom Filt Rate - Afr Amer 79 mL/min (>60); Estimated Creatinine Clearance 58.93 ml/min; Glucose 174 mg/dL (74-106); Potassium 3.9 mmol/L (3.5-5.1); Sodium Level 131 mmol/L (136-145)
[2022-02-12 22:50] LABS: Bacteria 0 SEEN /hpf (None Seen); Mucous, Urine 0 SEEN /hpf (<or=2+); Red Blood Cells-Urine 0 SEEN /hpf (0-5); Squamous Epithelial Cells - UA 0 SEEN /hpf (0-5); White Blood Cells 0 SEEN /hpf (0-5)
[2022-02-12 22:55] LABS: Color, Urine Yellow (Yellow); Glucose, Dipstick Normal (Normal); Ketone-Dipstick Negative (Negative); Leukocyte Esterase-Dipstick Negative /ul (Negative); Nitrite-Dipstick Negative (Negative); Occult Blood-Urine Negative /ul (Negative); Protein-Dipstick Negative (Negative); Urine Bilirubin Dipstick Negative (Negative); Urine Clarity Clear (Clear); Urine Urobilinogen Normal (Normal)
--- NOTE | 2022-02-12 23:50 | EX.ED.DYSGE1 ---
HPI History of Present Illness Chief Complaint: Confusion Informant: patient Narrative Narrative: Patient presents to the ER for evaluation due to possible low sodium. He has a history of hyponatremia. Patient states that he has been recovering from 2 strokes that he suffered in September. His signed him out of the local [facility] to care for him. He states that she is mad at him and is not giving him his sodium chloride tabs. His sister was concerned that he was more confused and felt that he needed to be seen and evaluated. Patient presents here alone and states he drove himself to the hospital. He has no complaints at this time and does not feel as if he is confused. [facility] Medical History (Updated 02/13/22 @ 00:[address] Carlie Uribe MD) Carotid artery stenosis CVA (cerebral vascular accident) (09/25/21) Debility Depression DM2 (diabetes mellitus, type 2) Essential hypertension Frequent falls Gout Hyperlipidemia Hyponatremia Inability to ambulate due to multiple joints Left hemiparesis Left-sided muscle weakness Prostate cancer Stenosis of right carotid artery Weakness Home Medications glimepiride 1 mg PO DAILY 12/18/19 [History Last Taken 11/03/21] metformin 1,000 mg PO BID 12/18/19 [History Last Taken 11/03/21] pioglitazone 15 mg PO DAILY 12/18/19 [History Last Taken 11/03/21] ramipril 10 mg PO DAILY 12/18/19 [History Last Taken 11/03/21] atorvastatin 40 mg PO DAILY 10/13/21 [History Last Taken 11/02/21] acetaminophen 1,000 mg PO Q6H PRN PRN #0 tab 10/30/21 [Rx Last Taken Unknown] citalopram 10 mg PO 1800 11/14/21 [History Last Taken Unknown] sodium chloride 1 g PO BID 11/14/21 [History Last Taken Unknown] aspirin 325 mg PO BREAKFAST #0 tab 11/20/21 [Rx Last Taken Unknown] Allergy/AdvReac Type Severity Reaction Status Date / Time No Known Allergies Allergy Verified 12/28/21 21:48 Family History Mother CVA (cerebral vascular accident) Several recurrent strokes, eventually passed age 84. Surgical History H/O foot surgery History of colon resection History of repair of right rotator cuff History of right-sided carotid endarterectomy (11/06/21) History of tonsillectomy and adenoidectomy Social History household members: spouse Smoking Status: Former smoker how long ago did patient quit smoking: Smoked age [age], 1 ppd until quit. Does have 2nd hand exposure from . alcohol intake: current alcohol intake frequency: holidays/special occasions only substance use type: does not use ROS ROS ED Constitutional Constitutional ED: Denies chills or fever(s) Eyes Eyes: Denies change in vision ENT ENT ED: Denies sore throat Cardiovascular Cardiovascular: Denies chest pain Respiratory/Chest Respiratory/Chest: Denies cough or dyspnea Gastrointestinal Gastrointestinal: Denies abdominal pain, nausea or vomiting Genitourinary Genitourinary ED: Denies dysuria Musculoskeletal Musculoskeletal: Denies back pain or neck pain Integumentary Denies rash Neurologic Neurologic: Denies headache(s) Allergic/Immunologic Allergic/Immunologic ED: Denies urticaria EXAM Physical Exam Const Vital Signs: 02/12/22 21:05 Temperature 97.2 F L Temperature Source Temporal Pulse Rate 96 Respiratory Rate 15 Blood Pressure 139/81 H Blood Pressure Mean 100 Pulse Ox 97 Oxygen Delivery Method Room Air Positive well nourished and well developed General Appearance ED: well developed HEENT Reports moist mucous membranes Eyes PERRL and EOMs intact bilaterally Neck supple Chest Wall inspection of chest normal and palpation of chest normal Resp normal respiratory effort and clear to auscultation bilaterally Cardio regular rate and regular rhythm GI non-tender and non-distended Palpation: soft Extremity normal to inspection Neuro oriented x3 Sensorium / Orientation: alert Psych mental status grossly normal Skin no rashes or lesions noted MDM MDM MDM Narrative Medical decision making narrative: Lab work and urinalysis obtained. Lab Data Attestation: I reviewed the patient's lab results. Labs: Laboratory Results - last 24 hr 02/12/22 02/12/22 02/12/22 21:34 21:34 22:40 WBC 8.1 RBC 4.90 Hgb 14.6 Hct 42.3 MCV 86.3 MCH 29.8 MCHC 34.5 RDW Std Deviation 39.4 RDW Coeff of [place] 12.4 Plt Count 275 MPV 9.2 Immature Gran % (Auto) 0.500 Neut % (Auto) 69.3 Lymph % (Auto) 19.1 [place] % (Auto) 9.9 Eos % (Auto) 0.7 Baso % (Auto) 0.5 Absolute Neuts (auto) 5.6 Absolute Lymphs (auto) 1.55 Nucleated RBC % 0 Sodium 131 L Potassium 3.9 Chloride 96 L Carbon Dioxide 25.0 Anion Gap 10 BUN 16 Creatinine 1.17 Estim Creat Clear Calc 58.93 Est GFR (MDRD) Af Amer 79 Est GFR (MDRD) Non-Af 65 BUN/Creatinine Ratio 13.7 Glucose 174 H Calcium 9.4 Urine Color Yellow Urine Clarity Clear Urine pH 7.0 Ur Specific [place] 1.010 Urine Protein Negative Urine Glucose (UA) Normal Urine Ketones Negative Urine Occult Blood Negative Urine Nitrite Negative Urine Bilirubin Negative Urine Urobilinogen Normal Ur Leukocyte Esterase Negative Urine RBC 0 SEEN Urine WBC 0 SEEN Ur Squamous Epith Cells 0 SEEN Urine Bacteria 0 SEEN Urine Mucus 0 SEEN Treatment and Re-Evaluation Narrative: Lab work reveals a sodium of 131. He has been as low as 123 in the past. 131 appears to be near his baseline. I do not feel that this is causing any sort of confusion at this time. The remainder the blood work is significant only for glucose of 174. At this time patient be discharged to home. I encouraged him to follow with his PCP in a week for repeat evaluation and labs if needed. Discharge Plan Triage Chief Complaint: Confusion ED Provider: Carlie Uribe Dx/Rx/DC Orders Clinical Impression: Hyponatremia Instructions: ED Hyponatremia Prescriptions: No Action pioglitazone 15 MG tablet 15 mg PO DAILY RF: 0 glimepiride 1 MG tablet 1 mg PO DAILY RF: 0 metformin 1,000 MG tablet 1,000 mg PO BID RF: 0 ramipril 10 MG capsule 10 mg PO DAILY RF: 0 atorvastatin 40 MG tablet 40 mg PO DAILY RF: 0 acetaminophen 500 mg Tablet 1,000 mg PO Q6H PRN PRN (Reason: Pain Score 1-10) Qty: 0 RF: 0 citalopram 10 mg tablet 10 mg PO 1800 RF: 0 sodium chloride 1,000 mg tablet,soluble 1 g PO BID RF: 0 aspirin 325 mg Tablet,Delayed Release (Dr/Ec) 325 mg PO BREAKFAST Qty: 0 RF: 0 Primary Care Provider: Akash Agosto Referrals: Akash Agosto MD [Primary Care Provider] - 1 Week Activity Restrictions/Additional Instructions: You have a history of chronic hyponatremia. Your sodium tonight is 131. This is in the range where you normally run. I do not believe this is causing significant confusion at this time. Please follow-up with your doctor in a week for repeat labs. Disposition Disposition: Home, Self Care Discharge Date/Time: 02/13/22 00:06
== END 2022-02-13 00:06 | disposition home or self-care (01) ==
PROVIDERS: Emergency Provider Emergency Medicine; PCP Family Medicine; Visit Provider Emergency Medicine
DX: E87.1 Hypo-osmolality and hyponatremia (principal); E11.9 Type 2 diabetes mellitus without complications; R41.0 Disorientation, unspecified; Z87.891 Personal history of nicotine dependence; I10 Essential (primary) hypertension; E78.5 Hyperlipidemia, unspecified; Z79.84 Long term (current) use of oral hypoglycemic drugs; Z79.899 Other long term (current) drug therapy; F32.A Depression, unspecified; Z79.82 Long term (current) use of aspirin
CPT/HCPCS: 80048; 81001; 85025; 99283; A4216

== ENCOUNTER 2022-08-14 19:00 | Emergency (ER) | payer MEDICARE, SELFPAY ==
[2022-08-14 19:01] VITALS: BP 146/91; PULSE 63; RESP 18; TEMP 36.4; O2SAT 95; BMI 27.9
--- NOTE | 2022-08-14 20:54 | ED.VIS.FALL ---
HPI HPI - Fall History of Present Illness Chief Complaint: Fall Occured/Mechanism Occurred: Today Mechanism/Context: Yes same level fall Narrative: Patient states he lost his balance and fell. Pain/Injury Location: Neck Pain Location: neck Quality of Pain: Aching Worsened by: Nothing Relieved by: Ice Associated Symptoms Associated Symptoms: Negative for Parasthesias, Weakness, Loss of function, Inability to ambulate or Loss of consciousness Narrative Narrative: Patient presents after a fall that occurred tonight. Patient states he lost his balance and fell. Patient complains of pain in his neck. Patient denies any head injury or loss of consciousness. Patient denies any paresthesias or weakness. Patient states he was able to ambulate after the fall. Patient states his pain is aching. Patient states nothing makes it worse. Patient states it is better with ice. 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 Left hemiparesis Left-sided muscle weakness Prostate cancer Stenosis of right carotid artery Weakness Home Medications glimepiride 1 mg tablet 1 mg PO DAILY diabetes 12/18/19 [History Last Taken 11/03/21] metformin 1,000 mg tablet 1,000 mg PO BID diabetes 12/18/19 [History Last Taken 11/03/21] pioglitazone 15 mg tablet 15 mg PO DAILY diabetes 12/18/19 [History Last Taken 11/03/21] ramipril 10 mg capsule 10 mg PO DAILY blood pressure 12/18/19 [History Last Taken 11/03/21] atorvastatin 40 mg tablet 40 mg PO DAILY Cholesterol 10/13/21 [History Last Taken 11/02/21] acetaminophen 500 mg tablet 1,000 mg PO Q6H PRN PRN Pain Score 1-10 #0 tabs 10/30/21 [Rx Last Taken Unknown] citalopram 10 mg tablet 10 mg PO 1800 Check with primary doctor 11/14/21 [History Last Taken Unknown] sodium chloride 1,000 mg soluble tablet 1 g PO BID Low sodium 11/14/21 [History Last Taken Unknown] aspirin 325 mg tablet,delayed release 325 mg PO BREAKFAST #0 tabs 11/20/21 [Rx Last Taken Unknown] Allergy/AdvReac Type Severity Reaction Status Date / Time No Known Allergies Allergy Verified 08/14/22 19:01 Family History Mother CVA (cerebral vascular accident) Several recurrent strokes, eventually passed age 84. Surgical History H/O foot surgery History of colon resection History of repair of right rotator cuff History of right-sided carotid endarterectomy (11/06/21) History of tonsillectomy and adenoidectomy Social History household members: spouse Smoking Status: Former smoker how long ago did patient quit smoking: Smoked age [age], 1 ppd until quit. Does have 2nd hand exposure from . alcohol intake: current alcohol intake frequency: holidays/special occasions only substance use type: does not use ROS ROS ED Constitutional Constitutional ED: Denies chills or fever(s) Eyes Eyes: Denies blurry vision or change in vision ENT ENT ED: Denies rhinorrhea or sore throat Cardiovascular Cardiovascular: Denies chest pain or palpitations Respiratory/Chest Respiratory/Chest: Denies cough or dyspnea Gastrointestinal Gastrointestinal: Denies nausea or vomiting Genitourinary Genitourinary ED: Denies dysuria or hematuria Musculoskeletal Musculoskeletal: Reports neck pain; Denies back pain Integumentary Denies abscess or rash Neurologic Neurologic: Denies headache(s) or weakness Allergic/Immunologic Allergic/Immunologic ED: Denies mouth swelling or urticaria EXAM Physical Exam Const Vital Signs: 08/14/22 19:01 Temperature 97.6 F L Temperature Source Temporal Pulse Rate 63 Respiratory Rate 18 Blood Pressure 146/91 H Blood Pressure Mean 109 Pulse Ox 95 Oxygen Delivery Method Room Air Positive well nourished and well developed General Appearance ED: well developed HEENT Reports moist mucous membranes Neck supple and no JVD Resp normal respiratory effort and clear to auscultation bilaterally Cardio regular rate, regular rhythm and no murmurs GI normal to inspection, nondistended, normoactive bowel sounds and non-tender Palpation: soft Back/Spine Back/Spine Narrative: There is no tenderness over the cervical, thoracic, or lumbar spine. There is no tenderness over the paraspinal muscles. There is good range of motion of the cervical, thoracic, and lumbar spine. Strength is 5/5 bilaterally in the upper and lower extremities. There are no sensory deficits noted. Extremity normal to inspection General Extremety ED: Negative for edema or tenderness General Extremity: Negative for edema Neuro oriented x3, CN's II-XII intact bilaterally and no sensory deficits noted Sensorium / Orientation: alert Motor Exam: strength 5/5 throughout Psych mental status grossly normal Skin no rashes or lesions noted MDM MDM MDM Narrative Medical decision making narrative: There is no bony tenderness noted. There are no deformities noted. I do not feel x-rays or any imaging is necessary at this time. Patient was instructed continue using ice to the area. Patient was instructed to take Tylenol or ibuprofen as needed for any pain. Patient was instructed to follow-up with his primary care physician in 5 to 7 days. Patient was instructed return if worse in any way. Patient and spouse understood and were agreeable with the plan. All questions were answered. Discharge Plan Triage Chief Complaint: Fall Other Complaint: Other, Pain/Inj ED Provider: Antonio Kothari Dx/Rx/DC Orders Clinical Impression: Acute cervical myofascial strain, Fall Instructions: ED Fall with Uncertain Cause, ED Neck Sprain or Strain Prescriptions: No Action pioglitazone 15 MG tablet 15 mg PO DAILY glimepiride 1 MG tablet 1 mg PO DAILY metformin 1,000 MG tablet 1,000 mg PO BID ramipril 10 MG capsule 10 mg PO DAILY atorvastatin 40 MG tablet 40 mg PO DAILY acetaminophen 500 mg Tablet 1,000 mg PO Q6H PRN PRN (Reason: Pain Score 1-10) Qty: 0 0RF citalopram 10 mg tablet 10 mg PO 1800 sodium chloride 1,000 mg tablet,soluble 1 g PO BID aspirin 325 mg Tablet,Delayed Release (Dr/Ec) 325 mg PO BREAKFAST Qty: 0 0RF Primary Care Provider: Akash Agosto Referrals: Akash Agosto MD [Primary Care Provider] - 5-7 Days Disposition Disposition: Home, Self Care
== END 2022-08-14 21:04 | disposition home or self-care (01) ==
PROVIDERS: Emergency Provider Emergency Medicine; PCP Family Medicine; Visit Provider Emergency Medicine
DX: S16.1XXA Strain of muscle, fascia and tendon at neck level, initial encounter (principal); E11.9 Type 2 diabetes mellitus without complications; I10 Essential (primary) hypertension; E78.5 Hyperlipidemia, unspecified; Z87.891 Personal history of nicotine dependence; W18.30XA Fall on same level, unspecified, initial encounter
CPT/HCPCS: 99282

== ENCOUNTER 2022-09-26 08:37 | Inpatient (IN) | payer MEDICARE, SELFPAY ==
[2022-09-26 08:38] VITALS: BP 115/85; PULSE 63; RESP 16; TEMP 35.9; O2SAT 95; BMI 29.1
--- NOTE | 2022-09-26 09:06 | EKG12_ITS ---
Test Reason : FALL Blood Pressure : / mmHG Vent. Rate : 056 BPM Atrial Rate : 056 BPM P-R Int : 216 ms QRS Dur : 100 ms QT Int : 446 ms P-R-T Axes : 001 018 096 degrees QTc Int : 430 ms Sinus bradycardia with 1st degree A-V block Incomplete right bundle branch block Inferior infarct , age undetermined Possible Anterior infarct , age undetermined Abnormal ECG Confirmed by ALY LYNCH, BENJAMÍN ([id number]), assistant editor TIM BENZ ([id number]) on 09/27/2022 8:18:28 AM Referred By: Confirmed By:BENJAMÍN LU MD
--- NOTE | 2022-09-26 09:07 | ED.VIS.FALL ---
HPI HPI - Fall History of Present Illness Chief Complaint: Fall Detail of Chief Complaint: Fall Informant: patient Narrative Narrative: Patient presents the emergency department via EMS from home. Patient states that he did not sit properly on his recliner this morning and he slid off the recliner onto the carpeted floor. He denies any injury. Patient was unable to get back up and his could not help him up as he is too heavy. Patient apparently has history of frequent falls and debility. is concerned that she cannot care for him any longer and would like to be evaluated for placement to assisted living facility. EMS also noted that they are frequently to his home for falls to help him up. Patient denies any injury. He denies striking his head. Denies neck pain. Denies chest pain. Denies abdominal pain. [place] recent illness. [facility] Medical History Carotid artery stenosis CVA (cerebral vascular accident) (09/25/21) Debility Depression DM2 (diabetes mellitus, type 2) Essential hypertension Frequent falls Gout Hyperlipidemia Hyponatremia Inability to ambulate due to multiple joints Left hemiparesis Left-sided muscle weakness Prostate cancer Stenosis of right carotid artery Weakness Home Medications glimepiride 1 mg tablet 1 mg PO DAILY diabetes 12/18/19 [History Last Taken 11/03/21] metformin 1,000 mg tablet 1,000 mg PO BID diabetes 12/18/19 [History Last Taken 11/03/21] pioglitazone 15 mg tablet 15 mg PO DAILY diabetes 12/18/19 [History Last Taken 11/03/21] ramipril 10 mg capsule 10 mg PO DAILY blood pressure 12/18/19 [History Last Taken 11/03/21] atorvastatin 40 mg tablet 40 mg PO DAILY Cholesterol 10/13/21 [History Last Taken 11/02/21] acetaminophen 500 mg tablet 1,000 mg PO Q6H PRN PRN Pain Score 1-10 #0 tabs 10/30/21 [Rx Last Taken Unknown] citalopram 10 mg tablet 10 mg PO 1800 Check with primary doctor 11/14/21 [History Last Taken Unknown] sodium chloride 1,000 mg soluble tablet 1 g PO BID Low sodium 11/14/21 [History Last Taken Unknown] aspirin 325 mg tablet,delayed release 325 mg PO BREAKFAST #0 tabs 11/20/21 [Rx Last Taken Unknown] Allergy/AdvReac Type Severity Reaction Status Date / Time No Known Allergies Allergy Verified 09/26/22 08:40 Family History Mother CVA (cerebral vascular accident) Several recurrent strokes, eventually passed age 84. Surgical History H/O foot surgery History of colon resection History of repair of right rotator cuff History of right-sided carotid endarterectomy (11/06/21) History of tonsillectomy and adenoidectomy Social History household members: spouse Smoking Status: Former smoker how long ago did patient quit smoking: Smoked age [age], 1 ppd until quit. Does have 2nd hand exposure from . alcohol intake: current alcohol intake frequency: holidays/special occasions only substance use type: does not use ROS ROS ED Review of Systems ROS Unobtainable: other Constitutional Constitutional ED: Reports lethargy; Denies chills, fever(s), sweats or weight loss Eyes Eyes: Denies blurry vision, change in vision or diplopia ENT ENT ED: Denies rhinorrhea or sore throat Cardiovascular Cardiovascular: Denies chest pain, orthopnea or racing heartbeat Respiratory/Chest Respiratory/Chest: Denies cough, dyspnea, dyspnea on exertion, orthopnea or sputum Gastrointestinal Gastrointestinal: Denies abdominal pain, diarrhea, nausea or vomiting Genitourinary Genitourinary ED: Denies dysuria, hematuria or urinary frequency Musculoskeletal Musculoskeletal: Denies arthralgias, back pain, myalgias or neck pain Integumentary Denies abscess, Abrasions or rash Neurologic Neurologic: Denies headache(s) or weakness Psychiatric Psychiatric: Denies anxiety, depression or suicidal thoughts Endocrine Endocrinology: Denies polydipsia, polyphagia or polyuria Hematologic/Lymphatic Hematologic/Lymphatic: Denies easy bleeding, easy bruising or lymphadenopathy Allergic/Immunologic Allergic/Immunologic ED: Denies mouth swelling, tongue swelling or urticaria EXAM Physical Exam Const Vital Signs: 09/26/22 08:38 09/26/22 08:41 Temperature 96.6 F L Temperature Source Temporal Pulse Rate 63 Respiratory Rate 16 Respiratory Effort Normal Non-Labored Respiratory Pattern Normal Blood Pressure 115/85 H Blood Pressure Mean 95 Pulse Ox 95 Oxygen Delivery Method Room Air Positive well nourished and well developed General Appearance ED: well developed and NAD HEENT Reports TM's clear and moist mucous membranes normocephalic and atraumatic; Negative for trauma or tenderness Tympanic Membrane ED: Yes TM's clear Eyes PERRL and EOMs intact bilaterally General Eye ED: Negative for pale conjunctiva or scleral icterus Neck no lymphadenopathy, supple and no JVD General: Negative for tenderness Chest Wall inspection of chest normal and palpation of chest normal Chest: Negative for tenderness Resp normal respiratory effort and clear to auscultation bilaterally Effort and Inspection: Negative for respiratory distress or pain with movement Auscultation: Negative for rhonchi, wheezes or diminished lung sounds Cardio regular rate, regular rhythm, S1 normal heart sound, S2 normal heart sound and no murmurs Peripheral Pulses: pulses 2+ throughout GI normal to inspection, nondistended, normoactive bowel sounds, soft to palpation, non-tender, non-distended and no masses Back/Spine no CVA tenderness and no thoracic nor lumbar tenderness Extremity normal to inspection General Extremety ED: Negative for edema General Extremity: Negative for edema Neuro oriented x3, CN's II-XII intact bilaterally, no sensory deficits noted and gait normal Sensorium / Orientation: awake, alert, oriented to person, oriented to place and oriented to time Motor Exam: strength 5/5 throughout and strength abnormal Psych mental status grossly normal Skin no rashes or lesions noted and no wounds MDM MDM MDM Narrative Medical decision making narrative: Patient was noIV line established arrival. Patient was ordered normal saline. Noted to have a hyponatremia with a sodium of 120 and he states that he has been compliant with his sodium chloride at home. Patient also noted to be hypokalemic with a potassium of 3.1 for which I did write for potassium chloride p.o. here. Case discussed with hospitalist who will evaluate patient for admission Lab Data Attestation: I reviewed the patient's lab results. Labs: Laboratory Results - last 24 hr 09/26/22 09/26/22 09:23 09:23 WBC 6.3 RBC 4.83 Hgb 14.1 Hct 39.0 L MCV 80.7 MCH 29.2 MCHC 36.2 H RDW Std Deviation 34.5 L RDW Coeff of Cintia 11.9 Plt Count 229 MPV 8.4 Immature Gran % (Auto) 1.900 H Neut % (Auto) 75.3 H Lymph % (Auto) 11.0 L Coffee % (Auto) 10.2 H Eos % (Auto) 1.0 Baso % (Auto) 0.6 Absolute Neuts (auto) 4.7 Absolute Lymphs (auto) 0.69 L Nucleated RBC % 0 Sodium 120 L Potassium 3.1 L Chloride 83 L Carbon Dioxide 27.0 Anion Gap 10 BUN 11 Creatinine 0.88 Estim Creat Clear Calc 77.19 Est GFR (MDRD) Af Amer 109 Est GFR (MDRD) Non-Af 90 BUN/Creatinine Ratio 12.5 Glucose 149 H Calcium 9.2 Troponin I High Sens 10 EKG Initial EKG: Attestation: I personally reviewed and interpreted this EKG as follows: Comments: Sinus rhythm with a rate of 56 bpm with incomplete right bundle branch block Discharge Plan Triage Chief Complaint: Fall ED Provider: Addy Warren Dx/Rx/DC Orders Clinical Impression: Weakness, Falls frequently, Acute hyponatremia, Acute hypokalemia, Adult failure to thrive Prescriptions: No Action pioglitazone 15 MG tablet 15 mg PO DAILY glimepiride 1 MG tablet 1 mg PO DAILY metformin 1,000 MG tablet 1,000 mg PO BID ramipril 10 MG capsule 10 mg PO DAILY atorvastatin 40 MG tablet 40 mg PO DAILY acetaminophen 500 mg Tablet 1,000 mg PO Q6H PRN PRN (Reason: Pain Score 1-10) Qty: 0 0RF citalopram 10 mg tablet 10 mg PO 1800 sodium chloride 1,000 mg tablet,soluble 1 g PO BID aspirin 325 mg Tablet,Delayed Release (Dr/Ec) 325 mg PO BREAKFAST Qty: 0 0RF Primary Care Provider: Akash Agosto Referrals: Akash Agosto MD [Primary Care Provider] - Disposition Disposition: Acute Care Hospital [facility]
[2022-09-26 09:39] LABS: Absolute Lymphocyte Count 0.69 X10^3/uL (0.83-4.51); Absolute Neutrophil Count 4.7 X10^3/uL (2.0-7.7); Basophil# 0.04 X10^3/uL; Basophil% 0.6 % (0-1); Eosinophil# 0.06 X10^3/uL; Hemoglobin 14.1 g/dL (13.0-16.5); Lymphocyte # 0.69 X10^3/ul (0.83-4.51); Mean Corp Hgb Conc 36.2 g/dL (32-36); Mean Corpuscular Hgb 29.2 pg (27.0-32.0); Mean Corpuscular Volume 80.7 fL (80-94); Mean Platelet Vol. 8.4 fl (6.2-12.0); Monocyte# 0.64 X10^3/uL; Monocyte% 10.2 % (0-10); NRBC Flagged by Analyzer 0 % (0-5); Neutrophil # 4.73 X10^3/uL (2.7-7.7); Neutrophil % 75.3 % (47-70); Platelet Count 229 K/mm3 (150-450); RBC Distribution Width CV 11.9 % (11.6-14.6); RBC Distribution Width SD 34.5 fl (35.1-43.9); Red Blood Count 4.83 M/mm3 (4.6-6.2); White Blood Count 6.3 K/mm3 (4.4-11.0)
[2022-09-26] MEDS: 0.9% Normal Saline 1,000 ML 150 ML IV (09:43)
[2022-09-26 09:48] LABS: Anion Gap 10 (5-15); BUN 11 mg/dL (7-18); BUN/Creat Ratio 12.5 RATIO (10-20); Calcium,Total 9.2 mg/dL (8.5-10.1); Chloride 83 mmol/L (98-107); Creatinine, Serum 0.88 mg/dL (0.70-1.30); EST Glomerular Filtration Rate 90 mL/min (>60); Est Glom Filt Rate - Afr Amer 109 mL/min (>60); Estimated Creatinine Clearance 77.19 ml/min; Glucose 149 mg/dL (74-106); Potassium 3.1 mmol/L (3.5-5.1); Sodium Level 120 mmol/L (136-145); Troponin-I HS 10 pg/mL (3.0-78.0)
--- NOTE | 2022-09-26 10:24 | NURSING ---
DR SUSHILA DONALDSON
--- NOTE | 2022-09-26 10:33 | HP.PCM.HOS_ITS ---
HPI - General General Date of Admission: 09/26/22 Date of Service: 09/26/22 Chief Complaint: Recurrent fall getting worse for last 6-month. Severe hyponatremia sodium 130. HPI Narrative PAYAM HAMM, is a 72 M was brought by EMS for recurrent fall with increased frequency. EMS has been going to his home at least twice a day for past 2 weeks for fall increased over past 6 months. Patient sodium was found low 120, K3.1. Patient sodium has been low about 123-131 since December 2021. He is on salt tablet. Patient has chronic weakness of lower extremity with left-sided more than right. Left upper extremity has contracture at elbow joint from previous stroke. He has problem with balance and Librium and he is on walker. Denies fever, acute chest pain or shortness of breath. Denies nausea, vomiting, diarrhea. He states he drinks a lot of water but does not urinate the same amount. COUNT INCLUDES THE [facility] Medical History Carotid artery stenosis CVA (cerebral vascular accident) (09/25/21) Debility Depression DM2 (diabetes mellitus, type 2) Essential hypertension Frequent falls Gout Hyperlipidemia Hyponatremia Inability to ambulate due to multiple joints Left hemiparesis Left-sided muscle weakness Prostate cancer Stenosis of right carotid artery Weakness Home Medications glimepiride 1 mg tablet 1 mg PO DAILY diabetes 12/18/19 [History Last Taken 11/03/21] metformin 1,000 mg tablet 1,000 mg PO BID diabetes 12/18/19 [History Last Taken 11/03/21] pioglitazone 15 mg tablet 15 mg PO DAILY diabetes 12/18/19 [History Last Taken 11/03/21] ramipril 10 mg capsule 10 mg PO DAILY blood pressure 12/18/19 [History Last Taken 11/03/21] atorvastatin 40 mg tablet 40 mg PO DAILY Cholesterol 10/13/21 [History Last Taken 11/02/21] sodium chloride 1,000 mg soluble tablet 1 g PO BID Low sodium 11/14/21 [History Last Taken Unknown] acetaminophen 500 mg tablet 1,000 mg PO Q6H PRN Pain 09/26/22 [History Last Taken Unknown] allopurinol 100 mg tablet 100 mg PO DAILY GOUT 09/26/22 [History Last Taken Unknown] aspirin 325 mg tablet,delayed release 325 mg PO DAILY PRN Pain 09/26/22 [History Last Taken Unknown] chlorthalidone 25 mg tablet 25 mg PO DAILY BLOOD PRESSURE 09/26/22 [History Last Taken Unknown] citalopram 20 mg tablet 20 mg PO DAILY DEPRESSION 09/26/22 [History Last Taken Unknown] desoximetasone 0.05 % topical cream 1 applic topical BID PRN DRY SKIN ON FACE 09/26/22 [History Last Taken 09/23/22] escitalopram oxalate 5 mg tablet 15 mg PO DAILY DEPRESSION 09/26/22 [History Last Taken 09/26/22] metoprolol succinate 50 mg tablet,extended release 24 hr 50 mg PO DAILY BLOOD PRESSURE 09/26/22 [History Last Taken Unknown] mirtazapine 30 mg tablet 30 mg PO DAILY DEPRESSION 09/26/22 [History Last Taken Unknown] Allergy/AdvReac Type Severity Reaction Status Date / Time No Known Allergies Allergy Verified 09/26/22 08:40 Family History Mother CVA (cerebral vascular accident) Several recurrent strokes, eventually passed age 84. Surgical History H/O foot surgery History of colon resection History of repair of right rotator cuff History of right-sided carotid endarterectomy (11/06/21) History of tonsillectomy and adenoidectomy Social History household members: spouse Smoking Status: Former smoker how long ago did patient quit smoking: Smoked age [age], 1 ppd until quit. Does have 2nd hand exposure from . alcohol intake: current alcohol intake frequency: holidays/special occasions only substance use type: does not use ROS ROS Narrative Constitutional: Reports fatigue and weakness. No fever. HEENT: Reports systems reviewed and no addt'l complaints, except as documented Respiratory/Chest: No LOC. No syncope. No chest pressure/chest pain, shortness of breath at rest or with exertion Gastrointestinal: Denies coffee ground emesis, hematemesis or vomiting. No alteration of bowel movement Genitourinary: History of prostate cancer. Denies burning urination or new urinary tract symptoms Musculoskeletal: Chronic left upper extremity weakness. History of a stroke with chronic lower extremity weakness. Limited range of motion. Neurologic: Denies seizure-like activity. No new weakness/numbness or tingling. skin: No ulcer. No rash Endocrinology: Reports systems reviewed and no addt'l complaints, except as documented Hematologic/Lymphatic: Reports systems reviewed and no addt'l complaints, except as documented Rest 14 ROS are negative except as mentioned in HPI Vital Signs Vital Signs Vital Signs: 09/26/22 08:38 09/26/22 08:41 Temperature 96.6 F L Temperature Source Temporal Pulse Rate 63 Respiratory Rate 16 Respiratory Effort Normal Non-Labored Respiratory Pattern Normal Blood Pressure 115/85 H Blood Pressure Mean 95 Pulse Ox 95 Oxygen Delivery Method Room Air Weight Weight: 202 lb 14.4 oz Body Mass Index (BMI) 29.1 Physical Exam Narrative General: Alert, Oriented x3, Cooperative HEENT: Atraumatic, PERRLA, EOMI, Normocephalic Oral: Oral mucosa moist. No Gingival or Mucosal Lesions/ Ulcerations Neck: Supple, No JVD, Negative Carotid Bruits. Right CEA scar Lungs: Air entry diminished in bilateral lung bases. No crepitation/rhonchi Cardiovascular: Regular rate, Regular Rhythm, Normal S1, Normal S2, No murmurs Abdomen: Bowel Sounds Present, Soft, Non Tender, Non-Distended : No renal angle tenderness. No suprapubic tenderness. Extremities: No edema, Capillary Refill Less than 3 Seconds Skin: No rashes, No breakdown Musculoskeletal: ROM limited of LUE and bilateral LEs. Muscle strength 4/5 at both lower EXTR. No Tenderness to Palpation of Joints or Extremities Neurological: Cranial nerves II-XII grossly intact, DTR 2+/4. Left-sided wea kness WITH contracture LUE Psych/Mental Status: Flat affect Results Lab / Micro Data Result Diagrams: 09/26/22 09:23 09/26/22 09:23 Labs: Laboratory Results - last 24 hr 09/26/22 09:23: WBC 6.3, RBC 4.83, Hgb 14.1, Hct 39.0 L, MCV 80.7, MCH 29.2, MCHC 36.2 H, RDW Std Deviation 34.5 L, RDW Coeff of Cintia 11.9, Plt Count 229, MPV 8.4, Immature Gran % (Auto) 1.900 H, Neut % (Auto) 75.3 H, Lymph % (Auto) 11.0 L , [place] % (Auto) 10.2 H, Eos % (Auto) 1.0, Baso % (Auto) 0.6, Absolute Neuts (auto) 4.7, Absolute Lymphs (auto) 0.69 L, Nucleated RBC % 0 09/26/22 09:23: Sodium 120 L, Potassium 3.1 L, Chloride 83 L, Carbon Dioxide 27 .0, Anion Gap 10, BUN 11, Creatinine 0.88, Estim Creat Clear Calc 77.19, Est GFR (MDRD) Af Amer 109, Est GFR (MDRD) Non-Af 90, BUN/Creatinine Ratio 12.5, Glucose 149 H, Calcium 9.2, Troponin I High Sens 10 Assessment & Plan Assessment/Plan (1) Chronic hyponatremia: (2) Falls frequently: (3) Acute hypokalemia: (4) Adult failure to thrive: PLAN: Plan This is 72-year-old male was brought by EMS for recurrent fall mainly due to imbalance and distal cream progressively got worse for last 2 weeks. Patient has been falling frequently for last 6 months. 1. Subacute severe chronic isovolemic hyponatremia: Patient is being admitted to PCU on telemetry. Serum sodium is 120 but it seems not acute as patient is not symptomatic like seizure, altered mental status/confusion/encephalopathy. Patient might have SIADH as he is on multiple SSRIs and antipsychotic medicati ons. Continue IV fluid normal saline with 40 M EQ KCl at 100 mL/h. Monitor BMP every 4 hours. Patient on sodium tablets at home. Maintenance Team Leader is consulted. 2. Acute hypokalemia: Previously,potassium was normal. Currently K3.1. Serum mag and phosphorus ordered. Potassium replacement. 3. Worsening recurrent fall, adult failure to thrive most likely related to musculoskeletal weakness from previous stroke: PT and OT ordered. Hyponatremia might have contributed to worsening of fall. 4. History of CVA/right severe carotid stenosis status post right carotid endarterectomy.? Continue aspirin, statin. 5. Hypertension-stable, continue ramipril.? Chlorthalidone discontinued. 6. Hyperlipidemia-continue statin. 7. Type 2 diabetes mellitus-continue oral regimen.? Accu-Cheks with sliding scale insulin. 8. Depression/anxiety-on citalopram and escitalopram and mirtazapine. Hold escitalopram. 9. Gout-no longer on allopurinol. VTE prophylaxis, High risk due to stroke and carotid stenosis.: On Lovenox 40 subcu daily Living will/advanced directive/end of life care: Patient does have living will or advanced directive. His is power of respiratory scientist for health. After discussion of benefits/risks procedures involved with full code, DNR CC arrest and DNR CC, the patient do not want intubation or ventilator or CPR. He opted for DNRCC arrest. He is okay with Ventimask or BiPAP Patient doesn't want artificial life support including intubation, tube feed, ventilator and/chest compression, central venous catheter, vasopressor and DC shock if needed Total time spent in [id number] encounter in discussion of advanced directive 16 minutes. Laboratory Results 09/26/22 09:23: WBC 6.3, RBC 4.83, Hgb 14.1, Hct 39.0 L, MCV 80.7, MCH 29.2, MCHC 36.2 H, RDW Std Deviation 34.5 L, RDW Coeff of Cintia 11.9, Plt Count 229, MPV 8.4, Immature Gran % (Auto) 1.900 H, Neut % (Auto) 75.3 H, Lymph % (Auto) 11.0 L , [place] % (Auto) 10.2 H, Eos % (Auto) 1.0, Baso % (Auto) 0.6, Absolute Neuts (auto) 4.7, Absolute Lymphs (auto) 0.69 L, Nucleated RBC % 0 09/26/22 09:23: Sodium 120 L, Potassium 3.1 L, Chloride 83 L, Carbon Dioxide 27.0, Anion Gap 10, BUN 11, Creatinine 0.88, Estim Creat Clear Calc 77.19, Est GFR (MDRD) Af Amer 109, Est GFR (MDRD) Non-Af 90, BUN/Creatinine Ratio 12.5, Glucose 149 H, Calcium 9.2, Troponin I High Sens 10 09/26/22 09:23: Phosphorus Pending, Magnesium Pending Charges/Coding Visit Charges Inpatient E&M: 87146 Init Hosp L3 Procedures Hospitalists Procedures: 58705 Advncd Care Plan 30 Min
--- NOTE | 2022-09-26 10:35 | EKG12_ITS ---
Test Reason : FOLLOW UP Blood Pressure : / mmHG Vent. Rate : 052 BPM Atrial Rate : 052 BPM P-R Int : 240 ms QRS Dur : 096 ms QT Int : 480 ms P-R-T Axes : 013 031 075 degrees QTc Int : 446 ms Sinus bradycardia with 1st degree A-V block Possible Inferior infarct , age undetermined Nonspecific ST-Segment Abnormality Abnormal ECG Confirmed by ALY LYNCH, BENJAMÍN ([id number]), video news editor TIM BENZ ([id number]) on 09/27/2022 8:22:41 AM Referred By: GREGOR Confirmed By:BENJAMÍN LU MD
--- NOTE | 2022-09-26 10:37 | NURSING ---
Addendum entered by Angie Nuno 09/26/22 10:42: SUSHILA HYPONATREMIA, FREQUENT FALLS, HYPOKALEMIA, WEAKNESS, FAILURE TO THRIVE Original Note: PCU HYPONATREMIA
--- NOTE | 2022-09-26 11:13 | NURSING ---
PCU ED 1
[2022-09-26] MEDS: Potassium Chloride Oral Tablet 20 MEQ 40 MEQ PO ×2 (11:15→13:12)
[2022-09-26 11:17] VITALS: BP 124/91; PULSE 55; RESP 16; RESP 18; TEMP 36.6; O2SAT 97; O2SAT 98
[2022-09-26 11:21] LABS: Magnesium 1.6 mg/dL (1.6-2.6); Phosphorus 3.3 mg/dL (2.5-4.9)
[2022-09-26 12:25] VITALS: BP 133/78; PULSE 61; RESP 16; TEMP 36.6; O2SAT 96; BMI 29.1
[2022-09-26 13:05] LABS: Bedside Glucose 98 mg/dL (74-106)
[2022-09-26] MEDS: Enoxaparin 40 MG/0.4 ML Syringe SC (13:11)
[2022-09-26] MEDS: Sodium Chloride 1 GM Tablet PO ×2 (13:22→21:42)
[2022-09-26] MEDS: Potassium Chloride 40 MEQ in 0.9% Normal Saline 1,000 ML 100 MEQ IV ×2 (13:26→23:40)
[2022-09-26 14:59] LABS: Anion Gap 8 (5-15); BUN 11 mg/dL (7-18); Calcium,Total 9.3 mg/dL (8.5-10.1); Chloride 85 mmol/L (98-107); Creatinine, Serum 0.85 mg/dL (0.70-1.30); EST Glomerular Filtration Rate 94 mL/min (>60); Est Glom Filt Rate - Afr Amer 114 mL/min (>60); Estimated Creatinine Clearance 79.92 ml/min; Glucose 120 mg/dL (74-106); Potassium 3.9 mmol/L (3.5-5.1); Sodium Level 121 mmol/L (136-145)
--- NOTE | 2022-09-26 15:34 | CON.PCM.RE_ITS ---
Assessment & Plan Assessment/Plan (1) Acute hyponatremia: PLAN: It seems sodium usually runs in the 130s. Already on salt tablets. Prev ious urine osmolality was 144. Most likely polydipsia. He says he does drink a lot of water to keep himself hydrated. We will add fluid restriction for now. DC thiazide. Continue salt tablets for now. Discussed with hospitalist. HPI Consult Data Date of Consult: 09/26/22 HPI Narrative Reason for Consultation: Hyponatremia HPI Narrative: PAYAM HAMM, is a 72 M who presents to the hospital with frequent falls. Nephrology on consultation in view of hyponatremia. It seems he has known history of hyponatremia, follows mostly with primary care physician. Currently taking salt tablets. found to have sodium of 120. Other than weakness and falls, denies any complaints. No significant lower extremity edema. [facility] Medical History Carotid artery stenosis CVA (cerebral vascular accident) (09/25/21) Debility Depression DM2 (diabetes mellitus, type 2) Essential hypertension Frequent falls Gout Hyperlipidemia Hyponatremia Inability to ambulate due to multiple joints Left hemiparesis Left-sided muscle weakness Prostate cancer Stenosis of right carotid artery Weakness Home Medications glimepiride 1 mg tablet 1 mg PO DAILY diabetes 12/18/19 [History Last Taken 09/24/22] metformin 1,000 mg tablet 1,000 mg PO BID diabetes 12/18/19 [History Last Taken 09/26/22] pioglitazone 15 mg tablet 15 mg PO DAILY diabetes 12/18/19 [History Last Taken 09/24/22] ramipril 10 mg capsule 10 mg PO DAILY blood pressure 12/18/19 [History Last Taken 09/26/22] atorvastatin 40 mg tablet 40 mg PO DAILY Cholesterol 10/13/21 [History Last Taken 11/02/21] sodium chloride 1,000 mg soluble tablet 1 g PO BID Low sodium 11/14/21 [History Last Taken 09/26/22] acetaminophen 500 mg tablet 1,000 mg PO Q6H PRN Pain 09/26/22 [History Last Taken Unknown] allopurinol 100 mg tablet 100 mg PO DAILY GOUT 09/26/22 [History Last Taken Unknown] aspirin 325 mg tablet,delayed release 325 mg PO DAILY PRN Pain 09/26/22 [History Last Taken Unknown] chlorthalidone 25 mg tablet 25 mg PO DAILY BLOOD PRESSURE 09/26/22 [History Last Taken Unknown] citalopram 20 mg tablet 20 mg PO DAILY DEPRESSION 09/26/22 [History Last Taken Unknown] desoximetasone 0.05 % topical cream 1 applic topical BID PRN DRY SKIN ON FACE 09/26/22 [History Last Taken 09/23/22] escitalopram oxalate 5 mg tablet 15 mg PO DAILY DEPRESSION 09/26/22 [History Last Taken 09/26/22] metoprolol succinate 50 mg tablet,extended release 24 hr 50 mg PO DAILY BLOOD PRESSURE 09/26/22 [History Last Taken Unknown] mirtazapine 30 mg tablet 30 mg PO DAILY DEPRESSION 09/26/22 [History Last Taken Unknown] Allergy/AdvReac Type Severity Reaction Status Date / Time No Known Allergies Allergy Verified 09/26/22 08:40 Family History Mother CVA (cerebral vascular accident) Several recurrent strokes, eventually passed age 84. Surgical History H/O foot surgery History of colon resection History of repair of right rotator cuff History of right-sided carotid endarterectomy (11/06/21) History of tonsillectomy and adenoidectomy Social History household members: spouse Smoking Status: Former smoker how long ago did patient quit smoking: Smoked age [age], 1 ppd until quit. Does have 2nd hand exposure from . alcohol intake: current alcohol intake frequency: holidays/special occasions only substance use type: does not use ROS ROS Narrative Negative except above Physical Exam Narrative Alert awake oriented x 3 no obvious distress no pallor no icterus no JVD s1s2 no murmurs lungs clear abdomen soft no organomegaly no edema no cyanosis Lab / Micro Data Result Diagrams: 09/26/22 09:23 09/26/22 14:25 Labs: Laboratory Results - last 24 hr 09/26/22 09:23: WBC 6.3, RBC 4.83, Hgb 14.1, Hct 39.0 L, MCV 80.7, MCH 29.2, MCHC 36.2 H, RDW Std Deviation 34.5 L, RDW Coeff of Cintia 11.9, Plt Count 229, MPV 8.4, Immature Gran % (Auto) 1.900 H, Neut % (Auto) 75.3 H, Lymph % (Auto) 11.0 L , [place] % (Auto) 10.2 H, Eos % (Auto) 1.0, Baso % (Auto) 0.6, Absolute Neuts (auto) 4.7, Absolute Lymphs (auto) 0.69 L, Nucleated RBC % 0 09/26/22 09:23: Sodium 120 L, Potassium 3.1 L, Chloride 83 L, Carbon Dioxide 27.0, Anion Gap 10, BUN 11, Creatinine 0.88, Estim Creat Clear Calc 77.19, Est GFR (MDRD) Af Amer 109, Est GFR (MDRD) Non-Af 90, BUN/Creatinine Ratio 12.5, Glucose 149 H, Calcium 9.2, Troponin I High Sens 10 09/26/22 09:23: Phosphorus 3.3, Magnesium 1.6 09/26/22 12:44: POC Glucose 98 09/26/22 14:25: Sodium 121 L, Potassium 3.9, Chloride 85 L, Carbon Dioxide 28.0, Anion Gap 8, BUN 11, Creatinine 0.85, Estim Creat Clear Calc 79.92, Est GFR (MDRD) Af Amer 114, Est GFR (MDRD) Non-Af 94, BUN/Creatinine Ratio 13.0, Glucose 120 H, Calcium 9.3
--- NOTE | 2022-09-26 15:42 | NURSING ---
emergency charting done.care plan and teaching not done
[2022-09-26 16:03] LABS: Bacteria 0 SEEN /hpf (None Seen); Mucous, Urine 0 SEEN /hpf (<or=2+); Red Blood Cells-Urine 0 SEEN /hpf (0-5); White Blood Cells 0 SEEN /hpf (0-5)
[2022-09-26 16:05] LABS: Color, Urine Straw (Yellow); Glucose, Dipstick Normal (Normal); Ketone-Dipstick Negative (Negative); Leukocyte Esterase-Dipstick 25 /ul (Negative); Nitrite-Dipstick Negative (Negative); Occult Blood-Urine Negative /ul (Negative); Protein-Dipstick Negative (Negative); Urine Bilirubin Dipstick Negative (Negative); Urine Clarity Clear (Clear); Urine Urobilinogen Normal (Normal)
[2022-09-26 16:17] LABS: Squamous Epithelial Cells - UA 0-5 SEEN /hpf (0-5)
[2022-09-26 16:59] LABS: Urine Sodium 47 mmol/L (Not Establ.)
[2022-09-26 17:05] LABS: Bedside Glucose 105 mg/dL (74-106)
[2022-09-26 18:54] LABS: Osmolality, Urine 306 mOsm/KG
[2022-09-26 19:25] LABS: Anion Gap 8 (5-15); BUN 11 mg/dL (7-18); BUN/Creat Ratio 13.8 RATIO (10-20); Chloride 88 mmol/L (98-107); EST Glomerular Filtration Rate 101 mL/min (>60); Est Glom Filt Rate - Afr Amer 122 mL/min (>60); Estimated Creatinine Clearance 84.91 ml/min; Glucose 131 mg/dL (74-106); Potassium 3.9 mmol/L (3.5-5.1); Sodium Level 124 mmol/L (136-145)
[2022-09-26 21:15] VITALS: BP 124/81; PULSE 54; RESP 14; TEMP 36.6; O2SAT 97
[2022-09-26 21:38] VITALS: PULSE 55
[2022-09-26] MEDS: Senna/Docusate Sodium 1 Tablet 2 TABLET PO (21:42)
[2022-09-26] MEDS: MELATONIN 3 MG TABLET PO (22:38)
[2022-09-27] VITALS (9 sets, daily range): BP systolic 140–159; BP diastolic 79–100; PULSE 48–68; RESP 18; TEMP 36.4–36.9; O2SAT 95–100
[2022-09-27 00:51] LABS: Bedside Glucose 126 mg/dL (74-106)
[2022-09-27 04:14] LABS: Absolute Lymphocyte Count 0.98 X10^3/uL (0.83-4.51); Absolute Neutrophil Count 3.2 X10^3/uL (2.0-7.7); Basophil# 0.04 X10^3/uL; Basophil% 0.8 % (0-1); Eosinophil# 0.12 X10^3/uL; Eosinophils% 2.4 % (0-5); Hematocrit 36.7 % (40-54); Lymphocyte # 0.98 X10^3/ul (0.83-4.51); Lymphocyte % 19.4 % (19-41); Mean Corp Hgb Conc 35.4 g/dL (32-36); Mean Corpuscular Hgb 29.1 pg (27.0-32.0); Mean Corpuscular Volume 82.1 fL (80-94); Mean Platelet Vol. 8.4 fl (6.2-12.0); Monocyte# 0.66 X10^3/uL; NRBC Flagged by Analyzer 0 % (0-5); Neutrophil # 3.17 X10^3/uL (2.7-7.7); Neutrophil % 62.6 % (47-70); Platelet Count 206 K/mm3 (150-450); RBC Distribution Width CV 12.1 % (11.6-14.6); RBC Distribution Width SD 36.1 fl (35.1-43.9); Red Blood Count 4.47 M/mm3 (4.6-6.2); White Blood Count 5.1 K/mm3 (4.4-11.0)
[2022-09-27 05:11] LABS: Anion Gap 7 (5-15); BUN 9 mg/dL (7-18); BUN/Creat Ratio 11.2 RATIO (10-20); Calcium,Total 8.4 mg/dL (8.5-10.1); Chloride 91 mmol/L (98-107); EST Glomerular Filtration Rate 101 mL/min (>60); Est Glom Filt Rate - Afr Amer 122 mL/min (>60); Estimated Creatinine Clearance 84.91 ml/min; Glucose 117 mg/dL (74-106); Potassium 3.7 mmol/L (3.5-5.1); Sodium Level 126 mmol/L (136-145); Thyroid Stim Hormone (TSH) 2.24 uIU/mL (0.358-3.74)
[2022-09-27 07:10] LABS: Bedside Glucose 140 mg/dL (74-106)
[2022-09-27] MEDS: Glimepiride 1 MG Tablet PO (08:36)
[2022-09-27] MEDS: Atorvastatin Calcium 40 MG Tablet PO (08:36)
[2022-09-27] MEDS: Pioglitazone Hydrochloride 15 MG Tablet PO (08:36)
[2022-09-27] MEDS: Sodium Chloride 1 GM Tablet PO ×2 (08:36→21:18)
[2022-09-27] MEDS: Allopurinol 100 MG Tablet PO (08:36)
[2022-09-27] MEDS: Citalopram 20 MG Tablet PO (08:36)
[2022-09-27] MEDS: Enoxaparin 40 MG/0.4 ML Syringe SC (08:36)
[2022-09-27] MEDS: Ramipril 10 MG Capsule PO (08:36)
[2022-09-27] MEDS: Mirtazapine 30 MG Tablet PO (08:36)
[2022-09-27] MEDS: Potassium Chloride Oral Tablet 20 MEQ 40 MEQ PO (10:18)
[2022-09-27] MEDS: Metoprolol(XL)Succ 50 MG Tablet 25 MG PO (10:18)
--- NOTE | 2022-09-27 11:07 | PN.RENAL_ITS ---
Subjective Subjective Sitting up in bed eating breakfast. Denies any complaints including feeling thirsty, nausea, diarrhea vomiting, headache. Objective Data Objective Data Vital Signs: Vital Signs Temp Pulse Resp BP Pulse Ox O2 Del Method 97.8 F 68 18 159/89 H 100 Room Air 09/27/22 08:51 09/27/22 10:18 09/27/22 08:51 09/27/22 08:51 09/27/22 08:51 09/27/22 08:51 Oxygen Delivery Method Room Air Weight: 89.4 kg Body Mass Index (BMI) 29.1 Intake & Output: Intake and Output for Last 24 Hours 09/25/22 09/26/22 09/27/22 23:59 23:59 23:59 Intake Total 2042.5 / 2042.5 1020 / 1020 Output Total 300 / 300 Balance 2042.5 / 2042.5 720 / 720 Lab / Micro Data Result Diagrams: 09/27/22 03:56 09/27/22 03:56 Labs: Laboratory Results - last 24 hr 09/26/22 09:23: Phosphorus 3.3, Magnesium 1.6 09/26/22 12:44: POC Glucose 98 09/26/22 14:25: Sodium 121 L, Potassium 3.9, Chloride 85 L, Carbon Dioxide 28.0, Anion Gap 8, BUN 11, Creatinine 0.85, Estim Creat Clear Calc 79.92, Est GFR (MDRD) Af Amer 114, Est GFR (MDRD) Non-Af 94, BUN/Creatinine Ratio 13.0, Glucose 120 H, Calcium 9.3 09/26/22 15:55: Urine Color Straw, Urine Clarity Clear, Urine pH 7.0, Ur Specific [place] 1.010, Urine Protein Negative, Urine Glucose (UA) Normal, Urine Ketones Negative, Urine Occult Blood Negative, Urine Nitrite Negative, Urine Bilirubin Negative, Urine Urobilinogen Normal, Ur Leukocyte Esterase 25 H, Urine RBC 0 SEEN, Urine WBC 0 SEEN, Ur Squamous Epith Cells 0-5 SEEN, Urine Bacteria 0 SEEN, Urine Mucus 0 SEEN 09/26/22 15:55: Ur Random Sodium 47 09/26/22 15:55: Urine Osmolality 306 09/26/22 16:47: POC Glucose 105 09/26/22 18:40: Sodium 124 L, Potassium 3.9, Chloride 88 L, Carbon Dioxide 28.0, Anion Gap 8, BUN 11, Creatinine 0.80, Estim Creat Clear Calc 84.91, Est GFR (MDRD) Af Amer 122, Est GFR (MDRD) Non-Af 101, BUN/Creatinine Ratio 13.8, Glucose 131 H, Calcium 9.0 09/26/22 21:41: POC Glucose 126 H 09/27/22 03:56: WBC 5.1, RBC 4.47 L, Hgb 13.0, Hct 36.7 L, MCV 82.1, MCH 29.1, MCHC 35.4, RDW Std Deviation 36.1, RDW Coeff of Cintia 12.1, Plt Count 206, MPV 8.4, Immature Gran % (Auto) 1.800 H, Neut % (Auto) 62.6, Lymph % (Auto) 19.4, [place] % (Auto) 13.0 H, Eos % (Auto) 2.4, Baso % (Auto) 0.8, Absolute Neuts (auto) 3.2, Absolute Lymphs (auto) 0.98, Nucleated RBC % 0 09/27/22 03:56: Sodium 126 L, Potassium 3.7, Chloride 91 L, Carbon Dioxide 28.0, Anion Gap 7, BUN 9, Creatinine 0.80, Estim Creat Clear Calc 84.91, Est GFR (MDRD) Af Amer 122, Est GFR (MDRD) Non-Af 101, BUN/Creatinine Ratio 11.2, Glucose 117 H, Calcium 8.4 L, TSH 2.24 09/27/22 06:46: POC Glucose 140 H Physical Exam Narrative Alert awake oriented x 3 no obvious distress s1s2 no murmurs lungs clear abdomen soft no edema Assessment & Plan Assessment/Plan (1) Acute hyponatremia: PLAN: Acute on chronic hyponatremia. It seems sodium usually runs in the 130s with noted hyponatremia over past 2 years. Patient is euvolemic. Patient was on salt tablets before hospital admission. Previous urine osmolality was 144. Previous serum Osmo 260s in December/October 2021. Most likely polydipsia. He says he does drink a lot of water to keep himself hydrated. Fluid restriction added in hospital. Importance of following fluid restriction when at home was reviewed with patient today, questions were answered. Off thiazide. Continue salt tablets 1gm BID. Sodium 120 yesterday, today sodium 126. Urine Osmo 306, random urine sodium 47. TSH normal. Patient does not need frequent sodium checks. D/w Dr. Hough.
[2022-09-27] MEDS: Insulin Lispro 100 UNIT/ML INSULN.PEN SC (11:27)
[2022-09-27 11:40] LABS: Bedside Glucose 169 mg/dL (74-106)
--- NOTE | 2022-09-27 12:22 | CHAPLAIN ---
Type of Pastoral Visit _x__ Initial Visit ___ Follow-up Visit ___ On-call Visit ___ General Patient Visit ___ Spiritual Assessment ___ Family Conference ___ Bereavement ___ Rapid Response ___ Code Blue ___ Other (describe below) Pastoral Care Referral From _x__ Patient _x__ Family ___ Nurse ___ Physician ___ Project Intern ___ Grain Grader ___ Other (describe below) Sacrament/Intervention _x_ Active listening ___ Anointing ___ Yarsanism ___ Bereavement ___ Communion ___ Gail exploration ___ ___ Life review _x__ Prayer ___ Reconciliation ___ Sacrament of Sick ___ Supportive presence ___ Wedding ___ Other (describe below) Pastoral Comments this patient has been seen in previous admissions; pt and spouse together and they welcome presence and prayer; spouse acknowledges that these times have been difficult and pt mentions that they will need to sell their home; spouse states this is going to be a big task; pt and spouse request prayer support for health and decisions
--- NOTE | 2022-09-27 12:45 | CASEMGMT ---
Per RN CM patient would like to go to TCU. Per RN CM patient declined a list of nursing facilities. His second choice would be [facility]. SW sent a referral to [facility] in TCU. Await response. Marti DELACRUZ
--- NOTE | 2022-09-27 12:45 | CASEMGMT ---
RN GENNA ECONOMIC MANAGER CM to room to meet with patient for initial transition planning/care coordination assessment. ONOFRE VAIL introduced self and role at [facility]. Pt voices understanding and consents to assessment at this time. Pt resting in bed in no distress at this time. Pt is A/O at this time and answers all questions appropriately. Care providers, pharmacy, and demographics verified/updated at this time. PCP: Dr Akash Agosto Specialists:pt denies Preferred Pharmacy: [facility] Insurance: [facility] Prescription Benefit: Yes Living Will/HPOA: Pt states he has LW and HCPOA and either his or dtr are POA LNOK: Jayla Living Arrangements: Lives w/ in one-story home w/basement w/3 steps to enter. Pt indep w/dressing. assists w/showering, IADL's, med mgmt, and appts. Transportation: mostly DME: States has the following DME: shower chair, WW, rollator, RTS, glucometer HHC/SNF: Hx [facility] and [facility] TCU. Pt states he would like to go to [facility] TCU @ discharge. DARRELL Kidd, made aware. He declines wanting list of other SNF choices. PLAN: SNF [facility] RN, CM
--- NOTE | 2022-09-27 14:35 | CASEMGMT ---
Patient was accepted to TCU pending pharmacy's okay and insurance authorization. Marti DELACRUZ
--- NOTE | 2022-09-27 15:37 | PN.HOSP_ITS ---
Subjective Subjective Follow-up for hyponatremia, recurrent fall Objective Data Objective Data Vital Signs: Vital Signs Temp Pulse Resp BP Pulse Ox O2 Del Method 97.8 F 52 L 18 159/89 H 100 Room Air 09/27/22 08:51 09/27/22 15:33 09/27/22 08:51 09/27/22 08:51 09/27/22 08:51 09/27/22 10:45 Oxygen Delivery Method Room Air Weight: 197 lb 1.492 oz Body Mass Index (BMI) 29.1 Intake & Output: Intake and Output for Last 24 Hours 09/25/22 09/26/22 09/27/22 23:59 23:59 23:59 Intake Total 2042.5 / 2042.5 1180 / 1180 Output Total 300 / 300 Balance 2042.5 / 2042.5 880 / 880 Lab / Micro Data Result Diagrams: 09/27/22 03:56 09/27/22 03:56 Labs: Laboratory Results - last 24 hr 09/26/22 15:55: Urine Color Straw, Urine Clarity Clear, Urine pH 7.0, Ur Specific [place] 1.010, Urine Protein Negative, Urine Glucose (UA) Normal, Urine Ketones Negative, Urine Occult Blood Negative, Urine Nitrite Negative, Urine Bilirubin Negative, Urine Urobilinogen Normal, Ur Leukocyte Esterase 25 H, Urine RBC 0 SEEN, Urine WBC 0 SEEN, Ur Squamous Epith Cells 0-5 SEEN, Urine Bacteria 0 SEEN, Urine Mucus 0 SEEN 09/26/22 15:55: Ur Random Sodium 47 09/26/22 15:55: Urine Osmolality 306 09/26/22 16:47: POC Glucose 105 09/26/22 18:40: Sodium 124 L, Potassium 3.9, Chloride 88 L, Carbon Dioxide 28.0, Anion Gap 8, BUN 11, Creatinine 0.80, Estim Creat Clear Calc 84.91, Est GFR (MDRD) Af Amer 122, Est GFR (MDRD) Non-Af 101, BUN/Creatinine Ratio 13.8, Glucose 131 H, Calcium 9.0 09/26/22 21:41: POC Glucose 126 H 09/27/22 03:56: WBC 5.1, RBC 4.47 L, Hgb 13.0, Hct 36.7 L, MCV 82.1, MCH 29.1, MCHC 35.4, RDW Std Deviation 36.1, RDW Coeff of [place] 12.1, Plt Count 206, MPV 8.4, Immature Gran % (Auto) 1.800 H, Neut % (Auto) 62.6, Lymph % (Auto) 19.4, [place] % (Auto) 13.0 H, Eos % (Auto) 2.4, Baso % (Auto) 0.8, Absolute Neuts (auto) 3.2, Absolute Lymphs (auto) 0.98, Nucleated RBC % 0 09/27/22 03:56: Sodium 126 L, Potassium 3.7, Chloride 91 L, Carbon Dioxide 28.0, Anion Gap 7, BUN 9, Creatinine 0.80, Estim Creat Clear Calc 84.91, Est GFR (MDRD) Af Amer 122, Est GFR (MDRD) Non-Af 101, BUN/Creatinine Ratio 11.2, Glucose 117 H, Calcium 8.4 L, TSH 2.24 09/27/22 06:46: POC Glucose 140 H 09/27/22 11:21: POC Glucose 169 H Physical Exam Narrative General: Alert, Oriented x3, Cooperative HEENT: Atraumatic, PERRLA, EOMI, Normocephalic Oral: Oral mucosa moist. No Gingival or Mucosal Lesions/ Ulcerations Neck: Supple, No JVD, Negative Carotid Bruits. Right CEA scar Lungs: Air entry diminished in bilateral lung bases. No crepitation/rhonchi Cardiovascular: Regular rate, Regular Rhythm, Normal S1, Normal S2, No murmurs Abdomen: Bowel Sounds Present, Soft, Non Tender, Non-Distended : No renal angle tenderness. No suprapubic tenderness. Extremities: No edema, Capillary Refill Less than 3 Seconds Skin: Bruise over knee, abrasion since admission. No active bleeding or deep laceration. Musculoskeletal: ROM limited of LUE and bilateral LEs. Muscle strength 4/5 at both lower EXTR. No Tenderness to Palpation of Joints or Extremities Neurological: Cranial nerves II-XII grossly intact, DTR 2+/4. Left-sided weakness WITH contracture LUE Psych/Mental Status: Flat affect Assessment & Plan Assessment/Plan (1) Chronic hyponatremia: (2) Falls frequently: (3) Acute hypokalemia: (4) Adult failure to thrive: PLAN: Plan This is 72-year-old male was brought by EMS for recurrent fall mainly due to imbalance and distal cream progressively got worse for last 2 weeks. Patient has been falling frequently for last 6 months. 1. Subacute severe chronic isovolemic hyponatremia: Patient is being admitted to PCU on telemetry. Serum sodium is 120 but it seems not acute as patient is not symptomatic like seizure, altered mental status/confusion/encephalopathy. Patient might have SIADH as he is on multiple SSRIs and antipsychotic medications. Continue IV fluid normal saline with 40 M EQ KCl at 100 mL/h. Monitor BMP every 4 hours. Patient on sodium tablets at home. Service Delivery Supervisor is consulted. 09/27: Sodium increased to 126. TSH normal. Urine osmolality 306, random sodium 47. Patient on diuretic therefore urine sodium and osmolality cannot be accurate. HCTZ on hold. Continue sodium. Fluid restriction. 2. Acute hypokalemia: Previously,potassium was normal. Currently K3.1. Serum mag and phosphorus ordered. Potassium replacement. 09/27: Potassium is 3.7. Continue potassium replacement 40 M EQ daily. 3. Worsening recurrent fall, adult failure to thrive most likely related to musculoskeletal weakness from previous stroke: PT and OT ordered. Hyponatremia might have contributed to worsening of fall. 09/27: PT and OT evaluation might need SNF placement depending on PT assessment 4. History of CVA/right severe carotid stenosis status post right carotid endarterectomy.? Continue aspirin, statin. 5. Hypertension-stable, continue ramipril.? Chlorthalidone discontinued. 6. Hyperlipidemia-continue statin. 7. Type 2 diabetes mellitus-continue oral regimen.? Accu-Cheks with sliding scale insulin. 09/27: Glucose is between 1 40-1 69. Glimepiride dose increased to 2 mg daily. 8. Depression/anxiety-on citalopram and escitalopram and mirtazapine. Hold escitalopram. 9. Gout-no longer on allopurinol. VTE prophylaxis, High risk due to stroke and carotid stenosis.: On Lovenox 40 subcu daily Living will/advanced directive/end of life care: Patient does have living will or advanced directive. His is power of oxygen equipment aide for health. After discussion of benefits/risks procedures involved with full code, DNR CC arrest and DNR CC, the patient do not want intubation or ventilator or CPR. He opted for DNRCC arrest. He is okay with Ventimask or BiPAP Patient doesn't want artificial life support including intubation, tube feed, ventilator and/chest compression, central venous catheter, vasopressor and DC shock if needed Charges/Coding Visit Charges Inpatient E&M: 45590 Subs Hosp L2
[2022-09-27] MEDS: Glimepiride 2 MG Tablet 1 MG PO (17:39)
[2022-09-27 17:50] LABS: Bedside Glucose 84 mg/dL (74-106)
[2022-09-27] MEDS: Senna/Docusate Sodium 1 Tablet 2 TABLET PO (21:18)
[2022-09-27] MEDS: MELATONIN 3 MG TABLET PO (21:18)
[2022-09-27 21:45] LABS: Bedside Glucose 120 mg/dL (74-106)
[2022-09-28 00:31] VITALS: BP 125/79; PULSE 45; RESP 18; TEMP 36.5; O2SAT 98
[2022-09-28 02:59] VITALS: PULSE 41
[2022-09-28 07:01] LABS: Bedside Glucose 124 mg/dL (74-106)
[2022-09-28 07:41] LABS: Anion Gap 8 (5-15); BUN 14 mg/dL (7-18); BUN/Creat Ratio 15.3 RATIO (10-20); Calcium,Total 8.9 mg/dL (8.5-10.1); Chloride 95 mmol/L (98-107); Creatinine, Serum 0.92 mg/dL (0.70-1.30); EST Glomerular Filtration Rate 86 mL/min (>60); Est Glom Filt Rate - Afr Amer 104 mL/min (>60); Estimated Creatinine Clearance 73.84 ml/min; Glucose 115 mg/dL (74-106); Potassium 3.8 mmol/L (3.5-5.1); Sodium Level 129 mmol/L (136-145)
[2022-09-28 08:00] VITALS: BP 141/87; PULSE 53; RESP 16; TEMP 36.5; O2SAT 99
[2022-09-28 08:06] VITALS: PULSE 45
[2022-09-28] MEDS: Allopurinol 100 MG Tablet PO (09:51)
[2022-09-28] MEDS: Ramipril 10 MG Capsule PO (09:51)
[2022-09-28] MEDS: Citalopram 20 MG Tablet PO (09:51)
[2022-09-28] MEDS: Pioglitazone Hydrochloride 15 MG Tablet PO (09:51)
[2022-09-28] MEDS: Enoxaparin 40 MG/0.4 ML Syringe SC (09:51)
[2022-09-28 09:52] VITALS: BP 107/71; PULSE 57
[2022-09-28] MEDS: Sodium Chloride 1 GM Tablet PO (09:52)
[2022-09-28] MEDS: Metoprolol(XL)Succ 50 MG Tablet 25 MG PO (09:52)
[2022-09-28] MEDS: Mirtazapine 30 MG Tablet PO (09:52)
[2022-09-28] MEDS: Atorvastatin Calcium 40 MG Tablet PO (09:53)
[2022-09-28] MEDS: Glimepiride 2 MG Tablet PO (10:00)
[2022-09-28] MEDS: Senna/Docusate Sodium 1 Tablet 2 TABLET PO (10:58)
--- NOTE | 2022-09-28 11:40 | NURSING ---
This RN spoke to patient and his at this time related to patient's missing lower dentures and cell phone. stated that he has thrown them both away so many times already and that she is sure that happened last night too. We explained that dentures and cell phone were noted last night prior to nightshift MACHINE PRESSER leaving ([place], KEITH) but when setting patient up for breakfast this morning, Klaudia noted that his lower dentures and cell phone were missing. states that he probably threw them in the trash last night. I reassured both patent and wide that we spoke to staff who cared for the patient overnight and they did not note a cell phone or lower dentures. EVS, dietary and linen notified first thing this morning to please check their areas as well. Patient and verbalized understanding.
--- NOTE | 2022-09-28 11:44 | PCM.TXEXTCAR ---
Diet Diet Order/Speech Therapy: 09/27/22 13:36 Diet: Consistent Carb - Calorie Controlled Food consistency:: Regular Liquid Consistency:: Regular/Thin Dietary Modifications:: No Added Salt Is pt able to select menu?: No How many daily calories?: 1800 calorie Routine Orders/Code Status Suppository Type: Dulcolax 10mg Suppository Frequency: Daily PRN Code Status: DNRCC-A (No intubation.) Wound(s) Left knee: Wound Type: Abrasion Therapies Weight Bearing: Weight bearing as tolerated Extremity Affected:: Bilateral Lower Physical Therapy: Eval and Treat Occupational Therapy: Eval and Treat Speech Therapy: Eval and Treat Problem/Diagnosis (1) Chronic hyponatremia: Status: Chronic Code(s): E87.1 - Hypo-osmolality and hyponatremia (2) Falls frequently: Status: Acute Code(s): R29.6 - Repeated falls (3) Acute hypokalemia: Status: Acute Code(s): E87.6 - Hypokalemia (4) Adult failure to thrive: Status: Acute Code(s): R62.7 - Adult failure to thrive Plan This is 72-year-old male was brought by EMS for recurrent fall mainly due to imbalance and distal cream progressively got worse for last 2 weeks. Patient has been falling frequently for last 6 months. 1. Subacute severe chronic isovolemic hyponatremia: Patient is being admitted to PCU on telemetry. Serum sodium is 120 but it seems not acute as patient is not symptomatic like seizure, altered mental status/confusion/encephalopathy. Patient might have SIADH as he is on multiple SSRIs and antipsychotic medications. Continue IV fluid normal saline with 40 M EQ KCl at 100 mL/h. Monitor BMP every 4 hours. Patient on sodium tablets at home. Merchandise Flow Team Leader is consulted. 09/27: Sodium increased to 126. TSH normal. Urine osmolality 306, random sodium 47. Patient on diuretic therefore urine sodium and osmolality cannot be accurate. HCTZ on hold. Continue sodium. Fluid restriction. 2. Acute hypokalemia: Previously,potassium was normal. Currently K3.1. Serum mag and phosphorus ordered. Potassium replacement. 09/27: Potassium is 3.7. Continue potassium replacement 40 M EQ daily. 3. Worsening recurrent fall, adult failure to thrive most likely related to musculoskeletal weakness from previous stroke: PT and OT ordered. Hyponatremia might have contributed to worsening of fall. 09/27: PT and OT evaluation might need SNF placement depending on PT assessment 4. History of CVA/right severe carotid stenosis status post right carotid endarterectomy.? Continue aspirin, statin. 5. Hypertension-stable, continue ramipril.? Chlorthalidone discontinued. 6. Hyperlipidemia-continue statin. 7. Type 2 diabetes mellitus-continue oral regimen.? Accu-Cheks with sliding scale insulin. 09/27: Glucose is between 1 40-1 69. Glimepiride dose increased to 2 mg daily. 8. Depression/anxiety-on citalopram and escitalopram and mirtazapine. Hold escitalopram. 9. Gout-no longer on allopurinol. VTE prophylaxis, High risk due to stroke and carotid stenosis.: On Lovenox 40 subcu daily Living will/advanced directive/end of life care: Patient does have living will or advanced directive. His is power of state's attorney for health. After discussion of benefits/risks procedures involved with full code, DNR CC arrest and DNR CC, the patient do not want intubation or ventilator or CPR. He opted for DNRCC arrest. He is okay with Ventimask or BiPAP Patient doesn't want artificial life support including intubation, tube feed, ventilator and/chest compression, central venous catheter, vasopressor and DC shock if needed Allergies/Procedures Done in Hospital Allergies No Known Allergies Allergy (Verified 09/26/22 08:40) Type of Care/Length of Stay Estimated LOS: Convalescent Care Less Than 30 days Type of Care Needed: Skilled Rehab Potential: Good Prognosis: Good Additional Orders/Day of Discharge Day of Discharge: 09/28/22 Dietary and Speech Recommendations Dietitian Recommendations/Changes: 1800 calorie controlled, no added salt diet; fluid restriction as indicated Discharge Plan Admission Admit Date/Time: 09/26/22 10:23 Primary Reason for Your Visit: Subacute severe hyponatremia. Recurrent fall Attending Provider: Seth Hough Primary Care Provider: Akash Agosto Consulting Providers: Jose Abdalla Discharge Orders/Prescriptions Prescriptions: New metoprolol succinate 50 mg Tablet Extended Release 24 Hr 25 mg PO DAILY Qty: 0 0RF Rx Instructions: Hold for heart less than 60 or systolic blood pressure less than 100 mmHg. sennosides-docusate sodium [Stool Softener-Stimulant Laxat] 8.6-50 mg Tablet 2 tab PO BID Qty: 0 0RF glimepiride 2 mg Tablet 2 mg PO BREAKFAST Qty: 0 0RF Rx Instructions: Hold if glucose less than 120 mg/dl Continued pioglitazone 15 MG tablet 15 mg PO DAILY metformin 1,000 MG tablet 1,000 mg PO BID ramipril 10 MG capsule 10 mg PO DAILY atorvastatin 40 MG tablet 40 mg PO DAILY sodium chloride 1,000 mg tablet,soluble 1 g PO BID desoximetasone 0.05 % cream 1 applic TOPICAL BID PRN (Reason: DRY SKIN ON FACE) allopurinol 100 mg tablet 100 mg PO DAILY citalopram 20 mg tablet 20 mg PO DAILY mirtazapine 30 mg tablet 30 mg PO DAILY escitalopram oxalate 5 mg tablet 15 mg PO DAILY acetaminophen 500 mg tablet 1,000 mg PO Q6H PRN (Reason: Pain) aspirin 325 mg tablet,delayed release (DR/EC) 325 mg PO DAILY PRN (Reason: Pain) Discontinued glimepiride 1 MG tablet 1 mg PO DAILY metoprolol succinate 50 mg tablet extended release 24 hr 50 mg PO DAILY chlorthalidone 25 mg tablet 25 mg PO DAILY Referrals / Follow Up: Akash Agosto MD [Primary Care Provider] - Jose Abdalla MD [Med Staff - Consulting] - Within 1 Month (For hyponatremia.) Disposition Disposition (needs filled in before D/C Order can be placed): Intermediate Facility
--- NOTE | 2022-09-28 12:07 | PCA ---
Assisted to find patients cell phone at this time, Phone found shimmied in patients bed by the motor. thanked this OIL BURNER REPAIRER, phone returned to patient.
[2022-09-28 12:10] LABS: Bedside Glucose 132 mg/dL (74-106)
--- NOTE | 2022-09-28 12:23 | CASEMGMT ---
DARRELL let patient know [facility] can take him at discharge. Plan: [facility] Marti DELACRUZ
--- NOTE | 2022-09-28 12:50 | PCM.DC.SUM ---
Providers Date of Admission: 09/26/22 Date of Discharge: 09/28/22 Primary Care Physician: Dr. Akash Agosto MD Consultations 09/26/22 12:16 Consult: Nephrology Routine Consulting Provider: Jose Abdalla Reason for Consult: severe hyponatemia EMERGENT Consult: No MD Notified: Yes Date Notified: 09/26/22 Time Notified: 10:34 Method of Notification: Verbal Reason For Visit: HYPONATREMIA Diagnosis Discharge Diagnosis (1) Chronic hyponatremia: Status: Chronic Code(s): E87.1 - Hypo-osmolality and hyponatremia (2) Falls frequently: Status: Acute Code(s): R29.6 - Repeated falls (3) Acute hypokalemia: Status: Acute Code(s): E87.6 - Hypokalemia (4) Adult failure to thrive: Status: Acute Code(s): R62.7 - Adult failure to thrive Plan This is 72-year-old male was brought by EMS for recurrent fall mainly due to imbalance and distal cream progressively got worse for last 2 weeks. Patient has been falling frequently for last 6 months. 1. Subacute severe chronic isovolemic hyponatremia: Patient is being admitted to PCU on telemetry. Serum sodium is 120 but it seems not acute as patient is not symptomatic like seizure, altered mental status/confusion/encephalopathy. Patient might have SIADH as he is on multiple SSRIs and antipsychotic medications. Continue IV fluid normal saline with 40 M EQ KCl at 100 mL/h. Monitor BMP every 4 hours. Patient on sodium tablets at home. Furnace Fitter is consulted. 09/27: Sodium increased to 126. TSH normal. Urine osmolality 306, random sodium 47. Patient on diuretic therefore urine sodium and osmolality cannot be accurate. HCTZ on hold. Continue sodium. Fluid restriction. 09/28: Patient on fluid restriction, 1.5 L. Serum sodium improved to 129. Hypokalemia resolved. Chlorthalidone discontinued. Continue sodium tablet. 2. Acute hypokalemia: Previously,potassium was normal. Currently K3.1. Serum mag and phosphorus ordered. Potassium replacement. 09/27: Potassium is 3.7. Continue potassium replacement 40 M EQ daily. 09/28 hypokalemia resolved. 3. Worsening recurrent fall, adult failure to thrive most likely related to musculoskeletal weakness from previous stroke: PT and OT ordered. Hyponatremia might have contributed to worsening of fall. 09/27: PT and OT evaluation might need SNF placement depending on PT assessment 4. History of CVA/right severe carotid stenosis status post right carotid endarterectomy.? Continue aspirin, statin. 5. Hypertension-stable, continue ramipril.? Chlorthalidone discontinued. 6. Hyperlipidemia-continue statin. 7. Type 2 diabetes mellitus-continue oral regimen.? Accu-Cheks with sliding scale insulin. 09/27: Glucose is between 1 40-1 69. Glimepiride dose increased to 2 mg daily. 8. Depression/anxiety-on citalopram and escitalopram and mirtazapine. Hold escitalopram. 9. Gout-no longer on allopurinol. VTE prophylaxis, High risk due to stroke and carotid stenosis.: On Lovenox 40 subcu daily Patient is being discharged to SNF. Discharge medication reconciliation done. Discharge follow-up instructions completed. Discharge process discussed with the patient and all questions were answered to patient's satisfaction. Total time spent, exact 35 minutes on discharge meds reconciliation, examination, coordination of care with nurses and ancillary staff, review of imaging and blood test and discussion with the patient on follow-up instructions. Living will/advanced directive/end of life care: Patient does have living will or advanced directive. His is power of patent prosecution attorney for health. After discussion of benefits/risks procedures involved with full code, DNR CC arrest and DNR CC, the patient do not want intubation or ventilator or CPR. He opted for DNRCC arrest. He is okay with Ventimask or BiPAP Patient doesn't want artificial life support including intubation, tube feed, ventilator and/chest compression, central venous catheter, vasopressor and DC shock if needed Medications at Discharge Home Medications metformin 1,000 mg tablet 1,000 mg PO BID diabetes 12/18/19 pioglitazone 15 mg tablet 15 mg PO DAILY diabetes 12/18/19 ramipril 10 mg capsule 10 mg PO DAILY blood pressure 12/18/19 atorvastatin 40 mg tablet 40 mg PO DAILY Cholesterol 10/13/21 sodium chloride 1,000 mg soluble tablet 1 g PO BID Low sodium 11/14/21 acetaminophen 500 mg tablet 1,000 mg PO Q6H PRN Pain 09/26/22 allopurinol 100 mg tablet 100 mg PO DAILY GOUT 09/26/22 aspirin 325 mg tablet,delayed release 325 mg PO DAILY PRN Pain 09/26/22 citalopram 20 mg tablet 20 mg PO DAILY DEPRESSION 09/26/22 desoximetasone 0.05 % topical cream 1 applic topical BID PRN DRY SKIN ON FACE 09/26/22 escitalopram oxalate 5 mg tablet 15 mg PO DAILY DEPRESSION 09/26/22 mirtazapine 30 mg tablet 30 mg PO DAILY DEPRESSION 09/26/22 glimepiride 2 mg tablet 2 mg PO BREAKFAST #0 tabs 09/28/22 metoprolol succinate 50 mg tablet,extended release 24 hr 25 mg PO DAILY #0 tabs 09/28/22 sennosides 8.6 mg-docusate sodium 50 mg tablet (Stool Softener-Stimulant Laxative) 2 tab PO BID #0 tabs 09/28/22 Physical Exam Narrative Seen and examined on the day of discharge. General: Alert, Oriented x3, Cooperative HEENT: Atraumatic, PERRLA, EOMI, Normocephalic Oral: Dizziness. Oral mucosa moist. No Gingival or Mucosal Lesions/ Ulcerations Neck: Supple, No JVD, Negative Carotid Bruits. Right CEA scar Lungs: Air entry diminished in bilateral lung bases. No crepitation/rhonchi Cardiovascular: Regular rate, Regular Rhythm, Normal S1, Normal S2, No murmurs Abdomen: Bowel Sounds Present, Soft, Non Tender, Non-Distended : No renal angle tenderness. No suprapubic tenderness. Extremities: No edema, Capillary Refill Less than 3 Seconds Skin: Bruise over knee, abrasion since admission. On left knee no active bleeding or deep laceration. Musculoskeletal: ROM limited of LUE and bilateral LEs. Muscle strength 4/5 at both lower EXTR. No Tenderness to Palpation of Joints or Extremities Neurological: Cranial nerves II-XII grossly intact, DTR 2+/4. Left-sided weakness WITH contracture LUE Psych/Mental Status: Flat affect Weight / BMI Weight Weight: 196 lb 10.437 oz Body Mass Index (BMI) 29.1 ABG / Lab / Microbiology Data Result Diagrams: 09/27/22 03:56 09/28/22 05:59 Laboratory: Laboratory Results - last 24 hr 09/27/22 15:57: POC Glucose 84 09/27/22 21:14: POC Glucose 120 H 09/28/22 05:59: Sodium 129 L, Potassium 3.8, Chloride 95 L, Carbon Dioxide 26.0, Anion Gap 8, BUN 14, Creatinine 0.92, Estim Creat Clear Calc 73.84, Est GFR (MDRD) Af Amer 104, Est GFR (MDRD) Non-Af 86, BUN/Creatinine Ratio 15.3, Glucose 115 H, Calcium 8.9 09/28/22 06:29: POC Glucose 124 H 09/28/22 10:56: POC Glucose 132 H Microbiology: Microbiology 09/28/22 11:35 Nasal Secretion SARS-CoV-2 Antigen (Rapid) - Final Meaningful Use Info Meaningful Use Diagnoses (Choose all that apply): None applicable Discharge Plan Admission Admit Date/Time: 09/26/22 10:23 Primary Reason for Your Visit: Subacute severe hyponatremia. Recurrent fall Attending Provider: Seth Hough Primary Care Provider: Akash Agosto Consulting Providers: Jose Abdalla Instructions Additional Instructions / Restrictions: Fluid restriction 1.5 L daily. Discharge Orders/Prescriptions Prescriptions: New metoprolol succinate 50 mg Tablet Extended Release 24 Hr 25 mg PO DAILY Qty: 0 0RF Rx Instructions: Hold for heart less than 60 or systolic blood pressure less than 100 mmHg. sennosides-docusate sodium [Stool Softener-Stimulant Laxat] 8.6-50 mg Tablet 2 tab PO BID Qty: 0 0RF glimepiride 2 mg Tablet 2 mg PO BREAKFAST Qty: 0 0RF Rx Instructions: Hold if glucose less than 120 mg/dl Continued pioglitazone 15 MG tablet 15 mg PO DAILY metformin 1,000 MG tablet 1,000 mg PO BID ramipril 10 MG capsule 10 mg PO DAILY atorvastatin 40 MG tablet 40 mg PO DAILY sodium chloride 1,000 mg tablet,soluble 1 g PO BID desoximetasone 0.05 % cream 1 applic TOPICAL BID PRN (Reason: DRY SKIN ON FACE) allopurinol 100 mg tablet 100 mg PO DAILY citalopram 20 mg tablet 20 mg PO DAILY mirtazapine 30 mg tablet 30 mg PO DAILY escitalopram oxalate 5 mg tablet 15 mg PO DAILY acetaminophen 500 mg tablet 1,000 mg PO Q6H PRN (Reason: Pain) aspirin 325 mg tablet,delayed release (DR/EC) 325 mg PO DAILY PRN (Reason: Pain) Discontinued glimepiride 1 MG tablet 1 mg PO DAILY metoprolol succinate 50 mg tablet extended release 24 hr 50 mg PO DAILY chlorthalidone 25 mg tablet 25 mg PO DAILY Referrals / Follow Up: Akash Agosto MD [Primary Care Provider] - Jose Abdalla MD [Med Staff - Consulting] - Within 1 Month (For hyponatremia.) Disposition Disposition (needs filled in before D/C Order can be placed): [facility] Charges/Coding Visit Charges Inpatient E&M: 09662 Disch Hosp
--- NOTE | 2022-09-28 13:01 | NURSING ---
Called report to Michaela on TCU
--- NOTE | 2022-09-28 13:03 | CASEMGMT ---
Patient was approved to go to [facility]. SW notified physician and RN. Patient will be discharged today. Plan: d/c to [facility] under skilled level of care. Marti DELACRUZ
[2022-09-28 13:12] VITALS: BP 137/89; PULSE 56; RESP 16; TEMP 36.7; O2SAT 99
--- NOTE | 2022-09-28 13:21 | PCM.PN.REN ---
Subjective Subjective No new events Objective Data Objective Data Vital Signs: Vital Signs Temp Pulse Resp BP Pulse Ox O2 Del Method 98.1 F 56 L 16 137/89 H 99 Room Air 09/28/22 13:12 09/28/22 13:12 09/28/22 13:12 09/28/22 13:12 09/28/22 13:12 09/28/22 13:12 Oxygen Delivery Method Room Air Weight: 89.2 kg Body Mass Index (BMI) 29.1 Intake & Output: Intake and Output for Last 24 Hours 09/26/22 09/27/22 09/28/22 23:59 23:59 23:59 Intake Total 2042.5 / 204.5 2040 / 2040 350 / 350 Output Total 300 / 750 1000 / 1000 Balance 2041. / 2041. 1740 / 1290 -650 / -650 Lab / Micro Data Result Diagrams: 09/27/22 03:56 09/28/22 05:59 Labs: Laboratory Results - last 24 hr 09/27/22 15:57: POC Glucose 84 09/27/22 21:14: POC Glucose 120 H 09/28/22 05:59: Sodium 129 L, Potassium 3.8, Chloride 95 L, Carbon Dioxide 26.0, Anion Gap 8, BUN 14, Creatinine 0.92, Estim Creat Clear Calc 73.84, Est GFR (MDRD) Af Amer 104, Est GFR (MDRD) Non-Af 86, BUN/Creatinine Ratio 15.3, Glucose 115 H, Calcium 8.9 09/28/22 06:29: POC Glucose 124 H 09/28/22 10:56: POC Glucose 132 H Micro: Microbiology 09/28/22 11:35 Nasal Secretion SARS-CoV-2 Antigen (Rapid) - Final Physical Exam Narrative Alert awake oriented x 3 no obvious distress s1s2 no murmurs lungs clear abdomen soft no edema Assessment & Plan Assessment/Plan (1) Acute hyponatremia: PLAN: Acute on chronic hyponatremia. It seems sodium usually runs in the 130s with noted hyponatremia over past 2 years. Patient is euvolemic. Patient was on salt tablets before hospital admission. Previous urine osmolality was 144. Previous serum Osmo 260s in December/October 2021. Most likely polydipsia. He says he does drink a lot of water to keep himself hydrated. Fluid restriction added in hospital. Importance of following fluid restriction when at home was reviewed with patient today, questions were answered. Off thiazide. Continue salt tablets 1gm BID. Sodium 120 yesterday, today sodium 126. Urine Osmo 306, random urine sodium 47. TSH normal. dc today. Hold HCTZ at [place]
== END 2022-09-28 13:30 | DRG 641 ==
LOC: ED 10:41 → PCU 11:10
PROVIDERS: Internal Medicine Nephrology; Nurse Practitioner Adult Health; Admitting Provider Internal Medicine; Emergency Provider Emergency Medicine; PCP Family Medicine; Visit Provider Internal Medicine
DX: E87.1 Hypo-osmolality and hyponatremia (principal); I69.359 Hemiplegia and hemiparesis following cerebral infarction affecting unspecified side; E11.9 Type 2 diabetes mellitus without complications; E87.6 Hypokalemia; E78.5 Hyperlipidemia, unspecified; I10 Essential (primary) hypertension; M10.9 Gout, unspecified; R62.7 Adult failure to thrive; Z79.84 Long term (current) use of oral hypoglycemic drugs; Z66 Do not resuscitate; Z87.891 Personal history of nicotine dependence; Z79.82 Long term (current) use of aspirin; F32.A Depression, unspecified; Z79.899 Other long term (current) drug therapy
CPT/HCPCS: 36415; 80048; 81001; 82962; 83735; 83935; 84100; 84300; 84443; 84484; 85025; 87426; 93005; 97162; 97166; 99285; J7030; A4216

== ENCOUNTER 2022-09-28 13:49 | Inpatient (IN) | payer MEDICARE, SELFPAY ==
[2022-09-28 14:54] VITALS: BMI 27.8
[2022-09-28 15:04] VITALS: BP 121/87; PULSE 55; RESP 17; TEMP 36; O2SAT 98
--- NOTE | 2022-09-28 16:55 | CASEMGMT ---
Social Work Met with patient to complete initial assessment. Pt known to this worker from previous stay. No changes to prior assessment. Discussed code status and MOLST. Pt wishes to be DNR-CC. MOLST placed in Dr folder. Educated to [facility] insurance and continued stay is not guaranteed with each review. Pt reports to having multiple falls and pt and have decided to move into an AL. However, that process has not started yet. Pt states the house is ready to sell, my just needs someplace to go. SW provided list of ALs and offered to assist with referrals. Inquired about finances. Pt states he has applied for Medicaid three times and have been denied. Pt plans to use their monthly income and the sale of their house to pay for AL until the money runs out. SW to speak in further detail on AL placement once is present, per pt request. SW will continue to follow for DC planning. Harmony Villar, [employer]
[2022-09-28] MEDS: Sodium Chloride 1 GM Tablet PO (17:06)
[2022-09-28] MEDS: metFORMIN HCl 1,000 MG Tablet 1000 MG PO (17:06)
[2022-09-28] MEDS: Senna/Docusate Sodium 1 Tablet 2 TABLET PO (17:06)
[2022-09-28 17:15] LABS: Bedside Glucose 86 mg/dL (74-106)
[2022-09-28] MEDS: MELATONIN 3 MG TABLET PO (20:33)
[2022-09-28] MEDS: Mirtazapine 30 MG Tablet PO (20:33)
[2022-09-28] MEDS: Atorvastatin Calcium 40 MG Tablet PO (20:33)
[2022-09-28 20:40] VITALS: O2SAT 94
--- NOTE | 2022-09-29 01:42 | NURSING ---
At HS, patient requested melatonin to help him sleep. States he takes it at home. Dr. Roque notified. New order for melatonin added.
[2022-09-29 06:26] LABS: Bedside Glucose 131 mg/dL (74-106)
[2022-09-29 06:32] VITALS: BP 145/87; PULSE 51
[2022-09-29] MEDS: Allopurinol 100 MG Tablet PO (06:32)
[2022-09-29] MEDS: Metoprolol(XL)Succ 50 MG Tablet 25 MG PO (06:32)
[2022-09-29] MEDS: Ramipril 10 MG Capsule PO (06:33)
[2022-09-29] MEDS: Citalopram 20 MG Tablet PO (06:33)
[2022-09-29] MEDS: Pioglitazone Hydrochloride 15 MG Tablet PO (06:33)
[2022-09-29] MEDS: Escitalopram Oxalate 10 MG Tablet 15 MG PO (06:34)
[2022-09-29] MEDS: Senna/Docusate Sodium 1 Tablet 2 TABLET PO ×2 (06:34→17:47)
[2022-09-29] MEDS: Sodium Chloride 1 GM Tablet PO ×2 (06:35→17:47)
[2022-09-29] MEDS: Menthol/Lanolin/Calamine/Znox 113 GM Tube 1 APPLIC TOPICAL ×2 (06:35→17:47)
[2022-09-29] MEDS: Nystatin Powder 15gm Bottle 1 APPLIC TOPICAL ×2 (06:35→17:50)
[2022-09-29 06:44] LABS: Absolute Lymphocyte Count 1.58 X10^3/uL (0.83-4.51); Absolute Neutrophil Count 3.3 X10^3/uL (2.0-7.7); Basophil# 0.07 X10^3/uL; Basophil% 1.2 % (0-1); Eosinophil# 0.16 X10^3/uL; Eosinophils% 2.7 % (0-5); Hematocrit 43.1 % (40-54); Hemoglobin 14.7 g/dL (13.0-16.5); Lymphocyte # 1.58 X10^3/ul (0.83-4.51); Lymphocyte % 26.9 % (19-41); Mean Corp Hgb Conc 34.1 g/dL (32-36); Mean Corpuscular Hgb 28.7 pg (27.0-32.0); Mean Platelet Vol. 8.4 fl (6.2-12.0); Monocyte# 0.64 X10^3/uL; Monocyte% 10.9 % (0-10); NRBC Flagged by Analyzer 0 % (0-5); Neutrophil # 3.27 X10^3/uL (2.7-7.7); Neutrophil % 55.6 % (47-70); Platelet Count 229 K/mm3 (150-450); RBC Distribution Width CV 12.6 % (11.6-14.6); RBC Distribution Width SD 38.2 fl (35.1-43.9); Red Blood Count 5.13 M/mm3 (4.6-6.2); White Blood Count 5.9 K/mm3 (4.4-11.0)
[2022-09-29 07:02] LABS: Anion Gap 7 (5-15); BUN 18 mg/dL (7-18); BUN/Creat Ratio 17.1 RATIO (10-20); Calcium,Total 8.9 mg/dL (8.5-10.1); Chloride 94 mmol/L (98-107); Creatinine, Serum 1.05 mg/dL (0.70-1.30); EST Glomerular Filtration Rate 74 mL/min (>60); Est Glom Filt Rate - Afr Amer 89 mL/min (>60); Glucose 124 mg/dL (74-106); Potassium 3.5 mmol/L (3.5-5.1); Sodium Level 129 mmol/L (136-145)
[2022-09-29] MEDS: Glimepiride 2 MG Tablet PO (07:50)
[2022-09-29] MEDS: metFORMIN HCl 1,000 MG Tablet 1000 MG PO (07:51)
[2022-09-29] MEDS: Tuberculin,Purif.prot.deriv. 50 TU/ML Vial 0.1 ML ID (10:00)
--- NOTE | 2022-09-29 13:17 | PCM.HP.STD ---
HPI - General General Date of Admission: 09/28/22 Date of Service: 09/29/22 Chief Complaint: Debility. HPI Narrative PAYAM HAMM, is a 72-year-old M with a past medical history of chronic hyponatremia secondary to SIADH, history of CVA, depression, diabetes mellitus type 2, hypertension, gout, hyperlipidemia, chronic noncompliance with fluid restriction, history of prostate cancer, left hemiparesis and generalized weakness who presented to the emergency department at [facility] on 09/26/2022 with complaint of falls at home. Apparently EMS had been going to his house at least twice a day for the preceding 2 weeks for recurrent falls. Sodium in the emergency room was 120 with a potassium of 3.1. He was ordered salt tablets and fluid restriction at home however he is not compliant with fluid restriction. He is taking citalopram, escitalopram and mirtazapine putting him at significantly increased risk for SIADH/hyponatremia and also for serotonin S. He takes Chlorthalidone for HTN. He is also on Ramipril and this is also known to cause hyponatremia. He was admitted to the hospitalist service for subacute severe chronic isovolemic hyponatremia. He was started on IV normal saline and potassium was supplemented. Nephrology was consulted. Nephrology discontinued normal saline and placed the place and on fluid restriction. Salt tablets were continued. The sodium gradually increased and has been stable at 129 for the past 2 days. The BUN is 18 and the creatinine is 1.05. He was transferred to TCU on 09/28/22 for therapy prior to returning home to improve gait stability. Mr Hamm has no complaints today. Afebrile Vital signs stable with good blood pressure control Maintaining appropriate oxygen saturation on room air INR today is 2. Blood sugar record was reviewed. Blood sugars are a little on the low side for this pt. He was 634 at lunch today. Medication list was reviewed. Hypoglycemic agents include Amaryl 2 mg with breakfast, Actos 15 mg daily and metformin 1000 mg p.o. twice daily. No insulin. [facility] Medical History (Updated 10/01/22 @ 16:[address] Letitia Roque DO) Carotid artery stenosis CVA (cerebral vascular accident) (09/25/21) Debility Depression DM2 (diabetes mellitus, type 2) Essential hypertension Frequent falls Gout Hyperlipidemia Hyponatremia Inability to ambulate due to multiple joints Left hemiparesis Left-sided muscle weakness Prostate cancer Stenosis of right carotid artery Weakness Home Medications metformin 1,000 mg tablet 1,000 mg PO BID diabetes 12/18/19 [History Last Taken 09/26/22] pioglitazone 15 mg tablet 15 mg PO DAILY diabetes 12/18/19 [History Last Taken 09/24/22] ramipril 10 mg capsule 10 mg PO DAILY blood pressure 12/18/19 [History Last Taken 09/26/22] atorvastatin 40 mg tablet 40 mg PO DAILY Cholesterol 10/13/21 [History Last Taken 11/02/21] sodium chloride 1,000 mg soluble tablet 1 g PO BID Low sodium 11/14/21 [History Last Taken 09/26/22] acetaminophen 500 mg tablet 1,000 mg PO Q6H PRN Pain 09/26/22 [History Last Taken Unknown] allopurinol 100 mg tablet 100 mg PO DAILY GOUT 09/26/22 [History Last Taken Unknown] aspirin 325 mg tablet,delayed release 325 mg PO DAILY PRN Pain 09/26/22 [History Last Taken Unknown] citalopram 20 mg tablet 20 mg PO DAILY DEPRESSION 09/26/22 [History Last Taken Unknown] desoximetasone 0.05 % topical cream 1 applic topical BID PRN DRY SKIN ON FACE 09/26/22 [History Last Taken 09/23/22] escitalopram oxalate 5 mg tablet 15 mg PO DAILY DEPRESSION 09/26/22 [History Last Taken 09/26/22] mirtazapine 30 mg tablet 30 mg PO DAILY DEPRESSION 09/26/22 [History Last Taken Unknown] glimepiride 2 mg tablet 2 mg PO BREAKFAST blood sugar 09/28/22 [History Last Taken Unknown] metoprolol succinate 50 mg tablet,extended release 24 hr 25 mg PO DAILY BP/pulse 09/28/22 [History Last Taken Unknown] sennosides 8.6 mg-docusate sodium 50 mg tablet (Stool Softener-Stimulant Laxative) 2 tab PO BID stool softener 09/28/22 [History Last Taken Unknown] Allergy/AdvReac Type Severity Reaction Status Date / Time No Known Allergies Allergy Verified 09/26/22 08:40 Family History Mother CVA (cerebral vascular accident) Several recurrent strokes, eventually passed age 84. Surgical History H/O foot surgery History of colon resection History of repair of right rotator cuff History of right-sided carotid endarterectomy (11/06/21) History of tonsillectomy and adenoidectomy Social History household members: spouse Smoking Status: Former smoker how long ago did patient quit smoking: Smoked age [age], 1 ppd until quit. Does have 2nd hand exposure from . alcohol intake: current alcohol intake frequency: holidays/special occasions only substance use type: does not use ROS Review of Systems ROS Unobtainable: Denies due to encephalopathy, due to endotracheal tube, due to mental condition or due to mental status Constitutional Constitutional: Reports weakness; Denies anorexia, change in weight, chills, fatigue, fever(s) or night sweats Eyes Eyes: Denies blurry vision, change in vision, eye pain or loss of vision ENT HEENT: Denies abnormal hearing, dysphagia, headache(s), hearing loss, nasal congestion or sore throat Cardiovascular Cardiovascular: Denies chest pain, dyspnea on exertion, edema, lightheadedness, orthopnea, palpitations, paroxysmal nocturnal dyspnea or syncope Respiratory/Chest Respiratory/Chest: Reports shortness of breath with exertion; Denies cough, dyspnea, shortness of breath at rest or wheezing Gastrointestinal Gastrointestinal: Denies abdominal pain, constipation, diarrhea, dyspepsia, hematemesis, hematochezia, nausea or vomiting Genitourinary Genitourinary: Denies dysuria, hematuria, nocturia, urinary frequency, urinary hesitancy, urinary incontinence or urinary urgency Musculoskeletal Musculoskeletal: Denies back pain, joint pain, joint swelling or neck pain Neurologic Neurologic: Reports disequilibrium and focal weakness; Denies confusion, dizziness, headache(s), paresthesias, seizures or tremor(s) Psychiatric Psychiatric: Reports depression; Denies anxiety, homicidal ideation or suicidal ideation Endocrine Endocrinology: Denies change in body appearance, polydipsia or polyuria Hematologic/Lymphatic Hematologic/Lymphatic: Denies easy bleeding, easy bruising or lymphadenopathy Allergic/Immunologic Allergic/Immunologic: Denies rhinitis, eczemia or asthma Vital Signs Vital Signs Vital Signs: 09/28/22 15:04 09/28/22 20:40 09/29/22 06:32 Temperature 96.8 F L Temperature Source Temporal Pulse Rate 55 L 51 L Pulse Rhythm Regular Pulse Strength Normal (2+) Respiratory Rate 17 Respiratory Effort Normal Non-Labored Respiratory Depth Normal Respiratory Pattern Normal Blood Pressure 121/87 H 145/87 H Blood Pressure Mean 98 Blood Pressure Source Manual Blood Pressure Position Semi-Fowlers Blood Pressure Location Left Arm Pulse Ox 98 94 Oxygen Delivery Method Room Air Room Air 09/29/22 09:01 Temperature Temperature Source Pulse Rate Pulse Rhythm Regular Pulse Strength Normal (2+) Respiratory Rate Respiratory Effort Normal Non-Labored Respiratory Depth Normal Respiratory Pattern Normal Blood Pressure Blood Pressure Mean Blood Pressure Source Blood Pressure Position Blood Pressure Location Pulse Ox Oxygen Delivery Method Room Air Weight Weight: 193 lb 14.4 oz Body Mass Index (BMI) 27.8 Physical Exam Const alert, oriented x3 and no apparent distress Constitutional Narrative: He is oriented to place, month, year, day and his age. He is appropriate. He is also pleasant and cooperative. He appears in no acute distress. General Appearance: cooperative HEENT normocephalic and head/scalp atraumatic HEENT Narrative: Pupils are reactive to light and extraocular muscles are intact. There is no scleral icterus and no conjunctival injection. There is no mattering of the eyelids/eyelashes. No discharge from the eyes. Denies visual changes. Eyes PERRL and EOMs intact bilaterally Neck supple and no JVD Chest Chest: symmetrical chest wall rise Resp clear to auscultation bilaterally Resp Narrative: diminished throughout with poor inspiratory effort. No rales and no wheezes. Conversational dyspnea. Not tachypneic. Cardio regular rate, regular rhythm, S1 normal heart sound, S2 normal heart sound, no murmurs, no rub and no gallops Cardio Narrative: No ectopy GI normal to inspection, nondistended, normoactive bowel sounds, soft to palpation and non-tender GI Narrative: No guarding with palpation Extremity no calf tenderness and no pedal edema Skin General Skin Exam: no breakdown Rashes: no rashes Neuro CN's II-XII intact bilaterally Neuro Narrative: Weak in both lower extremities and left upper extremity. Has contracture of the left upper extremity due to disuse. Results Lab / Micro Data Result Diagrams: 09/29/22 06:34 09/29/22 06:34 Labs: Laboratory Results - last 24 hr 09/28/22 16:57: POC Glucose 86 09/29/22 05:57: POC Glucose 131 H 09/29/22 06:34: WBC 5.9, RBC 5.13, Hgb 14.7, Hct 43.1, MCV 84.0, MCH 28.7, MCHC 34.1, RDW Std Deviation 38.2, RDW Coeff of Cintia 12.6, Plt Count 229, MPV 8.4, Immature Gran % (Auto) 2.700 H, Neut % (Auto) 55.6, Lymph % (Auto) 26.9, [place] % (Auto) 10.9 H, Eos % (Auto) 2.7, Baso % (Auto) 1.2 H, Absolute Neuts (auto) 3.3, Absolute Lymphs (auto) 1.58, Nucleated RBC % 0 09/29/22 06:34: Sodium 129 L, Potassium 3.5, Chloride 94 L, Carbon Dioxide 28.0, Anion Gap 7, BUN 18, Creatinine 1.05, Estim Creat Clear Calc 64.70, Est GFR (MDRD) Af Amer 89, Est GFR (MDRD) Non-Af 74, BUN/Creatinine Ratio 17.1, Glucose 124 H, Calcium 8.9 Assessment & Plan Assessment/Plan (1) Debility: (2) Chronic hyponatremia: (3) Weakness: (4) Falls frequently: (5) Adult failure to thrive: (6) Diabetes mellitus: (7) Hypoglycemia: PLAN: Plan PLAN PT for gait stability OT for ADL's Analgesics as needed Bowel protocol Fall precautions Assess for Anxiety/Depression DVT prophylaxis with Lovenox 40 mg subcu daily Follow up with PCP and neurology following DC from IP Rehab AM lab personally reviewed. sodium is stable at 129. He is euvolemic Discussed with pharmacist. He is taking Lexapro and Celexa and Mirtazapine.......all have SSRI activity and all can cause hyponatremia. In addition he is on Ramipril which can decrease sodium. DC Lexapro. Decrease the Mirtazapine to 15 mg at HS. I recommend he see a psychiatrist to manage the psychiatric meds post DC to avoid adverse effects from inappropriate medication regimens. The current regimen puts him at risk of serotonin S. and it certainly contributes to chronic hyponatremia which leads to falls and hospital admissions. Charges/Coding Visit Charges Inpatient E&M: 06586 SNF Init L2
[2022-09-29 13:26] LABS: Bedside Glucose 64 mg/dL (74-106)
[2022-09-29 13:42] VITALS: BP 131/84; PULSE 58; RESP 16; TEMP 35.8; O2SAT 98
[2022-09-29 17:00] LABS: Bedside Glucose 75 mg/dL (74-106)
--- NOTE | 2022-09-29 17:53 | NURSING ---
Blood sugar before dinner 75. Glucophage held per RN
[2022-09-29] MEDS: Mirtazapine 30 MG Tablet PO (20:14)
[2022-09-29] MEDS: Atorvastatin Calcium 40 MG Tablet PO (20:14)
[2022-09-29] MEDS: MELATONIN 3 MG TABLET PO (20:15)
[2022-09-29 20:40] LABS: Bedside Glucose 125 mg/dL (74-106)
[2022-09-30] MEDS: Citalopram 20 MG Tablet PO (05:31)
[2022-09-30] MEDS: Escitalopram Oxalate 10 MG Tablet 15 MG PO (05:31)
[2022-09-30] MEDS: Senna/Docusate Sodium 1 Tablet 2 TABLET PO (05:31)
[2022-09-30 05:35] VITALS: BP 157/87; PULSE 68
[2022-09-30] MEDS: Metoprolol(XL)Succ 50 MG Tablet 25 MG PO (05:35)
[2022-09-30] MEDS: Nystatin Powder 15gm Bottle 1 APPLIC TOPICAL ×2 (05:36→17:26)
[2022-09-30] MEDS: Ramipril 10 MG Capsule PO (05:36)
[2022-09-30] MEDS: Menthol/Lanolin/Calamine/Znox 113 GM Tube 1 APPLIC TOPICAL ×2 (05:36→17:30)
[2022-09-30] MEDS: Sodium Chloride 1 GM Tablet PO ×2 (05:36→17:26)
[2022-09-30 06:41] LABS: Bedside Glucose 97 mg/dL (74-106)
[2022-09-30] MEDS: Glimepiride 2 MG Tablet PO (08:24)
[2022-09-30] MEDS: Allopurinol 100 MG Tablet PO (08:24)
[2022-09-30] MEDS: metFORMIN HCl 1,000 MG Tablet 1000 MG PO ×2 (08:24→17:26)
[2022-09-30] MEDS: Pioglitazone Hydrochloride 15 MG Tablet PO (08:24)
[2022-09-30 13:49] VITALS: BP 117/73; PULSE 54; RESP 16; TEMP 36.1; O2SAT 97
[2022-09-30] MEDS: Triamcinolone 0.5% Cream 1 APPLIC TOPICAL (17:24)
--- NOTE | 2022-09-30 18:28 | PCA ---
Per patient they received a shower earlier and did not wish to get cleaned up for bed tonight.
[2022-09-30] MEDS: Atorvastatin Calcium 40 MG Tablet PO (20:17)
[2022-09-30] MEDS: MELATONIN 3 MG TABLET PO (20:18)
[2022-09-30] MEDS: Mirtazapine 30 MG Tablet PO (20:18)
[2022-09-30 20:21] VITALS: O2SAT 96
[2022-10-01] MEDS: Escitalopram Oxalate 10 MG Tablet 15 MG PO (05:56)
[2022-10-01] MEDS: Citalopram 20 MG Tablet PO (05:57)
[2022-10-01] MEDS: Ramipril 10 MG Capsule PO (05:57)
[2022-10-01 05:58] VITALS: BP 163/89; PULSE 51
[2022-10-01] MEDS: Sodium Chloride 1 GM Tablet PO ×2 (05:58→17:29)
[2022-10-01] MEDS: Metoprolol(XL)Succ 50 MG Tablet 25 MG PO (05:58)
[2022-10-01] MEDS: Menthol/Lanolin/Calamine/Znox 113 GM Tube 1 APPLIC TOPICAL ×2 (05:59→17:28)
[2022-10-01] MEDS: Nystatin Powder 15gm Bottle 1 APPLIC TOPICAL ×2 (05:59→19:45)
[2022-10-01 06:26] LABS: Bedside Glucose 107 mg/dL (74-106)
[2022-10-01] MEDS: Glimepiride 2 MG Tablet PO (07:51)
[2022-10-01] MEDS: metFORMIN HCl 1,000 MG Tablet 1000 MG PO (07:51)
[2022-10-01] MEDS: Pioglitazone Hydrochloride 15 MG Tablet PO (07:52)
[2022-10-01] MEDS: Allopurinol 100 MG Tablet PO (07:52)
[2022-10-01 09:00] VITALS: PULSE 53; RESP 18; O2SAT 98
--- NOTE | 2022-10-01 12:07 | NURSING ---
[employer] Instructor Note; Activity Asset: Mai Gayle is independent in his choice of daily activities. William has stated at this time he is good w/tv and reading the newspaper if we have extra if not the chronicle is fine. He just mainly wants to focus on therapy and get back home.
--- NOTE | 2022-10-01 12:40 | NURSING ---
Addendum entered by Tio Shannon 10/01/22 14:43: BLOOD SUGAR 90,WILL CONTINUE TO MONITOR. Addendum entered by Tio Shannon 10/01/22 13:20: RECHECKED B.S,83. GAVE PEANUT BUTTER AND LALO DOONES. WILL CONTINUE TO MONITOR. Original Note: PT ASKED FOR NURSE AND STATED HE FELT HIS BLOOD SUGAR WAS LOW. THIS NURSE CHECKED BS AND IT WAS 63. OJ GIVEN. WILL CONTINUE TO MONITOR. RN AWARE.
[2022-10-01 12:55] LABS: Bedside Glucose 63 mg/dL (74-106)
[2022-10-01 13:35] LABS: Bedside Glucose 83 mg/dL (74-106)
[2022-10-01 13:53] VITALS: BP 125/77; PULSE 93; RESP 18; TEMP 35.8; O2SAT 93
[2022-10-01 14:36] LABS: Bedside Glucose 90 mg/dL (74-106)
[2022-10-01 17:05] LABS: Bedside Glucose 106 mg/dL (74-106)
[2022-10-01] MEDS: metFORMIN HCl 500 MG Tablet 750 MG PO (17:27)
[2022-10-01] MEDS: Mirtazapine 15 MG Tablet PO (19:43)
[2022-10-01] MEDS: MELATONIN 3 MG TABLET PO (19:44)
[2022-10-01] MEDS: Atorvastatin Calcium 40 MG Tablet PO (19:44)
[2022-10-02 05:06] VITALS: BP 154/76; PULSE 83
[2022-10-02] MEDS: Metoprolol(XL)Succ 50 MG Tablet 25 MG PO (05:06)
[2022-10-02] MEDS: Citalopram 20 MG Tablet PO (05:08)
[2022-10-02] MEDS: Ramipril 10 MG Capsule PO (05:08)
[2022-10-02] MEDS: Enoxaparin 40 MG/0.4 ML Syringe SC (05:09)
[2022-10-02] MEDS: Sodium Chloride 1 GM Tablet PO ×2 (05:09→17:05)
[2022-10-02] MEDS: Nystatin Powder 15gm Bottle 1 APPLIC TOPICAL ×2 (05:11→20:14)
[2022-10-02] MEDS: Menthol/Lanolin/Calamine/Znox 113 GM Tube 1 APPLIC TOPICAL ×2 (05:11→17:07)
[2022-10-02 06:40] LABS: Bedside Glucose 123 mg/dL (74-106)
[2022-10-02] MEDS: metFORMIN HCl 500 MG Tablet 750 MG PO ×2 (08:06→17:04)
[2022-10-02] MEDS: Allopurinol 100 MG Tablet PO (08:08)
[2022-10-02] MEDS: Glimepiride 2 MG Tablet PO (08:09)
[2022-10-02] MEDS: Pioglitazone Hydrochloride 15 MG Tablet PO (08:10)
[2022-10-02 10:00] VITALS: O2SAT 95
[2022-10-02] MEDS: Triamcinolone 0.5% Cream 1 APPLIC TOPICAL ×2 (11:25→17:00)
--- NOTE | 2022-10-02 12:27 | PHA.CONS_ITS ---
TCU RX Drug Regimen Review Subjective: TCU Admission. 72 YOM presented to the ER with falls. Hospitalized for hyponatremia secondary to SIADH. Admitted to TCU for strengthening and rehabilitation. Objective: Allergies No Known Allergies Allergy (Verified 09/26/22 08:40) Current Medications Generic Name Dose Route Start Last Admin Trade Name Freq PRN Reason Stop Dose Admin Acetaminophen 1,000 mg 09/28/22 14:06 Acetaminophen 500 Mg Tablet PO Q6H PRN Pain Allopurinol 100 mg 09/30/22 08:00 10/02/22 08:08 Allopurinol 100 Mg Tablet PO 100 mg DAILY@0800 EMILIE Administration Aspirin 325 mg 10/02/22 12:25 Aspirin E.C. 325 Mg Tablet PO DAILY PRN Pain Score 1-10 Atorvastatin Calcium 40 mg 09/28/22 22:00 10/01/22 19:44 Atorvastatin Calcium 40 Mg Tablet PO 40 mg QHS EMILIE Administration Bisacodyl 10 mg 09/28/22 14:11 Bisacodyl 10 Mg Suppository RC DAILY PRN CONSTIPATION Calamine/Phenol 1 applic 09/29/22 06:00 10/02/22 05:11 Menthol/Lanolin/Calamine/Znox 113 Gm Tube TOPICAL 1 applic BID EMILIE Administration Protocol Citalopram Hydrobromide 20 mg 09/29/22 06:00 10/02/22 05:08 Citalopram 20 Mg Tablet PO 20 mg DAILY EMILIE Administration Enoxaparin Sodium 40 mg 10/02/22 06:00 10/02/22 05:09 Enoxaparin 40 Mg/0.4 Ml Syringe SC 40 mg DAILY@0600 EMILIE Administration Glimepiride 2 mg 09/29/22 08:00 10/02/22 08:09 Glimepiride 2 Mg Tablet PO 2 mg BREAKFAST EMILIE Administration Melatonin 3 mg 09/28/22 22:00 10/01/22 19:44 Melatonin 3 Mg Tablet PO 3 mg QHS EMILIE Administration Metformin HCl 750 mg 10/01/22 17:00 10/02/22 08:06 Metformin Hcl 500 Mg Tablet PO 750 mg BIDCM EMILIE Administration Metoprolol Succinate 25 mg 09/29/22 06:00 10/02/22 05:06 Metoprolol(Xl)Succ 50 Mg Tablet PO 25 mg DAILY EMILIE Administration Mirtazapine 15 mg 10/01/22 22:00 10/01/22 19:43 Mirtazapine 15 Mg Tablet PO 15 mg QHS EMILIE Administration Nystatin 1 applic 09/29/22 06:00 10/02/22 05:11 Nystatin Powder 15gm Bottle TOPICAL 1 applic BID EMILIE Administration Protocol Pioglitazone HCl 15 mg 09/30/22 08:00 10/02/22 08:10 Pioglitazone Hydrochloride 15 Mg Tablet PO 15 mg DAILY@0800 EMILIE Administration Ramipril 10 mg 09/29/22 06:00 10/02/22 05:08 Ramipril 10 Mg Capsule PO 10 mg DAILY EMILIE Administration Senna/Docusate Sodium 2 tablet 09/28/22 18:00 10/02/22 05:09 Senna/Docusate Sodium 1 Tablet PO Not Given BID EMILIE Sodium Chloride 1 gm 09/28/22 18:00 10/02/22 05:09 Sodium Chloride 1 Gm Tablet PO 1 gm BID EMILIE Administration Triamcinolone Acetonide 1 applic 09/28/22 14:19 10/02/22 11:25 Triamcinolone 0.5% Cream TOPICAL 1 applic BID PRN Administration DRY SKIN ON FACE Tuberculin PPD 0.1 ml 10/06/22 10:00 Tuberculin,Purif.Prot.Deriv. 50 Tu/Ml Vial ID 10/06/22 10:01 X1 ONE Problem List (Last Updated 10/01/22 @ 15:[address] Letitia Roque, DO) Hypoglycemia (Acute) Chronic hyponatremia (Chronic) Weakness (Acute) Falls frequently (Acute) Adult failure to thrive (Acute) Diabetes mellitus (Chronic) Debility (Acute) Vital Signs Temp Pulse Resp BP Pulse Ox O2 Del Method 96.5 F L 83 18 154/76 H 93 Room Air 10/01/22 13:53 10/02/22 05:06 10/01/22 13:53 10/02/22 05:06 10/01/22 13:53 10/01/22 13:53 Oxygen Delivery Method Room Air Weight: 88.451 kg Body Mass Index (BMI) 27.8 Sodium 129 mmol/L (136-145) L 09/29/22 06:34 Potassium 3.5 mmol/L (3.5-5.1) 09/29/22 06:34 Chloride 94 mmol/L (98-107) L 09/29/22 06:34 Carbon Dioxide 28.0 mmol/L (21.0-32.0) 09/29/22 06:34 Anion Gap 7 (5-15) 09/29/22 06:34 BUN 18 mg/dL (7-18) 09/29/22 06:34 Creatinine 1.05 mg/dL (0.70-1.30) 09/29/22 06:34 Est GFR (MDRD) Af Amer 89 mL/min (>60) 09/29/22 06:34 Est GFR (MDRD) Non-Af 74 mL/min (>60) 09/29/22 06:34 BUN/Creatinine Ratio 17.1 RATIO (10-20) 09/29/22 06:34 Glucose 124 mg/dL (74-106) H 09/29/22 06:34 Assessment/Plan: 1. Pain: acetaminophen 1000mg PO Q6H PRN pain 1-10 and aspirin 325mg PO daily PRN pain 1-10. Resident has not received any doses for pain. Please continue to monitor for increased pain and PRN usage. 2. Bowel: senna/docusate 2T PO BID and bisacodyl 10mg RC daily PRN constipation. Resident has not received the past 4/8 senna/docusate doses due to diarrhea (no bowel movements have been documented). Has not had any doses of bisacodyl. Please consider changing scheduled senna/docusate to PRN constipation. Thanks. Please continue to monitor for constipation and diarrhea. 3. DVT prophylaxis: enoxaparin 40mg SC daily. Please continue to monitor for S/S of bleeding, renal function, hemoglobin (last 14.7g/dL) and platelets (last 229,000). 4. Hyponatremia: sodium chloride 1gm PO BID. Please continue to monitor sodium (last 129mmol/L). 5. Hypertension: metoprolol succinate 25mg PO daily and ramipril 10mg PO daily. Please continue to monitor BP (last 154/76), HR (last 83), potassium (last 3.5mmol/L), renal function and cough. 6. Hyperlipidemia: atorvastatin 40mg PO QHS. Please continue to monitor lipid panel (last 12/29/21), LFTs (last 12/28/21) and for muscle pain. 7. Diabetes mellitus II: metformin 750mg PO BIDCM, pioglitazone 15mg PO breakfast and glimepiride 2mg PO breakfast. Please consider ordering a hemoglobin A1c (last 5.7% 12/29/21) every 3 months if clinically appropriate. Thanks. Please continue to monitor glucose (last 123 mg/dL), renal function (GFR >60mL/min), diarrhea and S/S of hypoglycemia (glimepiride is on the BEERs list due to increased risk of prolonged hypoglycemia, has had some glucose readings in the 60's). 8. Gout: allopurinol 100mg PO daily. Please continue to monitor for S/S of gout and renal function. 9. Sleep: melatonin 3mg PO QHS. Please continue to monitor for insomnia and excessive drowsiness. Assessment/Plan for indications treated with psychotropic medications: 1. Depression: mirtazapine 15mg PO QHS and citalopram 20mg PO daily. Mirtazapine dose just decreased due to adverse effect of hyponatremia (medication adjustments have already been discussed with a pharmacist due to mirtazapine, citalopram, escitalopram and ramipril increasing risk for hyponatremia). Please continue to monitor for S/S of suicidal ideation (black box warning), falls/frac tures (BEERs criteria for citalopram), sodium (last 129mmol/L BEERs criteria for both) and weight gain. Please consider GDR for citalopram by 03/2023 if clinically appropriate. Thanks. Medical chart and medication regimen reviewed. The following medication irregularities or issues were identified: *1. Metformin 750mg PO BIDCM, pioglitazone 15mg PO breakfast and glimepiride 2mg PO breakfast. Please consider ordering a hemoglobin A1c (last 5.7% 12/29/21) every 3 months if clinically appropriate. Thanks. *2. Citalopram 20mg PO daily. Please consider GDR by 03/2023 if clinically appropriate. Thanks. Date of Note:: 10/02/22
[2022-10-02 14:28] VITALS: BP 111/60; PULSE 56; RESP 16; TEMP 36.4; O2SAT 96
--- NOTE | 2022-10-02 16:04 | NURSING ---
PT BROUGHT IN $14 FOR PT. PT OKED THIS NURSE TO LOCK IT UP IN MED BOX. RN AWRE
[2022-10-02] MEDS: Senna/Docusate Sodium 1 Tablet 2 TABLET PO (17:03)
[2022-10-02] MEDS: Atorvastatin Calcium 40 MG Tablet PO (20:13)
[2022-10-02] MEDS: Mirtazapine 15 MG Tablet PO (20:14)
[2022-10-02] MEDS: MELATONIN 3 MG TABLET PO (20:14)
[2022-10-03 05:16] VITALS: BP 145/85; PULSE 68
[2022-10-03] MEDS: Citalopram 20 MG Tablet PO (05:16)
[2022-10-03] MEDS: Metoprolol(XL)Succ 50 MG Tablet 25 MG PO (05:16)
[2022-10-03] MEDS: Enoxaparin 40 MG/0.4 ML Syringe SC (05:16)
[2022-10-03] MEDS: Senna/Docusate Sodium 1 Tablet 2 TABLET PO (05:16)
[2022-10-03] MEDS: Ramipril 10 MG Capsule PO (05:16)
[2022-10-03] MEDS: Sodium Chloride 1 GM Tablet PO ×2 (05:17→16:58)
[2022-10-03] MEDS: Nystatin Powder 15gm Bottle 1 APPLIC TOPICAL ×2 (05:20→16:57)
[2022-10-03] MEDS: Menthol/Lanolin/Calamine/Znox 113 GM Tube 1 APPLIC TOPICAL ×2 (05:29→16:57)
[2022-10-03 06:55] LABS: Bedside Glucose 93 mg/dL (74-106)
[2022-10-03] MEDS: Glimepiride 2 MG Tablet PO (08:28)
[2022-10-03] MEDS: metFORMIN HCl 500 MG Tablet 750 MG PO ×2 (08:28→16:57)
[2022-10-03] MEDS: Pioglitazone Hydrochloride 15 MG Tablet PO (08:28)
[2022-10-03] MEDS: Allopurinol 100 MG Tablet PO (08:29)
--- NOTE | 2022-10-03 11:16 | CASEMGMT ---
Addendum entered by Harmony Villar 10/03/22 12:21: Spoke with admissions, Henrietta, at [facility]. Received information on VA benefit, pricing and availability. Pt could admit when issued DC. Admissions requesting referral and a possible assessment would need completed on pt. SW spoke with pt and in room. Updated on findings. Pt stated he did serve in the [employer] during [place], thus could qualify for Aid and Attendance through VA. Offered to provide information to dtr, Rossy, whom was present at [facility]. Pt agreed. SW left voicemail with dtr. Sent clinicals to [facility] via [facility]. Addendum entered by Harmony Villar 10/03/22 11:49: SW returned to room. Dtr clarified pt and make about $4200/mo together. SW stated pt said $2500/mo together. Advised that is over income for ALEM. Brainstormed at length about options for DC. Some ALs are within that monthly amount, however, encouraged to consider other living expenses. Discussed being grandfathered in to an AL - paying privately until the house sale money runs out then pay a lower amount. Discussed pt still applying for ALEM, getting a QIT for being over income, have ALEM cover a SNF, and continue living at home with spousal allowance or admitting to SNF also with QIT. Family interested in that option. Advised pt must qualify for ALEM in every other area. Dtr mentioned [facility] in [place] having a lower monthly rate and VA benefit. SW questioned if pt is VA service connected. Pt is not - applied but was denied. SW offered to contact [facility] to inquire about monthly rate and VA benefit. Dtr appreciative. SW encouraged for family to continue discussing options for pt at [place]. Family appreciative. Will continue to follow. Original Note: Social Work IDT met with patient, , dtr, SAHRA and granddaughter for care plan meeting. Discussed patient's progress in PT/OT/SN. Educated to [facility] insurance with NRD 10/05 and requesting DC plans in place. Inquired about DC plans. Pt/family requesting pt transfer to AL at [place] and to follow. Inquired about finances. Family not aware pt/ have to pay privately, and per , Medicaid continues to deny r/t over income. SW offered to reapply for Medicaid. Educated to [place] Waiver Program, that needs to be approved prior to AL admission, thus pt will most likely need to DC to a SNF. would remain at home. AL to work with 's PCP to admit to AL, when Waiver approved. plans to sell the house. Dtr states there is an offer on the house, but nothing further has been done. Educated to pt/ using the money from the sale of the house to pay for care and then Medicaid would restart (if approved). All parties expressed understanding. SW educated to [facility] and [facility] having ALEM AL, but there are waitlists. SW offered to refer to all ALs for openings/acceptance. Family agreed. Family would also be open to looking in [place]. SW provided ALEM application to . Referred to [facility] SW to continue to follow. Harmony Villar, SOCIAL PROBLEMS SPECIALIST DESKTOP SUPPORT CONSULTANT
[2022-10-03 14:07] VITALS: BP 140/54; PULSE 58; RESP 17; TEMP 36
--- NOTE | 2022-10-03 15:44 | CHAPLAIN ---
Type of Pastoral Visit ___ Initial Visit _x__ Follow-up Visit ___ On-call Visit ___ General Patient Visit ___ Spiritual Assessment ___ Family Conference ___ Bereavement ___ Rapid Response ___ Code Blue ___ Other (describe below) Pastoral Care Referral From _x__ Patient ___ Family _x__ Nurse ___ Physician ___ Health Care Assistant ___ Antitank Assault Gunner ___ Other (describe below) Sacrament/Intervention _x__ Active listening ___ Anointing ___ Adventist ___ Bereavement ___ Communion ___ Gail exploration ___ ___ Life review _x__ Prayer ___ Reconciliation ___ Sacrament of Sick _x__ Supportive presence ___ Wedding ___ Other (describe below) Pastoral Comments patient expresses his concerns about and how she is handling their decision to sell the home and move to an AL; pt says that it is a hard situation and season but that he knows his cannot care for him at home; pt talks about his care at [facility] and believes it is going good so far; pt affirms that prayer and trusting God is important; after a prayer the pt states that he feels better now about things
[2022-10-03] MEDS: Mirtazapine 15 MG Tablet PO (22:02)
[2022-10-03] MEDS: Atorvastatin Calcium 40 MG Tablet PO (22:02)
[2022-10-03] MEDS: MELATONIN 3 MG TABLET PO (22:02)
[2022-10-04] MEDS: Enoxaparin 40 MG/0.4 ML Syringe SC (05:23)
[2022-10-04 05:24] VITALS: BP 135/85; PULSE 54
[2022-10-04] MEDS: Ramipril 10 MG Capsule PO (05:25)
[2022-10-04] MEDS: Citalopram 20 MG Tablet PO (05:25)
[2022-10-04] MEDS: Sodium Chloride 1 GM Tablet PO ×2 (05:25→16:59)
[2022-10-04] MEDS: Nystatin Powder 15gm Bottle 1 APPLIC TOPICAL ×2 (05:26→17:00)
[2022-10-04] MEDS: Menthol/Lanolin/Calamine/Znox 113 GM Tube 1 APPLIC TOPICAL ×2 (05:26→16:59)
[2022-10-04 06:35] LABS: Bedside Glucose 90 mg/dL (74-106)
[2022-10-04] MEDS: metFORMIN HCl 500 MG Tablet 750 MG PO ×2 (08:28→16:59)
[2022-10-04] MEDS: Pioglitazone Hydrochloride 15 MG Tablet PO (08:28)
[2022-10-04] MEDS: Glimepiride 2 MG Tablet PO (08:28)
[2022-10-04] MEDS: Allopurinol 100 MG Tablet PO (08:28)
[2022-10-04 14:34] VITALS: BP 112/71; PULSE 63; RESP 20; TEMP 36.4; O2SAT 95
--- NOTE | 2022-10-04 14:52 | CASEMGMT ---
Social Work Medicaid application completed and faxed to [employer]. Harmony Villar, FOUNDRY FINISHER BUGGY LOADER
[2022-10-04] MEDS: Glycerin/Hypromellose/PEG400 15 ml Bottle 2 DRP EACH EYE ×2 (15:49→16:59)
[2022-10-04] MEDS: Senna/Docusate Sodium 1 Tablet 2 TABLET PO (16:59)
[2022-10-04 21:15] VITALS: BP 141/77; PULSE 55; RESP 16; TEMP 36.6; O2SAT 96
[2022-10-04] MEDS: Mirtazapine 15 MG Tablet PO (21:42)
[2022-10-04] MEDS: Atorvastatin Calcium 40 MG Tablet PO (21:42)
[2022-10-04] MEDS: MELATONIN 3 MG TABLET PO (21:42)
[2022-10-05 05:51] VITALS: BP 159/86; PULSE 57
[2022-10-05] MEDS: Senna/Docusate Sodium 1 Tablet 2 TABLET PO ×2 (05:51→17:32)
[2022-10-05] MEDS: Metoprolol(XL)Succ 50 MG Tablet 25 MG PO (05:51)
[2022-10-05] MEDS: Ramipril 10 MG Capsule PO (05:53)
[2022-10-05] MEDS: Citalopram 20 MG Tablet PO (05:53)
[2022-10-05] MEDS: Enoxaparin 40 MG/0.4 ML Syringe SC (05:53)
[2022-10-05] MEDS: Sodium Chloride 1 GM Tablet PO ×2 (05:53→17:32)
[2022-10-05] MEDS: Nystatin Powder 15gm Bottle 1 APPLIC TOPICAL ×2 (05:58→17:32)
[2022-10-05] MEDS: Menthol/Lanolin/Calamine/Znox 113 GM Tube 1 APPLIC TOPICAL ×2 (05:58→17:32)
[2022-10-05 06:25] LABS: Bedside Glucose 97 mg/dL (74-106)
[2022-10-05] MEDS: Pioglitazone Hydrochloride 15 MG Tablet PO (07:55)
[2022-10-05] MEDS: Glimepiride 2 MG Tablet PO (07:55)
[2022-10-05] MEDS: Allopurinol 100 MG Tablet PO (07:56)
[2022-10-05] MEDS: metFORMIN HCl 500 MG Tablet 750 MG PO ×2 (07:56→17:31)
[2022-10-05 12:46] VITALS: PULSE 55; O2SAT 95
--- NOTE | 2022-10-05 13:03 | CASEMGMT ---
Social Work BIMS () and PHQ-9 (03/02) completed for MDS assessment. SW followed up with admissions, Lydia, at [facility]. Lydia had not received referral. SW resent it through [employer]. Will continue to follow. DAMIÁN DelongW
--- NOTE | 2022-10-05 13:45 | CASEMGMT ---
Social Work Received Medicaid Pending number is [id number] DAMIÁN DelongW
[2022-10-05 16:00] VITALS: BP 150/89; PULSE 56; RESP 16; TEMP 36.1; O2SAT 96
--- NOTE | 2022-10-05 16:03 | PCM.DC.SUM ---
Providers Date of Admission: 09/28/22 Primary Care Physician: Dr. Akash Agosto MD Reason For Visit: HYPONATUREMIA Diagnosis Discharge Diagnosis (1) Debility: Status: Acute Code(s): R53.81 - Other malaise (2) Chronic hyponatremia: Status: Chronic Code(s): E87.1 - Hypo-osmolality and hyponatremia (3) Weakness: Status: Acute Code(s): R53.1 - Weakness (4) Falls frequently: Status: Acute Code(s): R29.6 - Repeated falls (5) Adult failure to thrive: Status: Acute Code(s): R62.7 - Adult failure to thrive (6) Diabetes mellitus: Status: Chronic Code(s): E11.9 - Type 2 diabetes mellitus without complications (7) Hypoglycemia: Status: Acute Code(s): E16.2 - Hypoglycemia, unspecified Medications at Discharge Home Medications metformin 1,000 mg tablet 1,000 mg PO BID diabetes 12/18/19 pioglitazone 15 mg tablet 15 mg PO DAILY diabetes 12/18/19 ramipril 10 mg capsule 10 mg PO DAILY blood pressure 12/18/19 atorvastatin 40 mg tablet 40 mg PO DAILY Cholesterol 10/13/21 sodium chloride 1,000 mg soluble tablet 1 g PO BID Low sodium 11/14/21 acetaminophen 500 mg tablet 1,000 mg PO Q6H PRN Pain 09/26/22 allopurinol 100 mg tablet 100 mg PO DAILY GOUT 09/26/22 aspirin 325 mg tablet,delayed release 325 mg PO DAILY PRN Pain 09/26/22 citalopram 20 mg tablet 20 mg PO DAILY DEPRESSION 09/26/22 desoximetasone 0.05 % topical cream 1 applic topical BID PRN DRY SKIN ON FACE 09/26/22 glimepiride 2 mg tablet 2 mg PO BREAKFAST blood sugar 09/28/22 metoprolol succinate 50 mg tablet,extended release 24 hr 25 mg PO DAILY BP/pulse 09/28/22 sennosides 8.6 mg-docusate sodium 50 mg tablet (Stool Softener-Stimulant Laxative) 2 tab PO BID stool softener 09/28/22 mirtazapine 15 mg tablet 15 mg PO QHS #0 tabs 10/05/22 Hospital Course Operations None Procedures None Summary of Care Provided Minutes Spent on Discharge: 35 Hospital Course: 72 year old male with below past medical history 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 Discharge to Assisted Living versus [facility] facility 10/09/2021, Home Health Care PT/OT. Weight / BMI Weight Weight: 88.451 kg Body Mass Index (BMI) 27.8 ABG / Lab / Microbiology Data Result Diagrams: 09/29/22 06:34 09/29/22 06:34 Laboratory: Laboratory Results - last 24 hr 10/05/22 05:58: POC Glucose 97 Microbiology: Microbiology 10/02/22 14:40 Nasal Secretion SARS-CoV-2 Antigen (Rapid) - Final 09/30/22 11:06 Nasal Secretion SARS-CoV-2 Antigen (Rapid) - Final D/C Instructions Discharge Diet: No restrictions Discharge Activity: Return to Normal Activity, May Shower and Use Walker Weight Bearing Status: Weight bearing as tolerated Call your doctor if you observe: Fever of 101 or Higher, Inability to urinate, Inability to have a bowel movement, Shortness of breath, Dizziness, Fainting spells, Swelling in the ankles, Chest pain and Uncontrolled pain Additional Instructions: Discharge to Assisted Living versus [facility] facility 10/09/2021, Home Health Care PT/OT. Meaningful Use Info Meaningful Use Diagnoses (Choose all that apply): None applicable Discharge Plan Admission Admit Date/Time: 09/28/22 13:49 Primary Reason for Your Visit: Debility. Attending Provider: Letitia Roque Primary Care Provider: Akash Agosto Instructions Additional Instructions / Restrictions: Discharge to Assisted Living versus [facility] facility 10/09/2021, Home Health Care PT/OT. Discharge Orders/Prescriptions Prescriptions: New mirtazapine 15 mg Tablet 15 mg PO QHS Qty: 0 0RF Continued pioglitazone 15 MG tablet 15 mg PO DAILY metformin 1,000 MG tablet 1,000 mg PO BID ramipril 10 MG capsule 10 mg PO DAILY atorvastatin 40 MG tablet 40 mg PO DAILY sodium chloride 1,000 mg tablet,soluble 1 g PO BID desoximetasone 0.05 % cream 1 applic TOPICAL BID PRN (Reason: DRY SKIN ON FACE) allopurinol 100 mg tablet 100 mg PO DAILY citalopram 20 mg tablet 20 mg PO DAILY acetaminophen 500 mg tablet 1,000 mg PO Q6H PRN (Reason: Pain) aspirin 325 mg tablet,delayed release (DR/EC) 325 mg PO DAILY PRN (Reason: Pain) metoprolol succinate 50 mg tablet extended release 24 hr 25 mg PO DAILY Rx Instructions: Hold for heart less than 60 or systolic blood pressure less than 100 mmHg. sennosides-docusate sodium [Stool Softener-Stimulant Laxat] 8.6-50 mg tablet 2 tab PO BID glimepiride 2 mg tablet 2 mg PO BREAKFAST Rx Instructions: Hold if glucose less than 120 mg/dl Discontinued mirtazapine 30 mg tablet 30 mg PO DAILY escitalopram oxalate 5 mg tablet 15 mg PO DAILY Referrals / Follow Up: Akash Agosto MD [Primary Care Provider] - Disposition Disposition (needs filled in before D/C Order can be placed): [facility] Facility
--- NOTE | 2022-10-05 16:04 | CASEMGMT ---
Social Work Insurance issued LCD 10/08, DC 10/09. Spoke with pt to update on DC. Unsure of outcome with [facility]. Requested SNF choices. Educated to [facility] being in-network with insurance. Pt agreeable to referral. Pt was at [facility] prior but would prefer not to return. Sent referral to [facility] via [facility]. [facility] is unable to accept pt with MCDP without money up front. Pt is unable to pay. Received call from [facility] at [facility] requesting updated clinicals via email. Secure email sent to [facility] to review. [facility] has a room available for pt. Admissions needs to discuss funds with before officially accepting. [facility] states for [facility], they typically use [facility]. appreciative. Will continue to follow. Plan: DC 10/09, potentially to [facility] in [place] with [facility] PT/OT. Harmony Villar, DAMIÁN BERGERW
--- NOTE | 2022-10-05 16:12 | TREXTCAR_ITS ---
Diet Diet Order/Speech Therapy: 09/28/22 14:14 Diet: Regular - General Food consistency:: Regular Liquid Consistency:: Regular/Thin Diet Comments: Fluid Restriction 1200ml Routine Orders/Code [facility] Wound(s) Left Knee: Wound Type: Abrasion Therapies Weight Bearing: Weight bearing as tolerated Extremity Affected:: Bilateral Lower Physical Therapy: Eval and Treat Occupational Therapy: Eval and Treat Problem/Diagnosis (1) Debility: Status: Acute Code(s): R53.81 - Other malaise (2) Chronic hyponatremia: Status: Chronic Code(s): E87.1 - Hypo-osmolality and hyponatremia (3) Weakness: Status: Acute Code(s): R53.1 - Weakness (4) Falls frequently: Status: Acute Code(s): R29.6 - Repeated falls (5) Adult failure to thrive: Status: Acute Code(s): R62.7 - Adult failure to thrive (6) Diabetes mellitus: Status: Chronic Code(s): E11.9 - Type 2 diabetes mellitus without complications (7) Hypoglycemia: Status: Acute Code(s): E16.2 - Hypoglycemia, unspecified Allergies/Procedures Done in Hospital Allergies No Known Allergies Allergy (Verified 09/26/22 08:40) Procedures: None Type of Care/Length of Stay Estimated LOS: More Than 30 Days Type of Care Needed: Skilled Nursing/Assisted Living Rehab Potential: Fair Prognosis: Fair Additional Orders/Day of Discharge Day of Discharge: 10/09/22 Dietary and Speech Recommendations Dietitian Recommendations/Changes: Will continue regular diet w/ fluid restriction - rec liberalize fluid restriction as medically able. Monitor need for CHO Control restriction if bld gluc rises Discharge Plan Admission Admit Date/Time: 09/28/22 13:49 Primary Reason for Your Visit: Debility. Attending Provider: Letitia Roque Primary Care Provider: Akash Agosto Instructions Additional Instructions / Restrictions: Discharge to Assisted Living versus [facility] facility 10/09/2021, Home Health Care PT/OT. Discharge Orders/Prescriptions Prescriptions: New mirtazapine 15 mg Tablet 15 mg PO QHS Qty: 0 0RF Continued pioglitazone 15 MG tablet 15 mg PO DAILY metformin 1,000 MG tablet 1,000 mg PO BID ramipril 10 MG capsule 10 mg PO DAILY atorvastatin 40 MG tablet 40 mg PO DAILY sodium chloride 1,000 mg tablet,soluble 1 g PO BID desoximetasone 0.05 % cream 1 applic TOPICAL BID PRN (Reason: DRY SKIN ON FACE) allopurinol 100 mg tablet 100 mg PO DAILY citalopram 20 mg tablet 20 mg PO DAILY acetaminophen 500 mg tablet 1,000 mg PO Q6H PRN (Reason: Pain) aspirin 325 mg tablet,delayed release (DR/EC) 325 mg PO DAILY PRN (Reason: Pain) metoprolol succinate 50 mg tablet extended release 24 hr 25 mg PO DAILY Rx Instructions: Hold for heart less than 60 or systolic blood pressure less than 100 mmHg. sennosides-docusate sodium [Stool Softener-Stimulant Laxat] 8.6-50 mg tablet 2 tab PO BID glimepiride 2 mg tablet 2 mg PO BREAKFAST Rx Instructions: Hold if glucose less than 120 mg/dl Discontinued mirtazapine 30 mg tablet 30 mg PO DAILY escitalopram oxalate 5 mg tablet 15 mg PO DAILY Referrals / Follow Up: Akash Agsoto MD [Primary Care Provider] - Disposition Disposition (needs filled in before D/C Order can be placed): [facility]
[2022-10-05] MEDS: Atorvastatin Calcium 40 MG Tablet PO (21:20)
[2022-10-05] MEDS: MELATONIN 3 MG TABLET PO (21:20)
[2022-10-05] MEDS: Mirtazapine 15 MG Tablet PO (21:20)
[2022-10-06] MEDS: Ramipril 10 MG Capsule PO (04:25)
[2022-10-06] MEDS: Menthol/Lanolin/Calamine/Znox 113 GM Tube 1 APPLIC TOPICAL (04:25)
[2022-10-06] MEDS: Enoxaparin 40 MG/0.4 ML Syringe SC (04:26)
[2022-10-06] MEDS: Citalopram 20 MG Tablet PO (04:26)
[2022-10-06] MEDS: Nystatin Powder 15gm Bottle 1 APPLIC TOPICAL (04:26)
[2022-10-06] MEDS: Sodium Chloride 1 GM Tablet PO ×2 (04:27→17:24)
[2022-10-06] MEDS: Senna/Docusate Sodium 1 Tablet 2 TABLET PO (04:27)
[2022-10-06 04:29] VITALS: BP 144/85; PULSE 60
[2022-10-06] MEDS: Metoprolol(XL)Succ 50 MG Tablet 25 MG PO (04:29)
[2022-10-06 06:31] LABS: Bedside Glucose 99 mg/dL (74-106)
[2022-10-06 08:01] LABS: Absolute Lymphocyte Count 1.46 X10^3/uL (0.83-4.51); Absolute Neutrophil Count 2.5 X10^3/uL (2.0-7.7); Basophil# 0.06 X10^3/uL; Basophil% 1.2 % (0-1); Eosinophil# 0.22 X10^3/uL; Eosinophils% 4.6 % (0-5); Hematocrit 42.8 % (40-54); Hemoglobin 14.4 g/dL (13.0-16.5); Lymphocyte # 1.46 X10^3/ul (0.83-4.51); Lymphocyte % 30.4 % (19-41); Mean Corp Hgb Conc 33.6 g/dL (32-36); Mean Corpuscular Volume 86.1 fL (80-94); Mean Platelet Vol. 8.9 fl (6.2-12.0); Monocyte# 0.53 X10^3/uL; NRBC Flagged by Analyzer 0 % (0-5); Platelet Count 223 K/mm3 (150-450); RBC Distribution Width CV 12.5 % (11.6-14.6); RBC Distribution Width SD 38.7 fl (35.1-43.9); Red Blood Count 4.97 M/mm3 (4.6-6.2); White Blood Count 4.8 K/mm3 (4.4-11.0)
[2022-10-06 08:34] LABS: Anion Gap 5 (5-15); BUN 17 mg/dL (7-18); BUN/Creat Ratio 20.3 RATIO (10-20); Calcium,Total 9.3 mg/dL (8.5-10.1); Chloride 100 mmol/L (98-107); Creatinine, Serum 0.84 mg/dL (0.70-1.30); EST Glomerular Filtration Rate 95 mL/min (>60); Est Glom Filt Rate - Afr Amer 116 mL/min (>60); Estimated Creatinine Clearance 80.87 ml/min; Glucose 97 mg/dL (74-106); Potassium 4.6 mmol/L (3.5-5.1); Sodium Level 132 mmol/L (136-145)
[2022-10-06] MEDS: Glimepiride 2 MG Tablet PO (08:35)
[2022-10-06] MEDS: metFORMIN HCl 500 MG Tablet 750 MG PO ×2 (08:35→17:24)
[2022-10-06] MEDS: Pioglitazone Hydrochloride 15 MG Tablet PO (08:35)
[2022-10-06] MEDS: Allopurinol 100 MG Tablet PO (08:37)
[2022-10-06] MEDS: Tuberculin,Purif.prot.deriv. 50 TU/ML Vial 0.1 ML ID (11:14)
[2022-10-06 14:40] VITALS: BP 123/77; PULSE 54; RESP 16; TEMP 36.4; O2SAT 95
[2022-10-06 21:00] VITALS: PULSE 58; RESP 16; O2SAT 98
[2022-10-06] MEDS: Mirtazapine 15 MG Tablet PO (21:22)
[2022-10-06] MEDS: MELATONIN 3 MG TABLET PO (21:22)
[2022-10-06] MEDS: Atorvastatin Calcium 40 MG Tablet PO (21:22)
[2022-10-07] MEDS: Nystatin Powder 15gm Bottle 1 APPLIC TOPICAL ×2 (04:58→17:22)
[2022-10-07] MEDS: Sodium Chloride 1 GM Tablet PO ×2 (04:58→17:22)
[2022-10-07] MEDS: Ramipril 10 MG Capsule PO (04:58)
[2022-10-07] MEDS: Enoxaparin 40 MG/0.4 ML Syringe SC (04:58)
[2022-10-07 05:07] VITALS: BP 147/89; PULSE 60
[2022-10-07] MEDS: Metoprolol(XL)Succ 50 MG Tablet 25 MG PO (05:07)
[2022-10-07] MEDS: Citalopram 20 MG Tablet PO (05:08)
[2022-10-07] MEDS: Menthol/Lanolin/Calamine/Znox 113 GM Tube 1 APPLIC TOPICAL ×2 (05:08→17:22)
[2022-10-07] MEDS: Senna/Docusate Sodium 1 Tablet 2 TABLET PO (05:08)
[2022-10-07 06:41] LABS: Bedside Glucose 107 mg/dL (74-106)
[2022-10-07] MEDS: metFORMIN HCl 500 MG Tablet 750 MG PO ×2 (07:50→17:22)
[2022-10-07] MEDS: Pioglitazone Hydrochloride 15 MG Tablet PO (07:50)
[2022-10-07] MEDS: Allopurinol 100 MG Tablet PO (07:50)
[2022-10-07] MEDS: Glimepiride 2 MG Tablet PO (07:50)
[2022-10-07] MEDS: Acetaminophen 500 MG Tablet 1000 MG PO (15:41)
[2022-10-07 16:00] VITALS: BP 137/79; PULSE 52; RESP 16; TEMP 35.9; O2SAT 97
[2022-10-07] MEDS: MELATONIN 3 MG TABLET PO (20:53)
[2022-10-07] MEDS: Atorvastatin Calcium 40 MG Tablet PO (20:53)
[2022-10-07] MEDS: Mirtazapine 15 MG Tablet PO (20:54)
[2022-10-08] MEDS: Enoxaparin 40 MG/0.4 ML Syringe SC (05:49)
[2022-10-08] MEDS: Ramipril 10 MG Capsule PO (05:50)
[2022-10-08] MEDS: Citalopram 20 MG Tablet PO (05:50)
[2022-10-08] MEDS: Sodium Chloride 1 GM Tablet PO ×2 (05:50→17:51)
[2022-10-08 05:56] VITALS: BP 158/87; PULSE 62
[2022-10-08] MEDS: Metoprolol(XL)Succ 50 MG Tablet 25 MG PO (05:56)
[2022-10-08] MEDS: Nystatin Powder 15gm Bottle 1 APPLIC TOPICAL ×2 (06:00→17:52)
[2022-10-08] MEDS: Menthol/Lanolin/Calamine/Znox 113 GM Tube 1 APPLIC TOPICAL ×2 (06:00→17:53)
[2022-10-08 06:30] LABS: Bedside Glucose 123 mg/dL (74-106)
[2022-10-08] MEDS: Pioglitazone Hydrochloride 15 MG Tablet PO (07:45)
[2022-10-08] MEDS: Glycerin/Hypromellose/PEG400 15 ml Bottle 2 DRP EACH EYE ×2 (07:45→20:49)
[2022-10-08] MEDS: metFORMIN HCl 500 MG Tablet 750 MG PO ×2 (07:45→17:51)
[2022-10-08] MEDS: Glimepiride 2 MG Tablet PO (07:45)
[2022-10-08] MEDS: Allopurinol 100 MG Tablet PO (07:46)
--- NOTE | 2022-10-08 09:12 | NURSING ---
Spinning Supervisor Note; MDS for 10/05/2022 Complete
[2022-10-08 13:57] VITALS: BP 128/74; PULSE 56; RESP 16; TEMP 36.3; O2SAT 96
[2022-10-08 20:00] VITALS: PULSE 56; RESP 16; O2SAT 96
[2022-10-08] MEDS: Acetaminophen 500 MG Tablet 1000 MG PO (20:46)
[2022-10-08] MEDS: MELATONIN 3 MG TABLET PO (20:46)
[2022-10-08] MEDS: Atorvastatin Calcium 40 MG Tablet PO (20:47)
[2022-10-08] MEDS: Mirtazapine 15 MG Tablet PO (20:47)
[2022-10-09 05:30] VITALS: BP 174/95; PULSE 53; RESP 16; TEMP 35.8
[2022-10-09] MEDS: Enoxaparin 40 MG/0.4 ML Syringe SC (05:38)
[2022-10-09] MEDS: Ramipril 10 MG Capsule PO (05:39)
[2022-10-09] MEDS: Nystatin Powder 15gm Bottle 1 APPLIC TOPICAL (05:39)
[2022-10-09] MEDS: Sodium Chloride 1 GM Tablet PO (05:39)
[2022-10-09] MEDS: Citalopram 20 MG Tablet PO (05:39)
[2022-10-09] MEDS: Menthol/Lanolin/Calamine/Znox 113 GM Tube 1 APPLIC TOPICAL (05:39)
[2022-10-09 05:40] VITALS: BP 174/95; PULSE 53
[2022-10-09] MEDS: Metoprolol(XL)Succ 50 MG Tablet 25 MG PO (05:40)
[2022-10-09 06:50] LABS: Bedside Glucose 96 mg/dL (74-106)
[2022-10-09] MEDS: metFORMIN HCl 500 MG Tablet 750 MG PO (07:59)
[2022-10-09] MEDS: Pioglitazone Hydrochloride 15 MG Tablet PO (08:00)
[2022-10-09] MEDS: Glimepiride 2 MG Tablet PO (08:00)
[2022-10-09] MEDS: Allopurinol 100 MG Tablet PO (08:00)
--- NOTE | 2022-10-09 08:24 | CASEMGMT ---
Addendum entered by Harmony Villar 10/09/22 16:21: [facility] returned call and still needs payment up front. SW collaborated with Director of Pattern Cleaner to discuss options and DC plan. Concluded, is home to assist pt as able and ensure safety, with ongoing SW assistance from skilled HHC, the goal remains to place pt and in [place]. Also, recommended referral to [facility] to further assist with placement. SW phoned referral to Cheryl at [facility] whom is able to meet with pt/ tomorrow and assist further with [place] placement and getting VA benefits. Faxed clinicals. SW spoke with and pt on above information. Both are agreeable for DC home with ongoing assistance with placement. Pt agreed to [facility]. Referral phoned to [facility] PT/OT/SN/[place]. Hand-off voicemail left for SW. Updated IDT. Plan: DC home with 10/09, [facility] PT[facility]OT[facility]SN[facility] Addendum entered by Harmony Villar 10/09/22 13:12: Received call from stating pt is getting angry and wanting to her to pick him up. stated she does not feel comfortable taking pt home, and has been talking to a place in [place]. Inquired about place for SW to contact - [facility]. SW inquired about [facility] in [place]. agreeable to any place. Inquired about cost pt has to pay monthly - stated about $2500/mo. SW educated [facility] base rate is closer to $4000/mo. Inquired about referring to SNFs that can take MCDP number. agreed for this worker to make any referrals. Noted pt was at [facility] prior. stated pt and her do not want pt to return there. Offered [facility] or [facility]. agreed. SW advised for to not picker operator pt yet until a DC plan is in place. Referrals made to [facility] via [employer]. They are unable to accept just MCDP# - needs funds up front. Referral made to [facility] via [employer] and spoke with Juliana on the phone. There is a bed available and will run MCDP#. Will continue to follow. Addendum entered by Harmony Villar 10/09/22 11:02: Contacted admissions, Lydia, at [facility] to follow up. Lydia spoke with but did not provide private pay amount and there are no Medicaid beds available at the moment. DARRELL requested Lydia contact and dtr to provide payment amounts because pt must be discharged today. Original Note: Social Work Sent secure email to DON for [facility] requesting update on acceptance/denial for pt to admit today. SW contacted to update - confirm DC still today. stated she spoke with [facility] about funds and can afford an apartment. stated she is calling them shortly today. Will continue to follow. Harmony Villar, DAMIÁN BERGERW
[2022-10-09 10:00] VITALS: PULSE 58; O2SAT 98
[2022-10-09 13:27] VITALS: BP 148/79; PULSE 72; RESP 20; TEMP 36.2; O2SAT 96
[2022-10-09] MEDS: Glycerin/Hypromellose/PEG400 15 ml Bottle 2 DRP EACH EYE (15:20)
[2022-10-09 16:30] VITALS: BP 153/89; PULSE 63; RESP 18; TEMP 36; O2SAT 96
--- NOTE | 2022-10-10 08:41 | MDS.RN ---
Information for the mds was obtained from review of the clinical record, interview of resident, staff, and direct observation of resident's care.
== END 2022-10-09 16:40 | disposition home health service (06) | DRG 644 ==
PROVIDERS: Admitting Provider Internal Medicine; PCP Family Medicine; Visit Provider Internal Medicine
DX: E22.2 Syndrome of inappropriate secretion of antidiuretic hormone (principal); G81.94 Hemiplegia, unspecified affecting left nondominant side; E11.649 Type 2 diabetes mellitus with hypoglycemia without coma; I10 Essential (primary) hypertension; E78.5 Hyperlipidemia, unspecified; M10.9 Gout, unspecified; R62.7 Adult failure to thrive; Z79.84 Long term (current) use of oral hypoglycemic drugs; Z87.891 Personal history of nicotine dependence; Z79.82 Long term (current) use of aspirin; Z79.899 Other long term (current) drug therapy
CPT/HCPCS: 36415; 80048; 82962; 85025; 87811; 97110; 97116; 97162; 97166; 97530; 97535; 97802

== ENCOUNTER 2022-11-17 04:03 | Observation (INO) | payer MEDICARE, SELFPAY ==
[2022-11-17] VITALS (7 sets, daily range): BP systolic 135–156; BP diastolic 67–97; PULSE 55–100; RESP 16–18; TEMP 35.9–36.6; O2SAT 51–98; BMI 29.2; BMI 28.0
[2022-11-17 04:33] LABS: Absolute Lymphocyte Count 0.72 X10^3/uL (0.83-4.51); Basophil# 0.04 X10^3/uL; Basophil% 0.6 % (0-1); Eosinophil# 0.01 X10^3/uL; Eosinophils% 0.1 % (0-5); Hematocrit 38.1 % (40-54); Hemoglobin 13.7 g/dL (13.0-16.5); Lymphocyte # 0.72 X10^3/ul (0.83-4.51); Lymphocyte % 10.7 % (19-41); Mean Corpuscular Hgb 30.1 pg (27.0-32.0); Mean Corpuscular Volume 83.7 fL (80-94); Mean Platelet Vol. 9.1 fl (6.2-12.0); Monocyte# 0.92 X10^3/uL; Monocyte% 13.6 % (0-10); NRBC Flagged by Analyzer 0 % (0-5); Neutrophil # 4.98 X10^3/uL (2.7-7.7); Neutrophil % 73.7 % (47-70); Platelet Count 213 K/mm3 (150-450); RBC Distribution Width CV 13.2 % (11.6-14.6); RBC Distribution Width SD 39.8 fl (35.1-43.9); Red Blood Count 4.55 M/mm3 (4.6-6.2); White Blood Count 6.8 K/mm3 (4.4-11.0)
--- NOTE | 2022-11-17 04:41 | EDS_ITS ---
HPI History of Present Illness Chief Complaint: Abn Labs Narrative Narrative: Patient is a 72-year-old male with past medical history of hypertension diabetes and previous CVA. He states that he has had a history of low sodium in the past. He states that his has been sick with COVID and has had a congestion and mild cough for the past 2 or 3 days. He states that he is slowly been having increased weakness as well. He reports the weakness is generalized. He states that this evening/morning he was walking back to his chair when he had some quivering in his legs and he lowered himself to the ground. He states that there was no trauma but his cannot get him up and secondary to his call 911. Patient states that he was on the ground for roughly 1 hour prior to EMS arriving. He is concerned that his sodium is extremely low leading to his generalized weakness and therefore comes in for evaluation [facility] Medical History Adult failure to thrive Carotid artery stenosis Chronic hyponatremia CVA (cerebral vascular accident) (09/25/21) Debility Depression DM2 (diabetes mellitus, type 2) Essential hypertension Falls frequently Frequent falls Gout Hyperlipidemia Hyponatremia Inability to ambulate due to multiple joints Left hemiparesis Left-sided muscle weakness Prostate cancer Stenosis of right carotid artery Weakness Weakness Home Medications metformin 1,000 mg tablet 1,000 mg PO BID diabetes 12/18/19 [History Last Taken 09/26/22] pioglitazone 15 mg tablet 15 mg PO DAILY diabetes 12/18/19 [History Last Taken 09/24/22] ramipril 10 mg capsule 10 mg PO DAILY blood pressure 12/18/19 [History Last Taken 09/26/22] atorvastatin 40 mg tablet 40 mg PO DAILY Cholesterol 10/13/21 [History Last Taken 11/02/21] sodium chloride 1,000 mg soluble tablet 1 g PO BID Low sodium 11/14/21 [History Last Taken 09/26/22] acetaminophen 500 mg tablet 1,000 mg PO Q6H PRN Pain 09/26/22 [History Last Taken Unknown] allopurinol 100 mg tablet 100 mg PO DAILY GOUT 09/26/22 [History Last Taken Unknown] aspirin 325 mg tablet,delayed release 325 mg PO DAILY PRN Pain 09/26/22 [History Last Taken Unknown] desoximetasone 0.05 % topical cream 1 applic topical BID PRN DRY SKIN ON FACE 09/26/22 [History Last Taken 09/23/22] glimepiride 2 mg tablet 2 mg PO BREAKFAST blood sugar 09/28/22 [History Last Taken Unknown] metoprolol succinate 50 mg tablet,extended release 24 hr 25 mg PO DAILY BP/pulse 09/28/22 [History Last Taken Unknown] sennosides 8.6 mg-docusate sodium 50 mg tablet (Stool Softener-Stimulant Laxative) 2 tab PO BID stool softener 09/28/22 [History Last Taken Unknown] mirtazapine 15 mg tablet 15 mg PO QHS #0 tabs 10/05/22 [Rx Last Taken Unknown] Allergy/AdvReac Type Severity Reaction Status Date / Time No Known Allergies Allergy Verified 11/17/22 04:05 Family History Mother CVA (cerebral vascular accident) Several recurrent strokes, eventually passed age 84. Surgical History H/O foot surgery History of colon resection History of repair of right rotator cuff History of right-sided carotid endarterectomy (11/06/21) History of tonsillectomy and adenoidectomy Social History household members: spouse Smoking Status: Former smoker how long ago did patient quit smoking: Smoked age [age], 1 ppd until quit. Does have 2nd hand exposure from . alcohol intake: current alcohol intake frequency: holidays/special occasions only substance use type: does not use ROS ROS ED Constitutional Constitutional ED: Denies chills or fever(s) ENT ENT ED: Reports rhinorrhea; Denies sore throat Cardiovascular Cardiovascular: Denies chest pain Respiratory/Chest Respiratory/Chest: Reports cough; Denies dyspnea Gastrointestinal Gastrointestinal: Denies abdominal pain, diarrhea, nausea or vomiting Genitourinary Genitourinary ED: Denies dysuria Musculoskeletal Musculoskeletal: Denies arthralgias, back pain, myalgias or neck pain Integumentary Denies rash Neurologic Neurologic: Reports weakness; Denies headache(s) Hematologic/Lymphatic Hematologic/Lymphatic: Denies easy bleeding or easy bruising EXAM Physical Exam Const Vital Signs: 11/17/22 04:05 11/17/22 04:09 Temperature 96.7 F L Temperature Source Temporal Pulse Rate 63 Respiratory Rate 16 Respiratory Effort Normal Respiratory Pattern Normal Blood Pressure 135/95 H Blood Pressure Mean 108 Pulse Ox 95 Oxygen Delivery Method Nasal Cannula Positive well nourished and well developed General Appearance ED: well developed HEENT Reports moist mucous membranes HEENT Narrative: Normocephalic atraumatic Eyes PERRL and EOMs intact bilaterally Neck supple Neck Narrative: No bony deformity or step-off of the cervical spine and midline pain with palpation Chest Wall palpation of chest normal Chest Narrative: No bony deformity or crepitus noted Resp normal respiratory effort Resp Narrative: Sounds are slightly diminished throughout with faint rhonchi in the bilateral bases however no nasal flaring retractions tachypnea or accessory muscle use Cardio regular rate and regular rhythm GI normal to inspection, nondistended, normoactive bowel sounds, non-tender, non- distended and no masses Auscultation: normoactive bowel sounds Palpation: soft Back/Spine Back/Spine Narrative: No bony deformity or step-off of the thoracic lumbar spine no midline pain with palpation Extremity normal to inspection Extremity Narrative: Pelvis is stable and there is no shortening or external rotation of either lower extremity. Patient can lift both arms and legs without difficulty Neuro oriented x3 and CN's II-XII intact bilaterally Sensorium / Orientation: alert Psych Psych Narrative: Patient has a flat affect Skin no rashes or lesions noted Skin Narrative: No abrasions or ecchymosis noted Skin turgor is increased MDM MDM MDM Narrative Medical decision making narrative: Patient presented to the ER afebrile satting 95% on room air and had no real increased work of breathing. He reported a cough with COVID exposure at home and increased generalized weakness. As he did not have focal deficit my concern for acute stroke is low and I do not feel there is a need for a CTA. Also as he is not hypoxic or febrile I do not feel there is a need for chest x-ray. As he reports a history of hyponatremia there is concern he has acute on chronic derangement so basic blood work was ordered and with his COVID exposure at home and cough a rapid COVID swab was obtained as well. The patient's sodium is slightly low at 127 but chart review reveals that the lowest value was roughly 2 months ago in September at 120 and just 3 days ago it was stable compared to the day as it was at 129. He is COVID-positive. I feel that his increased fatigue and generalized weakness is most likely COVID-related as his sodium is chronically low and is at near baseline. The patient was ambulated with a walker and is unsteady but able to ambulate on his own. However he still states that he feels unsafe going home and is afraid of injuring himself based on his unsteadiness and generalized weakness. He does request longterm placement. Secondary to this medicine was contacted and they will accept the patient for further evaluation and possible longterm placement at this time. Lab Data Attestation: I reviewed the patient's lab results. Labs: Laboratory Results - last 24 hr 11/17/22 11/17/22 04:15 04:15 WBC 6.8 RBC 4.55 L Hgb 13.7 Hct 38.1 L MCV 83.7 MCH 30.1 MCHC 36.0 RDW Std Deviation 39.8 RDW Coeff of Cintia 13.2 Plt Count 213 MPV 9.1 Immature Gran % (Auto) 1.300 H Neut % (Auto) 73.7 H Lymph % (Auto) 10.7 L Rowan % (Auto) 13.6 H Eos % (Auto) 0.1 Baso % (Auto) 0.6 Absolute Neuts (auto) 5.0 Absolute Lymphs (auto) 0.72 L Nucleated RBC % 0 Sodium 127 L Potassium 3.6 Chloride 90 L Carbon Dioxide 26.0 Anion Gap 11 BUN 21 H Creatinine 1.19 Estim Creat Clear Calc 57.08 Est GFR (MDRD) Af Amer 77 Est GFR (MDRD) Non-Af 64 BUN/Creatinine Ratio 17.6 Glucose 173 H Calcium 9.1 Magnesium 1.4 L Discharge Plan Triage Chief Complaint: Abn Labs ED Provider: Juan Lora Dx/Rx/DC Orders Clinical Impression: COVID-19, Essential hypertension, Hyponatremia, Generalized weakness Prescriptions: No Action pioglitazone 15 MG tablet 15 mg PO DAILY metformin 1,000 MG tablet 1,000 mg PO BID ramipril 10 MG capsule 10 mg PO DAILY atorvastatin 40 MG tablet 40 mg PO DAILY sodium chloride 1,000 mg tablet,soluble 1 g PO BID desoximetasone 0.05 % cream 1 applic TOPICAL BID PRN (Reason: DRY SKIN ON FACE) allopurinol 100 mg tablet 100 mg PO DAILY acetaminophen 500 mg tablet 1,000 mg PO Q6H PRN (Reason: Pain) aspirin 325 mg tablet,delayed release (DR/EC) 325 mg PO DAILY PRN (Reason: Pain) metoprolol succinate 50 mg tablet extended release 24 hr 25 mg PO DAILY Rx Instructions: Hold for heart less than 60 or systolic blood pressure less than 100 mmHg. sennosides-docusate sodium [Stool Softener-Stimulant Laxat] 8.6-50 mg tablet 2 tab PO BID glimepiride 2 mg tablet 2 mg PO BREAKFAST Rx Instructions: Hold if glucose less than 120 mg/dl mirtazapine 15 mg Tablet 15 mg PO QHS Qty: 0 0RF Primary Care Provider: Akash Agosto Referrals: Akash Agosto MD [Primary Care Provider] - Disposition Disposition: Acute Care Hospital [facility]
[2022-11-17 04:47] LABS: Anion Gap 11 (5-15); BUN 21 mg/dL (7-18); BUN/Creat Ratio 17.6 RATIO (10-20); Calcium,Total 9.1 mg/dL (8.5-10.1); Chloride 90 mmol/L (98-107); Creatinine, Serum 1.19 mg/dL (0.70-1.30); EST Glomerular Filtration Rate 64 mL/min (>60); Est Glom Filt Rate - Afr Amer 77 mL/min (>60); Estimated Creatinine Clearance 57.08 ml/min; Glucose 173 mg/dL (74-106); Magnesium 1.4 mg/dL (1.6-2.6); Potassium 3.6 mmol/L (3.5-5.1); Sodium Level 127 mmol/L (136-145)
[2022-11-17] MEDS: dexAMETHasone 10 MG/ML Vial IV (05:02)
[2022-11-17] MEDS: Magnesium Chloride 64 MG Delay Rel.Tablet 128 MG PO (05:07)
--- NOTE | 2022-11-17 06:22 | PCM.HP.STD ---
HPI - General HPI Narrative PAYAM HAMM, is a 72 M who presents [facility] Medical History Adult failure to thrive Carotid artery stenosis Chronic hyponatremia CVA (cerebral vascular accident) (09/25/21) Debility Depression DM2 (diabetes mellitus, type 2) Essential hypertension Falls frequently Frequent falls Gout Hyperlipidemia Hyponatremia Inability to ambulate due to multiple joints Left hemiparesis Left-sided muscle weakness Prostate cancer Stenosis of right carotid artery Weakness Weakness Home Medications metformin 1,000 mg tablet 1,000 mg PO BID diabetes 12/18/19 [History Last Taken 09/26/22] pioglitazone 15 mg tablet 15 mg PO DAILY diabetes 12/18/19 [History Last Taken 09/24/22] ramipril 10 mg capsule 10 mg PO DAILY blood pressure 12/18/19 [History Last Taken 09/26/22] atorvastatin 40 mg tablet 40 mg PO DAILY Cholesterol 10/13/21 [History Last Taken 11/02/21] sodium chloride 1,000 mg soluble tablet 1 g PO BID Low sodium 11/14/21 [History Last Taken 09/26/22] acetaminophen 500 mg tablet 1,000 mg PO Q6H PRN Pain 09/26/22 [History Last Taken Unknown] allopurinol 100 mg tablet 100 mg PO DAILY GOUT 09/26/22 [History Last Taken Unknown] aspirin 325 mg tablet,delayed release 325 mg PO DAILY PRN Pain 09/26/22 [History Last Taken Unknown] desoximetasone 0.05 % topical cream 1 applic topical BID PRN DRY SKIN ON FACE 09/26/22 [History Last Taken 09/23/22] glimepiride 2 mg tablet 2 mg PO BREAKFAST blood sugar 09/28/22 [History Last Taken Unknown] metoprolol succinate 50 mg tablet,extended release 24 hr 25 mg PO DAILY BP/pulse 09/28/22 [History Last Taken Unknown] sennosides 8.6 mg-docusate sodium 50 mg tablet (Stool Softener-Stimulant Laxative) 2 tab PO BID stool softener 09/28/22 [History Last Taken Unknown] mirtazapine 15 mg tablet 15 mg PO QHS #0 tabs 10/05/22 [Rx Last Taken Unknown] Allergy/AdvReac Type Severity Reaction Status Date / Time No Known Allergies Allergy Verified 11/17/22 04:05 Family History Mother CVA (cerebral vascular accident) Several recurrent strokes, eventually passed age 84. Surgical History H/O foot surgery History of colon resection History of repair of right rotator cuff History of right-sided carotid endarterectomy (11/06/21) History of tonsillectomy and adenoidectomy Social History household members: spouse Smoking Status: Former smoker how long ago did patient quit smoking: Smoked age [age], 1 ppd until quit. Does have 2nd hand exposure from . alcohol intake: current alcohol intake frequency: holidays/special occasions only substance use type: does not use Vital Signs Vital Signs Vital Signs: 11/17/22 04:05 11/17/22 04:09 Temperature 96.7 F L Temperature Source Temporal Pulse Rate 63 Respiratory Rate 16 Respiratory Effort Normal Respiratory Pattern Normal Blood Pressure 135/95 H Blood Pressure Mean 108 Pulse Ox 95 Oxygen Delivery Method Nasal Cannula Weight Weight: 92.5 kg Body Mass Index (BMI) 29.2 Results Lab / Micro Data Result Diagrams: 11/17/22 04:15 11/17/22 04:15 Labs: Laboratory Results - last 24 hr 11/17/22 04:15: WBC 6.8, RBC 4.55 L, Hgb 13.7, Hct 38.1 L, MCV 83.7, MCH 30.1, MCHC 36.0, RDW Std Deviation 39.8, RDW Coeff of Cintia 13.2, Plt Count 213, MPV 9.1, Immature Gran % (Auto) 1.300 H, Neut % (Auto) 73.7 H, Lymph % (Auto) 10.7 L, [place] % (Auto) 13.6 H, Eos % (Auto) 0.1, Baso % (Auto) 0.6, Absolute Neuts (auto) 5.0, Absolute Lymphs (auto) 0.72 L, Nucleated RBC % 0 11/17/22 04:15: Sodium 127 L, Potassium 3.6, Chloride 90 L, Carbon Dioxide 26.0, Anion Gap 11, BUN 21 H, Creatinine 1.19, Estim Creat Clear Calc 57.08, Est GFR (MDRD) Af Amer 77, Est GFR (MDRD) Non-Af 64, BUN/Creatinine Ratio 17.6, Glucose 173 H, Calcium 9.1, Magnesium 1.4 L Micro: Microbiology 11/17/22 04:20 Nasal Secretion SARS-CoV-2 & FLU Antigen (Rapid) - Final SARS-CoV-2 (COVID 19)
[2022-11-17 06:39] LABS: Uric Acid 4.2 mg/dL (3.5-7.2)
--- NOTE | 2022-11-17 06:51 | PCM.PN.BLA ---
Progress Note The patient was seen with the intent of being admitted to the hospital. However patient wants to go home. Discussed with ED doctor who went back to see patient and patient re-stated that he wants to go home.
--- NOTE | 2022-11-17 10:51 | HP.PCM.HOS_ITS ---
HPI - General General Date of Admission: 11/17/22 Date of Service: 11/17/22 Chief Complaint: debility, mechanical falls HPI Narrative PAYAM HAMM, is a 72 M with a PMH as outlined who presents via the ED on 11/17/2022 with a complaint of debility and mechanical falls. He had been getting weaker at home, and said his had gotten covid. HE had also had congestion and cough for 2-3 days prior to admission. HE got up to go to his chair the night before admission,a dn said he was weak and lowered himself to the floor. His couldnt get him up and he couldnt get uup on his own as well so EMS was called. He said he had had history of low sodium and that had caused weakness. He was therefore brought in to the ED. He denied any headache, chest pain, blurred vision, dizziness, lightheadedness, nausea, vomiting or diarrhea. Review of systems was otherwise negative. VItals were BP of 135/95, WA of 63, RR of 16 and temp of 96.7F. He was saturating at 95% on room air. CBC was unremakable. BMP showe dsodium of 127, chloride of 90 and magnesium of 1.4. He is being admitted to be managed for debility due to frequent falls and hyponatremia. Patient was initially reluctant about admission, but subsequently was convinced by his to be admitted as she couldnt care for him at home. [facility] Medical History Adult failure to thrive Carotid artery stenosis Chronic hyponatremia CVA (cerebral vascular accident) (09/25/21) Debility Depression DM2 (diabetes mellitus, type 2) Essential hypertension Falls frequently Frequent falls Gout Hyperlipidemia Hyponatremia Inability to ambulate due to multiple joints Left hemiparesis Left-sided muscle weakness Prostate cancer Stenosis of right carotid artery Weakness Weakness Home Medications metformin 1,000 mg tablet 1,000 mg PO BID diabetes 12/18/19 [History Last Taken 09/26/22] pioglitazone 15 mg tablet 15 mg PO DAILY diabetes 12/18/19 [History Last Taken 09/24/22] ramipril 10 mg capsule 10 mg PO DAILY blood pressure 12/18/19 [History Last Taken 09/26/22] atorvastatin 40 mg tablet 40 mg PO DAILY Cholesterol 10/13/21 [History Last Taken 11/02/21] sodium chloride 1,000 mg soluble tablet 1 g PO BID Low sodium 11/14/21 [History Last Taken 09/26/22] acetaminophen 500 mg tablet 1,000 mg PO Q6H PRN Pain 09/26/22 [History Last Taken Unknown] allopurinol 100 mg tablet 100 mg PO DAILY GOUT 09/26/22 [History Last Taken Unk nown] aspirin 325 mg tablet,delayed release 325 mg PO DAILY PRN Pain 09/26/22 [History Last Taken Unknown] desoximetasone 0.05 % topical cream 1 applic topical BID PRN DRY SKIN ON FACE 09/26/22 [History Last Taken 09/23/22] glimepiride 2 mg tablet 2 mg PO BREAKFAST blood sugar 09/28/22 [History Last Taken Unknown] metoprolol succinate 50 mg tablet,extended release 24 hr 25 mg PO DAILY BP/pulse 09/28/22 [History Last Taken Unknown] sennosides 8.6 mg-docusate sodium 50 mg tablet (Stool Softener-Stimulant Laxative) 2 tab PO BID stool softener 09/28/22 [History Last Taken Unknown] mirtazapine 15 mg tablet 15 mg PO QHS #0 tabs 10/05/22 [Rx Last Taken Unknown] magnesium oxide 400 mg PO DAILY 7 days #7 caps 11/17/22 [Rx Last Taken Unknown] nirmatrelvir 300 mg (150 mg x2)-ritonavir 100 mg tablet,dose pack(EUA) (Paxlovid) See Rx Instructions PO .COMPLEX #30 tabs 11/17/22 [Rx Last Taken Unknown] Allergy/AdvReac Type Severity Reaction Status Date / Time No Known Allergies Allergy Verified 11/17/22 04:05 Family History Mother CVA (cerebral vascular accident) Several recurrent strokes, eventually passed age 84. Surgical History H/O foot surgery History of colon resection History of repair of right rotator cuff History of right-sided carotid endarterectomy (11/06/21) History of tonsillectomy and adenoidectomy Social History household members: spouse Smoking Status: Former smoker how long ago did patient quit smoking: Smoked age [age], 1 ppd until quit. Does have 2nd hand exposure from . alcohol intake: current alcohol intake frequency: holidays/special occasions only substance use type: does not use ROS Constitutional Constitutional: Reports fatigue, malaise and weakness; Denies anorexia, change in weight, chills or fever(s) Eyes Eyes: Denies change in vision ENT HEENT: Denies dysphagia, headache(s), nasal congestion or sore throat Cardiovascular Cardiovascular: Denies chest pain, dyspnea on exertion, edema, lightheadedness, orthopnea, palpitations, rapid heart rate or syncope Respiratory/Chest Respiratory/Chest: Denies cough, shortness of breath at rest or shortness of breath with exertion Gastrointestinal Gastrointestinal: Denies abdominal pain, constipation, diarrhea, nausea or vomiting Genitourinary Genitourinary: Denies dysuria Musculoskeletal Musculoskeletal: Denies arthralgias, back pain or joint swelling Neurologic Neurologic: Denies confusion, dizziness, focal weakness, headache(s), seizures, syncope or tingling Psychiatric Psychiatric: Denies anxiety Endocrine Endocrinology: Denies change in body appearance Hematologic/Lymphatic Hematologic/Lymphatic: Denies anemia Vital Signs Vital Signs Vital Signs: 11/17/22 04:05 11/17/22 04:09 Temperature 96.7 F L Temperature Source Temporal Pulse Rate 63 Respiratory Rate 16 Respiratory Effort Normal Respiratory Pattern Normal Blood Pressure 135/95 H Blood Pressure Mean 108 Pulse Ox 95 Oxygen Delivery Method Nasal Cannula Weight Weight: 203 lb 14.841 oz Body Mass Index (BMI) 29.2 Physical Exam Const alert, oriented x3 and no apparent distress General Appearance: cooperative HEENT normocephalic, head/scalp atraumatic, hearing grossly normal bilaterally and moist oral mucous membranes Mouth: oral and palatal mucosa normal Eyes PERRL and EOMs intact bilaterally Neck no lymphadenopathy and supple Resp normal respiratory effort, no retractions, no use of accessory muscles and clear to auscultation bilaterally Cardio regular rate, regular rhythm, S1 normal heart sound, S2 normal heart sound and n o murmurs GI normal to inspection, nondistended, normoactive bowel sounds, soft to palpation, non-tender and non-distended Extremity normal to inspection, full ROM and no clubbing, cyanosis or edema Neuro oriented x3, CN's II-XII intact bilaterally and moves all extremities Sensorium / Orientation: awake and alert Motor Exam: strength 5/5 throughout Psych affect normal Results Lab / Micro Data Result Diagrams: 11/18/22 05:17 11/18/22 05:17 Labs: Laboratory Results - last 24 hr 11/17/22 04:15: WBC 6.8, RBC 4.55 L, Hgb 13.7, Hct 38.1 L, MCV 83.7, MCH 30.1, MCHC 36.0, RDW Std Deviation 39.8, RDW Coeff of Cintia 13.2, Plt Count 213, MPV 9.1, Immature Gran % (Auto) 1.300 H, Neut % (Auto) 73.7 H, Lymph % (Auto) 10.7 L , [place] % (Auto) 13.6 H, Eos % (Auto) 0.1, Baso % (Auto) 0.6, Absolute Neuts (auto) 5.0, Absolute Lymphs (auto) 0.72 L, Nucleated RBC % 0 11/17/22 04:15: Sodium 127 L, Potassium 3.6, Chloride 90 L, Carbon Dioxide 26.0, Anion Gap 11, BUN 21 H, Creatinine 1.19, Estim Creat Clear Calc 57.08, Est GFR (MDRD) Af Amer 77, Est GFR (MDRD) Non-Af 64, BUN/Creatinine Ratio 17.6, Glucose 173 H, Calcium 9.1, Magnesium 1.4 L 11/17/22 04:31: Uric Acid 4.2 Micro: Microbiology 11/17/22 04:20 Nasal Secretion SARS-CoV-2 & FLU Antigen (Rapid) - Final SARS-CoV-2 (COVID 19) Assessment & Plan Assessment/Plan (1) Hyponatremia: (2) Generalized weakness: PLAN: Plan #Debillity and weakness due to covid 19 infection and hyponatremia * admit to med surg * currently on room air * vaccinated * hydrate gently with IVF * PT.OT consult * fall precautions * hold off on dexamethasone and remdesivir as patient is on room air. * had been on paxlovid on outpatient basis * #Hyponatremia * sodium is 127. HE does have chronic hyponatremia since 2019 * hydrate gently with IVF and trend sodium * #Hypomagnesemia: Mg is 1.4. Will replace and trend #Type 2 diabetes mellitus: on glimepirid and metformin. ISS. Accuchecks ACHS. Also on pioglitazone #Hypertension: on metoprolol and losartan DVT prophylais: lovenox Code status: full code * Patient and counseled extensively about different types of CODE STATUS including full code, DNR CCA and DNR CCA. Patient elects to be full code. * Total ngwv-ie-jrol time () minutes. Charges/Coding Visit Charges Inpatient E&M: 05038 Init Hosp L3 Procedures Hospitalists Procedures: 28099 Advncd Care Plan 30 Min
--- NOTE | 2022-11-17 12:40 | CASEMGMT ---
RN GENNA called patient in room for initial transition planning/care coordination assessment. RN GENNA introduced self and role at [facility]. Patient is alert and oriented. Patient willing to participate in assessment and is able to answer all questions appropriately. Care providers, pharmacy, and demographics verified. Patient wishes to discharge home with resumption of HHC if he is able, patient willing to go to SNF if recommended by therapy. Will monitor progress with therapy. Patient states he has no further needs or concerns at this time. CM to follow for discharge planning needs that may arise. PCP: Surendra Specialists: Patient follows with urologist in [facility] Pharmacy: [facility] Pres[facility] Benefit: yes Living Will/HPOA: yes, Rossy Quevedo LNOK: , daugther Living Arrangements: Patient lives with in a single story home with ramp to enter the home. Patient states he is normally independent at home. Transportation: DME/HHC: Patient has shower chair, raised toilet, cane, walker, and grab bars at home. Patient has been to TCU in the past. Patient is active with [facility] for snf, will add PT/OT to eval and treat. Will monitor progress with therapy. Resumption order received and referral sent to [facility] via [facility]. Disposition Plan: TBD by progress with therapy, home with resumption of HHC or SNF. Mariella HU, RN, CM
[2022-11-17 13:27] LABS: D-Dimer Quantitative (DVT/PE) 0.54 FEU/ug/m (0.27-0.49)
[2022-11-17] MEDS: 0.9% Normal Saline 1,000 ML 125 ML IV ×2 (13:40→22:14)
[2022-11-17 13:46] LABS: CPK Total, Creatine Kinase 63 U/L (39-308)
[2022-11-17 13:54] LABS: Osmolality, Serum 271 mOsm/KG (280-301)
[2022-11-17 14:00] LABS: Bedside Glucose 197 mg/dL (74-106)
[2022-11-17 14:12] LABS: Procalcitonin 0.07 ng/mL (0.00-0.09)
[2022-11-17] MEDS: metFORMIN HCl 1,000 MG Tablet 1000 MG PO (17:29)
[2022-11-17 17:30] LABS: Bedside Glucose 193 mg/dL (74-106)
--- NOTE | 2022-11-17 17:42 | NURSING ---
attempt to reach or daughter unsuccessful, left msg on wifes ans machine
[2022-11-17] MEDS: Insulin Lispro 100 UNIT/ML INSULN.PEN SC (22:24)
[2022-11-17] MEDS: Atorvastatin Calcium 40 MG Tablet PO (22:25)
[2022-11-17] MEDS: Sodium Chloride 1 GM Tablet PO (22:25)
[2022-11-17] MEDS: Senna/Docusate Sodium 1 Tablet 2 TABLET PO (22:25)
[2022-11-17] MEDS: Mirtazapine 15 MG Tablet PO (22:25)
[2022-11-17 23:30] LABS: Bedside Glucose 189 mg/dL (74-106)
[2022-11-18] VITALS (8 sets, daily range): BP systolic 124–135; BP diastolic 67–92; PULSE 46–65; RESP 18; TEMP 36.6–36.7; O2SAT 95–98
[2022-11-18 03:21] LABS: Urine Sodium 47 mmol/L (Not Establ.)
[2022-11-18 03:40] LABS: Osmolality, Urine 405 mOsm/KG
[2022-11-18 06:06] LABS: Absolute Lymphocyte Count 1.18 X10^3/uL (0.83-4.51); Absolute Neutrophil Count 3.5 X10^3/uL (2.0-7.7); Basophil# 0.05 X10^3/uL; Basophil% 0.9 % (0-1); Eosinophil# 0.04 X10^3/uL; Eosinophils% 0.7 % (0-5); Hematocrit 38.9 % (40-54); Hemoglobin 13.3 g/dL (13.0-16.5); Lymphocyte # 1.18 X10^3/ul (0.83-4.51); Lymphocyte % 20.2 % (19-41); Mean Corp Hgb Conc 34.2 g/dL (32-36); Mean Corpuscular Hgb 29.2 pg (27.0-32.0); Mean Corpuscular Volume 85.3 fL (80-94); Mean Platelet Vol. 8.7 fl (6.2-12.0); Monocyte# 0.88 X10^3/uL; Monocyte% 15.1 % (0-10); NRBC Flagged by Analyzer 0 % (0-5); Neutrophil # 3.53 X10^3/uL (2.7-7.7); Neutrophil % 60.5 % (47-70); Platelet Count 229 K/mm3 (150-450); RBC Distribution Width CV 13.2 % (11.6-14.6); RBC Distribution Width SD 41.2 fl (35.1-43.9); Red Blood Count 4.56 M/mm3 (4.6-6.2); White Blood Count 5.8 K/mm3 (4.4-11.0)
[2022-11-18 06:33] LABS: Anion Gap 6 (5-15); BUN 19 mg/dL (7-18); BUN/Creat Ratio 20.5 RATIO (10-20); Chloride 95 mmol/L (98-107); Creatinine, Serum 0.93 mg/dL (0.70-1.30); EST Glomerular Filtration Rate 85 mL/min (>60); Est Glom Filt Rate - Afr Amer 103 mL/min (>60); Estimated Creatinine Clearance 73.04 ml/min; Glucose 111 mg/dL (74-106); Potassium 3.5 mmol/L (3.5-5.1); Sodium Level 132 mmol/L (136-145)
[2022-11-18 06:35] LABS: Bedside Glucose 105 mg/dL (74-106)
[2022-11-18] MEDS: Senna/Docusate Sodium 1 Tablet 2 TABLET PO ×2 (09:43→23:03)
[2022-11-18] MEDS: Sodium Chloride 1 GM Tablet PO ×2 (09:43→23:05)
[2022-11-18] MEDS: Allopurinol 100 MG Tablet PO (09:43)
[2022-11-18] MEDS: Ramipril 10 MG Capsule PO (09:44)
[2022-11-18] MEDS: metFORMIN HCl 1,000 MG Tablet 1000 MG PO ×2 (09:44→17:58)
[2022-11-18] MEDS: Glimepiride 2 MG Tablet PO (09:44)
[2022-11-18] MEDS: Pioglitazone Hydrochloride 15 MG Tablet PO (09:44)
[2022-11-18] MEDS: Enoxaparin 40 MG/0.4 ML Syringe SC (09:45)
--- NOTE | 2022-11-18 11:49 | PN.HOSP_ITS ---
Subjective Subjective Patient seen and examined. He had no complaints and had an uneventful night. Review of systems is otherwise negative. He has remained hemodynamically stable. He is on rooom air. HE was noted to be bradycardic overnight, with HR going down to the 30s. HR is 46 this morning. He was asymptomatic. Objective Data Objective Data Vital Signs: Vital Signs Temp Pulse Resp BP Pulse Ox O2 Del Method 97.8 F 46 L 18 130/84 H 97 Room Air 11/18/22 06:12 11/18/22 09:59 11/18/22 06:12 11/18/22 06:12 11/18/22 06:12 11/18/22 06:24 Oxygen Delivery Method Room Air Weight: 195 lb 15.855 oz Body Mass Index (BMI) 28.0 Intake & Output: Intake and Output for Last 24 Hours 11/16/22 11/17/22 11/18/22 23:59 23:59 23:59 Intake Total 3454 / 3454 1300 / 1300 Output Total 1600 / 1600 Balance 1854 / 1854 1300 / 1300 Lab / Micro Data Result Diagrams: 11/18/22 05:17 11/18/22 05:17 Labs: Laboratory Results - last 24 hr 11/17/22 12:26: Serum Osmolality 271 L 11/17/22 12:26: D-Dimer Quant (PE/DVT) 0.54 H* 11/17/22 12:26: Total Creatine Kinase 63 11/17/22 12:26: Procalcitonin 0.07 11/17/22 12:30: POC Glucose 197 H 11/17/22 17:04: POC Glucose 193 H 11/17/22 22:13: POC Glucose 189 H 11/18/22 02:55: Urine Osmolality 405, Ur Random Sodium 47 11/18/22 05:17: Sodium 132 L, Potassium 3.5, Chloride 95 L, Carbon Dioxide 31.0, Anion Gap 6, BUN 19 H, Creatinine 0.93, Estim Creat Clear Calc 73.04, Est GFR (MDRD) Af Amer 103, Est GFR (MDRD) Non-Af 85, BUN/Creatinine Ratio 20.5 H, Glucose 111 H, Calcium 9.0 11/18/22 05:17: WBC 5.8, RBC 4.56 L, Hgb 13.3, Hct 38.9 L, MCV 85.3, MCH 29.2, MCHC 34.2, RDW Std Deviation 41.2, RDW Coeff of Cintia 13.2, Plt Count 229, MPV 8.7, Immature Gran % (Auto) 2.600 H, Neut % (Auto) 60.5, Lymph % (Auto) 20.2, [place] % (Auto) 15.1 H, Eos % (Auto) 0.7, Baso % (Auto) 0.9, Absolute Neuts (auto) 3.5, Absolute Lymphs (auto) 1.18, Nucleated RBC % 0 11/18/22 06:09: POC Glucose 105 Micro: Microbiology 11/17/22 04:20 Nasal Secretion SARS-CoV-2 & FLU Antigen (Rapid) - Final SARS-CoV-2 (COVID 19) Physical Exam Const alert, oriented x3 and no apparent distress General Appearance: cooperative HEENT normocephalic, head/scalp atraumatic, hearing grossly normal bilaterally and moist oral mucous membranes Head and Scalp: normocephalic Mouth: oral and palatal mucosa normal Eyes PERRL and EOMs intact bilaterally Neck no lymphadenopathy and supple Resp normal respiratory effort, no retractions, no use of accessory muscles and clear to auscultation bilaterally Cardio regular rhythm, S1 normal heart sound, S2 normal heart sound and no murmurs Cardio Narrative: bradycardia GI normal to inspection, nondistended, normoactive bowel sounds, soft to palpation, non-tender and non-distended Extremity normal to inspection, full ROM and no clubbing, cyanosis or edema Neuro oriented x3, CN's II-XII intact bilaterally and moves all extremities Sensorium / Orientation: awake and alert Motor Exam: strength 5/5 throughout Psych affect normal Assessment & Plan Assessment/Plan (1) Hyponatremia: (2) Generalized weakness: PLAN: Plan #Debillity and weakness due to covid 19 infection and hyponatremia * feels much better today. Tolerating oral diet. * vaccinated against covid and also received the booster. * PT.OTon board. * fall precautions * hold off on dexamethasone and remdesivir as patient is on room air. * had been on paxlovid on outpatient basis * #COVID 19 infection: as above. Asymptomatic. #Hyponatremia * sodium is up to 132 today. HE does have chronic hyponatremia since 2019 * will dc IVF as he is tolerating oral diet. * #Hypomagnesemia: magnesium was 1.4 and was replaced. Will monitor. #Type 2 diabetes mellitus: on glimepiride and metformin. ISS. Accuchecks ACHS. Also on pioglitazone #Hypertension: on metoprolol and losartan DVT prophylais: lovenox Code status: full code Disposition: depends on PT/OT evaluation. says she cant take care of him at home. Charges/Coding Visit Charges Inpatient E&M: 44568 Subs Hosp L2
--- NOTE | 2022-11-18 11:52 | EKG12_ITS ---
Test Reason : LUIGI Blood Pressure : / mmHG Vent. Rate : 059 BPM Atrial Rate : 059 BPM P-R Int : 250 ms QRS Dur : 094 ms QT Int : 438 ms P-R-T Axes : 081 029 158 degrees QTc Int : 433 ms Sinus bradycardia with 1st degree A-V block Nonspecific ST-Segment Abnormality Confirmed by ALY LYNCH, BENJAMÍN ([id number]), editor magazine TIM BENZ ([id number]) on 11/21/2022 8:56:56 AM Referred By: CHRISTIN Confirmed By:BENJAMÍN LU MD
[2022-11-18 12:22] LABS: Magnesium 1.7 mg/dL (1.6-2.6)
[2022-11-18 15:35] LABS: Bedside Glucose 89 mg/dL (74-106)
[2022-11-18 17:36] LABS: Bedside Glucose 169 mg/dL (74-106)
[2022-11-18] MEDS: 0.9% Saline Lock 10 ML Syringe IV (23:03)
[2022-11-18] MEDS: Atorvastatin Calcium 40 MG Tablet PO (23:03)
[2022-11-18] MEDS: Mirtazapine 15 MG Tablet PO (23:04)
[2022-11-19] VITALS (8 sets, daily range): BP systolic 134–146; BP diastolic 87–99; PULSE 44–63; RESP 16–18; TEMP 36.4–36.7; O2SAT 95–99
[2022-11-19 01:15] LABS: Bedside Glucose 107 mg/dL (74-106)
[2022-11-19 06:30] LABS: Absolute Lymphocyte Count 1.24 X10^3/uL (0.83-4.51); Absolute Neutrophil Count 3.2 X10^3/uL (2.0-7.7); Basophil# 0.04 X10^3/uL; Basophil% 0.7 % (0-1); Eosinophil# 0.08 X10^3/uL; Eosinophils% 1.5 % (0-5); Hemoglobin 13.4 g/dL (13.0-16.5); Lymphocyte # 1.24 X10^3/ul (0.83-4.51); Lymphocyte % 23.2 % (19-41); Mean Corp Hgb Conc 35.3 g/dL (32-36); Mean Corpuscular Hgb 29.8 pg (27.0-32.0); Mean Corpuscular Volume 84.6 fL (80-94); Mean Platelet Vol. 8.3 fl (6.2-12.0); Monocyte# 0.66 X10^3/uL; Monocyte% 12.4 % (0-10); NRBC Flagged by Analyzer 0 % (0-5); Neutrophil # 3.22 X10^3/uL (2.7-7.7); Neutrophil % 60.3 % (47-70); Platelet Count 194 K/mm3 (150-450); RBC Distribution Width CV 13.1 % (11.6-14.6); RBC Distribution Width SD 40.4 fl (35.1-43.9); Red Blood Count 4.49 M/mm3 (4.6-6.2); White Blood Count 5.3 K/mm3 (4.4-11.0)
[2022-11-19 06:45] LABS: Bedside Glucose 125 mg/dL (74-106)
[2022-11-19 07:03] LABS: Anion Gap 8 (5-15); BUN 17 mg/dL (7-18); BUN/Creat Ratio 18.6 RATIO (10-20); Calcium,Total 8.7 mg/dL (8.5-10.1); Chloride 93 mmol/L (98-107); Creatinine, Serum 0.91 mg/dL (0.70-1.30); EST Glomerular Filtration Rate 86 mL/min (>60); Est Glom Filt Rate - Afr Amer 105 mL/min (>60); Estimated Creatinine Clearance 74.65 ml/min; Glucose 127 mg/dL (74-106); Potassium 3.2 mmol/L (3.5-5.1); Sodium Level 130 mmol/L (136-145)
--- NOTE | 2022-11-19 10:36 | PN.HOSP_ITS ---
Reason for Visit Reason for Visit: Diagnoses Hypo-osmolality and hyponatremia (11/17/22) Weakness (11/17/22) Subjective Subjective Doing well, no issues overnight Objective Data Objective Data Vital Signs: Vital Signs Temp Pulse Resp BP Pulse Ox O2 Del Method 97.5 F L 50 L 16 134/87 H 95 Room Air 11/19/22 06:16 11/19/22 06:16 11/19/22 06:16 11/19/22 06:16 11/19/22 08:17 11/19/22 08:17 Oxygen Delivery Method Room Air Weight: 195 lb 15.855 oz Body Mass Index (BMI) 28.0 Intake & Output: Intake and Output for Last 24 Hours 11/18/22 11/19/22 11/20/22 03:59 03:59 03:59 Intake Total 3454 / 3454 1600 / 1600 400 / 400 Output Total 1600 / 1600 700 / 700 700 / 700 Balance 1854 / 1854 900 / 900 -300 / -300 Lab / Micro Data Result Diagrams: 11/19/22 06:20 11/19/22 06:20 Labs: Laboratory Results - last 24 hr 11/18/22 05:17: Magnesium 1.7 11/18/22 15:16: POC Glucose 89 11/18/22 17:17: POC Glucose 169 H 11/18/22 22:57: POC Glucose 107 H 11/19/22 06:16: POC Glucose 125 H 11/19/22 06:20: Sodium 130 L, Potassium 3.2 L, Chloride 93 L, Carbon Dioxide 29.0, Anion Gap 8, BUN 17, Creatinine 0.91, Estim Creat Clear Calc 74.65, Est GFR (MDRD) Af Amer 105, Est GFR (MDRD) Non-Af 86, BUN/Creatinine Ratio 18.6, Glucose 127 H, Calcium 8.7 11/19/22 06:20: WBC 5.3, RBC 4.49 L, Hgb 13.4, Hct 38.0 L, MCV 84.6, MCH 29.8, M CHC 35.3, RDW Std Deviation 40.4, RDW Coeff of Cintia 13.1, Plt Count 194, MPV 8.3, Immature Gran % (Auto) 1.900 H, Neut % (Auto) 60.3, Lymph % (Auto) 23.2, [place] % (Auto) 12.4 H, Eos % (Auto) 1.5, Baso % (Auto) 0.7, Absolute Neuts (auto) 3.2, Absolute Lymphs (auto) 1.24, Nucleated RBC % 0 Micro: Microbiology 11/17/22 04:20 Nasal Secretion SARS-CoV-2 & FLU Antigen (Rapid) - Final SARS-CoV-2 (COVID 19) Physical Exam Narrative General: Alert, Oriented x3, Cooperative, No apparent distress HEENT: Atraumatic, PERRLA, EOMI, Normocephalic Oral: Moist Mucosa Neck: Supple, No JVD Lungs: Clear to auscultation, Normal air movement, No rhonchi, No wheeze, No rales Cardiovascular: Regular rate, Regular Rhythm, Normal S1, Normal S2, No murmurs Abdomen: Soft, Non Tender, Non-Distended, No Hepato-splenomegaly Extremities: No edema, Capillary Refill Less than 3 Seconds Skin: No rashes, No breakdown Musculoskeletal: No Tenderness to Palpation of Joints or Extremities Neurological: Cranial nerves II-XII grossly intact, Motor Exam 5/5 strength throughout, Sensory exam intact to light touch and pain Psych/Mental Status: Normal Affect, Appropriate Assessment & Plan Assessment/Plan (1) Hyponatremia: (2) Generalized weakness: PLAN: Plan #Debillity and weakness due to covid 19 infection and hyponatremia * admit to med surg * currently on room air * vaccinated * hydrate gently with IVF * PT.OT consult * fall precautions * hold off on dexamethasone and remdesivir as patient is on room air. * had been on paxlovid on outpatient basis #Type 2 diabetes mellitus: on glimepirid and metformin. ISS. Accuchecks ACHS. Also on pioglitazone #Hypertension: on metoprolol and losartan DVT: Lovenox Charges/Coding Visit Charges Inpatient E&M: 13971 Subs Hosp L2
--- NOTE | 2022-11-19 10:41 | CASEMGMT ---
Social Work? SW in to meet with pt following update from Dr/therapy team that pt will need placement at nursing facility. Pt is covid positive and pt also positive for covid- with Parkinson's, so unable to assist in caring for pt. SW introduced self and role at the hospital. Pt agreeable to discussing discharge planning. A list of SNF providers including quality and resource use data consistent with the patient?s preferred geographic region, medical needs, and insurance network was offered from the [facility] Guide. Pt stated no need to review list, wants [facility] in [place], as pt has been there previous and [facility] is close to pt home. SW sent referral to [facility] via [facility]. PLAN: [facility], pending acceptance and precert DELIA Landry? ?
[2022-11-19] MEDS: Glimepiride 2 MG Tablet PO (10:57)
[2022-11-19] MEDS: Pioglitazone Hydrochloride 15 MG Tablet PO (10:57)
[2022-11-19] MEDS: Ramipril 10 MG Capsule PO (10:57)
[2022-11-19] MEDS: metFORMIN HCl 1,000 MG Tablet 1000 MG PO (10:57)
[2022-11-19] MEDS: Allopurinol 100 MG Tablet PO (10:57)
[2022-11-19] MEDS: Enoxaparin 40 MG/0.4 ML Syringe SC (10:58)
--- NOTE | 2022-11-19 11:26 | CASEMGMT ---
RN GENNA NOTE: Pt in COVID precautions. Call placed to pt at this time. Intro role of CM to patient and RAYO form explained re: Observation status for treatment of generalized weakness and COVID. Explained hospitalization will be paid per his insurance policy for Outpatient billing and condition will continue to be evaluated for Inpt necessity. Also let pt know that [facility] sends paper in the billing packet with their phone number if questions arise. Discussed Pharmacy section of RAYO form and self administered medication guideline. Pt verbalizes understanding and does not have further questions. Form signed via telephone signature by this RN GENNA and Laura RAMÍREZ. Copy made and placed in chart, and original given to pt's nurse to give to pt when she goes into his room. Millie OBREGONN ONOFRE VAIL
[2022-11-19] MEDS: Sodium Chloride 1 GM Tablet PO ×2 (12:47→20:06)
[2022-11-19] MEDS: Potassium Chloride Oral Tablet 20 MEQ 40 MEQ PO (12:47)
--- NOTE | 2022-11-19 13:25 | CASEMGMT ---
Addendum entered by Laura Hughes 11/19/22 16:18: SW attempted to call back. No answer, once again. SW received message that covering CM unavailable. No option to leave message. Original Note: Social Work SW received pc from Ayla at [facility]. Ayla shared details of pt history and expressed concern for pt returning home. Frannie stated pt previously informed that t would not go to SNF. DARRELL explained to Ayla that pt is now agreeable and a referral has been sent to [facility] in [place]. Ayla informed pt will be happy with this news as pt has Parkinson's and is also dealing with Covid presentl, which means unable to assist with pt care at home. Ayla informed that pt was set up with [facility] following most recent discharge from [facility]. Pt also had an assessment from [facility] by a man named Donavon Reyes. SW called [facility] to inquire if pt has a CM. All lines were busy and SW unable to leave a message at this time. SW will call back later this day. PLAN: [facility], pending acceptance and precert. DELIA Blanton
--- NOTE | 2022-11-19 13:32 | CASEMGMT ---
Social work SW received PC from Juan at [facility]. Juan informed pt has been accepted. Precert to be started today. PLAN: [facility], pending precert DELIA Landry
[2022-11-19 17:35] LABS: Bedside Glucose 98 mg/dL (74-106)
[2022-11-19] MEDS: Loperamide 2 MG Capsule PO (19:58)
[2022-11-19] MEDS: Insulin Lispro 100 UNIT/ML INSULN.PEN SC (20:04)
[2022-11-19] MEDS: Mirtazapine 15 MG Tablet PO (20:06)
[2022-11-19] MEDS: Atorvastatin Calcium 40 MG Tablet PO (20:06)
[2022-11-19 20:30] LABS: Bedside Glucose 200 mg/dL (74-106)
[2022-11-20] VITALS (7 sets, daily range): BP systolic 124–149; BP diastolic 74–109; PULSE 59–84; RESP 16–18; TEMP 36.6–36.7; O2SAT 94–98
[2022-11-20] MEDS: Insulin Lispro 100 UNIT/ML INSULN.PEN SC ×2 (06:12→11:04)
[2022-11-20 06:35] LABS: Anion Gap 10 (5-15); BUN 13 mg/dL (7-18); Calcium,Total 9.1 mg/dL (8.5-10.1); Chloride 92 mmol/L (98-107); Creatinine, Serum 0.81 mg/dL (0.70-1.30); EST Glomerular Filtration Rate 99 mL/min (>60); Est Glom Filt Rate - Afr Amer 119 mL/min (>60); Estimated Creatinine Clearance 83.86 ml/min; Glucose 154 mg/dL (74-106); Magnesium 1.5 mg/dL (1.6-2.6); Potassium 3.4 mmol/L (3.5-5.1); Sodium Level 129 mmol/L (136-145)
[2022-11-20 06:55] LABS: Bedside Glucose 157 mg/dL (74-106)
[2022-11-20] MEDS: Allopurinol 100 MG Tablet PO (09:13)
[2022-11-20] MEDS: Sodium Chloride 1 GM Tablet PO ×2 (09:13→20:18)
[2022-11-20] MEDS: metFORMIN HCl 1,000 MG Tablet 1000 MG PO ×2 (09:13→15:17)
[2022-11-20] MEDS: Ramipril 10 MG Capsule PO (09:13)
[2022-11-20] MEDS: Glimepiride 2 MG Tablet PO (09:13)
[2022-11-20] MEDS: Enoxaparin 40 MG/0.4 ML Syringe SC (09:14)
[2022-11-20] MEDS: Pioglitazone Hydrochloride 15 MG Tablet PO (09:15)
--- NOTE | 2022-11-20 10:59 | PN.HOSP_ITS ---
Reason for Visit Reason for Visit: Diagnoses Hypo-osmolality and hyponatremia (11/17/22) Weakness (11/17/22) Subjective Subjective Doing well, no issues overnight. Objective Data Objective Data Vital Signs: Vital Signs Temp Pulse Resp BP Pulse Ox O2 Del Method 97.8 F 84 16 125/85 H 97 Room Air 11/20/22 09:18 11/20/22 09:18 11/20/22 09:18 11/20/22 09:18 11/20/22 09:18 11/20/22 09:21 Oxygen Delivery Method Room Air Weight: 195 lb 15.855 oz Body Mass Index (BMI) 28.0 Intake & Output: Intake and Output for Last 24 Hours 11/19/22 11/20/22 11/21/22 03:59 03:59 03:59 Intake Total 1600 / 1600 1800 / 1800 600 / 600 Output Total 700 / 700 2300 / 2300 950 / 950 Balance 900 / 900 -500 / -500 -350 / -350 Lab / Micro Data Result Diagrams: 11/19/22 06:20 11/20/22 05:04 Labs: Laboratory Results - last 24 hr 11/19/22 12:46: POC Glucose 98 11/19/22 20:02: POC Glucose 200 H 11/20/22 05:04: Sodium 129 L, Potassium 3.4 L, Chloride 92 L, Carbon Dioxide 27.0, Anion Gap 10, BUN 13, Creatinine 0.81, Estim Creat Clear Calc 83.86, Est GFR (MDRD) Af Amer 119, Est GFR (MDRD) Non-Af 99, BUN/Creatinine Ratio 16.0, Glucose 154 H, Calcium 9.1, Magnesium 1.5 L 11/20/22 06:05: POC Glucose 157 H Micro: Microbiology 11/17/22 04:20 Nasal Secretion SARS-CoV-2 & FLU Antigen (Rapid) - Final SARS-CoV-2 (COVID 19) Physical Exam Narrative General: Alert, Oriented x3, Cooperative, No apparent distress HEENT: Atraumatic, PERRLA, EOMI, Normocephalic Oral: Moist Mucosa Neck: Supple, No JVD Lungs: Clear to auscultation, Normal air movement, No rhonchi, No wheeze, No ra les Cardiovascular: Regular rate, Regular Rhythm, Normal S1, Normal S2, No murmurs Abdomen: Soft, Non Tender, Non-Distended, No Hepato-splenomegaly Extremities: No edema, Capillary Refill Less than 3 Seconds Skin: No rashes, No breakdown Musculoskeletal: No Tenderness to Palpation of Joints or Extremities Neurological: Cranial nerves II-XII grossly intact, Motor Exam 5/5 strength throughout, Sensory exam intact to light touch and pain Psych/Mental Status: Normal Affect, Appropriate Assessment & Plan Assessment/Plan (1) Hyponatremia: (2) Generalized weakness: PLAN: Plan #Debillity and weakness due to covid 19 infection and hyponatremia * admit to med surg * currently on room air * vaccinated * PT.OT consult * fall precautions * hold off on dexamethasone and remdesivir as patient is on room air. * had been on paxlovid on outpatient basis #Type 2 diabetes mellitus: on glimepirid and metformin. ISS. Accuchecks ACHS. Also on pioglitazone #Hypertension: on metoprolol and losartan DVT: Lovenox Charges/Coding Visit Charges Inpatient E&M: 98280 Subs Hosp L2
[2022-11-20 11:25] LABS: Bedside Glucose 204 mg/dL (74-106)
--- NOTE | 2022-11-20 12:08 | CASEMGMT ---
Social Work SW called pt , Jayla, to update on d/c plan. Jayla informed [facility] had reached out about accepting pt. Jayla voiced understanding. Jayla also asked SW about pt's adding anxiety medication. DARRELL informed pt nurse would call back to discuss this information. SW updated bedside nurse, Lorena, that pt would like to discuss pt medications. PLAN: [facility], pending precert DELIA Landry
[2022-11-20] MEDS: Potassium Chloride Oral Tablet 20 MEQ 40 MEQ PO (12:45)
[2022-11-20] MEDS: Citalopram 20 MG Tablet PO (13:17)
[2022-11-20 15:40] LABS: Bedside Glucose 148 mg/dL (74-106)
[2022-11-20 16:11] LABS: Bedside Glucose 66 mg/dL (74-106)
[2022-11-20 16:11] LABS: Bedside Glucose 87 mg/dL (74-106)
[2022-11-20] MEDS: hydrOXYzine 10 MG Tablet PO (20:17)
[2022-11-20] MEDS: Mirtazapine 15 MG Tablet PO (20:18)
[2022-11-20] MEDS: Atorvastatin Calcium 40 MG Tablet PO (20:18)
[2022-11-20 23:10] LABS: Bedside Glucose 78 mg/dL (74-106)
[2022-11-21 02:26] VITALS: BP 127/72; PULSE 54; RESP 16; TEMP 36.2; O2SAT 97
[2022-11-21 02:50] LABS: Bedside Glucose 113 mg/dL (74-106)
[2022-11-21 06:43] LABS: Anion Gap 7 (5-15); BUN 14 mg/dL (7-18); BUN/Creat Ratio 16.1 RATIO (10-20); Chloride 94 mmol/L (98-107); Creatinine, Serum 0.87 mg/dL (0.70-1.30); EST Glomerular Filtration Rate 92 mL/min (>60); Est Glom Filt Rate - Afr Amer 111 mL/min (>60); Estimated Creatinine Clearance 78.08 ml/min; Glucose 123 mg/dL (74-106); Potassium 3.7 mmol/L (3.5-5.1); Sodium Level 129 mmol/L (136-145)
[2022-11-21 07:06] LABS: Bedside Glucose 130 mg/dL (74-106)
[2022-11-21 07:40] VITALS: O2SAT 96
--- NOTE | 2022-11-21 07:51 | CASEMGMT ---
Social Work SW received message from [facility]. Precert has been obtained. MD Shukla updated. PLAN: [facility] DELIA Landry
[2022-11-21 08:44] VITALS: BP 141/93; PULSE 52; RESP 16; TEMP 36.4; O2SAT 98
[2022-11-21 08:45] VITALS: BP 141/93; PULSE 52; RESP 16; TEMP 36.4; O2SAT 98
[2022-11-21] MEDS: Allopurinol 100 MG Tablet PO (08:46)
[2022-11-21] MEDS: Citalopram 20 MG Tablet PO (08:46)
[2022-11-21] MEDS: Glimepiride 2 MG Tablet PO (08:46)
[2022-11-21] MEDS: Enoxaparin 40 MG/0.4 ML Syringe SC (08:46)
[2022-11-21] MEDS: Pioglitazone Hydrochloride 15 MG Tablet PO (08:46)
[2022-11-21] MEDS: metFORMIN HCl 1,000 MG Tablet 1000 MG PO (08:46)
[2022-11-21] MEDS: Ramipril 10 MG Capsule PO (08:46)
[2022-11-21] MEDS: Sodium Chloride 1 GM Tablet PO (08:51)
--- NOTE | 2022-11-21 09:23 | TREXTCAR_ITS ---
Diet Diet Order/Speech Therapy: 11/17/22 12:13 Diet: Consistent Carb - Calorie Controlled Food consistency:: Regular Liquid Consistency:: Regular/Thin How many daily calories?: 1800 calorie Routine Orders/Code Status Routine Lab Work: CBC and BMP Code Status: Full Code Therapies Physical Therapy: Eval and Treat Occupational Therapy: Eval and Treat Problem/Diagnosis (1) Hyponatremia: Status: Acute Code(s): E87.1 - Hypo-osmolality and hyponatremia (2) Generalized weakness: Status: Acute Code(s): R53.1 - Weakness Plan #Debillity and weakness due to covid 19 infection and hyponatremia * admit to med surg * currently on room air * vaccinated * PT.OT consult * fall precautions * hold off on dexamethasone and remdesivir as patient is on room air. * had been on paxlovid on outpatient basis #Type 2 diabetes mellitus: on glimepirid and metformin. ISS. Accuchecks ACHS. Also on pioglitazone #Hypertension: on metoprolol and losartan DVT: Lovenox Allergies/Procedures Done in Hospital Allergies No Known Allergies Allergy (Verified 11/17/22 04:05) Procedures: None Type of Care/Length of Stay Estimated LOS: Convalescent Care Less Than 30 days Type of Care Needed: Skilled Rehab Potential: Good Prognosis: Good Additional Orders/Day of Discharge Day of Discharge: 11/21/22 Discharge Plan Admission Admit Date/Time: 11/17/22 11:13 Attending Provider: Arya Shukla Primary Care Provider: Akash Agosto Consulting Providers: Irma Hutchinson Instructions Patient Instructions: Coronavirus Disease 2019 (COVID-19): Caring for Yourself or Others, ED Hyponatremia Discharge Orders/Prescriptions Prescriptions: New magnesium oxide 400 mg magnesium capsule 400 mg PO DAILY 7 Days Qty: 7 0RF Paxlovid (EUA) 300 mg (150 mg x 2)-100 mg tablets,dose pack See Rx Instructions .ROUTE .COMPLEX Qty: 30 0RF Rx Instructions: take TWO 150 mg tablets of nirmatrelvir with ONE 100 mg tablet of ritonavir twice daily for 5 days Continued pioglitazone 15 MG tablet 15 mg PO DAILY metformin 1,000 MG tablet 1,000 mg PO BID ramipril 10 MG capsule 10 mg PO DAILY atorvastatin 40 MG tablet 40 mg PO DAILY sodium chloride 1,000 mg tablet,soluble 1 g PO BID desoximetasone 0.05 % cream 1 applic TOPICAL BID PRN (Reason: DRY SKIN ON FACE) allopurinol 100 mg tablet 100 mg PO DAILY acetaminophen 500 mg tablet 1,000 mg PO Q6H PRN (Reason: Pain) aspirin 325 mg tablet,delayed release (DR/EC) 325 mg PO DAILY PRN (Reason: Pain) metoprolol succinate 50 mg tablet extended release 24 hr 25 mg PO DAILY Rx Instructions: Hold for heart less than 60 or systolic blood pressure less than 100 mmHg. sennosides-docusate sodium [Stool Softener-Stimulant Laxat] 8.6-50 mg tablet 2 tab PO BID glimepiride 2 mg tablet 2 mg PO BREAKFAST Rx Instructions: Hold if glucose less than 120 mg/dl mirtazapine 15 mg Tablet 15 mg PO QHS Qty: 0 0RF citalopram [Celexa] 20 mg Tablet 20 mg PO DAILY hydroxyzine HCl 10 mg Tablet 10 mg PO TID PRN (Reason: Anxiety) Referrals / Follow Up: Akash Agosto MD [Primary Care Provider] - Disposition Disposition (needs filled in before D/C Order can be placed): [facility]
--- NOTE | 2022-11-21 10:18 | PCM.DC.SUM ---
Providers Date of Admission: 11/17/22 Primary Care Physician: Dr. Akash Agosto MD Reason For Visit: GENERALIZED WEAKNESS Diagnosis Discharge Diagnosis (1) Hyponatremia: Status: Acute Code(s): E87.1 - Hypo-osmolality and hyponatremia (2) Generalized weakness: Status: Acute Code(s): R53.1 - Weakness Medications at Discharge Home Medications metformin 1,000 mg tablet 1,000 mg PO BID diabetes 12/18/19 pioglitazone 15 mg tablet 15 mg PO DAILY diabetes 12/18/19 ramipril 10 mg capsule 10 mg PO DAILY blood pressure 12/18/19 atorvastatin 40 mg tablet 40 mg PO DAILY Cholesterol 10/13/21 sodium chloride 1,000 mg soluble tablet 1 g PO BID Low sodium 11/14/21 acetaminophen 500 mg tablet 1,000 mg PO Q6H PRN Pain 09/26/22 allopurinol 100 mg tablet 100 mg PO DAILY GOUT 09/26/22 aspirin 325 mg tablet,delayed release 325 mg PO DAILY PRN Pain 09/26/22 desoximetasone 0.05 % topical cream 1 applic topical BID PRN DRY SKIN ON FACE 09/26/22 glimepiride 2 mg tablet 2 mg PO BREAKFAST blood sugar 09/28/22 metoprolol succinate 50 mg tablet,extended release 24 hr 25 mg PO DAILY BP/pulse 09/28/22 sennosides 8.6 mg-docusate sodium 50 mg tablet (Stool Softener-Stimulant Laxative) 2 tab PO BID stool softener 09/28/22 mirtazapine 15 mg tablet 15 mg PO QHS #0 tabs 10/05/22 magnesium oxide 400 mg PO DAILY 7 days #7 caps 11/17/22 nirmatrelvir 300 mg (150 mg x2)-ritonavir 100 mg tablet,dose pack(EUA) (Paxlovid) See Rx Instructions PO .COMPLEX #30 tabs 11/17/22 citalopram 20 mg tablet (Celexa) 20 mg PO DAILY anxiety 11/20/22 hydroxyzine HCl 10 mg tablet 10 mg PO TID PRN Anxiety 11/20/22 Hospital Course Operations None Procedures None Summary of Care Provided Minutes Spent on Discharge: 37 Hospital Course: Per HPI: PAYAM HAMM, is a 72 M with a PMH as outlined? who presents via the ED on 11/17/2022 with a complaint of debility and mechanical falls. He had been getting weaker at home, and said his had gotten covid. HE had also had congestion and cough for 2-3 days prior to admission. HE got up to go to his chair the night before admission,a dn said? he was weak and lowered himself to the floor. His couldnt get him up and he couldnt get uup on his own as well so EMS was called. He said he had had history of low sodium and that had caused weakness. He was therefore brought in to the ED. He denied any headache, chest pain, blurred vision, dizziness, lightheadedness, nausea, vomiting or diarrhea. Review of systems was otherwise negative. VItals were BP of 135/95, [place] of 63, RR of 16 and temp of 96.7F. He was saturating at 95% on room air. CBC was unremakable. BMP showe dsodium of 127, chloride of 90 and magnesium of 1.4. He is being admitted to be managed for debility due to frequent falls and hyponatremia. Patient was initially reluctant about admission, but subsequently was convinced by his to be admitted as she couldnt care for him at home. Hospital Course: 1. Debility and weakness secondary to COVID-19?72-year-old male presents from home with debility and weakness as well as a cough. He tested positive for COVID as did his who also suffers from Parkinson's disease. He was evaluated by PT and OT who recommended SNF placement. He has not required any oxygen while here so he has not been started on any Decadron or or remdesivir. I discussed with him the plan for discharge to SNF and he expressed understanding of the risk benefits of going and would like to go today. 2. Type 2 diabetes, hypertension, hyperlipidemia, anxiety, depression are all chronic medical conditions which complicate his care. His home medications work and continued where appropriate Physical Exam Narrative General: Alert, Oriented x3, Cooperative, No apparent distress HEENT: Atraumatic, PERRLA, EOMI, Normocephalic Oral: Moist Mucosa Neck: Supple, No JVD Lungs: Clear to auscultation, Normal air movement, No rhonchi, No wheeze, No rales Cardiovascular: Regular rate, Regular Rhythm, Normal S1, Normal S2, No murmurs Abdomen: Soft, Non Tender, Non-Distended, No Hepato-splenomegaly Extremities: No edema, Capillary Refill Less than 3 Seconds Skin: No rashes, No breakdown Musculoskeletal: No Tenderness to Palpation of Joints or Extremities Neurological: Cranial nerves II-XII grossly intact, Motor Exam 5/5 strength throughout, Sensory exam intact to light touch and pain Psych/Mental Status: Anxious Weight / BMI Weight Weight: 195 lb 15.855 oz Body Mass Index (BMI) 28.0 ABG / Lab / Microbiology Data Result Diagrams: 11/19/22 06:20 11/21/22 06:00 Laboratory: Laboratory Results - last 24 hr 11/19/22 16:55: POC Glucose 66 L 11/19/22 17:09: POC Glucose 87 11/20/22 11:01: POC Glucose 204 H 11/20/22 15:13: POC Glucose 148 H 11/20/22 20:14: POC Glucose 78 11/21/22 02:25: POC Glucose 113 H 11/21/22 06:00: Sodium 129 L, Potassium 3.7, Chloride 94 L, Carbon Dioxide 28.0, Anion Gap 7, BUN 14, Creatinine 0.87, Estim Creat Clear Calc 78.08, Est GFR (MDRD) Af Amer 111, Est GFR (MDRD) Non-Af 92, BUN/Creatinine Ratio 16.1, Glucose 123 H, Calcium 9.0 11/21/22 06:43: POC Glucose 130 H Microbiology: Microbiology 11/17/22 04:20 Nasal Secretion SARS-CoV-2 & FLU Antigen (Rapid) - Final SARS-CoV-2 (COVID 19) Meaningful Use Info Meaningful Use Diagnoses (Choose all that apply): None applicable Discharge Plan Admission Admit Date/Time: 11/17/22 11:13 Attending Provider: Arya Shukla Primary Care Provider: Akash Agosto Consulting Providers: Irma Hutchinson Instructions Patient Instructions: Coronavirus Disease 2019 (COVID-19): Caring for Yourself or Others, ED Hyponatremia Discharge Orders/Prescriptions Prescriptions: New magnesium oxide 400 mg magnesium capsule 400 mg PO DAILY 7 Days Qty: 7 0RF Paxlovid (EUA) 300 mg (150 mg x 2)-100 mg tablets,dose pack See Rx Instructions .ROUTE .COMPLEX Qty: 30 0RF Rx Instructions: take TWO 150 mg tablets of nirmatrelvir with ONE 100 mg tablet of ritonavir twice daily for 5 days Continued pioglitazone 15 MG tablet 15 mg PO DAILY metformin 1,000 MG tablet 1,000 mg PO BID ramipril 10 MG capsule 10 mg PO DAILY atorvastatin 40 MG tablet 40 mg PO DAILY sodium chloride 1,000 mg tablet,soluble 1 g PO BID desoximetasone 0.05 % cream 1 applic TOPICAL BID PRN (Reason: DRY SKIN ON FACE) allopurinol 100 mg tablet 100 mg PO DAILY acetaminophen 500 mg tablet 1,000 mg PO Q6H PRN (Reason: Pain) aspirin 325 mg tablet,delayed release (DR/EC) 325 mg PO DAILY PRN (Reason: Pain) metoprolol succinate 50 mg tablet extended release 24 hr 25 mg PO DAILY Rx Instructions: Hold for heart less than 60 or systolic blood pressure less than 100 mmHg. sennosides-docusate sodium [Stool Softener-Stimulant Laxat] 8.6-50 mg tablet 2 tab PO BID glimepiride 2 mg tablet 2 mg PO BREAKFAST Rx Instructions: Hold if glucose less than 120 mg/dl mirtazapine 15 mg Tablet 15 mg PO QHS Qty: 0 0RF citalopram [Celexa] 20 mg Tablet 20 mg PO DAILY hydroxyzine HCl 10 mg Tablet 10 mg PO TID PRN (Reason: Anxiety) Referrals / Follow Up: Akash Agosto MD [Primary Care Provider] - Disposition Disposition (needs filled in before D/C Order can be placed): [facility] Charges/Coding Visit Charges Inpatient E&M: 68930 Disch Hosp >30min
--- NOTE | 2022-11-21 10:25 | CASEMGMT ---
Social Work SW spoke to pt on phone regarding AD. Pt confused informed SW should call and ask these questions. SW called pt , Jayla. Jayla informed thinks pt has these documents but is not sure. Jayla currently has covid and not up to looking for documents. SW informed that if documents are found in the future they can be brought in and dropped off with the medical records department. Jayla voiced understanding. DELIA Monae
--- NOTE | 2022-11-21 11:07 | CASEMGMT ---
Social Work? DARRELL notified pt and pt , Jayla, of discharge to [facility] in [place] today. DARRELL completed 7000 convalescent form in [employer] [facility]. Set up wheelchair transportation through [facility] for 12:30 pm. DARRELL faxed all discharge orders to [facility] via [facility] and notified of discharge time. DARRELL notified pt nurse of transport time. DARRELL made copies of discharge orders and placed on pt chart. Sent original orders in envelope with pt upon discharge.?? Disposition: [facility], skilled, convalescent, level of care? DELIA Landry
[2022-11-21] MEDS: Insulin Lispro 100 UNIT/ML INSULN.PEN SC (11:16)
[2022-11-21 11:35] LABS: Bedside Glucose 173 mg/dL (74-106)
--- NOTE | 2022-11-21 11:36 | CASEMGMT ---
ONOFRE VAIL NOTE: Pt being discharged to [facility] today. Call placed to Horacio @ [facility] and he was made aware. Millie HU RN CM
== END 2022-11-21 12:18 | disposition skilled nursing facility (03) ==
LOC: ED 06:51 → PCU 10:01 → MS3 11:41
PROVIDERS: Hospitalist; Admitting Provider Student in an Organized Health Care Education/Training Program; Emergency Provider Emergency Medicine; PCP Family Medicine; Visit Provider Family Medicine
DX: U07.1 COVID-19 (principal); G20 Parkinson's disease; E11.9 Type 2 diabetes mellitus without complications; F41.9 Anxiety disorder, unspecified; Z87.891 Personal history of nicotine dependence; Z79.84 Long term (current) use of oral hypoglycemic drugs; E87.1 Hypo-osmolality and hyponatremia; E78.5 Hyperlipidemia, unspecified; I10 Essential (primary) hypertension; Z79.82 Long term (current) use of aspirin; Z79.899 Other long term (current) drug therapy; F32.A Depression, unspecified; M10.9 Gout, unspecified; E83.42 Hypomagnesemia
CPT/HCPCS: 36415; 80048; 82550; 82962; 83735; 83930; 83935; 84145; 84300; 84550; 85025; 85379; 87428; 93005; 96361; 96372; 96374; 97110; 97116; 97162; 97165; 97530; 97535; 99221; 99285; J7030; J7040; A4216; G0378

== ENCOUNTER 2023-02-12 09:56 | Observation (INO) | payer MEDICARE, MEDICAID, SELFPAY ==
[2023-02-12] VITALS (7 sets, daily range): BP systolic 109–189; BP diastolic 82–102; PULSE 51–65; RESP 15–20; TEMP 35.9–36.6; O2SAT 96–99; BMI 28.4; BMI 28.8
--- NOTE | 2023-02-12 10:02 | ED.RN ---
PER DR. HERNANDEZ, NO STROKE ALERT ACTIVATION NEEDED IN TRIAGE DUE TO PATIENT STATING WEAKNESS IS UNCHANGED FROM PREVIOUS HX.
--- NOTE | 2023-02-12 10:07 | EX.ED.DYSGE1 ---
HPI History of Present Illness Chief Complaint: Weakness [facility] Medical History Adult failure to thrive Carotid artery stenosis Chronic hyponatremia CVA (cerebral vascular accident) (09/25/21) Debility Depression DM2 (diabetes mellitus, type 2) Essential hypertension Falls frequently Frequent falls Gout Hyperlipidemia Hyponatremia Inability to ambulate due to multiple joints Left hemiparesis Left-sided muscle weakness Prostate cancer Stenosis of right carotid artery Weakness Weakness Home Medications metformin 1,000 mg tablet 1,000 mg PO BID diabetes 12/18/19 [History Last Taken 09/26/22] pioglitazone 15 mg tablet 15 mg PO DAILY diabetes 12/18/19 [History Last Taken 09/24/22] ramipril 10 mg capsule 10 mg PO DAILY blood pressure 12/18/19 [History Last Taken 09/26/22] atorvastatin 40 mg tablet 40 mg PO DAILY Cholesterol 10/13/21 [History Last Taken 11/02/21] sodium chloride 1,000 mg soluble tablet 1 g PO BID Low sodium 11/14/21 [History Last Taken 09/26/22] acetaminophen 500 mg tablet 1,000 mg PO Q6H PRN Pain 09/26/22 [History Last Taken Unknown] allopurinol 100 mg tablet 100 mg PO DAILY GOUT 09/26/22 [History Last Taken Unknown] aspirin 325 mg tablet,delayed release 325 mg PO DAILY PRN Pain 09/26/22 [History Last Taken Unknown] desoximetasone 0.05 % topical cream 1 applic topical BID PRN DRY SKIN ON FACE 09/26/22 [History Last Taken 09/23/22] glimepiride 2 mg tablet 2 mg PO BREAKFAST blood sugar 09/28/22 [History Last Taken Unknown] metoprolol succinate 50 mg tablet,extended release 24 hr 25 mg PO DAILY BP/pulse 09/28/22 [History Last Taken Unknown] sennosides 8.6 mg-docusate sodium 50 mg tablet (Stool Softener-Stimulant Laxative) 2 tab PO BID stool softener 09/28/22 [History Last Taken Unknown] mirtazapine 15 mg tablet 15 mg PO QHS #0 tabs 10/05/22 [Rx Last Taken Unknown] magnesium oxide 400 mg PO DAILY 7 days #7 caps 11/17/22 [Rx Last Taken Unknown] nirmatrelvir 300 mg (150 mg x2)-ritonavir 100 mg tablet,dose pack(EUA) (Paxlovid) See Rx Instructions PO .COMPLEX #30 tabs 11/17/22 [Rx Last Taken Unknown] citalopram 20 mg tablet (Celexa) 20 mg PO DAILY anxiety 11/20/22 [History Last Taken Unknown] hydroxyzine HCl 10 mg tablet 10 mg PO TID PRN Anxiety 11/20/22 [History Last Taken Unknown] Allergy/AdvReac Type Severity Reaction Status Date / Time No Known Allergies Allergy Verified 02/12/23 10:02 Family History Mother CVA (cerebral vascular accident) Several recurrent strokes, eventually passed age 84. Surgical History H/O foot surgery History of colon resection History of repair of right rotator cuff History of right-sided carotid endarterectomy (11/06/21) History of tonsillectomy and adenoidectomy Social History household members: spouse Smoking Status: Former smoker how long ago did patient quit smoking: Smoked age [age], 1 ppd until quit. Does have 2nd hand exposure from . alcohol intake: current alcohol intake frequency: holidays/special occasions only substance use type: does not use EXAM Physical Exam Const Vital Signs: 02/12/23 09:58 02/12/23 10:22 02/12/23 10:30 Temperature 96.7 F L Temperature Source Temporal Pulse Rate 65 55 L Respiratory Rate 20 H 15 Blood Pressure 143/100 H 141/95 H Blood Pressure Mean 114 110 Pulse Ox 97 96 Oxygen Delivery Method Room Air Room Air Room Air MDM MDM MDM Narrative Medical decision making narrative: HISTORY OF PRESENT ILLNESS: 72-year-old male here with concern for left-sided weakness. Last known well 10 AM yesterday. Denies falls. Denies any recent illnesses. Denies any fever. Denies any vomiting. He states he started experiencing worsening weakness in the left side of his body when he is undergoing physical therapy yesterday. He states he has baseline weakness on left side of his body from prior stroke however this has been worse for the last 24 hours. REVIEW OF SYMPTOMS: Pertinent positives: Left-sided weakness (baseline per patient) Pertinent negatives: PHYSICAL EXAM: Nursing triage notes reviewed, Vital signs reviewed Constitutional: please see [facility] HENT: MMM Eyes: Pupils equal round and reactive to light, Extraocular muscles intact Neck: No stridor, no JVD, full neck ROM Lungs: Clear to auscultation, No wheezing or rales. No increased work of breathing, no conversational dyspnea, no accessory muscle use, no nasal flaring. No respiratory distress noted Heart: Regular rate and rhythm, No murmurs, No rubs and No gallops, 2+ distal pulses (radial, femoral, posterior tibial) in all extremities Abdomen: Soft, there is no tenderness, rigidity, rebound or guarding, no obvious peritoneal signs, no palpable pulsatile abdominal masses, no auscultated abdominal bruit : No CVAT Extremities: No edema Neuro: Alert and oriented x3, cranial nerves II through XII are intact. There is negative test of skew. Normal speech. 4/5 strength in left upper and lower extremities (worse than baseline per patient), 5 and 5 strength in right upper and lower extremities. Intact sensation to light touch in upper and lower extremity dermatomes. No truncal or extremity ataxia. No dysdiadochokinesia. Normal gait. 2+ reflexes. No meningeal signs. Negative Babinski. NIH of 2 (left upper, lower extremity weakness). Skin: No rash or lesions noted MEDICAL DECISION MAKING: Chief Complaint: Weakness External records reviewed: History of CVA, left-sided hemiparesis [facility] Narrative: Patient was hemodynamically stable, afebrile, nontoxic-appearing. Neuro exam with NIH of 2. Patient's last known well was 10 AM. He is out of any TNK or thrombectomy window I considered the following differential diagnosis: TIA, CVA, bleed, mass I obtained stroke order set. CT showed no evidence of bleed or mass. Labs are grossly unremarkable. Given the patient's report of new weakness I did offer the patient admission for MRI, neurology consultation and risk factor modification. Patient agreed stating she like to stay as this is most conservative improvement path to care. I will discuss the case with the hospitalist. Factors affecting care: History of CVA, hyponatremia, hypertension, type 2 diabetes, left-sided hemiparesis Social determinants of health: Poor health literacy History obtained from others: EMS Shared decision making: I will have a discussion with the patient and or visitors regarding risk/benefits of further testing or admission. They will be made aware of of the risk/benefits inherent in this decision they will be given the opportunity to voice understanding. Consults: Internal medicine Lab Data Attestation: I reviewed the patient's lab results. Lab results narrative: CBC without leukocytosis, severe anemia, no thrombocytopenia. EKG with sinus bradycardia, left axis deviation, first-degree AV block, no STEMI BMP without evidence of significant electrolyte abnormalities, no anion gap, no acute kidney injury. No coagulopathy noted on PT, INR PTT Troponin is negative, no evidence of myocardial ischemia Labs: Laboratory Results - last 24 hr 02/12/23 02/12/23 02/12/23 10:25 10:25 10:25 WBC 6.0 RBC 4.96 Hgb 14.4 Hct 42.1 MCV 84.9 MCH 29.0 MCHC 34.2 RDW Std Deviation 38.0 RDW Coeff of Cintia 12.4 Plt Count 218 MPV 8.6 Immature Gran % (Auto) 1.000 H Neut % (Auto) 69.9 Lymph % (Auto) 16.1 L [place] % (Auto) 9.0 Eos % (Auto) 2.8 Baso % (Auto) 1.2 H Absolute Neuts (auto) 4.2 Absolute Lymphs (auto) 0.97 Nucleated RBC % 0 PT 13.9 INR 1.1 APTT 27.1 Sodium 135 L Potassium 4.1 Chloride 99 Carbon Dioxide 31.0 Anion Gap 5 BUN 11 Creatinine 0.99 Estim Creat Clear Calc 68.62 Est GFR (MDRD) Af Amer 95 Est GFR (MDRD) Non-Af 78 BUN/Creatinine Ratio 11.1 Glucose 190 H Calcium 9.3 Troponin I High Sens 10 Radiography Chest X-Ray - ED: Read by ED Physician Diagnostic Testing: Clinical Impression(s) from Imaging Studies Brain CT 02/12/23 10:17 IMPRESSION: Chronic involutional changes of the brain. N.B. : The above Results were Read Back by John Sharma MD to Dr Darin DO, and understanding confirmed on 02/12/2023 10:54:37 (ET). Electronically Signed: John Sharma MD at 10:55 EDT , ADDENDUM: 02/12/23 1102 IMPRESSION: Chronic involutional changes of the brain. N.B. : The above Results were Read Back by John Sharma MD to Dr Darin DO, and understanding confirmed on 02/12/2023 10:54:37 (ET). Electronically Signed: John Sharma MD at 10:55 EDT , Chest X-Ray 02/12/23 10:45 IMPRESSION: Stable examination. Electronically Signed: John Sharma MD at 11:08 EDT , I have personally reviewed the patient's chest x-ray. Chest x-ray is unremarkable for pulmonary edema, pneumothorax, pneumonia or focal cardiopulmonary abnormality. Discharge Plan Triage Chief Complaint: Weakness ED Provider: Edward Webster Dx/Rx/DC Orders Prescriptions: No Action pioglitazone 15 MG tablet 15 mg PO DAILY metformin 1,000 MG tablet 1,000 mg PO BID ramipril 10 MG capsule 10 mg PO DAILY atorvastatin 40 MG tablet 40 mg PO DAILY sodium chloride 1,000 mg tablet,soluble 1 g PO BID desoximetasone 0.05 % cream 1 applic TOPICAL BID PRN (Reason: DRY SKIN ON FACE) allopurinol 100 mg tablet 100 mg PO DAILY acetaminophen 500 mg tablet 1,000 mg PO Q6H PRN (Reason: Pain) aspirin 325 mg tablet,delayed release (/EC) 325 mg PO DAILY PRN (Reason: Pain) metoprolol succinate 50 mg tablet extended release 24 hr 25 mg PO DAILY Rx Instructions: Hold for heart less than 60 or systolic blood pressure less than 100 mmHg. sennosides-docusate sodium [Stool Softener-Stimulant Laxat] 8.6-50 mg tablet 2 tab PO BID glimepiride 2 mg tablet 2 mg PO BREAKFAST Rx Instructions: Hold if glucose less than 120 mg/dl mirtazapine 15 mg Tablet 15 mg PO QHS Qty: 0 0RF magnesium oxide 400 mg magnesium capsule 400 mg PO DAILY 7 Days Qty: 7 0RF Paxlovid (EUA) 300 mg (150 mg x 2)-100 mg tablets,dose pack See Rx Instructions .ROUTE .COMPLEX Qty: 30 0RF Rx Instructions: take TWO 150 mg tablets of nirmatrelvir with ONE 100 mg tablet of ritonavir twice daily for 5 days citalopram [Celexa] 20 mg Tablet 20 mg PO DAILY hydroxyzine HCl 10 mg Tablet 10 mg PO TID PRN (Reason: Anxiety) Primary Care Provider: Akash Agosto Referrals: Akash Agosto MD [Primary Care Provider] -
--- NOTE | 2023-02-12 10:17 | CT_ITS ---
STUDY: CT HEAD STROKE PROTOCOL W/O CONTRAST INJECTION REASON FOR EXAM: Male, 72 years old. Neuro deficit, acute, stroke suspected, left sided weakness similar to CVA 1 year ago, prior right carotid endarterectomy, hypertension, diabetes, prostate cancer. RADIATION DOSAGE (If Supplied By Facility): CTDIvol = ( 44.99 ) mGy, DLP = ( 829.85 ) mGycm TECHNIQUE: Transaxial CT imaging of the brain was performed without administration of intravenous contrast material. Individualized dose optimization techniques were used for this CT. COMPARISON: Comparison is made with prior study of December 28, 2021. FINDINGS: Normal soft tissue structures. Normal calvarium. There is mild cerebral atrophy with widening of the extra-axial spaces and ventricular dilatation. There are areas of decreased attenuation within the white matter tracts of the supratentorial brain, consistent with microvascular disease changes. There is evidence of a focal encephalomalacia in the posterior aspect of the right occipital lobe. Normal basal ganglia and thalami. Normal brainstem. There is mild cerebellar atrophy. There is no intracranial hemorrhage. There are no findings of an acute ischemic infarction. Atherosclerotic calcification of the cavernous portions of the internal carotid arteries bilaterally. Normal visualized paranasal sinuses. ASPECT score: 9 CT/STROKE Brain/Head without Cont IMPRESSION: Chronic involutional changes of the brain. N.B. : The above Results were Read Back by John Sharma MD to Dr aDrin DO, and understanding confirmed on 02/12/2023 10:54:37 (ET). Electronically Signed: John Sharma MD at 10:55 EDT ,
--- NOTE | 2023-02-12 10:17 | EKG12_ITS ---
Test Reason : Blood Pressure : / mmHG Vent. Rate : 057 BPM Atrial Rate : 057 BPM P-R Int : 210 ms QRS Dur : 086 ms QT Int : 450 ms P-R-T Axes : 002 -10 059 degrees QTc Int : 438 ms Sinus bradycardia with 1st degree A-V block Inferior infarct , age undetermined Abnormal ECG Confirmed by ANURAG LYNCH, NADINE ([id number]), commissioning editor TIM BENZ ([id number]) on 02/13/2023 12:51:21 P M Referred By: CARI Confirmed By:ROLO OSBORN MD
[2023-02-12 10:30] LABS: Absolute Lymphocyte Count 0.97 X10^3/uL (0.83-4.51); Absolute Neutrophil Count 4.2 X10^3/uL (2.0-7.7); Basophil# 0.07 X10^3/uL; Basophil% 1.2 % (0-1); Eosinophil# 0.17 X10^3/uL; Eosinophils% 2.8 % (0-5); Hematocrit 42.1 % (40-54); Hemoglobin 14.4 g/dL (13.0-16.5); Lymphocyte # 0.97 X10^3/ul (0.83-4.51); Lymphocyte % 16.1 % (19-41); Mean Corp Hgb Conc 34.2 g/dL (32-36); Mean Corpuscular Volume 84.9 fL (80-94); Mean Platelet Vol. 8.6 fl (6.2-12.0); Monocyte# 0.54 X10^3/uL; NRBC Flagged by Analyzer 0 % (0-5); Neutrophil % 69.9 % (47-70); Platelet Count 218 K/mm3 (150-450); RBC Distribution Width CV 12.4 % (11.6-14.6); Red Blood Count 4.96 M/mm3 (4.6-6.2)
--- NOTE | 2023-02-12 10:34 | ED.RN ---
PER PATIENT, HISTORY OF STROKE 1 YEAR AGO WITH BASELINE LEFT SIDED WEAKNESS AND LEFT FACIAL DROOP. PT STATES MY PHYSICAL THERAPIST TOLD ME TO COME IN FOR A MINI STROKE, PT REPORTS INCREASED WEAKNESS ON LEFT SIDE. PT STATES IT STARTED YESTERDAY MORNING BUT UNSURE OF TIME. PT NIH 0 AT THIS TIME, NIH SCALE CANCELLED PER DR WADE.
[2023-02-12 10:41] LABS: International Normalized Ratio 1.1; Partial Thromboplast Time 27.1 Seconds (24.1-36.2); Prothrombin Time (Protime)PT. 13.9 SECONDS (11.7-14.9)
--- NOTE | 2023-02-12 10:45 | RAD_ITS ---
STUDY: X-RAY CHEST REASON FOR EXAM: Male, 72 years old. Neuro deficit, acute, stroke suspected TECHNIQUE: Single AP portable view of the chest. COMPARISON: Comparison is made with prior study dated November 03, 2021. FINDINGS: EKG electrodes are seen. Stable elevation of the right hemidiaphragm. There is no demonstrated pleural abnormality. Normal size heart. Normal mediastinum and elidia. Normal visualized pulmonary arteries. There is atherosclerotic calcification of the aortic arch with tortuosity. Normal visualized thoracic spine. There is degenerative osteoarthritis of the bilateral shoulders. There is no demonstrated abnormality of the visualized soft tissue structures of the upper abdomen. RAD/Chest 1 View IMPRESSION: Stable examination. Electronically Signed: John Sharma MD at 11:08 EDT ,
[2023-02-12 10:49] LABS: Anion Gap 5 (5-15); BUN 11 mg/dL (7-18); BUN/Creat Ratio 11.1 RATIO (10-20); Calcium,Total 9.3 mg/dL (8.5-10.1); Chloride 99 mmol/L (98-107); Creatinine, Serum 0.99 mg/dL (0.70-1.30); EST Glomerular Filtration Rate 78 mL/min (>60); Est Glom Filt Rate - Afr Amer 95 mL/min (>60); Estimated Creatinine Clearance 68.62 ml/min; Glucose 190 mg/dL (74-106); Potassium 4.1 mmol/L (3.5-5.1); Sodium Level 135 mmol/L (136-145); Troponin-I HS 10 pg/mL (3.0-78.0)
--- NOTE | 2023-02-12 11:33 | ED.RN ---
SPOKE WITH NURSE YARELIS ABOUT ADMISSION OF PT
--- NOTE | 2023-02-12 12:08 | PCM.HP.STD ---
HPI - General General Date of Admission: 02/12/23 Date of Service: 02/12/23 Chief Complaint: Acute on chronic left sided weakness HPI Narrative PAYAM HAMM, is a 72 M with a history of type 2 diabetes mellitus, CVA in 09/25/2021, hyponatremia, hypertension who presented to [facility] 02/12/2023 with worsening left-sided weakness with last known well 10 AM day prior to presentation. Denied any recent illness or fever or other complaints but endorsed he was experiencing worsening weakness on the left side when he was undergoing physical therapy the day prior to presentation. He does have baseline weakness due to his prior stroke but it worsened over [address] with no evidence of bleed or mass, given greater than 24 hours he was outside the window for intervention so hospitalist consulted for admission further work-up. In the ED CBC fairly benign and BMP demonstrated sodium of 135 which was up from previous with normal kidney function. Hospitalist consulted for further work-up and management. Patient evaluated and endorsed that he was at physical therapy and the therapist noted that his left side was weaker and he felt like his left foot was dragging some, this morning he came in because he was worried he was having a mini stroke and wanted it evaluated. Feeling slightly better since that time however still feels like he is probably slightly worse than baseline. ROS otherwise completely negative. [facility] Medical History (Updated 02/12/23 @ 12:21 by Anai Giraldo) Adult failure to thrive Carotid artery stenosis Cataracts, bilateral Chronic hyponatremia CVA (cerebral vascular accident) (09/25/21) Debility Depression DM2 (diabetes mellitus, type 2) Essential hypertension Falls frequently Frequent falls Gout Hyperlipidemia Hyponatremia Inability to ambulate due to multiple joints Left hemiparesis Left-sided muscle weakness Prostate cancer Stenosis of right carotid artery Weakness Weakness Home Medications metformin 1,000 mg tablet 1,000 mg PO BID diabetes 12/18/19 [History Last Taken 02/12/23] atorvastatin 40 mg tablet 40 mg PO DAILY Cholesterol 10/13/21 [History Last Taken 02/11/23] sodium chloride 1,000 mg soluble tablet 1 g PO BID Low sodium 11/14/21 [History Last Taken 02/12/23] allopurinol 100 mg tablet 100 mg PO DAILY GOUT 09/26/22 [History Last Taken 02/12/23] aspirin 325 mg tablet,delayed release 325 mg PO DAILY PRN Pain 12/21/22 [History Last Taken 02/12/23] metoprolol succinate 50 mg tablet,extended release 24 hr 25 mg PO DAILY BP/pulse 09/28/22 [History Last Taken 02/12/23] citalopram 20 mg tablet (Celexa) 20 mg PO DAILY anxiety 11/20/22 [History Last Taken 02/12/23] lisinopril 40 mg tablet 40 mg PO DAILY BP 02/12/23 [History Last Taken 02/12/23] magnesium oxide 400 mg PO DAILY SUPPLEMENT 02/12/23 [History Last Taken 02/12/23] mirtazapine 15 mg tablet 15 mg PO QHS MOOD 02/12/23 [History Last Taken 02/11/23] sennosides 8.6 mg tablet (senna) 8.6 mg PO QHS CONSTIPATION 02/12/23 [History Last Taken 02/11/23] Allergy/AdvReac Type Severity Reaction Status Date / Time No Known Allergies Allergy Verified 02/12/23 10:02 Family History Mother CVA (cerebral vascular accident) Several recurrent strokes, eventually passed age 84. Surgical History H/O foot surgery History of colon resection History of repair of right rotator cuff History of right-sided carotid endarterectomy (11/06/21) History of tonsillectomy and adenoidectomy Social History household members: spouse Smoking Status: Former smoker how long ago did patient quit smoking: Smoked age [age], 1 ppd until quit. Does have 2nd hand exposure from . alcohol intake: current alcohol intake frequency: holidays/special occasions only substance use type: does not use ROS ROS Narrative General: Denies fever/chills HENT: Denies headache, denies stuffy nose, denies sore throat EYES: Denies changes in vision Resp: Denies cough, denies shortness of breath Cardiac: Denies chest pain GI: Denies abdominal pain, denies changes in bowel, denies nausea/vomiting : Denies changes in urination Extremity: Denies swelling MSK: Worsening left-sided weakness Neuro: Denies any numbness/tingling Heme: Denies any bleeding or bruising Skin: Denies rashes Psychiatric: No complaints voiced Vital Signs Vital Signs Vital Signs: 02/12/23 09:58 02/12/23 10:22 02/12/23 10:30 Temperature 96.7 F L Temperature Source Temporal Pulse Rate 65 55 L Respiratory Rate 20 H 15 Blood Pressure 143/100 H 141/95 H Blood Pressure Mean 114 110 Pulse Ox 97 96 Oxygen Delivery Method Room Air Room Air Room Air 02/12/23 11:32 Temperature 97 F L Temperature Source Temporal Pulse Rate 53 L Respiratory Rate 15 Blood Pressure 109/82 H Blood Pressure Mean 91 Pulse Ox 97 Oxygen Delivery Method Room Air Weight Weight: 91 kg Body Mass Index (BMI) 28.8 Physical Exam Narrative General: Alert, oriented, no apparent distress HEENT: Atraumatic, normocephalic Eyes: Anicteric, normal conjunctiva, extraocular movements intact, pupils equal Neck: Supple Respiratory: Clear to auscultation bilaterally, normal respiratory effort Cardiovascular: Regular rate and rhythm GI: Soft, nontender, nondistended Extremities: No edema Musculoskeletal: Strength 5 out of 5 in right upper extremity, 5- out of 5 left upper extremity, 4 out of 5 right lower extremity, 4- out of 5 left lower extremity Neuro: No overt focal neurological deficits, cranial nerves II through XII intact, [id number] without significant difficulty bilaterally Skin: No rashes appreciated Psych: Cooperative Results Lab / Micro Data Result Diagrams: 02/12/23 10:25 02/12/23 10:25 Labs: Laboratory Results - last 24 hr 02/12/23 10:25: WBC 6.0, RBC 4.96, Hgb 14.4, Hct 42.1, MCV 84.9, MCH 29.0, MCHC 34.2, RDW Std Deviation 38.0, RDW Coeff of Cintia 12.4, Plt Count 218, MPV 8.6, Immature Gran % (Auto) 1.000 H, Neut % (Auto) 69.9, Lymph % (Auto) 16.1 L, [place] % (Auto) 9.0, Eos % (Auto) 2.8, Baso % (Auto) 1.2 H, Absolute Neuts (auto) 4.2, Absolute Lymphs (auto) 0.97, Nucleated RBC % 0 02/12/23 10:25: PT 13.9, INR 1.1, APTT 27.1 02/12/23 10:25: Sodium 135 L, Potassium 4.1, Chloride 99, Carbon Dioxide 31.0, Anion Gap 5, BUN 11, Creatinine 0.99, Estim Creat Clear Calc 68.62, Est GFR (MDRD) Af Amer 95, Est GFR (MDRD) Non-Af 78, BUN/Creatinine Ratio 11.1, Glucose 190 H, Calcium 9.3, Troponin I High Sens [address] 02/12/23 10:17 IMPRESSION: Chronic involutional changes of the brain. N.B. : The above Results were Read Back by John Sharma MD to Dr Darin DO, and understanding confirmed on 02/12/2023 10:54:37 (ET). Electronically Signed: John Sharma MD at 10:55 EDT Reading Location ID and State: [facility] / [place] , Service support , ADDENDUM: 02/12/23 1102 IMPRESSION: Chronic involutional changes of the brain. N.B. : The above Results were Read Back by John Sharma MD to Dr Darin DO, and understanding confirmed on 02/12/2023 10:54:37 (ET). Electronically Signed: John Sharma MD at 10:55 EDT , Chest X-Ray 02/12/23 10:45 IMPRESSION: Stable examination. Electronically Signed: John Sharma MD at 11:08 EDT , Assessment & Plan Assessment/Plan (1) Left hemiparesis: (2) Diabetes mellitus: (3) Hyponatremia: (4) CVA (cerebral vascular accident): (5) Essential hypertension: PLAN: Plan #Acute worsening of chronic left-sided weakness -Admit to tele -CT head w/ chronic changes in ED -MRI/MRA -NIH q4hr -asa, statin -Echo w/ bubble study -PT/OT/Speech eval -Hold BP medications to allow for permissive hypertension for 24 hours unless SBP greater than 220 or DBP greater than 120 or until stroke is ruled out #History of CVA -Had CVA 09/25/2021 with residual deficits. Most recently had MRI 12/29/2021 which showed multiple old ischemic infarcts -See above #Type 2 diabetes mellitus -Glucose checks and sliding scale insulin #hyponatremia -Chronic -Continue salt tabs and monitor bmp #DVT ppx: Lovenox subcu Brianna Bridges MD Time spent in the patient's overall evaluation,decision-making process, review of diagnostic data, adjustment of management, discussion with other providers, nursing nursing and ancillary staff involved in patient's care documentation, 60 minutes Charges/Coding Visit Charges Inpatient E&M: 97559 Init Hosp L2
--- NOTE | 2023-02-12 12:14 | MRI_ITS ---
EXAM: MR ANGIOGRAPHY HEAD WITHOUT INTRAVENOUS CONTRAST CLINICAL INDICATION: None provided. cva r/o TECHNIQUE: Routine [place]/brain 3D time of flight MR angiogram protocol was performed without intravenous contrast. COMPARISON: No relevant prior studies available. FINDINGS: RIGHT INTERNAL CAROTID ARTERY: There is calcified plaque formation of the right cavernous carotid artery, with a mild stenosis (less than 50%). ALL ABOVE CRITERIA BY NASCET. No aneurysm. RIGHT ANTERIOR CEREBRAL ARTERY: Unremarkable. No significant stenosis at the visualized segments. Anterior communicating artery is present. No aneurysm. RIGHT MIDDLE CEREBRAL ARTERY: Unremarkable. No significant stenosis at the visualized segments. No aneurysm. RIGHT POSTERIOR CEREBRAL ARTERY: Unremarkable. No significant stenosis at the visualized segments. No aneurysm. RIGHT VERTEBRAL ARTERY: Unremarkable as visualized. No significant stenosis at the intradural/visualized segments. No aneurysm. LEFT INTERNAL CAROTID ARTERY: There is calcified plaque formation of the left cavernous carotid artery, with a mild stenosis (less than 50%). ALL ABOVE CRITERIA BY NASCET. No aneurysm. LEFT ANTERIOR CEREBRAL ARTERY: Unremarkable. No significant stenosis at the visualized segments. Anterior communicating artery is present. No aneurysm. LEFT MIDDLE CEREBRAL ARTERY: Unremarkable. No significant stenosis at the visualized segments. No aneurysm. LEFT POSTERIOR CEREBRAL ARTERY: Unremarkable. No significant stenosis at the visualized segments. No aneurysm. LEFT VERTEBRAL ARTERY: Unremarkable as visualized. No significant stenosis at the intradural/visualized segments. No aneurysm. BASILAR ARTERY: Unremarkable. No significant stenosis. No aneurysm. OTHER VASCULATURE: See above. MRI/MRA Head ONLY without Contrast IMPRESSION: 1. There is calcified plaque formation of the right cavernous carotid artery, with a mild stenosis (less than 50%). ALL ABOVE CRITERIA BY NASCET. 2. There is calcified plaque formation of the left cavernous carotid artery, with a mild stenosis (less than 50%). ALL ABOVE CRITERIA BY NASCET. Electronically Signed: Mynor Bernard MD at 16:56 EDT ,
--- NOTE | 2023-02-12 12:14 | MRI_ITS ---
STUDY: MR Brain W/O Contrast 02/12/2023 4:53 PM REASON FOR EXAM: Male, 72 years old. cva r/o LIMITED SEQUENCES- PT REFUSED TO COMPLETE EXAM; hx prev cva, increased left weakness; PREV MRI 12/29/21 COMPARISON: CT scan of the same day TECHNIQUE: Standardized multiplanar fat and water weighted pulse sequences were obtained. MR Brain W/O Contrast FINDINGS: There is mild cerebral atrophy with widening of the extra-axial spaces and ventricular dilatation. There are a limited number of small white matter hyperintensities, distributed throughout the deep white matter tracts of the cerebral hemispheres, consistent with mild chronic white matter ischemic changes. There is mild prominence of the vermian folia, consistent with atrophy of the vermis. The cerebellar hemispheres are normal. Normal bilateral basal ganglia. Normal thalami. There is no extra-axial fluid accumulation. Normal flow voids within the major intracranial circulation suggesting patency by spin echo criteria. Normal sella turcica, pituitary gland, infundibular stalk, optic chiasm and hypothalamus. Normal tectal plate and pineal gland. Normal midbrain, wayne and medulla. Normal basal cisterns. Normal bilateral temporal bones. Normal bilateral internal auditory canals. No demonstrated orbital abnormality, within the constraints of a routine brain study. Normal visualized paranasal sinuses. Normal calvarium and skull base. Normal visualized soft tissue structures. Normal visualized upper cervical spine. Aspect score 10 MRI/Brain without Contrast IMPRESSION: (NOT LISTED IN ORDER OF SIGNIFICANCE) There are no acute intracranial findings. Electronically Signed: Mynor Bernard MD at 16:55 EDT ,
--- NOTE | 2023-02-12 12:16 | ECHOD_ITS ---
Reason For Study: TIA/STROKE Procedure This was a 2D Doppler, Color Flow transthoracic echocardiogram. Exam performed portable in patient room. Left Ventricle Normal LV size. The estimated ejection fraction is 65 %. Normal diastology for age. No regional wall motion abnormalities noted. Right Ventricle Normal RV size. Normal systolic function. Atria Normal left atrium. Normal right atrium. No doppler evidence for ASD. Mitral Valve There is no mitral valve stenosis. Trivial mitral valve insufficiency. Tricuspid Valve There is no tricuspid stenosis. Trivial tricuspid valve insufficiency. Unable to estimate RV systolic pressure due to insufficient tricuspid regurgitant envelope. Aortic Valve Trisinus/trileaflet aortic valve. Aortic sclerosis, no stenosis. There is no aortic stenosis. No aortic valve insufficiency. Pulmonic Valve There is no pulmonic valvular stenosis. No pulmonic valve insufficiency. Great Vessels Normal aortic root. Pericardium/Pleural No pericardial effusion. MMode/2D Measurements & Calculations LVIDd: 3.7 cm IVSd: 1.2 cm LAV(MOD-bp): 48.0 ml LVIDs: 3.0 cm LVPWd: 1.0 cm LAV(MOD-bp) Indexed: 23.1 ml/m2 FS: 19.4 % LAV(MOD-sp2): 58.4 ml LAV(MOD-sp4): 36.2 ml SV(MOD-sp4): 58.1 ml SV(sp4-el): 61.9 ml LVAd ap4: 29.1 cm2 LVLd ap4: 8.0 cm EDV(MOD-sp4): 88.4 ml EDV(sp4-el): 90.2 ml LVAs ap4: 14.6 cm2 LVLs ap4: 6.4 cm ESV(MOD-sp4): 30.3 ml ESV(sp4-el): 28.3 ml EF(MOD-sp4): 65.7 % EF(sp4-el): 68.6 % LA A4 area: 15.2 cm2 LA dimension(2D): 3.6 cm Time Measurements MV dec time: 0.35 sec Doppler Measurements & Calculations MV E max mihir: 59.2 cm/sec Lat Peak E' Mihir: 8.7 cm/sec Med Peak E' Mihir: 6.4 cm/sec MV A max mihir: 85.7 cm/sec E/E' lat: 6.8 E/E' med: 9.2 MV E/A: 0.69 MV V2 max: 87.7 cm/sec MV dec slope: 169.9 cm/sec2 Ao V2 max: 114.5 cm/sec MV max P.1 mmHg Ao max P.3 mmHg MV V2 mean: 42.5 cm/sec Ao V2 mean: 78.9 cm/sec MV mean P.87 mmHg Ao mean P.9 mmHg MV V2 VTI: 23.8 cm Ao V2 VTI: 25.3 cm AV (velocity ratio): 0.85 LV V1 max: 93.4 cm/sec LV V1 max P.5 mmHg LV V1 mean P.0 mmHg LV V1 mean: 66.3 cm/sec LV V1 VTI: 21.6 cm ECHO/Echo Complete Interpretation Summary The estimated ejection fraction is 65 %. Normal diastology for age. Trivial mitral valve insufficiency. Ordering Physician: Brianna Bridges Referring Physician: JENY CARMONA Performed By: Janice Smith RCS
[2023-02-12 12:56] LABS: AST(SGOT) 16 U/L (15-37); Alanine Aminotransfer ALT/SGPT 24 U/L (16-61); Albumin, Serum 3.5 g/dL (3.2-5.0); Alkaline Phosphatase 71 U/L (45-117); Bilirubin, Direct 0.14 mg/dL (0.00-0.30); Globulin 2.8 g/dL (2.2-4.2); Protein, Total 6.3 g/dL (6.4-8.2); Thyroid Stim Hormone (TSH) 2.47 uIU/mL (0.358-3.74)
[2023-02-12 13:06] LABS: Bedside Glucose 116 mg/dL (74-106)
[2023-02-12 17:11] LABS: Bedside Glucose 139 mg/dL (74-106)
[2023-02-12] MEDS: hydrOXYzine 10 MG Tablet PO (19:08)
[2023-02-12] MEDS: Atorvastatin Calcium 80 MG Tablet PO (22:12)
[2023-02-12] MEDS: MELATONIN 10 MG TABLET PO (22:12)
[2023-02-12] MEDS: Sodium Chloride 1 GM Tablet PO (22:12)
[2023-02-12] MEDS: Senna Tablet 1 TABLET PO (22:12)
[2023-02-12 23:01] LABS: Bedside Glucose 143 mg/dL (74-106)
[2023-02-13 00:58] VITALS: BP 144/91; PULSE 54; RESP 16; TEMP 36.4; O2SAT 95
[2023-02-13 03:17] VITALS: BP 181/98; PULSE 57; RESP 16; TEMP 36.6; O2SAT 96
[2023-02-13 04:50] LABS: Absolute Lymphocyte Count 1.26 X10^3/uL (0.83-4.51); Absolute Neutrophil Count 3.1 X10^3/uL (2.0-7.7); Basophil# 0.06 X10^3/uL; Basophil% 1.1 % (0-1); Eosinophil# 0.23 X10^3/uL; Eosinophils% 4.3 % (0-5); Hematocrit 38.9 % (40-54); Hemoglobin 13.6 g/dL (13.0-16.5); Lymphocyte # 1.26 X10^3/ul (0.83-4.51); Lymphocyte % 23.8 % (19-41); Mean Corpuscular Hgb 29.4 pg (27.0-32.0); Mean Platelet Vol. 8.5 fl (6.2-12.0); Monocyte# 0.62 X10^3/uL; Monocyte% 11.7 % (0-10); NRBC Flagged by Analyzer 0 % (0-5); Neutrophil # 3.07 X10^3/uL (2.7-7.7); Platelet Count 199 K/mm3 (150-450); RBC Distribution Width CV 12.5 % (11.6-14.6); RBC Distribution Width SD 37.4 fl (35.1-43.9); Red Blood Count 4.63 M/mm3 (4.6-6.2); White Blood Count 5.3 K/mm3 (4.4-11.0)
[2023-02-13 05:00] VITALS: BMI 28.4
[2023-02-13 05:18] LABS: ALB/GLOB Ratio 1.1 RATIO (0.9-2.4); AST(SGOT) 16 U/L (15-37); Alanine Aminotransfer ALT/SGPT 20 U/L (16-61); Albumin, Serum 3.2 g/dL (3.2-5.0); Alkaline Phosphatase 60 U/L (45-117); Anion Gap 6 (5-15); BUN 11 mg/dL (7-18); BUN/Creat Ratio 13.2 RATIO (10-20); Chloride 101 mmol/L (98-107); Cholesterol 116 mg/dL (200); Creatinine, Serum 0.83 mg/dL (0.70-1.30); EST Glomerular Filtration Rate 96 mL/min (>60); Est Glom Filt Rate - Afr Amer 116 mL/min (>60); Estimated Creatinine Clearance 81.84 ml/min; Globulin 2.8 g/dL (2.2-4.2); Glucose 143 mg/dL (74-106); High Density Lipoprotein 57 mg/dL; Potassium 3.7 mmol/L (3.5-5.1); Sodium Level 134 mmol/L (136-145); Triglycerides 75 mg/dL; Very Low Density Lipoprotein 15 mg/dL (5-40)
[2023-02-13 08:06] VITALS: O2SAT 96
[2023-02-13] MEDS: Enoxaparin 40 MG/0.4 ML Syringe SC (08:29)
[2023-02-13] MEDS: Citalopram 20 MG Tablet PO (08:29)
[2023-02-13] MEDS: Aspirin 81 MG TAB.CHEW PO (08:29)
[2023-02-13] MEDS: Allopurinol 100 MG Tablet PO (08:29)
[2023-02-13] MEDS: Sodium Chloride 1 GM Tablet PO (08:29)
[2023-02-13 08:30] VITALS: BP 177/98; PULSE 70; RESP 16; TEMP 36.4; O2SAT 97
[2023-02-13 08:50] LABS: Bedside Glucose 144 mg/dL (74-106)
--- NOTE | 2023-02-13 09:00 | CASEMGMT ---
Discharge Planning Updates sent to [facility]. Katelyn Bonds
--- NOTE | 2023-02-13 10:07 | CASEMGMT ---
Discharge Planning Updated [facility] on tentative discharge date via [facility]. Asked if pre-cert will be needed. Awaiting response. Katelyn Bonds
--- NOTE | 2023-02-13 10:52 | CASEMGMT ---
SW spoke with patient and confirmed his plan is to return to [place]. Patient did ask SW to call his as well. SW called patient's Jayla. Introduced self and role at [facility]. SW confirmed the plan is to return to [place]. Jayla said she will transport patient. SW is waiting to hear back from [facility] as to whether or not patient needs a pre-cert to return. Marti Zhang PLATE [employer] JAYME
[2023-02-13] MEDS: Insulin Lispro 100 UNIT/ML INSULN.PEN SC (11:08)
[2023-02-13 11:31] LABS: Bedside Glucose 173 mg/dL (74-106)
[2023-02-13] MEDS: busPIRone 5 MG Tablet 10 MG PO (12:00)
--- NOTE | 2023-02-13 12:13 | PCM.TXEXTCAR ---
Diet Diet Order/Speech Therapy: 02/12/23 12:40 Diet: Regular - General Is pt able to select menu?: Yes Routine Orders/Code Status Suppository Type: Dulcolax 10mg Suppository Frequency: Daily PRN Therapies Physical Therapy: Eval and Treat Occupational Therapy: Eval and Treat Problem/Diagnosis (1) TIA (transient ischemic attack): Status: Acute Code(s): G45.9 - Transient cerebral ischemic attack, unspecified (2) Left hemiparesis: Status: Chronic Code(s): G81.94 - Hemiplegia, unspecified affecting left nondominant side (3) Diabetes mellitus: Status: Chronic Code(s): E11.9 - Type 2 diabetes mellitus without complications (4) Hyponatremia: Status: Acute Code(s): E87.1 - Hypo-osmolality and hyponatremia (5) CVA (cerebral vascular accident): Status: Chronic Code(s): I63.9 - Cerebral infarction, unspecified (6) Essential hypertension: Status: Chronic Code(s): I10 - Essential (primary) hypertension Plan #Acute worsening of chronic left-sided weakness- TIA #History of CVA #Type 2 diabetes mellitus #hyponatremia, chronic PAYAM HAMM, is a 72 M with a history of type 2 diabetes mellitus, CVA in 09/25/2021, hyponatremia, hypertension who presented to [facility] 02/12/2023 with worsening left-sided weakness with last known well 10 AM day prior to presentation.? Denied any recent illness or fever or other complaints but endorsed he was experiencing worsening weakness on the left side when he was undergoing physical therapy the day prior to presentation.? He does have baseline weakness due to his prior stroke but it worsened over [address] with no evidence of bleed or mass, given greater than 24 hours he was outside the window for intervention so hospitalist consulted for admission further work-up.? MRI with no acute stroke and MRA without occlusion, echocardiogram with EF of 65% and normal diastole for age with no other abnormalities, had previous negative bubble study. Symptoms had been improving since admission and noted has chronic left-sided weakness. He has no acute CVA, diagnosis high risk TIA and will discharge on DAPT for 21 days followed by aspirin. Discharge instructions as followed: -You have been diagnosed with a TIA, given your risk factors you will be discharged on aspirin 81 mg plus clopidogrel 75 mg for 21 days at which time you will continue aspirin daily but stop the clopidogrel -It is recommended you follow-up with neurology upon discharge, if you do not have a neurologist please follow-up with neurology upon discharge, please call Dr. Chicas's office upon discharge to schedule hospital follow-up appointment ) -Your other home medications were continued -Please call your primary care provider's office upon discharge to schedule a hospital follow up within 1 week. -For any concerning signs or symptoms please call 911 or proceed to the nearest emergency department Allergies/Procedures Done in Hospital Allergies No Known Allergies Allergy (Verified 02/12/23 10:02) Procedures: Transthoracic Echo Type of Care/Length of Stay Estimated LOS: Convalescent Care Less Than 30 days Type of Care Needed: Skilled Rehab Potential: Fair Prognosis: Fair Additional Orders/Day of Discharge Day of Discharge: 02/13/23 Discharge Plan Admission Admit Date/Time: 02/12/23 12:08 Primary Reason for Your Visit: Worsened left-sided weakness Attending Provider: Brianna Bridges Primary Care Provider: Akash Agosto Instructions Patient Instructions: ED Fall Prevention Additional Instructions / Restrictions: DISCHARGE INSTRUCTIONS PLEASE READ *Please take this with you to your next doctors appointment* -You have been diagnosed with a TIA, given your risk factors you will be discharged on aspirin 81 mg plus clopidogrel 75 mg for 21 days at which time you will continue aspirin daily but stop the clopidogrel -It is recommended you follow-up with neurology upon discharge, if you do not have a neurologist please follow-up with neurology upon discharge, please call Dr. Chicas's office upon discharge to schedule hospital follow-up appointment ( [phone]) -Your other home medications were continued -Please call your primary care provider's office upon discharge to schedule a hospital follow up within 1 week. -For any concerning signs or symptoms please call 911 or proceed to the nearest emergency department Discharge Orders/Prescriptions Prescriptions: New aspirin 81 mg Tablet,Chewable 81 mg PO BREAKFAST Qty: 30 0RF clopidogrel [Plavix] 75 mg tablet 75 mg PO DAILY 21 Days Qty: 21 0RF Continued metformin 1,000 MG tablet 1,000 mg PO BID atorvastatin 40 MG tablet 40 mg PO DAILY sodium chloride 1,000 mg tablet,soluble 1 g PO BID allopurinol 100 mg tablet 100 mg PO DAILY metoprolol succinate 50 mg tablet extended release 24 hr 25 mg PO DAILY Rx Instructions: Hold for heart less than 60 or systolic blood pressure less than 100 mmHg. citalopram [Celexa] 20 mg Tablet 20 mg PO DAILY lisinopril 40 mg tablet 40 mg PO DAILY mirtazapine 15 mg tablet 15 mg PO QHS magnesium oxide 400 mg magnesium capsule 400 mg PO DAILY sennosides [senna] 8.6 mg Tablet 8.6 mg PO QHS Discontinued aspirin 325 mg tablet,delayed release (DR/EC) 325 mg PO DAILY PRN (Reason: Pain) Referrals / Follow Up: Akash Agosto MD [Primary Care Provider] - Within 1 Week Ilir Chicas MD [Non-Staff -Ordering Privileges] - See Referral Note (Please follow-up with neurology upon discharge, please call Dr. Chicas's office upon discharge to schedule hospital follow-up appointment (ph [phone])) Disposition Disposition (needs filled in before D/C Order can be placed): [facility]
--- NOTE | 2023-02-13 12:17 | DS.PCM_ITS ---
Providers Date of Admission: 02/12/23 Date of Discharge: 02/13/23 Primary Care Physician: Dr. Akash Agosto MD Reason For Visit: CVA R/O Diagnosis Discharge Diagnosis (1) TIA (transient ischemic attack): Status: Acute Code(s): G45.9 - Transient cerebral ischemic attack, unspecified (2) Left hemiparesis: Status: Chronic Code(s): G81.94 - Hemiplegia, unspecified affecting left nondominant side (3) Diabetes mellitus: Status: Chronic Code(s): E11.9 - Type 2 diabetes mellitus without complications (4) Hyponatremia: Status: Acute Code(s): E87.1 - Hypo-osmolality and hyponatremia (5) CVA (cerebral vascular accident): Status: Chronic Code(s): I63.9 - Cerebral infarction, unspecified (6) Essential hypertension: Status: Chronic Code(s): I10 - Essential (primary) hypertension Plan #Acute worsening of chronic left-sided weakness- TIA #History of CVA #Type 2 diabetes mellitus #hyponatremia, chronic Medications at Discharge Home Medications metformin 1,000 mg tablet 1,000 mg PO BID diabetes 12/18/19 atorvastatin 40 mg tablet 40 mg PO DAILY Cholesterol 10/13/21 sodium chloride 1,000 mg soluble tablet 1 g PO BID Low sodium 11/14/21 allopurinol 100 mg tablet 100 mg PO DAILY GOUT 09/26/22 metoprolol succinate 50 mg tablet,extended release 24 hr 25 mg PO DAILY BP/pulse 09/28/22 citalopram 20 mg tablet (Celexa) 20 mg PO DAILY anxiety 11/20/22 lisinopril 40 mg tablet 40 mg PO DAILY BP 02/12/23 magnesium oxide 400 mg PO DAILY SUPPLEMENT 02/12/23 mirtazapine 15 mg tablet 15 mg PO QHS MOOD 02/12/23 sennosides 8.6 mg tablet (senna) 8.6 mg PO QHS CONSTIPATION 02/12/23 aspirin 81 mg chewable tablet 81 mg PO BREAKFAST #30 tabs 02/13/23 clopidogrel 75 mg tablet (Plavix) 75 mg PO DAILY 21 days #21 tabs 02/13/23 Hospital Course Procedures Transthoracic echo Summary of Care Provided Minutes Spent on Discharge: 32 Hospital Course: PAYAM HAMM, is a 72 M with a history of type 2 diabetes mellitus, CVA in 09/25/2021, hyponatremia, hypertension who presented to [facility] 02/12/2023 with worsening left-sided weakness with last known well 10 AM day prior to presentation.? Denied any recent illness or fever or other complaints but endorsed he was experiencing worsening weakness on the left side when he was undergoing physical therapy the day prior to presentation.? He does have baseline weakness due to his prior stroke but it worsened over [address] with no evidence of bleed or mass, given greater than 24 hours he was outside the window for intervention so hospitalist consulted for admission further work- up.? MRI with no acute stroke and MRA without occlusion, echocardiogram with EF of 65% and normal diastole for age with no other abnormalities, had previous negative bubble study. Symptoms had been improving since admission and noted has chronic left-sided weakness. He has no acute CVA, diagnosis high risk TIA and will discharge on DAPT for 21 days followed by aspirin. Discharge instructions as followed: -You have been diagnosed with a TIA, given your risk factors you will be discharged on aspirin 81 mg plus clopidogrel 75 mg for 21 days at which time you will continue aspirin daily but stop the clopidogrel -It is recommended you follow-up with neurology upon discharge, if you do not have a neurologist please follow-up with neurology upon discharge, please call Dr. Chicas's office upon discharge to schedule hospital follow-up appointment (ph [phone]) -Your other home medications were continued -Please call your primary care provider's office upon discharge to schedule a hospital follow up within 1 week. -For any concerning signs or symptoms please call 911 or proceed to the nearest emergency department Physical Exam Narrative General: Alert, oriented, no apparent distress HEENT: Atraumatic, normocephalic Eyes: Anicteric, normal conjunctiva, extraocular movements intact, pupils equal Neck: Supple Respiratory: Clear to auscultation bilaterally, normal respiratory effort Cardiovascular: Regular rate and rhythm GI: Soft, nontender, nondistended Extremities: No edema Musculoskeletal: Strength 5 out of 5 in right upper extremity, 5- out of 5 left upper extremity, 5 out of 5 right lower extremity, 5 - out of 5 left lower extremity Neuro: No overt focal neurological deficits, cranial nerves II through XII intact Skin: No rashes appreciated Psych: Cooperative Weight / BMI Weight Weight: 90 kg Body Mass Index (BMI) 28.4 ABG / Lab / Microbiology Data Result Diagrams: 02/13/23 04:23 02/13/23 04:23 Laboratory: Laboratory Results - last 24 hr 02/12/23 10:25: Total Bilirubin 0.40, Direct Bilirubin 0.14, AST 16, ALT 24, Alkaline Phosphatase 71, Total Protein 6.3 L, Albumin 3.5, Globulin 2.8, TSH 2.47 02/12/23 12:45: POC Glucose 116 H 02/12/23 16:37: POC Glucose 139 H 02/12/23 22:10: POC Glucose 143 H 02/13/23 04:23: WBC 5.3, RBC 4.63, Hgb 13.6, Hct 38.9 L, MCV 84.0, MCH 29.4, MCHC 35.0, RDW Std Deviation 37.4, RDW Coeff of Cintia 12.5, Plt Count 199, MPV 8.5, Immature Gran % (Auto) 1.100 H, Neut % (Auto) 58.0, Lymph % (Auto) 23.8, Schuyler % (Auto) 11.7 H, Eos % (Auto) 4.3, Baso % (Auto) 1.1 H, Absolute Neuts (auto) 3.1, Absolute Lymphs (auto) 1.26, Nucleated RBC % 0 02/13/23 04:23: Sodium 134 L, Potassium 3.7, Chloride 101, Carbon Dioxide 27.0, Anion Gap 6, BUN 11, Creatinine 0.83, Estim Creat Clear Calc 81.84, Est GFR (MDRD) Af Amer 116, Est GFR (MDRD) Non-Af 96, BUN/Creatinine Ratio 13.2, Glucose 143 H, Calcium 9.0, Total Bilirubin 0.60, AST 16, ALT 20, Alkaline Phosphatase 60, Total Protein 6.0 L, Albumin 3.2, Globulin 2.8, Albumin/Globulin Ratio 1.1, Triglycerides 75, Cholesterol 116, LDL Cholesterol 44, VLDL Cholesterol 15, HDL Cholesterol 57 02/13/23 08:24: POC Glucose 144 H 02/13/23 11:06: POC Glucose 173 H Radiography Diagnostic Testing: Radiology Impression Brain MRI 02/12/23 12:14 IMPRESSION: (NOT LISTED IN ORDER OF SIGNIFICANCE) There are no acute intracranial findings. Electronically Signed: Mynor Bernard MD at 16:55 EDT , Head MRA 02/12/23 12:14 IMPRESSION: 1. There is calcified plaque formation of the right cavernous carotid artery, with a mild stenosis (less than 50%). ALL ABOVE CRITERIA BY NASCET. 2. There is calcified plaque formation of the left cavernous carotid artery, with a mild stenosis (less than 50%). ALL ABOVE CRITERIA BY NASCET. Electronically Signed: Mynor Bernard MD at 16:56 EDT , Echocardiogram 02/12/23 12:16 Interpretation Summary The estimated ejection fraction is 65 %. Normal diastology for age. Trivial mitral valve insufficiency. Ordering Physician: Brianna Bridges Referring Physician: AKASH AGOSTO Performed By: Janice Smith RCS Meaningful Use Info Meaningful Use Diagnoses (Choose all that apply): None applicable Discharge Plan Admission Admit Date/Time: 02/12/23 12:08 Primary Reason for Your Visit: Worsened left-sided weakness Attending Provider: Brianna Bridges Primary Care Provider: Akash Agosto Instructions Patient Instructions: ED Fall Prevention Additional Instructions / Restrictions: DISCHARGE INSTRUCTIONS PLEASE READ *Please take this with you to your next doctors appointment* -You have been diagnosed with a TIA, given your risk factors you will be discharged on aspirin 81 mg plus clopidogrel 75 mg for 21 days at which time you will continue aspirin daily but stop the clopidogrel -It is recommended you follow-up with neurology upon discharge, if you do not have a neurologist please follow-up with neurology upon discharge, please call Dr. Chicas's office upon discharge to schedule hospital follow-up appointment ( [phone]) -Your other home medications were continued -Please call your primary care provider's office upon discharge to schedule a hospital follow up within 1 week. -For any concerning signs or symptoms please call 911 or proceed to the nearest emergency department Discharge Orders/Prescriptions Prescriptions: New aspirin 81 mg Tablet,Chewable 81 mg PO BREAKFAST Qty: 30 0RF clopidogrel [Plavix] 75 mg tablet 75 mg PO DAILY 21 Days Qty: 21 0RF Continued metformin 1,000 MG tablet 1,000 mg PO BID atorvastatin 40 MG tablet 40 mg PO DAILY sodium chloride 1,000 mg tablet,soluble 1 g PO BID allopurinol 100 mg tablet 100 mg PO DAILY metoprolol succinate 50 mg tablet extended release 24 hr 25 mg PO DAILY Rx Instructions: Hold for heart less than 60 or systolic blood pressure less than 100 mmHg. citalopram [Celexa] 20 mg Tablet 20 mg PO DAILY lisinopril 40 mg tablet 40 mg PO DAILY mirtazapine 15 mg tablet 15 mg PO QHS magnesium oxide 400 mg magnesium capsule 400 mg PO DAILY sennosides [senna] 8.6 mg Tablet 8.6 mg PO QHS Discontinued aspirin 325 mg tablet,delayed release (DR/EC) 325 mg PO DAILY PRN (Reason: Pain) Referrals / Follow Up: Akash Agosto MD [Primary Care Provider] - Within 1 Week Ilir Chicas MD [Non-Staff -Ordering Privileges] - See Referral Note (Please follow-up with neurology upon discharge, please call Dr. Chicas's office upon discharge to schedule hospital follow-up appointment )) Disposition Disposition (needs filled in before D/C Order can be placed): [facility] Charges/Coding Visit Charges Inpatient E&M: 86331 Disch Hosp >30min
--- NOTE | 2023-02-13 13:20 | CASEMGMT ---
ONOFRE CM in to complete RAYO form with patient. RN GENNA explained RAYO form to patient, patient voiced understanding. Patient signed RAYO Form and filed in chart. Patient provided with copy of signed RAYO Form. Patient had no further questions or concerns at this time.
--- NOTE | 2023-02-13 13:54 | PHA.DC.MR ---
Pharmacy Service has performed discharge medication reconciliation for this patient. The patient's discharge medication list was reviewed for discrepancies and discrepancies were resolved. Home Medications metformin 1,000 mg tablet 1,000 mg PO BID diabetes 12/18/19 atorvastatin 40 mg tablet 40 mg PO DAILY Cholesterol 10/13/21 sodium chloride 1,000 mg soluble tablet 1 g PO BID Low sodium 11/14/21 allopurinol 100 mg tablet 100 mg PO DAILY GOUT 09/26/22 metoprolol succinate 50 mg tablet,extended release 24 hr 25 mg PO DAILY BP/pulse 09/28/22 citalopram 20 mg tablet (Celexa) 20 mg PO DAILY anxiety 11/20/22 lisinopril 40 mg tablet 40 mg PO DAILY BP 02/12/23 magnesium oxide 400 mg PO DAILY SUPPLEMENT 02/12/23 mirtazapine 15 mg tablet 15 mg PO QHS MOOD 02/12/23 sennosides 8.6 mg tablet (senna) 8.6 mg PO QHS CONSTIPATION 02/12/23 aspirin 81 mg chewable tablet 81 mg PO BREAKFAST #30 tabs 02/13/23 clopidogrel 75 mg tablet (Plavix) 75 mg PO DAILY 21 days #21 tabs 02/13/23
--- NOTE | 2023-02-13 14:39 | CASEMGMT ---
Discharge Planning Discharge orders and med list sent to [place] via [facility]. Patients is going to transfer. left with her to see what time works for her. Katelyn Bonds
[2023-02-13 14:45] VITALS: BP 174/98; PULSE 58; RESP 16; TEMP 36.8; O2SAT 99
[2023-02-13 15:12] VITALS: BP 174/98; PULSE 58
[2023-02-13] MEDS: Metoprolol Tartrate 25 MG Tablet 12.5 MG PO (15:12)
[2023-02-13 15:20] VITALS: BMI 28.4
--- NOTE | 2023-02-13 15:27 | NURSING ---
Report called to [facility].
== END 2023-02-13 12:08 ==
LOC: ED 11:37 → PCU 11:46
PROVIDERS: Admitting Provider Internal Medicine; Emergency Provider Emergency Medicine; PCP Family Medicine; Visit Provider Internal Medicine
DX: G45.9 Transient cerebral ischemic attack, unspecified (principal); I69.354 Hemiplegia and hemiparesis following cerebral infarction affecting left non-dominant side; E11.9 Type 2 diabetes mellitus without complications; E87.1 Hypo-osmolality and hyponatremia; R29.702 NIHSS score 2; Z79.82 Long term (current) use of aspirin; E78.5 Hyperlipidemia, unspecified; Z79.84 Long term (current) use of oral hypoglycemic drugs; Z87.891 Personal history of nicotine dependence; I10 Essential (primary) hypertension; M10.9 Gout, unspecified; Z79.899 Other long term (current) drug therapy
CPT/HCPCS: 36415; 70450; 70544; 70551; 71045; 80048; 80053; 80061; 80076; 82962; 84443; 84484; 85025; 85610; 85730; 93005; 93306; 94668; 94762; 96372; 97162; 97166; 99221; 99284; Q9957; A4216; G0378

== ENCOUNTER → 2023-07-05 | Outpatient (CLI) | payer MEDICARE, MEDICAID, SELFPAY ==
--- NOTE | 2023-07-05 14:40 | CT_ITS ---
STUDY: CTA HEAD AND NECK WITH CONTRAST REASON FOR EXAM: Male, 72 years old. left carotid stenosis RADIATION DOSAGE (If Supplied By Facility): CTDIvol = ( 30.89 ) mGy, DLP = ( 1562.27 ) mGycm TECHNIQUE: CT angiography was performed with a multi-detector CT scanner. Data acquisition was obtained from the skull base through the vertex following intravenous administration of IV 100mL [id number]-[id number]. MIP images were reconstructed from the axial data set. Post-processing of the angiographic images was performed, with multiplanar reformation and 3D reconstruction. Individualized dose optimization techniques were used for this CT. COMPARISON: No relevant priors. FINDINGS: Normal bilateral petrous carotid arteries. Normal right cavernous carotid artery with a normal supraclinoid bifurcation. Minor calcific plaquing of the left cavernous carotid artery with a normal supraclinoid bifurcation. Normal right A1 segments of the anterior cerebral artery. Normal left A1 segments of the anterior cerebral artery. Normal intact anterior communicating artery (ACOM). Normal bilateral A2 segments of the anterior cerebral arteries. Normal right M1 and M2 segments of the middle cerebral arteries, with a normal M1 bifurcation. Normal left M1 and M2 segments of the middle cerebral arteries, with a normal M1 bifurcation. Normal right posterior communicating artery (PCOM). Normal left posterior communicating artery (PCOM). Normal bilateral vertebral arteries. Normal basilar artery with a normal basilar bifurcation. The visualized bilateral superior cerebellar (SCA) arteries are normal. Normal bilateral P1, P2 and visualized P3 segments of the posterior cerebral arteries. There is no demonstrated aneurysm of the [place]. There is no demonstrated abnormality of the visualized brain. AORTIC ARCH: Normal visualized aortic arch. Normal origins of the brachiocephalic, left common carotid, and left subclavian arteries. RIGHT CAROTID ARTERIES: Minor calcific plaquing of the right common carotid artery (CCA). Normal right common carotid bulb. Normal origin of the right internal carotid (ICA) artery without a hemodynamically significant stenosis. Normal visualized cervical portion of the right internal carotid artery. Normal origin of the right external carotid artery (ECA). LEFT CAROTID ARTERIES: Normal left common carotid artery (CCA). There is mild soft plaque of the carotid bulb in association with ulcerative plaque Moderate soft and calcific plaquing of the origin of the left internal carotid (ICA) artery demonstrating hemodynamically significant stenosis. Normal visualized cervical portion of the left internal carotid artery. Normal origin of the left external carotid artery (ECA). VERTEBRAL ARTERIES: Normal bilateral vertebral arteries. CT/CTA Head AND Neck W/ Contrast IMPRESSION: Mild atherosclerotic disease of the brain. 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
[2023-07-05 14:54] LABS: CREATININE FINGERSTICK < 0.9 mg/dL (0.70-1.30); EGFR FINGERSTICK > 60.0000 mL/min (>60)
== END | disposition home or self-care (01) ==
PROVIDERS: Referring Provider Surgery Trauma Surgery; Visit Provider Surgery Trauma Surgery
DX: I63.22 Cerebral infarction due to unspecified occlusion or stenosis of basilar artery (principal)
CPT/HCPCS: 70496; 70498; Q9967

== ENCOUNTER → 2023-07-16 | Outpatient (CLI) | payer MEDICARE, MEDICAID, SELFPAY ==
[2023-07-16 14:44] LABS: Creatinine, Serum 0.91 mg/dL (0.70-1.30); EST Glomerular Filtration Rate 86 mL/min (>60); Est Glom Filt Rate - Afr Amer 104 mL/min (>60)
== END | disposition home or self-care (01) ==
LOC: PAT 08-16 08:16
PROVIDERS: PCP Family Medicine; Referring Provider Surgery Trauma Surgery; Visit Provider Surgery Trauma Surgery
DX: I65.22 Occlusion and stenosis of left carotid artery (principal)
CPT/HCPCS: 36415; 82565